=== PATIENT | male | born 1945 | race Caucasian/White ===

== ENCOUNTER 2017-02-06 11:59 | Emergency (ER) | payer OTHER, MEDICARE ==
--- NOTE | 2017-02-06 12:52 | ER Document Report ---
ED Medical Screen (RME) - General Chief Complaint: Low Back Pain Stated Complaint: BACK PAIN Time Seen by Provider: 02/06/17 12:47 Notes: Patient states that about 1 week ago he started to have right low back pain. He states it does not radiate into his leg. He denies any new problems with urination. He states he has been constipated for the last 3 days however. No vomiting. No problems with appetite or eating. TRAVEL OUTSIDE OF THE [place] IN LAST 30 DAYS: No - Related Data Allergies/Adverse Reactions: No Known Allergies Allergy (Verified 02/06/17 12:05) Past Medical History - Social History Chew tobacco use (# tins/day): No Frequency of alcohol use: None Drug Abuse: None Renal/ Medical History: Denies: Hx Peritoneal Dialysis Past Surgical History: Reports: Hx Orthopedic Surgery - back/herniated disk - Immunizations History of Influenza Vaccine for 01/2017 - 06/2017 Season: Refused Physical Exam - Vital signs Vitals: Temp Pulse Resp BP Pulse Ox 97.6 F 75 18 158/93 H 96 02/06/17 12:06 02/06/17 12:06 02/06/17 12:06 02/06/17 12:06 02/06/17 12:06 Course - Vital Signs Vital signs: Temp Pulse Resp BP Pulse Ox 97.6 F 75 18 158/93 H 96 02/06/17 12:06 02/06/17 12:06 02/06/17 12:06 02/06/17 12:06 02/06/17 12:06
[2017-02-06 13:33] LABS: ABSOLUTE EOSINOPHILS # (AUTO) 0.6 10^3/uL (0.0-0.6); ABSOLUTE LYMPHOCYTES (AUTO) 1.5 10^3/uL (0.5-4.7); ABSOLUTE NEUT (AUTO) 6.3 10^3/uL (1.7-8.2); BASOPHILS % (AUTO) 0.2 % (0-2); EOSINOPHILS % (AUTO) 6.1 % (0-6); HEMOGLOBIN 15.9 g/dL (13.5-17.0); HGB HCT DIFFERENCE 2.7; LYMPHOCYTES % (AUTO) 15.8 % (13-45); MEAN CORPUSCULAR HEMOGLOBIN 31.4 pg (27.0-33.4); MEAN CORPUSCULAR HGB CONC 35.2 g/dL (32.0-36.0); MEAN CORPUSCULAR VOLUME 89 fl (80-97); MONOCYTES % (AUTO) 10.5 % (3-13); RED BLOOD COUNT 5.05 10^6/uL (4.35-5.55); RED CELL DISTRIBUTION WIDTH 14.3 % (11.5-14.0); SEGMENTED NEUTROPHILS % (AUTO) 67.4 % (42-78); WHITE BLOOD COUNT 9.3 10^3/uL (4.0-10.5)
[2017-02-06 13:50] LABS: APPEARANCE,URINE CLEAR; BILIRUBIN,URINE NEGATIVE (NEGATIVE); GLUCOSE, URINE NEGATIVE (NEGATIVE); KETONES,URINE NEGATIVE (NEGATIVE); LEUKOCYTE ESTERASE,URINE NEGATIVE (NEGATIVE); NITRITE,URINE NEGATIVE (NEGATIVE); PROTEIN,URINE NEGATIVE (NEGATIVE)
[2017-02-06 13:50] LABS: ALANINE AMINOTRANSFERASE 37 U/L (21-72); ALBUMIN 4.4 g/dL (3.5-5.0); ALKALINE PHOSPHATASE 113 U/L (38-126); ANION GAP 12 (5-19); ASPARTATE AMINO TRANSFERASE 43 U/L (17-59); BILIRUBIN,DIRECT 0.5 mg/dL (0.0-0.4); BILIRUBIN,TOTAL 0.7 mg/dL (0.2-1.3); BLOOD UREA NITROGEN 13 mg/dL (7-20); CALCIUM 10.7 mg/dL (8.4-10.2); CARBON DIOXIDE 34 mmol/L (22-30); CHLORIDE 96 mmol/L (98-107); CREATININE RESULT 0.78 mg/dL (0.52-1.25); GLUCOSE 94 mg/dL (75-110); POTASSIUM 3.3 mmol/L (3.6-5.0); SODIUM 141.7 mmol/L (137-145); TOTAL PROTEIN 7.6 g/dL (6.3-8.2)
--- NOTE | 2017-02-06 14:08 | RADIOLOGY REPORT (SQ) ---
EXAM DESCRIPTION: L SPINE 2 VIEWS COMPLETED DATE/TIME: 02/06/2017 1:37 pm REASON FOR STUDY: pain COMPARISON: None. NUMBER OF VIEWS: Two views. TECHNIQUE: AP, and lateral views of the lumbar spine. LIMITATIONS: None. FINDINGS: MINERALIZATION: Normal. SEGMENTATION: Normal. No transitional anatomy. ALIGNMENT: Mild convex left scoliosis. VERTEBRAE: Maintained height. No fracture or worrisome bone lesion. DISCS: Multilevel disc space narrowing with osteophytes. POSTERIOR ELEMENTS: Pedicles and facets are intact. No pars defect or posterior arch defects. Facet arthropathy is present. HARDWARE: None in the spine. PARASPINAL SOFT TISSUES: Normal. PELVIS: Intact as visualized. No fractures or worrisome bone lesions. SI joints intact. OTHER: No other significant finding. IMPRESSION: Spondylosis. No acute findings. TECHNICAL DOCUMENTATION: JOB ID: [id number] [email or web address]- All Rights Reserved
[2017-02-06] MEDS ORDERED: CYCLOBENZAPRINE HCL 10 MG TABLET PO ONE (14:46)
[2017-02-06] MEDS ORDERED: HYDROCODONE/ACETAMINOPHEN 5-325 MG TABLET PO ONE (14:46)
--- NOTE | 2017-02-06 15:25 | ER Document Report ---
ED General Pain - General Chief Complaint: Low Back Pain Stated Complaint: BACK PAIN Time Seen by Provider: 02/06/17 12:47 Mode of Arrival: Ambulatory Information source: Patient Notes: Patient is a 71-year-old male who presents to the ER today for a month of back pain. Patient states that it started in his upper back and now is in his lower back, on the right side. Patient denies any injury. He does admit to a history of herniated disks. He denies any numbness or tingling anywhere, radiation of the pain down either of his legs. He denies any loss of bladder or bowel function. TRAVEL OUTSIDE OF THE [place] IN LAST 30 DAYS: No - Related Data Allergies/Adverse Reactions: No Known Allergies Allergy (Verified 02/06/17 12:05) Home Medications: Current Home Medications Aspirin [Aspirin EC] 81 mg PO DAILY 02/06/17 [History] Calcium Carbonate [Calcium] 500 mg PO DAILY 02/06/17 [History] Cholecalciferol (Vitamin D3) [Vitamin D3] 400 unit PO DAILY 02/06/17 [History] Cyanocobalamin (Vitamin B-12) [Vitamin B-12] 500 mcg PO DAILY 02/06/17 [History] Levothyroxine Sodium 175 mcg PO DAILY 02/06/17 [History] Lisinopril/Hydrochlorothiazide [Lisinopril-Hctz 20-25 mg Tab] 1 each PO DAILY [History] Metoprolol Tartrate 50 mg PO BID 02/06/17 [History] Simvastatin 40 mg PO QHS 02/06/17 [History] Tamsulosin HCl 0.4 mg PO QHS 02/06/17 [History] Past Medical History - General Information source: Patient - Social History Smoking Status: Current Every Day Smoker Chew tobacco use (# tins/day): No Frequency of alcohol use: None Drug Abuse: None Patient has suicidal ideation: No Patient has homicidal ideation: No Renal/ Medical History: Denies: Hx Peritoneal Dialysis Past Surgical History: Reports: Hx Orthopedic Surgery - back/herniated disk Review of Systems - Review of Systems Constitutional: No symptoms reported EENT: No symptoms reported Cardiovascular: No symptoms reported Respiratory: No symptoms reported Gastrointestinal: No symptoms reported Genitourinary: No symptoms reported Male Genitourinary: No symptoms reported Musculoskeletal: See HPI Skin: No symptoms reported Hematologic/Lymphatic: No symptoms reported Neurological/Psychological: No symptoms reported Physical Exam - Vital signs Vitals: Temp Pulse Resp BP Pulse Ox 97.6 F 75 18 158/93 H 96 02/06/17 12:06 02/06/17 12:06 02/06/17 12:06 02/06/17 12:06 02/06/17 12:06 - Notes Notes: PHYSICAL EXAMINATION: GENERAL: Uncomfortable appearing, sitting in chair favoring the right side, but in no acute distress. HEAD: Atraumatic, normocephalic. EYES: Pupils equal round and reactive to light, extraocular movements intact, sclera anicteric, conjunctiva are normal. NECK: Normal range of motion, supple without lymphadenopathy LUNGS: CTAB and equal. No wheezes rales or rhonchi. HEART: Regular rate and rhythm without murmurs ABDOMEN: Soft, no tenderness. No guarding, no rebound BACK: Mild right SI joint tenderness, no vertebral tenderness, normal ROM GI/: no CVA tenderness EXTREMITIES: Normal range of motion, no pitting edema. No cyanosis. NEUROLOGICAL: Cranial nerves grossly intact. Normal sensory/motor exams. PSYCH: Normal mood, normal affect. SKIN: Warm, Dry, normal turgor, no rashes or lesions noted Course - Re-evaluation Re-evalutation: 02/06/17 15:23 Lab work is unremarkable today, lumbar spine x-ray reveals no acute pathology. Patient needs to follow-up with orthopedic doctor for probable MRI with history of slipped disks. I will provide him with something for pain and a muscle relaxer. - Vital Signs Vital signs: Temp Pulse Resp BP Pulse Ox 97.6 F 75 18 158/93 H 96 02/06/17 12:06 02/06/17 12:06 02/06/17 12:06 02/06/17 12:06 02/06/17 12:06 - Laboratory Result Diagrams: 02/06/17 13:20 02/06/17 13:20 Laboratory results interpreted by me: 02/06/17 02/06/17 02/06/17 13:14 13:20 13:20 RDW 14.3 H Eosinophils % 6.1 H Potassium 3.3 L Chloride 96 L Carbon Dioxide 34 H Calcium 10.7 H Direct Bilirubin 0.5 H Urine Urobilinogen 2.0 H Discharge - Discharge Clinical Impression: Back pain Qualifiers: Back pain location: low back pain Chronicity: acute Back pain laterality: right Sciatica presence: without sciatica Qualified Code(s): M54.5 - Low back pain Condition: Stable Disposition: HOME, SELF-CARE Instructions: Warm Packs ([facility]), Ice Packs ([facility]), Low Back Pain ([facility]) Additional Instructions: Return immediately for any new or worsening symptoms. Follow up with orthopedic doctor, call tomorrow to make followup appointment. Prescriptions: Cyclobenzaprine HCl [Flexeril 10 mg Tablet] 10 mg PO TIDP PRN #30 tab PRN Reason: Hydrocodone/Acetaminophen [[place] 5-325 mg Tablet] 1 tab PO Q4 PRN #15 tablet PRN Reason: Referrals: ESTIVEN MAURO MD [ACTIVE STAFF] - Follow up as needed
[2017-02-06 15:47] VITALS: BP 145/81
== END 2017-02-06 15:47 | disposition home or self-care (01) ==
LOC: ER 11:59
DX: M54.5 Low back pain (principal); M54.9 Dorsalgia, unspecified; Z79.899 Other long term (current) drug therapy; F17.200 Nicotine dependence, unspecified, uncomplicated
CPT/HCPCS: 36415; 72100; 80053; 81001; 85025; 99283

== ENCOUNTER 2017-03-21 12:52 | Inpatient (IN) | payer OTHER, MEDICARE ==
[2017-03-21] MEDS ORDERED: NORMAL SALINE 1000 ML 1,000 ML IV ONE (13:13)
--- NOTE | 2017-03-21 13:21 | ER Document Report ---
ED General - General Chief Complaint: Back Pain Stated Complaint: BACK PAIN Time Seen by Provider: 03/21/17 12:56 TRAVEL OUTSIDE OF THE [place] IN LAST 30 DAYS: No - HPI Notes: 71 years old male with a history of chronic low back pain, polymyositis, this morning while sleeping on a chair slipped and fell on the floor. Since then having pain over the left shoulder region, and increased pain over the lower back. The family members informed that he has been losing weight steadily from 240 pounds 290 pounds, and continuously smoking. He denies any head injury or loss of consciousness currently has no headache or dizziness. Denies any neck pain neck stiffness. Denies any difficulty in breathing denies any fever chills or other constitutional symptoms. - Related Data Allergies/Adverse Reactions: No Known Allergies Allergy (Verified 03/21/17 13:16) Past Medical History - General Information source: Patient, Relative - Social History Smoking Status: Current Every Day Smoker Chew tobacco use (# tins/day): No Frequency of alcohol use: None Drug Abuse: None Family History: Reviewed & Not Pertinent Patient has suicidal ideation: No Patient has homicidal ideation: No - Past Medical History Cardiac Medical History: Reports: Hx Hypertension Renal/ Medical History: Denies: Hx Peritoneal Dialysis Past Surgical History: Reports: Hx Orthopedic Surgery - back/herniated disk Review of Systems - Review of Systems Constitutional: No symptoms reported. denies: See HPI, Chills, Diaphoresis, Fever, Malaise, Weakness, Other, Weight gain, Weight loss, Recent illness EENT: No symptoms reported. denies: See HPI, Eye pain, Eye discharge, Blurred vision, Tearing, Double vision, Ear pain, Ear discharge, Nose pain, Nose congestion, Nose discharge, Sinus pressure, Sinus discharge, Throat pain, Difficulty swallowing, Throat swelling, Mouth pain, Mouth swelling, Dental problem, Vertigo, Other Cardiovascular: No symptoms reported. denies: See HPI, Chest pain, Palpitations , Heart racing, Orthopnea, Dyspnea, Syncope, Dizziness, Lightheaded, Edema, Other, Paroxysmal Nocturnal Dysp Respiratory: No symptoms reported. denies: See HPI, Cough, Hurts to breathe, Hemoptysis, Short of breath, Sputum, Stridor, Wheezing, Other Gastrointestinal: No symptoms reported. denies: See HPI, Abdomen distended, Abdominal pain, Diarrhea, Nausea, Vomiting, Constipation, Blood streaked bowels , Poor appetite, Poor fluid intake, Blood in vomit, Black stools, Rectal bleeding, Last bowel movement, Fecal incontinence, Other Musculoskeletal: See HPI, Back pain, Muscle pain Skin: No symptoms reported, See HPI. denies: Change in color, Change in hair/ nails, Dryness, Lesions, Lumps, Rash, Other Neurological/Psychological: See HPI. denies: No symptoms reported, Confusion, Dementia, Depression, Hallucinations, Anxiety, Homicidal ideation, Sensory change, Weakness, Gait changes, Loss of power, Paralysis, Seizure, Lost consciousness, Headaches, Speech impairment, Numbness, Suicidal ideation, Tingling, Tremor, Other Physical Exam - Vital signs Vitals: Temp Pulse Resp BP Pulse Ox 98.3 F 89 20 88/61 L 99 03/21/17 13:13 03/21/17 13:13 03/21/17 13:13 03/21/17 13:13 03/21/17 13:13 - Notes Notes: General exam: Alert oriented 3, appears well, not in any acute distress, body habitus--normal appearance----. HEENT: Normocephalic atraumatic pupils were equal reactive to light extraocular muscles were within normal range. Neck is supple no JVD no lymphadenopathy. Oral mucosa-not erythematous, no lesions noted no tonsillar enlargement. Oral mucosa was dry Chest no lesions, nontraumatic, nontender. No deformity Lungs: Bilaterally clear breath sounds no rales or wheezing, no adventitial sounds, no dullness on percussion. Cardiovascular system: Normal S1-S2 no murmurs, no gallop. Regular rhythm. No peripheral edema over the lower extremities. Gastrointestinal: Normal appearance, positive bowel sounds in all 4 quadrants, no Hepatosplenomegaly, no obvious masses, no obvious abdominal bruit. No horseshoe dullness. Inguinal region: No masses or obvious inguinal hernia noted Genitourinary: Rectal exam: Nervous system: Alert oriented 3, no cranial nerve weakness, no focal neurological deficit noted. Sensation is intact over the lower extremities for pain and touch. Reflexes are 2+ over both patella. No pronator drift, power over the lower extremity is 4/5. Upper extremities: No trauma as noted, normal range of motion for both shoulders , elbows and wrist. Lower extremity: No traumas or deformities noted, normal range of motion forflexion extension abduction abduction of both hip joints, Normal flexion and extension of knee joint. Normal range of motion for plantarflexion dorsiflexion and eversion inversion for both ankles. Dorsalis pedis pulses on both legs were diminished, Skin: Dry skin, loss of turgor no erythema, no edema, no obvious lesions noted Course - Vital Signs Vital signs: Temp Pulse Resp BP Pulse Ox 98.3 F 89 18 86/46 L 94 03/21/17 13:13 03/21/17 13:13 03/21/17 16:28 03/21/17 16:28 03/21/17 13:23 - Laboratory Result Diagrams: 03/21/17 13:43 03/21/17 13:43 Laboratory results interpreted by me: 03/21/17 03/21/17 03/21/17 13:43 13:43 13:43 WBC 13.0 H RDW 15.2 H Seg Neutrophils % Lymphocytes % Absolute Neutrophils Potassium 3.3 L Chloride 96 L Carbon Dioxide 20 L Anion Gap 26 H BUN 110 H Creatinine 5.07 H Est GFR ( Amer) 14 L Est GFR (Non-Af Amer) 11 L Lactic Acid Direct Bilirubin 1.0 H AST 125 H Creatine Kinase 4946 H CK-MB (CK-2) 50.90 H NT-Pro-B Natriuret Pep 39352 H Total Protein 6.1 L Albumin 3.1 L Urine Protein Urine Blood Urine Urobilinogen Ur Leukocyte Esterase 03/21/17 03/21/17 03/21/17 13:43 13:43 14:20 WBC 13.3 H RDW 15.1 H Seg Neutrophils % 88.0 H Lymphocytes % 6.9 L Absolute Neutrophils 11.7 H Potassium Chloride Carbon Dioxide Anion Gap BUN Creatinine Est GFR ( Amer) Est GFR (Non-Af Amer) Lactic Acid 2.8 H Direct Bilirubin AST Creatine Kinase CK-MB (CK-2) NT-Pro-B Natriuret Pep Total Protein Albumin Urine Protein 30 H Urine Blood MODERATE H Urine Urobilinogen 2.0 H Ur Leukocyte Esterase TRACE H - Diagnostic Test Radiology results interpreted by me: 03/21/17 17:28 Clinical Info Memos Diagnostic report text EXAM DESCRIPTION: CHEST SINGLE VIEW COMPLETED DATE/TIME: 03/21/2017 3:28 pm REASON FOR STUDY: cough COMPARISON: None. EXAM PARAMETERS: NUMBER OF VIEWS: One view. TECHNIQUE: Single frontal radiographic view of the chest acquired. RADIATION DOSE: NA LIMITATIONS: None. FINDINGS: LUNGS AND PLEURA: Right upper lobe density. Lungs otherwise clear. No pleural effusion. No pneumothorax. MEDIASTINUM AND HILAR STRUCTURES: No masses. Contour normal. HEART AND VASCULAR STRUCTURES: Heart normal in size. Normal vasculature. BONES: No acute findings. HARDWARE: None in the chest. OTHER: No other significant finding. IMPRESSION: RIGHT UPPER LOBE DENSITY. THIS COULD BE DUE TO CHRONIC SCARRING VERSUS ACUTE INFILTRATE. TECHNICAL DOCUMENTATION: JOB ID: [id number]- All Rights Reserved Dictated by: SUHAIL GARCIA MD [id number] 03/21/17 17:29 Diagnostic report text EXAM DESCRIPTION: T SPINE AP/LAT COMPLETED DATE/TIME: 03/21/2017 2:19 pm REASON FOR STUDY: fall off sofa, back pn, r/o FX COMPARISON: None. NUMBER OF VIEWS: Two views. TECHNIQUE: AP and lateral radiographic images acquired of the thoracic spine. LIMITATIONS: None. FINDINGS: MINERALIZATION: Normal. ALIGNMENT: Normal. No scoliosis. VERTEBRAE: No fractures. Bridging osteophytes are present. DISCS: No significant loss of height or significant narrowing. No large osteophytes. HARDWARE: None in the spine. MEDIASTINUM AND SOFT TISSUES: Normal heart size and aortic contour. No soft tissue abnormality. VISUALIZED LUNG COLLINS: Clear. OTHER: No other significant finding. IMPRESSION: Extensive spondylosis. TECHNICAL DOCUMENTATION: JOB ID: [id number] [employer]- All Rights Reserved Dictated by: DEVIN SHAH MD [id number] 03/21/17 17:30 Lumbar vertebrae indicated L1 fracture which is acute - EKG Interpretation by [place] EKG shows normal: Sinus rhythm, [place] - Normal axis Rate: Normal Rhythm: NSR Additional EKG results interpreted by ct: 03/21/17 17:32 Normal sinus rhythm at rate of 96 bpm normal axis no acute ST elevation ST depression and T-wave inversion noted. Critical Care Note - Critical Care Note Total time excluding time spent on procedures (mins): 90 Comments: Spent time on discussing the case with specialist including nephrology, hospitalist. Reviewed EKG chest x-ray, managed IV hydration. And manage rhabdomyolysis and non-STEMI. Discharge - Discharge Clinical Impression: Non-STEMI (non-ST elevated myocardial infarction), Lung tumor Rhabdomyolysis Qualifiers: Rhabdomyolysis type: traumatic Encounter type: initial encounter Qualified Code (s): T79.6XXA - Traumatic ischemia of muscle, initial encounter Acute renal failure (ARF) Qualifiers: Acute renal failure type: unspecified Qualified Code(s): N17.9 - Acute kidney failure, unspecified Disposition: ADMITTED INPATIENT Unit Admitted: [facility]
[2017-03-21 14:03] LABS: HEMATOCRIT 42.3 % (37.9-51.0); HEMOGLOBIN 14.2 g/dL (13.5-17.0); MEAN CORPUSCULAR HEMOGLOBIN 29.7 pg (27.0-33.4); MEAN CORPUSCULAR HGB CONC 33.5 g/dL (32.0-36.0); MEAN CORPUSCULAR VOLUME 89 fl (80-97); PLATELET COUNT 228 10^3/uL (150-450); RED BLOOD COUNT 4.77 10^6/uL (4.35-5.55); RED CELL DISTRIBUTION WIDTH 15.2 % (11.5-14.0)
[2017-03-21 14:32] LABS: ALANINE AMINOTRANSFERASE 50 U/L (21-72); ALBUMIN 3.1 g/dL (3.5-5.0); ALKALINE PHOSPHATASE 120 U/L (38-126); ASPARTATE AMINO TRANSFERASE 125 U/L (17-59); BILIRUBIN,TOTAL 1.2 mg/dL (0.2-1.3); BLOOD UREA NITROGEN 110 mg/dL (7-20); CALCIUM 8.6 mg/dL (8.4-10.2); CARBON DIOXIDE 20 mmol/L (22-30); CHLORIDE 96 mmol/L (98-107); GLUCOSE 86 mg/dL (75-110); POTASSIUM 3.3 mmol/L (3.6-5.0); SODIUM 141.5 mmol/L (137-145); TOTAL PROTEIN 6.1 g/dL (6.3-8.2)
--- NOTE | 2017-03-21 14:35 | RADIOLOGY REPORT (SQ) ---
EXAM DESCRIPTION: T SPINE AP/LAT COMPLETED DATE/TIME: 03/21/2017 2:19 pm REASON FOR STUDY: fall off sofa, back pn, r/o FX COMPARISON: None. NUMBER OF VIEWS: Two views. TECHNIQUE: AP and lateral radiographic images acquired of the thoracic spine. LIMITATIONS: None. FINDINGS: MINERALIZATION: Normal. ALIGNMENT: Normal. No scoliosis. VERTEBRAE: No fractures. Bridging osteophytes are present. DISCS: No significant loss of height or significant narrowing. No large osteophytes. HARDWARE: None in the spine. MEDIASTINUM AND SOFT TISSUES: Normal heart size and aortic contour. No soft tissue abnormality. VISUALIZED LUNG COLLINS: Clear. OTHER: No other significant finding. IMPRESSION: Extensive spondylosis. TECHNICAL DOCUMENTATION: JOB ID: [id number] [email or web address]- All Rights Reserved
[2017-03-21 14:44] LABS: CREATINE KINASE MB 50.9 ng/mL (<4.55)
[2017-03-21 14:45] LABS: TROPONIN I 6.57 ng/mL
--- NOTE | 2017-03-21 14:45 | RADIOLOGY REPORT (SQ) ---
EXAM DESCRIPTION: L SPINE WHOLE COMPLETED DATE/TIME: 03/21/2017 2:19 pm REASON FOR STUDY: fall off sofa, back pn, r/o FX COMPARISON: None. 02/06/2017. NUMBER OF VIEWS: Five views including obliques. TECHNIQUE: AP, lateral, oblique, and sacral radiographic images acquired of the lumbar spine. LIMITATIONS: None. FINDINGS: MINERALIZATION: Normal. SEGMENTATION: Normal. No transitional anatomy. ALIGNMENT: Normal. VERTEBRAE: Mild wedge deformity of L1 which was not present on the prior study. DISCS: Multilevel disc space narrowing with osteophytes. POSTERIOR ELEMENTS: Pedicles and facets are intact. No pars defect or posterior arch defects. Facet arthropathy is present. HARDWARE: None in the spine. PARASPINAL SOFT TISSUES: Normal. PELVIS: Intact as visualized. No fractures or worrisome bone lesions. SI joints intact. OTHER: No other significant finding. IMPRESSION: CHRONIC DEGENERATIVE CHANGES. THERE IS NEW MILD WEDGE DEFORMITY OF L1 CONSISTENT WITH R ECENT COMPRESSION FRACTURE. TECHNICAL DOCUMENTATION: JOB ID: [id number] [employer]- All Rights Reserved
[2017-03-21 14:49] LABS: ABSOLUTE LYMPHOCYTES (AUTO) 0.9 10^3/uL (0.5-4.7); ABSOLUTE MONOCYTES (AUTO) 0.7 10^3/uL (0.1-1.4); ABSOLUTE NEUT (AUTO) 11.7 10^3/uL (1.7-8.2); BASOPHILS % (AUTO) 0.1 % (0-2); EOSINOPHILS % (AUTO) 0.1 % (0-6); HEMATOCRIT 42.3 % (37.9-51.0); HEMOGLOBIN 14.4 g/dL (13.5-17.0); LYMPHOCYTES % (AUTO) 6.9 % (13-45); MEAN CORPUSCULAR HEMOGLOBIN 29.9 pg (27.0-33.4); MEAN CORPUSCULAR VOLUME 88 fl (80-97); MONOCYTES % (AUTO) 4.9 % (3-13); PLATELET COUNT 225 10^3/uL (150-450); RED CELL DISTRIBUTION WIDTH 15.1 % (11.5-14.0); TOTAL CELLS COUNTED % (AUTO) 100 %; WHITE BLOOD COUNT 13.3 10^3/uL (4.0-10.5)
[2017-03-21 14:50] LABS: CREATINE KINASE 4946 U/L (55-170)
[2017-03-21 14:59] LABS: ANION GAP 26 (5-19)
[2017-03-21 15:20] LABS: AMORPHOUS SEDIMENT,URINE TRACE /HPF; APPEARANCE,URINE CLOUDY; BILIRUBIN,URINE NEGATIVE (NEGATIVE); COLOR,URINE AMBER; GLUCOSE, URINE NEGATIVE (NEGATIVE); KETONES,URINE NEGATIVE (NEGATIVE); LEUKOCYTE ESTERASE,URINE TRACE (NEGATIVE); NITRITE,URINE NEGATIVE (NEGATIVE); PROTEIN,URINE 30 mg/dL (NEGATIVE); URINE SPECIFIC GRAVITY 1.018
--- NOTE | 2017-03-21 15:43 | RADIOLOGY REPORT (SQ) ---
EXAM DESCRIPTION: CHEST SINGLE VIEW COMPLETED DATE/TIME: 03/21/2017 3:28 pm REASON FOR STUDY: cough COMPARISON: None. EXAM PARAMETERS: NUMBER OF VIEWS: One view. TECHNIQUE: Single frontal radiographic view of the chest acquired. RADIATION DOSE: NA LIMITATIONS: None. FINDINGS: LUNGS AND PLEURA: Right upper lobe density. Lungs otherwise clear. No pleural effusion. No pneumothorax. MEDIASTINUM AND HILAR STRUCTURES: No masses. Contour normal. HEART AND VASCULAR STRUCTURES: Heart normal in size. Normal vasculature. BONES: No acute findings. HARDWARE: None in the chest. OTHER: No other significant finding. IMPRESSION: RIGHT UPPER LOBE DENSITY. THIS COULD BE DUE TO CHRONIC SCARRING VERSUS ACUTE INFILTRATE . TECHNICAL DOCUMENTATION: JOB ID: [id number] [employer]- All Rights Reserved
[2017-03-21] MEDS ORDERED: NORMAL SALINE 1000 ML 1,000 ML IV PRN (17:01)
[2017-03-21] MEDS ORDERED: RINGERS SOLUTION,LACTATED 1,000 ML IV ONE (17:04)
[2017-03-21] MEDS ORDERED: ONDANSETRON HCL INJ/PF 4 MG/2 ML SDV IV PRN (18:07)
[2017-03-21] MEDS ORDERED: IPRATROPIUM/ALBUTEROL 0.5-2.5 MG/3 ML AMPUL NEB PRN (18:07)
--- NOTE | 2017-03-21 18:38 | PDOC H&P ---
History of Present Illness Admission Date/PCP: March 21, 2017 Patient complains of: Back pain History of Present Illness: MARIELA DE LEÓN is a 71 year old male with a history of hypertension and COPD who has had problems with back pain for the last 2 months. The patient is noted to have an L1 compression fracture. Patient reports over the last 2 months he has been having pain and since that Thanksgiving has had more pain. He reports he has had trouble getting up out of a chair because of his back pain and because of that he has been eating and drinking less. Patient reports that he is in a lot of pain and has a hard time getting up. He has had very little to eat or drink over the last 2 weeks. He fell out of his recliner chair this morning and when he presented to emergency room was found to be relatively hypotensive with blood pressures in the 80s. Patient also was found to have acute renal failure with a creatinine of 5. His creatinine 2 months ago was normal. The patient also was noted to have a positive troponin as well as elevated creatine kinase. Patient however has no cardiac history denies any chest pain. He does have COPD and continues to smoke about 1 pack per day. The patient does have BPH and takes Flomax for that. He also has been taking Naprosyn because of his chronic back pain. Patient is admitted for workup of acute renal failure Past Medical History Cardiac Medical History: Reports: Hyperlipidema, Hypertension Pulmonary Medical History: Reports: Chronic Obstructive Pulmonary Disease (COPD) Endocrine Medical History: Reports: Hypothyroidism Malignancy Medical History: Reports: None GI Medical History: Reports: None Musculoskeltal Medical History: Reports: Arthritis Traumatic Medical History: Reports: None Hematology: Reports: None Infectious Medical History: Reports: None Past Surgical History Past Surgical History: Reports: Orthopedic Surgery - back/herniated disk Social History Information Source: Patient Lives with: Alone Smoking Status: Current Every Day Smoker Frequency of Alcohol Use: Rare Hx Recreational Drug Use: No Drugs: None Hx Prescription Drug Abuse: No - Advance Directive Resuscitation Status: Do Not Resuscitate Surrogate healthcare decision maker:: His brother is his decision maker. He has a daughter but he request that his brother be the medical power Family History Family History: Father at age 83 and had Parkinson's disease. Mother at age 83 and had coronary artery disease. Parental Family History Reviewed: Yes Children Family History Reviewed: No Sibling(s) Family History Reviewed.: No Medication/Allergy Home Medications: Acetaminophen with Codeine [Acetaminophen-Cod #3 Tablet] 300 mg PO Q8HP PRN 10/29 Aspirin [Aspirin EC] 81 mg PO DAILY 03/21/17 Cholecalciferol (Vitamin D3) [Vitamin D3 400 Unit Tablet] 400 unit PO DAILY 10/29 Cyanocobalamin (Vitamin B-12) [Vitamin B-12] 500 mcg PO DAILY 03/21/17 Levothyroxine Sodium [Synthroid] 175 mcg PO DAILY 03/21/17 Lisinopril/Hydrochlorothiazide [Lisinopril-Hctz 20-25 mg Tab] 1 each PO DAILY Metoprolol Tartrate [Lopressor 50 mg Tablet] 50 mg PO Q12 03/21/17 Naproxen [Naprosyn] 500 mg PO BIDP PRN 03/21/17 Simvastatin [Zocor 40 mg Tablet] 40 mg PO QHS 03/21/17 Tamsulosin HCl [Flomax 0.4 mg Cap.sr] 0.4 mg PO QHS 03/21/17 Allergies/Adverse Reactions: No Known Allergies Allergy (Verified 03/21/17 13:16) Review of Systems Constitutional: PRESENT: weight loss - 40 pound weight loss over the last several months.. ABSENT: chills, fever(s), headache(s), night sweats Eyes: ABSENT: visual disturbances Ears: ABSENT: hearing changes Cardiovascular: ABSENT: chest pain, dyspnea on exertion, edema, orthropnea, palpitations Respiratory: ABSENT: cough, hemoptysis Gastrointestinal: ABSENT: abdominal pain, constipation, diarrhea, hematemesis, hematochezia, nausea, vomiting Genitourinary: PRESENT: difficulty urinating. ABSENT: dysuria, hematuria Musculoskeletal: PRESENT: back pain Integumentary: ABSENT: rash, wounds Neurological: PRESENT: frequent falls Psychiatric: ABSENT: anxiety, depression Endocrine: ABSENT: cold intolerance, heat intolerance, polydipsia, polyuria Hematologic/Lymphatic: ABSENT: easy bleeding, easy bruising Physical Exam Vital Signs: Temp Pulse Resp BP Pulse Ox 98.3 F 89 17 102/51 L 68 L 03/21/17 13:13 03/21/17 13:13 03/21/17 18:01 03/21/17 18:01 03/21/17 17:46 Intake & Output 03/20/17 03/21/17 03/22/17 06:59 06:59 06:59 Intake Total 1999 Balance 2000 Weight 90.446 kg General appearance: PRESENT: no acute distress, cooperative, disheveled Head exam: PRESENT: atraumatic, normocephalic Eye exam: PRESENT: conjunctiva pink, EOMI, PERRLA. ABSENT: scleral icterus Ear exam: PRESENT: normal external ear exam Mouth exam: PRESENT: dry mucosa Neck exam: ABSENT: carotid bruit, JVD, lymphadenopathy, thyromegaly Respiratory exam: PRESENT: wheezes - Few scattered expiratory wheezes. ABSENT: rales, rhonchi Cardiovascular exam: PRESENT: RRR. ABSENT: diastolic murmur, rubs, systolic murmur Vascular exam: PRESENT: normal capillary refill GI/Abdominal exam: PRESENT: normal bowel sounds, soft. ABSENT: distended, guarding, mass, organolmegaly, rebound, tenderness Rectal exam: PRESENT: deferred Extremities exam: ABSENT: calf tenderness, clubbing, pedal edema Neurological exam: PRESENT: alert, awake, oriented to person, oriented to place , oriented to time, oriented to situation, CN II-XII grossly intact. ABSENT: motor sensory deficit Psychiatric exam: PRESENT: appropriate affect Skin exam: PRESENT: dry, intact, warm. ABSENT: cyanosis, rash Results Laboratory Results: 03/21/17 13:43 03/21/17 13:43 03/21/17 03/21/17 03/21/17 13:43 13:43 13:43 WBC 13.0 H RBC 4.77 Hgb 14.2 Hct 42.3 MCV 89 MCH 29.7 MCHC 33.5 RDW 15.2 H Plt Count 228 Seg Neutrophils % Lymphocytes % Monocytes % Eosinophils % Basophils % Absolute Neutrophils Absolute Lymphocytes Absolute Monocytes Absolute Eosinophils Absolute Basophils Sodium 141.5 Potassium 3.3 L Chloride 96 L Carbon Dioxide 20 L Anion Gap 26 H BUN 110 H Creatinine 5.07 H Est GFR ( Amer) 14 L Est GFR (Non-Af Amer) 11 L Glucose 86 Lactic Acid 2.8 H Calcium 8.6 Total Bilirubin 1.2 AST 125 H ALT 50 Alkaline Phosphatase 120 Total Protein 6.1 L Albumin 3.1 L Urine Color Urine Appearance Urine pH Ur Specific [place] Urine Protein Urine Glucose (UA) Urine Ketones Urine Blood Urine Nitrite Ur Leukocyte Esterase Urine WBC (Auto) Urine RBC (Auto) 03/21/17 03/21/17 13:43 14:20 WBC 13.3 H RBC 4.80 Hgb 14.4 Hct 42.3 MCV 88 MCH 29.9 MCHC 34.0 RDW 15.1 H Plt Count 225 Seg Neutrophils % 88.0 H Lymphocytes % 6.9 L Monocytes % 4.9 Eosinophils % 0.1 Basophils % 0.1 Absolute Neutrophils 11.7 H Absolute Lymphocytes 0.9 Absolute Monocytes 0.7 Absolute Eosinophils 0.0 Absolute Basophils 0.0 Sodium Potassium Chloride Carbon Dioxide Anion Gap BUN Creatinine Est GFR ( Amer) Est GFR (Non-Af Amer) Glucose Lactic Acid Calcium Total Bilirubin AST ALT Alkaline Phosphatase Total Protein Albumin Urine Color [place] Urine Appearance CLOUDY Urine pH 5.0 Ur Specific [place] 1.018 Urine Protein 30 H Urine Glucose (UA) NEGATIVE Urine Ketones NEGATIVE Urine Blood MODERATE H Urine Nitrite NEGATIVE Ur Leukocyte Esterase TRACE H Urine WBC (Auto) 11 Urine RBC (Auto) 6 03/21/17 03/21/17 13:43 13:43 Creatine Kinase 4946 H CK-MB (CK-2) 50.90 H Troponin I 6.570 NT-Pro-B Natriuret Pep 58610 H Impressions: Lumbar Spine X-Ray 03/21/17 13:02 IMPRESSION: CHRONIC DEGENERATIVE CHANGES. THERE IS NEW MILD WEDGE DEFORMITY OF L1 CONSISTENT WITH RECENT COMPRESSION FRACTURE. Thoracic Spine X-Ray 03/21/17 13:02 IMPRESSION: Extensive spondylosis. Chest X-Ray 03/21/17 15:10 IMPRESSION: RIGHT UPPER LOBE DENSITY. THIS COULD BE DUE TO CHRONIC SCARRING VERSUS ACUTE INFILTRATE. Assessment & Plan - Diagnosis (1) Acute renal failure (ARF) Qualifiers: Acute renal failure type: unspecified Qualified Code(s): N17.9 - Acute kidney failure, unspecified Is this a current diagnosis for this admission?: Yes Plan: The patient has acute renal failure. He has had decreased p.o. intake for the last several weeks. He also has been taking Naprosyn. Will stop the Naprosyn and treat aggressively with IV fluids. We will also obtain a renal ultrasound to make certain he does not have any BPH causing obstruction. Will also consult Dr. Bhatti. Of note is that he has an elevated BNP. We will give IV fluids knowing that we will need to watch to make certain he does not become volume overloaded. Patient has no need for dialysis at this time. I suspect that volume depletion along with nonsteroidals as the cause for his acute renal failure. (2) Rhabdomyolysis Qualifiers: Rhabdomyolysis type: traumatic Encounter type: initial encounter Qualified Code(s): T79.6XXA - Traumatic ischemia of muscle, initial encounter Is this a current diagnosis for this admission?: Yes Plan: Most likely secondary to his prolonged immobility. Will treat with IV fluids and monitor. (3) Troponin level elevated Is this a current diagnosis for this admission?: Yes Plan: Patient has not had any chest pain or any cardiac history. Elevated troponins most likely secondary to chronic renal failure. Will get an echocardiogram in light of the elevated BNP. Will continue with aspirin. (4) Back pain Is this a current diagnosis for this admission?: Yes Plan: We will give Percocet as needed. He has an L1 compression fracture. This is probably what is the cause of his chronic pain that made it difficult for him to get up and care for himself. (5) Compression fracture Is this a current diagnosis for this admission?: Yes Plan: We will give Percocet as needed (6) Hypertension Is this a current diagnosis for this admission?: Yes Plan: We will hold his lisinopril and hydrochlorothiazide in light of his acute renal failure. (7) Hyperlipidemia Is this a current diagnosis for this admission?: Yes Plan: Continue with Zocor. (8) COPD (chronic obstructive pulmonary disease) Is this a current diagnosis for this admission?: Yes Plan: We will give nebulizers as needed. He is encouraged to quit smoking. (9) Hypothyroidism Is this a current diagnosis for this admission?: Yes Plan: Continue Synthroid. (10) BPH (benign prostatic hyperplasia) Is this a current diagnosis for this admission?: Yes Plan: Continue Flomax - Time Time Spent: 50 to 70 Minutes - Inpatient Certification Medical Necessity: Need Close Monitoring Due to Risk of Patient Decompensation, Need For IV Fluids
[2017-03-21] MEDS ORDERED: TAMSULOSIN HCL 0.4 MG CAP.SR.24H PO ONE ×2 (19:30→23:00)
[2017-03-21 20:28] LABS: CREATINE KINASE MB 47.8 ng/mL (<4.55); TROPONIN I 6.34 ng/mL
--- NOTE | 2017-03-21 20:40 | EKG REPORT ---
SEVERITY:- ABNORMAL ECG - SINUS RHYTHM PROBABLE LEFT ATRIAL ABNORMALITY INCOMPLETE RIGHT BUNDLE BRANCH BLOCK : Confirmed by: Timi To 21-Mar-2017 20:40:16
[2017-03-21] MEDS: HEPARIN SOD (PORCINE) 5,000 UNIT/ML 1 ML SYRINGE SUBCUT SCH (22:46)
[2017-03-21] MEDS: FAMOTIDINE 20 MG TABLET PO SCH (22:47)
[2017-03-21] MEDS: SIMVASTATIN 40 MG TABLET PO SCH (22:49)
[2017-03-21] MEDS: METOPROLOL TARTRATE 50 MG TABLET PO SCH (22:51)
[2017-03-22] MEDS: NORMAL SALINE 1000 ML 1,000 ML IV PRN ×2 (01:30→09:56)
[2017-03-22 02:41] LABS: CREATINE KINASE MB 43.3 ng/mL (<4.55)
[2017-03-22 02:47] LABS: TROPONIN I 6.75 ng/mL
--- NOTE | 2017-03-22 03:55 | RADIOLOGY REPORT (SQ) ---
EXAM DESCRIPTION: U/S RETROPERITON (RENAL/AORTA) CLINICAL HISTORY: 71 years, Male, renal failure COMPARISON: None. TECHNIQUE: Transabdominal LIMITATIONS: None. FINDINGS: Complex cystic mass with septations and peripheral vascularity of the right lower abdominal quadrant measures 15 x 8 x 10 cm; unclear if it is associated with the right kidney which otherwise measures 13.5 cm is partially visualized. 14.2 cm left kidney demonstrates a likely duplicated collecting system and appears otherwise unremarkable. Urinary bladder appears within normal limits. Ureteral jet flow is not demonstrated within the urinary bladder, a nonspecific finding. IMPRESSION: Indeterminate 15 cm complex cystic components of the right lower abdomen; cannot exclude neoplasm. Further evaluation with IV and oral contrast CT of the abdomen and pelvis (renal protocol) series recommended. 2011 [employer]- All Rights Reserved
[2017-03-22] MEDS ORDERED: NORMAL SALINE 1000 ML 1,000 ML IV ONE (04:15)
[2017-03-22] MEDS: LEVOTHYROXINE SODIUM 0.075 MG TABLET PO SCH (05:19)
[2017-03-22] MEDS: LEVOTHYROXINE SODIUM 0.1 MG TABLET PO SCH (05:20)
[2017-03-22] MEDS: HEPARIN SOD (PORCINE) 5,000 UNIT/ML 1 ML SYRINGE SUBCUT SCH ×3 (05:20→22:12)
[2017-03-22] MEDS ORDERED: NORMAL SALINE 1000 ML 2,000 ML IV ONE (06:30)
[2017-03-22] MEDS ORDERED: (PENDING PHARMACY ID) (Cyanocobalamin (Vitamin B-12) [Vitamin B-12] 500 MCG) PO SCH (10:00)
[2017-03-22] MEDS ORDERED: (PENDING PHARMACY ID) (Levothyroxine Sodium [Synthroid] 175 MCG) PO SCH (10:00)
[2017-03-22] MEDS: FAMOTIDINE 20 MG TABLET PO SCH ×2 (10:57→22:11)
[2017-03-22] MEDS: CYANOCOBALAMIN (VITAMIN B-12) 1,000 MCG TABLET PO SCH (10:58)
[2017-03-22] MEDS: CHOLECALCIFEROL (D3) 400 UNIT TABLET PO SCH (10:59)
[2017-03-22] MEDS: ASPIRIN 81 MG TABLET, ENT COATED PO SCH (10:59)
[2017-03-22] MEDS: METOPROLOL TARTRATE 50 MG TABLET PO SCH ×2 (11:00→22:11)
[2017-03-22 11:20] LABS: ABSOLUTE EOSINOPHILS # (AUTO) 0.1 10^3/uL (0.0-0.6); ABSOLUTE LYMPHOCYTES (AUTO) 0.8 10^3/uL (0.5-4.7); ABSOLUTE MONOCYTES (AUTO) 0.6 10^3/uL (0.1-1.4); ABSOLUTE NEUT (AUTO) 9.2 10^3/uL (1.7-8.2); BASOPHILS % (AUTO) 0.1 % (0-2); EOSINOPHILS % (AUTO) 1.1 % (0-6); HEMATOCRIT 35.9 % (37.9-51.0); HEMOGLOBIN 12.5 g/dL (13.5-17.0); LYMPHOCYTES % (AUTO) 7.8 % (13-45); MEAN CORPUSCULAR HEMOGLOBIN 30.6 pg (27.0-33.4); MEAN CORPUSCULAR HGB CONC 34.9 g/dL (32.0-36.0); MEAN CORPUSCULAR VOLUME 88 fl (80-97); MONOCYTES % (AUTO) 5.9 % (3-13); PLATELET COUNT 165 10^3/uL (150-450); RED BLOOD COUNT 4.09 10^6/uL (4.35-5.55); RED CELL DISTRIBUTION WIDTH 15.2 % (11.5-14.0); SEGMENTED NEUTROPHILS % (AUTO) 85.1 % (42-78); TOTAL CELLS COUNTED % (AUTO) 100 %; WHITE BLOOD COUNT 10.8 10^3/uL (4.0-10.5)
[2017-03-22 11:39] LABS: ANION GAP 18 (5-19); BLOOD UREA NITROGEN 104 mg/dL (7-20); CALCIUM 7.4 mg/dL (8.4-10.2); CARBON DIOXIDE 17 mmol/L (22-30); CHLORIDE 105 mmol/L (98-107); GLUCOSE 77 mg/dL (75-110); POTASSIUM 3.2 mmol/L (3.6-5.0); SODIUM 139.7 mmol/L (137-145)
[2017-03-22 11:51] LABS: CREATINE KINASE MB 37.1 ng/mL (<4.55)
[2017-03-22 12:01] LABS: TROPONIN I 6.13 ng/mL
[2017-03-22 12:04] LABS: CREATINE KINASE 6173 U/L (55-170)
--- NOTE | 2017-03-22 12:26 | RADIOLOGY REPORT (SQ) ---
EXAM DESCRIPTION: CT ABD/PELVIS ORAL ONLY COMPLETED DATE/TIME: 03/22/2017 12:02 pm REASON FOR STUDY: abd mass COMPARISON: None. TECHNIQUE: CT scan of the abdomen and pelvis performed without intravenous contrast. A small amount of oral contrast was ingested. Images reviewed with lung, soft tissue, and bone windows. Reconstruc estrada coronal and sagittal MPR images reviewed. All images stored on PACS. All CT scanners at this facility use dose modulation, iterative reconstruction, and/or weight based d osing when appropriate to reduce radiation dose to as low as reasonably achievable (ALARA). [facility]: Dose Right [facility]: CareDose [facility]: Dose Right [facility]: Teradose 4D [facility]: Smart Collectric RADIATION DOSE: CT Rad equipment meets quality standard of care and radiation dose reduction techniq ues were employed. CTDIvol: 23.6 mGy. DLP: 1258 mGy-cm.mGy. LIMITATIONS: None. FINDINGS: LOWER CHEST: There is a small right pleural effusion and minimal left pleural effusion wit h mild subsegmental atelectasis in the lower lobes. NON-CONTRASTED LIVER, SPLEEN, ADRENALS: Evaluation limited by lack of IV contrast. No identified sign ificant masses. PANCREAS: No masses. No peripancreatic inflammatory changes. GALLBLADDER: No identified stones by CT criteria. No inflammatory changes to suggest cholecystitis. RIGHT KIDNEY AND URETER: There is a large irregularly-shaped cystic appearing mass arising from the l ower pole. This measures 12 cm in largest transverse diameter and 15 mm cephalocaudal dimension. Th ere are some calcifications associated with this and the suggestion of some septation. There are so mewhat linear appearing calcifications suggesting septae within the mass. No hydronephrosis or hydr oureter. LEFT KIDNEY AND URETER: No suspicious masses. Assessment limited by lack of IV contrast. There is s mall nonobstructing intrarenal calculus in the upper pole. No hydronephrosis or hydroureter. AORTA AND RETROPERITONEUM: No aneurysm. No retroperitoneal masses or adenopathy. BOWEL AND PERITONEAL CAVITY: There is diverticulosis of the descending colon and sigmoid. There is n o acute inflammation. APPENDIX: Not identified. PELVIS, BLADDER, AND ABDOMINAL WALL:A Olivarez catheter is present in the urinary bladder. BONES: Degenerative disc disease and spondylosis. Compression changes are present at L1 that can be seen on the study of March 21 but not on the study of February 06. OTHER: No other significant finding. IMPRESSION: 1. Small pleural effusions. 2. Large predominantly cystic mass arising from the lower pole the right kidney. There are some tanya ear calcifications suggesting septations. Cannot entirely exclude malignancy. 3. Diverticulosis coli. 4. Compression changes at L1 as described. 5. Other findings as described. COMMENT: Quality ID # [id number]: Final reports with documentation of one or more dose reduction techniques (e.g., Automated exposure control, adjustment of the mA and/or kV according to patient size, use of iterative reconstruction technique) TECHNICAL DOCUMENTATION: JOB ID: [id number] [employer]- All Rights Reserved
--- NOTE | 2017-03-22 13:17 | XCELERA REPORT ---
[address] [address] Transthoracic Echocardiogram Report Name: MARIELA DE LEÓN Age: 71 yrs Gender: Male : 1945 Patient Status: Inpatient Patient Location: [address] [place] [address] Study Date: 03/22/2017 08:57 AM Height: 69 in Weight: 199 lb BSA: 2.1 m2 Procedure: A two-dimensional transthoracic echocardiogram with color flow and Doppler was performed. Study Quality: Technically suboptimal. Reason For Study: elevated troponin History: elevated troponin. Ordering Physician: DEVIN REED Performed By: Petrona Barrios Interpretation Summary Study Quality: Technically suboptimal. The left ventricle is normal in size. There is normal left ventricular wall thickness. Left ventricular systolic function is normal. LV EF is 70% Doppler measurements suggest impaired left ventricular relaxation, which is associated with grade I/IV or mild diastolic dysfunction The left ventricular wall motion is normal. The right ventricle is not well visualized secondary to technical limitations The left atrial size is normal. There is no evidence of mitral valve prolapse. There is no vegetation seen on the mitral valve. No 'SOREN'. There is a trace to mild amount of mitral regurgitation There is a peak gradient of 29 mm of Hg. There is 25 mm resting LVOT gradient.LVOT not bwell seen.No defenite WENDY or MV 'SOREN'.Recommend GOLDIE to make sure no IHSS.(HOCM). There is a trace amount of tricuspid regurgitation RVSP is 32 mm of Hg , with RA mean of 5.Hence no significant pulmonary hypertension. There is no pericardial effusion. MMode/2D Measurements & Calculations RVDd: 3.6 cm LVIDd: 4.5 cm FS: 50.0 % Ao root diam: 3.1 cm IVSd: 0.90 cm LVIDs: 2.3 cm EDV(Teich): 93.6 ml LVPWd: 0.87 cmESV(Teich): 17.4 ml Ao root area: 7.7 cm2 EF(Teich): 81.5 % LA dimension: 3.8 cm LVOT diam: 2.0 cm LVOT area: 3.1 cm2 Doppler Measurements & Calculations MV E max delia: MV P1/2t max delia: Ao V2 max: LV V1 max P.6 cm/sec 138.8 cm/sec 269.5 cm/sec 25.8 mmHg MV A max delia: MV P1/2t: 65.3 msec Ao max PG: LV V1 max: 148.7 cm/sec MVA(P1/2t): 3.4 cm2 29.1 mmHg 254.1 cm/sec MV E/A: 0.93 MV dec slope: Ao V2 mean: 623.0 cm/sec2 181.9 cm/sec Ao mean P.4 mmHg Ao V2 VTI: 48.0 cm MARILY(V,D): 2.9 cm2 PA V2 max: TR max delia: 97.5 cm/sec 257.9 cm/sec PA max PG: TR max P.6 mmHg 3.8 mmHg Left Ventricle The left ventricle is normal in size. There is normal left ventricular wall thickness. Left ventricular systolic function is normal. LV EF is 70%. Doppler measurements suggest impaired left ventricular relaxation, which is associated with grade I/IV or mild diastolic dysfunction. The left ventricular wall motion is normal. There is no thrombus. Right Ventricle The right ventricle is not well visualized secondary to technical limitations. Atria The right atrium is normal. The left atrial size is normal. The interatrial septum is intact with no evidence for an atrial septal defect. Mitral Valve There is no evidence of mitral valve prolapse. There is no vegetation seen on the mitral valve. No 'SOREN'. There is no mitral valve stenosis. There is a trace to mild amount of mitral regurgitation. Aortic Valve There is no aortic valvular vegetation. There is mild aortic stenosis. There is a peak gradient of 29 mm of Hg. There is 25 mm resting LVOT gradient.LVOT not bwell seen.No defenite WENDY or MV 'SOREN'.Recommend GOLDIE to make sure no IHSS.(HOCM). No aortic regurgitation is present. Tricuspid Valve There is no tricuspid stenosis. There is a trace amount of tricuspid regurgitation. RVSP is 32 mm of Hg , with RA mean of 5.Hence no significant pulmonary hypertension. Pulmonic Valve There is no pulmonic valvular stenosis. There is no pulmonic valvular regurgitation. Great Vessels The aortic root is not well visualized but is probably normal size. Effusions There is no pericardial effusion. : DEVIN REED > [place]
--- NOTE | 2017-03-22 15:10 | PDOC PROGRESS REPORT ---
Subjective Progress Note for:: 03/22/17 Subjective:: Complains of some pain around his sacrum. Reason For Visit: ACUTE RENAL FAILURE Physical Exam Vital Signs: Temp Pulse Resp BP Pulse Ox 98.4 F 95 18 72/45 L 86 L 03/22/17 13:19 03/22/17 14:00 03/22/17 13:19 03/22/17 13:19 03/22/17 13:19 Intake & Output 03/21/17 03/22/17 03/23/17 06:59 06:59 06:59 Intake Total 1923 Balance 1923 Weight 94.3 kg General appearance: PRESENT: no acute distress Eye exam: PRESENT: conjunctiva pink. ABSENT: scleral icterus Mouth exam: PRESENT: dry mucosa Neck exam: ABSENT: JVD Respiratory exam: PRESENT: rales. ABSENT: rhonchi, wheezes Cardiovascular exam: PRESENT: RRR. ABSENT: diastolic murmur, rubs, systolic murmur GI/Abdominal exam: PRESENT: normal bowel sounds, soft. ABSENT: distended, guarding, mass, organolmegaly, rebound, tenderness Extremities exam: ABSENT: calf tenderness, clubbing, pedal edema Neurological exam: PRESENT: alert, awake, oriented to person, oriented to place , oriented to time, oriented to situation, CN II-XII grossly intact. ABSENT: motor sensory deficit Psychiatric exam: PRESENT: appropriate affect Skin exam: PRESENT: other - Unstageable decubitus in the sacrum. Dark dusky area overlies it. Results Laboratory Results: 03/22/17 10:51 03/22/17 10:51 03/21/17 03/22/17 03/22/17 19:51 10:51 10:51 WBC 10.8 H RBC 4.09 L Hgb 12.5 L Hct 35.9 L MCV 88 MCH 30.6 MCHC 34.9 RDW 15.2 H Plt Count 165 Seg Neutrophils % 85.1 H Lymphocytes % 7.8 L Monocytes % 5.9 Eosinophils % 1.1 Basophils % 0.1 Absolute Neutrophils 9.2 H Absolute Lymphocytes 0.8 Absolute Monocytes 0.6 Absolute Eosinophils 0.1 Absolute Basophils 0.0 Sodium 139.7 Potassium 3.2 L Chloride 105 Carbon Dioxide 17 L Anion Gap 18 BUN 104 H Creatinine 4.32 H Est GFR ( Amer) 17 L Est GFR (Non-Af Amer) 14 L Glucose 77 Calcium 7.4 L Magnesium 2.0 TSH 2.10 03/21/17 03/21/17 03/22/17 19:51 19:51 02:05 Creatine Kinase 6234 H 6106 H CK-MB (CK-2) 47.80 H Troponin I 6.340 03/22/17 03/22/17 03/22/17 02:05 10:51 10:51 Creatine Kinase 6173 H CK-MB (CK-2) 43.30 H 37.10 H Troponin I 6.750 6.130 Impressions: Lumbar Spine X-Ray 03/21/17 13:02 IMPRESSION: CHRONIC DEGENERATIVE CHANGES. THERE IS NEW MILD WEDGE DEFORMITY OF L1 CONSISTENT WITH RECENT COMPRESSION FRACTURE. Thoracic Spine X-Ray 03/21/17 13:02 IMPRESSION: Extensive spondylosis. Chest X-Ray 03/21/17 15:10 IMPRESSION: RIGHT UPPER LOBE DENSITY. THIS COULD BE DUE TO CHRONIC SCARRING VERSUS ACUTE INFILTRATE. Abdomen/Pelvis CT 03/22/17 00:00 IMPRESSION: 1. Small pleural effusions. 2. Large predominantly cystic mass arising from the lower pole the right kidney. There are some linear calcifications suggesting septations. Cannot entirely exclude malignancy. 3. Diverticulosis coli. 4. Compression changes at L1 as described. 5. Other findings as described. Renal Ultrasound 03/22/17 00:00 IMPRESSION: Indeterminate 15 cm complex cystic components of the right lower abdomen; cannot exclude neoplasm. Further evaluation with IV and oral contrast CT of the abdomen and pelvis (renal protocol) series recommended. 2010 [employer]- All Rights Reserved Assessment & Plan - Diagnosis (1) Acute renal failure (ARF) Qualifiers: Acute renal failure type: unspecified Qualified Code(s): N17.9 - Acute kidney failure, unspecified Is this a current diagnosis for this admission?: Yes Plan: The patient has acute renal failure. He has had decreased p.o. intake for the last several weeks. He also has been taking Naprosyn. His creatinine has improved with IV fluids. Renal ultrasound showed a right lower abdominal mass. CT scan shows that this to be part of the kidney. Unclear whether this is malignancy or just a cystic lesion. Patient has a nephrology consult pending. We will continue with the IV fluids. (2) Rhabdomyolysis Qualifiers: Rhabdomyolysis type: traumatic Encounter type: initial encounter Qualified Code(s): T79.6XXA - Traumatic ischemia of muscle, initial encounter Is this a current diagnosis for this admission?: Yes Plan: Most likely secondary to his prolonged immobility. Will treat with IV fluids and monitor. (3) Troponin level elevated Is this a current diagnosis for this admission?: Yes Plan: Patient has not had any chest pain or any cardiac history. Elevated troponins most likely secondary to chronic renal failure. Awaiting echocardiogram results. (4) Back pain Is this a current diagnosis for this admission?: Yes Plan: We will give Percocet as needed. He has an L1 compression fracture. This is probably what is the cause of his chronic pain that made it difficult for him to get up and care for himself. (5) Compression fracture Is this a current diagnosis for this admission?: Yes Plan: We will give Percocet as needed (6) Hypertension Is this a current diagnosis for this admission?: Yes Plan: We will hold his lisinopril and hydrochlorothiazide in light of his acute renal failure. He has had some hypotension overnight that is improving with IV fluids. (7) Hyperlipidemia Is this a current diagnosis for this admission?: Yes Plan: Continue with Zocor. (8) COPD (chronic obstructive pulmonary disease) Is this a current diagnosis for this admission?: Yes Plan: We will give nebulizers as needed. He is encouraged to quit smoking. (9) Hypothyroidism Is this a current diagnosis for this admission?: Yes Plan: Continue Synthroid. (10) BPH (benign prostatic hyperplasia) Is this a current diagnosis for this admission?: Yes Plan: Continue Flomax (11) Sacral decubitus ulcer Is this a current diagnosis for this admission?: Yes Plan: Surgery has been consulted for debridement. - Time Time Spent with patient: 25-34 minutes - Inpatient Certification Medical Necessity: Need For IV Fluids
--- NOTE | 2017-03-22 17:18 | RADIOLOGY REPORT (SQ) ---
EXAM DESCRIPTION: U/S GUIDE FOR VASCULAR ACCESS COMPLETE DATE/TIME: 03/22/2017 5:11 pm REASON FOR STUDY: NEED IV ACCESS FINDINGS: Please see combined report for performance of procedure and radiologic supervision and int erpretation. IMPRESSION: Please see combined report for performance of procedure and radiologic supervision and i nterpretation.
--- NOTE | 2017-03-22 17:18 | RADIOLOGY REPORT (SQ) ---
EXAM DESCRIPTION: FLUORO/CV PLACEMENT COMPLETE DATE/TIME: 03/22/2017 5:11 pm REASON FOR STUDY: NEED IV ACCESS FINDINGS: Please see combined report for performance of procedure and radiologic supervision and int erpretation. IMPRESSION: Please see combined report for performance of procedure and radiologic supervision and i nterpretation.
--- NOTE | 2017-03-22 17:21 | RADIOLOGY REPORT (SQ) ---
EXAM DESCRIPTION: PICC INSERTION COMPLETED DATE/TIME: 03/22/2017 5:11 pm REASON FOR STUDY: need IV access COMPARISON: None. FLUOROSCOPY TIME: 10 seconds 1 images saved to PACS. TECHNIQUE: Fluoroscopic and ultrasound guided PICC placement. LIMITATIONS: None. PROCEDURE: After written consent and assessment were obtained, the patient was brought into the fluo roscopy room and place supine on the table. Ultrasound was used on the patient's left arm for PICC a ccess. The left arm was prepped and draped in a sterile fashion along with the ultrasound probe. The entry site was anesthetized with 1% lidocaine. A 21 gauge 7 cm needle was advanced through the skin a nd into the left basilic vein under live ultrasound guidance. An ultrasound image was saved to PACS confirming access site. A .018 guide wire was then inserted through the needle and into the venous s ystem. The needle was the removed and an 11 blade scalpel was used to make a 1cm skin incision. A 5 fr peel-away sheath was advanced over the wire and into the venous system. A measurement was then mad e using the existing wire and live fluoroscopic guidance. The wire was then removed and the trimmed. The PICC was advanced through the peel-away sheath and into the venous system. The peel-away sheath w as removed and the catheter was adhered to the patients arm with a stat lock. The catheter was then a spirated and flushed and a sterile bandage was placed over the access site. A fluoroscopic spot imag e was saved to PACS confirming the catheter tip within the superior vena cava. IMPRESSION: SUCCESSFUL PLACEMENT OF A 5 FR dual LUMEN is 40 CM PICC IN THE left basilic VEIN. COMMENT: Patient medication list reviewed: Yes. Quality ID [id number]: Final reports for procedures using fluoroscopy that document radiation exposure trace soni, or exposure time and number of fluorographic images (if radiation exposure indices are not avail able) Quality ID #[id number]: The patient was prepped and draped using maximum sterile barrier technique including cap, mask, sterile gown, sterile gloves, a large sterile sheet, hand hygiene, and 2% Chlorhexidine fo r cutaneous antisepsis. When ultrasound is used, sterile ultrasound techniques are followed requiring sterile gel and sterile probes. TECHNICAL DOCUMENTATION: JOB ID: [id number]- All Rights Reserved
[2017-03-22] MEDS: TAMSULOSIN HCL 0.4 MG CAP.SR.24H PO SCH (18:02)
--- NOTE | 2017-03-22 18:52 | PDOC CONSULTATION ---
Consultation Consult Date: 03/22/17 Attending physician:: DEVIN FAUST Consult reason:: I was asked by Dr. Faust to see the patient because of acute renal failure. History of Present Illness Admission Date/PCP: 03/21/17 18:27 History of Present Illness: MARIELA DE LEÓN is a 71 year old male with a history of hypertension and COPD who has had problems with back pain for the last 2 months. The patient is noted to have an L1 compression fracture. He denies any trauma. Patient reports over the last 2 months he has been having pain and since that Thanksgiving has had more pain. He reports he has had trouble getting up out of a chair because of his back pain and because of that he has been eating and drinking less. Patient reports that he is in a lot of pain and has a hard time getting up. He has had very little to eat or drink over the last 2 weeks. He fell out of his recliner chair this morning and when he presented to emergency room was found to be relatively hypotensive with blood pressures in the 80s. His blood pressure for the last 24 hours noted here was 60/46. He continues to have low blood pressure at this time. Patient also was found to have acute renal failure with a creatinine of 5. His creatinine 2 months ago was normal. The patient also was noted to have a positive troponin as well as elevated creatine kinase. Patient however has no cardiac history denies any chest pain. He does have COPD and continues to smoke about 1 pack per day. The patient does have BPH and takes Flomax for that. When I talked to the patient today the younger brother, and was at bedside providing more information. They both confirm above history. Brother confirmed that at least for the last 3-4 days when he was visiting the patient patient hardly ate anything or drink fluids. Last February 06, 2017 the patient's kidney function was normal with BUN of 13 creatinine of 0.78 with estimated GFR greater than 60 appropriate for his age. During this admission he came in yesterday with a BUN of 110 and creatinine of 5.07 with estimated GFR of 11. Today he had a BUN of 1O4 creatinine 4.32 with estimated GFR 14. He has low potassium between 3.2-3.3. He has been given IV fluids and his intake and output balance recorded at least +4 L since admission. He is is still on IV fluids currently. However his urine remains to be very concentrated and dark and his urine output is still poor. Patient denies any shortness of breath. He denies any previously known kidney disease or kidney stones. He denies any history of hematuria. He describes some difficulty in initiation of urination and he was diagnosed recently with BPH. Patient has been treated taking nonsteroidal anti-inflammatories since the onset of his back pain. For the last couple months he was given ibuprofen 800 mg, Tylenol 3, Naprosyn, and hydrocodone and neither of them work. [facility] is been trying to schedule an MRI for him. Patient had a kidney ultrasound done today along with a CT scan of the abdomen which shows a complex cystic mass with septations and calcifications on the left kidney. Note said malignancy cannot be excluded. However there was no hydronephrosis in either kidneys. Patient continues to have poor appetite today. He denies any chest pain, no shortness of breath, nausea, vomiting, headache, leg swelling no abdominal pain. Patient admits that he has not been checking his blood pressure at home and is not aware of low blood pressure. Past Medical History Cardiac Medical History: Reports: Hyperlipidemia, Hypertension-primary Pulmonary Medical History: Reports: Chronic Obstructive Pulmonary Disease (COPD) Endocrine Medical History: Reports: Hypothyroidism Musculoskeltal Medical History: Reports: Arthritis Past Surgical History Past Surgical History: Reports: Orthopedic Surgery - back/herniated disk, Other - Right eyelid surgery Social History Lives with: Alone Smoking Status: Current Every Day Smoker Cigarettes Packs Per Day: 1 Frequency of Alcohol Use: Rare Hx Recreational Drug Use: No Drugs: None Hx Prescription Drug Abuse: No - Advance Directive Resuscitation Status: Do Not Resuscitate Family History Family History: CAD - An older brother of heart attack, DM - Brothers, Malignancy, Other - Father has Parkinson's disease and Alzheimer's dementia, mother has coronary artery disease and Alzheimer's dementia Parental Family History Reviewed: Yes Children Family History Reviewed: Yes Sibling(s) Family History Reviewed.: Yes Medication/Allergy Home Medications: Acetaminophen with Codeine [Acetaminophen-Cod #3 Tablet] 300 mg PO Q8HP PRN 10/29 Aspirin [Aspirin EC] 81 mg PO DAILY 03/21/17 Cholecalciferol (Vitamin D3) [Vitamin D3 400 Unit Tablet] 400 unit PO DAILY 10/29 Cyanocobalamin (Vitamin B-12) [Vitamin B-12] 500 mcg PO DAILY 03/21/17 Levothyroxine Sodium [Synthroid] 175 mcg PO DAILY 03/21/17 Lisinopril/Hydrochlorothiazide [Lisinopril-Hctz 20-25 mg Tab] 1 each PO DAILY Metoprolol Tartrate [Lopressor 50 mg Tablet] 50 mg PO Q12 03/21/17 Naproxen [Naprosyn] 500 mg PO BIDP PRN 03/21/17 Simvastatin [Zocor 40 mg Tablet] 40 mg PO QHS 03/21/17 Tamsulosin HCl [Flomax 0.4 mg Cap.sr] 0.4 mg PO QHS 03/21/17 Allergies/Adverse Reactions: No Known Allergies Allergy (Verified 03/21/17 13:16) Review of Systems All systems: reviewed and no additional remarkable complaints except as stated Review of Systems: Constitutional: ABSENT: chills, fatigue, fever(s), headache(s), weight gain, admits significant weight loss with his weight going from 241 pounds to 196 pounds, admits poor appetite Eyes: ABSENT: visual disturbances Ears: ABSENT: hearing changes Cardiovascular: ABSENT: chest pain, dyspnea on exertion, edema, orthropnea, palpitations Respiratory: ABSENT: cough, dyspnea, hemoptysis Gastrointestinal: ABSENT: abdominal pain, diarrhea, hematemesis, hematochezia, nausea, vomiting; admits constipation Genitourinary: ABSENT: dysuria, hematuria Musculoskeletal: ABSENT: joint swelling; admits severe back pain due to compression fracture at L1 Integumentary: ABSENT: rash, wounds Neurological: ABSENT: abnormal gait, abnormal speech, confusion, dizziness, focal weakness, numbness, syncope Psychiatric: ABSENT: anxiety, depression Endocrine: ABSENT: cold intolerance, heat intolerance, polydipsia, polyuria Hematologic/Lymphatic: ABSENT: easy bleeding, easy bruising, lymphadenopathy Physical Exam Vital Signs: Temp Pulse Resp BP Pulse Ox 98.6 F 100 18 76/51 L 84 L 03/22/17 15:51 03/22/17 15:51 03/22/17 15:51 03/22/17 15:51 03/22/17 15:51 Intake & Output 03/21/17 03/22/17 03/23/17 06:59 06:59 06:59 Intake Total 1923 150 Output Total 100 Balance 1923 50 Weight 94.3 kg 94.3 kg Exam: General appearance: no acute distress, cooperative, well-developed, well- nourished Head exam: PRESENT: atraumatic, normocephalic Eye exam: PRESENT: Conjunctiva pale, EOMI, PERRLA. ABSENT: conjunctival injection, scleral icterus Mouth exam: PRESENT: moist, neck supple, tongue midline Neck exam: PRESENT: full ROM. ABSENT: carotid bruit, JVD, lymphadenopathy, thyromegaly Respiratory exam: PRESENT: clear to auscultation bilaterally. ABSENT: rales, rhonchi, stridor, wheezes Cardiovascular exam: PRESENT: RRR, +S1, +S2. ABSENT: systolic murmur Pulses: PRESENT: normal radial pulses, normal dorsalis pedis pulses GI/Abdominal exam: PRESENT: normal bowel sounds, soft. ABSENT: guarding, mass, tenderness Rectal exam: deferred Extremities exam: PRESENT: full ROM. ABSENT: calf tenderness, pedal edema Musculoskeletal: PRESENT: full ROM. ABSENT: deformity Neurological exam: PRESENT: alert, Awake, Oriented to person, Oriented to place , Oriented to time, reflexes normal, CN II-XII grossly intact. ABSENT: motor sensory deficit Psychiatric exam: PRESENT: appropriate affect, he has a depressed mood and at one point during his interview he was teary-eyed ABSENT: homicidal ideation, suicidal ideation Skin exam: PRESENT: intact, dry, warm. Poor skin turgor ABSENT: rash Results Laboratory Results: 03/22/17 10:51 03/22/17 10:51 03/21/17 03/22/17 03/22/17 19:51 10:51 10:51 WBC 10.8 H RBC 4.09 L Hgb 12.5 L Hct 35.9 L MCV 88 MCH 30.6 MCHC 34.9 RDW 15.2 H Plt Count 165 Seg Neutrophils % 85.1 H Lymphocytes % 7.8 L Monocytes % 5.9 Eosinophils % 1.1 Basophils % 0.1 Absolute Neutrophils 9.2 H Absolute Lymphocytes 0.8 Absolute Monocytes 0.6 Absolute Eosinophils 0.1 Absolute Basophils 0.0 Sodium 139.7 Potassium 3.2 L Chloride 105 Carbon Dioxide 17 L Anion Gap 18 BUN 104 H Creatinine 4.32 H Est GFR ( Amer) 17 L Est GFR (Non-Af Amer) 14 L Glucose 77 Calcium 7.4 L Magnesium 2.0 TSH 2.10 03/21/17 03/21/17 03/22/17 19:51 19:51 02:05 Creatine Kinase 6234 H 6106 H CK-MB (CK-2) 47.80 H Troponin I 6.340 03/22/17 03/22/17 03/22/17 02:05 10:51 10:51 Creatine Kinase 6173 H CK-MB (CK-2) 43.30 H 37.10 H Troponin I 6.750 6.130 Impressions: Lumbar Spine X-Ray 03/21/17 13:02 IMPRESSION: CHRONIC DEGENERATIVE CHANGES. THERE IS NEW MILD WEDGE DEFORMITY OF L1 CONSISTENT WITH RECENT COMPRESSION FRACTURE. Thoracic Spine X-Ray 03/21/17 13:02 IMPRESSION: Extensive spondylosis. Chest X-Ray 03/21/17 15:10 IMPRESSION: RIGHT UPPER LOBE DENSITY. THIS COULD BE DUE TO CHRONIC SCARRING VERSUS ACUTE INFILTRATE. Abdomen/Pelvis CT 03/22/17 00:00 IMPRESSION: 1. Small pleural effusions. 2. Large predominantly cystic mass arising from the lower pole the right kidney. There are some linear calcifications suggesting septations. Cannot entirely exclude malignancy. 3. Diverticulosis coli. 4. Compression changes at L1 as described. 5. Other findings as described. Guidance Fluoroscopy 03/22/17 00:00 IMPRESSION: Please see combined report for performance of procedure and radiologic supervision and interpretation. Interventional Vascular Procedure 03/22/17 00:00 IMPRESSION: Please see combined report for performance of procedure and radiologic supervision and interpretation. PICC Line Insertion 03/22/17 00:00 IMPRESSION: SUCCESSFUL PLACEMENT OF A 5 FR dual LUMEN is 40 CM PICC IN THE left basilic VEIN. Renal Ultrasound 03/22/17 00:00 IMPRESSION: Indeterminate 15 cm complex cystic components of the right lower abdomen; cannot exclude neoplasm. Further evaluation with IV and oral contrast CT of the abdomen and pelvis (renal protocol) series recommended. 2010 [employer]- All Rights Reserved Assessment & Plan - Diagnosis (1) Acute kidney injury Is this a current diagnosis for this admission?: Yes Plan: Patient is currently clinically oliguric. Urinalysis shows very minimal proteinuria and the blood is secondary to the rhabdomyolysis. This most likely secondary to initially an acute prerenal azotemia due to severe volume depletion and dehydration with presumably intake of nephrotoxic medications including nonsteroidal anti-inflammatory agents and the lisinopril HCTZ and his medication regimen. Patient could also have progressed to acute tubular necrosis due to severe volume depletion, rhabdomyolysis and hypotension. I think the patient is still clinically volume depleted at this time. Continue the same IV fluid at the current rate but we need to monitor his respiratory status not to fluid overload him. There is a chance that if the patient has gone into full-blown ATN this kidney function may not easily improve as well as his urine output. In that case patient might need renal replacement therapy with acute hemodialysis treatment. Currently there is no urgent or emergent indication for that. I did mention this to the patient and his brother as a possibility. Patient needs to be monitored very closely in terms of his kidney function, urine output, and other metabolic abnormalities. (2) Rhabdomyolysis Qualifiers: Rhabdomyolysis type: traumatic Encounter type: initial encounter Qualified Code(s): T79.6XXA - Traumatic ischemia of muscle, initial encounter Is this a current diagnosis for this admission?: Yes Plan: Agree that this could be due to immobility. Continue IV fluids. (3) Hypotension Is this a current diagnosis for this admission?: Yes Plan: Almost in hypovolemic shock. Continue IV fluid hydration. (4) Metabolic acidosis Is this a current diagnosis for this admission?: Yes (5) Hypokalemia Is this a current diagnosis for this admission?: Yes Plan: Replace potassium as necessary. (6) Complex renal cyst Is this a current diagnosis for this admission?: Yes Plan: As malignancy cannot be excluded at this time, this could needs further workup and urology consultation. However at this time I do not think we can do anything for this at the moment until his kidney function improves and his clinical condition improves as well. (7) Chronic back pain Qualifiers: Back pain location: low back pain Is this a current diagnosis for this admission?: Yes Plan: Due to compression fracture of L1. (8) Compression fracture Is this a current diagnosis for this admission?: Yes (9) Depression Is this a current diagnosis for this admission?: Yes - Notes Notes: Thank you very much for this consultation. Discussed assessment and plan with the patient and his brother at the bedside. Also discussed plan with his nurse today. - Time Time Spent: Greater than 70 Minutes
[2017-03-22] MEDS ORDERED: POTASSIUM CHLORIDE 10 MEQ TABLET.SA PO ONE (19:30)
[2017-03-22] MEDS: SIMVASTATIN 40 MG TABLET PO SCH (22:11)
[2017-03-23 05:32] LABS: ABSOLUTE EOSINOPHILS # (AUTO) 0.2 10^3/uL (0.0-0.6); ABSOLUTE LYMPHOCYTES (AUTO) 0.8 10^3/uL (0.5-4.7); ABSOLUTE MONOCYTES (AUTO) 0.8 10^3/uL (0.1-1.4); ABSOLUTE NEUT (AUTO) 8.3 10^3/uL (1.7-8.2); BASOPHILS % (AUTO) 0.1 % (0-2); EOSINOPHILS % (AUTO) 1.6 % (0-6); HEMATOCRIT 34.5 % (37.9-51.0); HEMOGLOBIN 11.7 g/dL (13.5-17.0); LYMPHOCYTES % (AUTO) 7.8 % (13-45); MEAN CORPUSCULAR HEMOGLOBIN 29.8 pg (27.0-33.4); MEAN CORPUSCULAR HGB CONC 33.8 g/dL (32.0-36.0); MEAN CORPUSCULAR VOLUME 88 fl (80-97); MONOCYTES % (AUTO) 7.8 % (3-13); PLATELET COUNT 180 10^3/uL (150-450); RED BLOOD COUNT 3.92 10^6/uL (4.35-5.55); RED CELL DISTRIBUTION WIDTH 15.4 % (11.5-14.0); SEGMENTED NEUTROPHILS % (AUTO) 82.7 % (42-78); TOTAL CELLS COUNTED % (AUTO) 100 %
[2017-03-23] MEDS: LEVOTHYROXINE SODIUM 0.075 MG TABLET PO SCH (05:37)
[2017-03-23] MEDS: LEVOTHYROXINE SODIUM 0.1 MG TABLET PO SCH (05:37)
[2017-03-23] MEDS: HEPARIN SOD (PORCINE) 5,000 UNIT/ML 1 ML SYRINGE SUBCUT SCH ×3 (05:40→22:46)
[2017-03-23 05:56] LABS: ANION GAP 16 (5-19); BLOOD UREA NITROGEN 103 mg/dL (7-20); CALCIUM 7.4 mg/dL (8.4-10.2); CARBON DIOXIDE 18 mmol/L (22-30); CHLORIDE 107 mmol/L (98-107); GLUCOSE 96 mg/dL (75-110); POTASSIUM 3.5 mmol/L (3.6-5.0)
[2017-03-23] MEDS: METOPROLOL TARTRATE 50 MG TABLET PO SCH ×3 (09:29→22:46)
[2017-03-23] MEDS: ASPIRIN 81 MG TABLET, ENT COATED PO SCH (09:38)
[2017-03-23] MEDS: CYANOCOBALAMIN (VITAMIN B-12) 1,000 MCG TABLET PO SCH (09:38)
[2017-03-23] MEDS: FAMOTIDINE 20 MG TABLET PO SCH ×2 (09:39→22:49)
[2017-03-23] MEDS: NORMAL SALINE 1000 ML 1,000 ML IV PRN ×2 (09:39→16:05)
[2017-03-23] MEDS: CHOLECALCIFEROL (D3) 400 UNIT TABLET PO SCH (09:39)
--- NOTE | 2017-03-23 11:11 | PDOC PROGRESS REPORT ---
Subjective Progress Note for:: 03/23/17 Subjective:: Patient denies any complaints today. Reason For Visit: ACUTE RENAL FAILURE Physical Exam Vital Signs: Temp Pulse Resp BP Pulse Ox 97.9 F 98 18 87/63 L 95 03/23/17 07:45 03/23/17 07:45 03/23/17 07:45 03/23/17 07:45 03/23/17 07:45 Intake & Output 03/22/17 03/23/17 03/24/17 06:59 06:59 06:59 Intake Total 1922 2088 Output Total 925 Balance 1922 1163 Weight 94.3 kg 94.3 kg General appearance: PRESENT: no acute distress Eye exam: PRESENT: conjunctiva pink. ABSENT: scleral icterus Mouth exam: PRESENT: moist, tongue midline Neck exam: ABSENT: JVD Respiratory exam: PRESENT: rhonchi - Coarse rhonchi bilaterally.. ABSENT: rales , wheezes Cardiovascular exam: PRESENT: RRR. ABSENT: diastolic murmur, rubs, systolic murmur GI/Abdominal exam: PRESENT: normal bowel sounds, soft. ABSENT: distended, guarding, mass, organolmegaly, rebound, tenderness Extremities exam: ABSENT: calf tenderness, clubbing, pedal edema Neurological exam: PRESENT: alert, awake, oriented to person, oriented to place , oriented to time, oriented to situation, CN II-XII grossly intact. ABSENT: motor sensory deficit Psychiatric exam: PRESENT: appropriate affect Skin exam: PRESENT: dry, intact, warm, other - Sacral decubitus. ABSENT: cyanosis, rash Results Laboratory Results: 03/23/17 05:00 03/23/17 05:00 03/22/17 03/22/17 03/23/17 10:51 10:51 05:00 WBC 10.8 H RBC 4.09 L Hgb 12.5 L Hct 35.9 L MCV 88 MCH 30.6 MCHC 34.9 RDW 15.2 H Plt Count 165 Seg Neutrophils % 85.1 H Lymphocytes % 7.8 L Monocytes % 5.9 Eosinophils % 1.1 Basophils % 0.1 Absolute Neutrophils 9.2 H Absolute Lymphocytes 0.8 Absolute Monocytes 0.6 Absolute Eosinophils 0.1 Absolute Basophils 0.0 Sodium 139.7 141.0 Potassium 3.2 L 3.5 L Chloride 105 107 Carbon Dioxide 17 L 18 L Anion Gap 18 16 BUN 104 H 103 H Creatinine 4.32 H 3.86 H Est GFR ( Amer) 17 L 19 L Est GFR (Non-Af Amer) 14 L 16 L Glucose 77 96 Calcium 7.4 L 7.4 L Magnesium 2.0 03/23/17 05:00 WBC 10.0 RBC 3.92 L Hgb 11.7 L Hct 34.5 L MCV 88 MCH 29.8 MCHC 33.8 RDW 15.4 H Plt Count 180 Seg Neutrophils % 82.7 H Lymphocytes % 7.8 L Monocytes % 7.8 Eosinophils % 1.6 Basophils % 0.1 Absolute Neutrophils 8.3 H Absolute Lymphocytes 0.8 Absolute Monocytes 0.8 Absolute Eosinophils 0.2 Absolute Basophils 0.0 Sodium Potassium Chloride Carbon Dioxide Anion Gap BUN Creatinine Est GFR ( Amer) Est GFR (Non-Af Amer) Glucose Calcium Magnesium 03/21/17 03/21/17 03/22/17 19:51 19:51 02:05 Creatine Kinase 6234 H 6106 H CK-MB (CK-2) 47.80 H Troponin I 6.340 03/22/17 03/22/17 03/22/17 02:05 10:51 10:51 Creatine Kinase 6173 H CK-MB (CK-2) 43.30 H 37.10 H Troponin I 6.750 6.130 Impressions: Lumbar Spine X-Ray 03/21/17 13:02 IMPRESSION: CHRONIC DEGENERATIVE CHANGES. THERE IS NEW MILD WEDGE DEFORMITY OF L1 CONSISTENT WITH RECENT COMPRESSION FRACTURE. Thoracic Spine X-Ray 03/21/17 13:02 IMPRESSION: Extensive spondylosis. Chest X-Ray 03/21/17 15:10 IMPRESSION: RIGHT UPPER LOBE DENSITY. THIS COULD BE DUE TO CHRONIC SCARRING VERSUS ACUTE INFILTRATE. Abdomen/Pelvis CT 03/22/17 00:00 IMPRESSION: 1. Small pleural effusions. 2. Large predominantly cystic mass arising from the lower pole the right kidney. There are some linear calcifications suggesting septations. Cannot entirely exclude malignancy. 3. Diverticulosis coli. 4. Compression changes at L1 as described. 5. Other findings as described. Guidance Fluoroscopy 03/22/17 00:00 IMPRESSION: Please see combined report for performance of procedure and radiologic supervision and interpretation. Interventional Vascular Procedure 03/22/17 00:00 IMPRESSION: Please see combined report for performance of procedure and radiologic supervision and interpretation. PICC Line Insertion 03/22/17 00:00 IMPRESSION: SUCCESSFUL PLACEMENT OF A 5 FR dual LUMEN is 40 CM PICC IN THE left basilic VEIN. Renal Ultrasound 03/22/17 00:00 IMPRESSION: Indeterminate 15 cm complex cystic components of the right lower abdomen; cannot exclude neoplasm. Further evaluation with IV and oral contrast CT of the abdomen and pelvis (renal protocol) series recommended. 2010 [employer]- All Rights Reserved Assessment & Plan - Diagnosis (1) Acute renal failure (ARF) Qualifiers: Acute renal failure type: unspecified Qualified Code(s): N17.9 - Acute kidney failure, unspecified Is this a current diagnosis for this admission?: Yes Plan: The patient has acute renal failure. He has had decreased p.o. intake for the last several weeks. He also has been taking Naprosyn. His creatinine has improved with IV fluids. We will continue with the IV fluids. (2) Rhabdomyolysis Qualifiers: Rhabdomyolysis type: traumatic Encounter type: initial encounter Qualified Code(s): T79.6XXA - Traumatic ischemia of muscle, initial encounter Is this a current diagnosis for this admission?: Yes Plan: Most likely secondary to his prolonged immobility. Will treat with IV fluids and monitor. (3) Troponin level elevated Is this a current diagnosis for this admission?: Yes Plan: Patient has not had any chest pain or any cardiac history. Elevated troponins most likely secondary to chronic renal failure. (4) Back pain Is this a current diagnosis for this admission?: Yes Plan: We will give Percocet as needed. He has an L1 compression fracture. This is probably what is the cause of his chronic pain that made it difficult for him to get up and care for himself. (5) Compression fracture Is this a current diagnosis for this admission?: Yes Plan: We will give Percocet as needed (6) Hypertension Is this a current diagnosis for this admission?: Yes Plan: We will hold his lisinopril and hydrochlorothiazide in light of his acute renal failure. (7) Hyperlipidemia Is this a current diagnosis for this admission?: Yes Plan: Continue with Zocor. (8) COPD (chronic obstructive pulmonary disease) Is this a current diagnosis for this admission?: Yes Plan: We will give nebulizers as needed. He is encouraged to quit smoking. (9) Hypothyroidism Is this a current diagnosis for this admission?: Yes Plan: Continue Synthroid. (10) BPH (benign prostatic hyperplasia) Is this a current diagnosis for this admission?: Yes Plan: Continue Flomax (11) Sacral decubitus ulcer Is this a current diagnosis for this admission?: Yes Plan: Surgery has been consulted for debridement. 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 As his kidneys improve he can follow-up with cardiology as an outpatient in regards to the possibility of possible septal hypertrophy. - Time Time Spent with patient: 25-34 minutes - Inpatient Certification Medical Necessity: Need For IV Fluids
[2017-03-23] MEDS: OXYCODONE-ACETAMINOPHEN 5-325 MG TABLET PO PRN ×2 (16:03→22:47)
[2017-03-23] MEDS: TAMSULOSIN HCL 0.4 MG CAP.SR.24H PO SCH (16:03)
[2017-03-23] MEDS ORDERED: COLLAGENASE CLOSTRIDIUM HIST. OINT 30 GM ONE (17:21)
--- NOTE | 2017-03-23 17:34 | OPERATIVE REPORT E ---
Operative Report NAME: MARIELA DE LEÓN : 1945 AGE: 71Y DATE OF SURGERY: 03/23/2017 ROOM: 313 PREOPERATIVE DIAGNOSIS: Pressure sore in the sacral area and coccygeal area. POSTOPERATIVE DIAGNOSES: 1. Stage II decubitus ulcer of the coccygeal area about 5 cm long x 3 cm wide. 2. Another stage II on each side of the midline but towards the gluteal area about 6 cm distal and about 2.5 cm in diameter on each side for a total of about 5 cm. OPERATION: Partial sharp debridement of necrotic skin tissue of the coccygeal in the distal buttock just above the rectum. SURGEON: HILDA MAGALLON M.D. ANESTHESIA: TISSUE REMOVED OR ALTERED: PROCEDURE: OPERATION: Sharp debridement of necrotic tissue along the left trochanteric area of the left hip down to the muscle, almost to the bone, roughly measuring 4 x 3 cm. SURGEON: HILDA MAGALLON M.D. ANESTHESIA: DESCRIPTION OF PROCEDURE: The patient was placed in the left lateral decubitus position and there was some necrotic tissue on a crevice in the coccygeal area. The skin was noted to be somewhat dusky and it was very attached to the underlying subcu. Sharp debridement was then performed. The other areas in the gluteal side appear to have no necrotic tissue that need to be removed, although it is a little bit inflamed surrounding the ulcers, which are about stage II. The sample of necrotic skin was removed and will be sent for culture. The patient will need chemical debridement with the use of Santyl and eventually more debridement sharply. No definite evidence of abscess noted during the procedure. The nurses were informed to apply wet-to-dry dressings until Santyl is available. Will follow up the patient. DICTATING PHYSICIAN: HILDA MAGALLON M.D. [id number] PHY#: [id number] ID: [id number] JOB#: [id number] ACCT: [id number] cc:HILDA MAGALLON M.D. >
[2017-03-23] MEDS ORDERED: COLLAGENASE CLOSTRIDIUM HIST. OINT 30 GM TP SCH (22:00)
[2017-03-23] MEDS: SIMVASTATIN 40 MG TABLET PO SCH (22:49)
[2017-03-24] MEDS: NORMAL SALINE 1000 ML 1,000 ML IV PRN ×2 (00:01→06:23)
[2017-03-24] MEDS: LEVOTHYROXINE SODIUM 0.1 MG TABLET PO SCH (05:50)
[2017-03-24] MEDS: HEPARIN SOD (PORCINE) 5,000 UNIT/ML 1 ML SYRINGE SUBCUT SCH ×3 (05:50→22:15)
[2017-03-24] MEDS: LEVOTHYROXINE SODIUM 0.075 MG TABLET PO SCH (05:50)
[2017-03-24 06:49] LABS: ABSOLUTE EOSINOPHILS # (AUTO) 0.2 10^3/uL (0.0-0.6); ABSOLUTE LYMPHOCYTES (AUTO) 0.7 10^3/uL (0.5-4.7); ABSOLUTE MONOCYTES (AUTO) 0.8 10^3/uL (0.1-1.4); ABSOLUTE NEUT (AUTO) 6.7 10^3/uL (1.7-8.2); BASOPHILS % (AUTO) 0.1 % (0-2); HEMATOCRIT 33.1 % (37.9-51.0); HEMOGLOBIN 11.4 g/dL (13.5-17.0); LYMPHOCYTES % (AUTO) 8.2 % (13-45); MEAN CORPUSCULAR HEMOGLOBIN 30.4 pg (27.0-33.4); MEAN CORPUSCULAR HGB CONC 34.3 g/dL (32.0-36.0); MEAN CORPUSCULAR VOLUME 89 fl (80-97); MONOCYTES % (AUTO) 9.6 % (3-13); PLATELET COUNT 162 10^3/uL (150-450); RED BLOOD COUNT 3.74 10^6/uL (4.35-5.55); RED CELL DISTRIBUTION WIDTH 15.3 % (11.5-14.0); SEGMENTED NEUTROPHILS % (AUTO) 80.1 % (42-78); TOTAL CELLS COUNTED % (AUTO) 100 %; WHITE BLOOD COUNT 8.4 10^3/uL (4.0-10.5)
[2017-03-24 07:01] LABS: ANION GAP 19 (5-19); BLOOD UREA NITROGEN 90 mg/dL (7-20); CALCIUM 7.5 mg/dL (8.4-10.2); CARBON DIOXIDE 14 mmol/L (22-30); CHLORIDE 113 mmol/L (98-107); GLUCOSE 85 mg/dL (75-110); POTASSIUM 3.2 mmol/L (3.6-5.0)
[2017-03-24 07:08] LABS: CREATINE KINASE 2065 U/L (55-170)
[2017-03-24] MEDS: CYANOCOBALAMIN (VITAMIN B-12) 1,000 MCG TABLET PO SCH (08:18)
[2017-03-24] MEDS: METOPROLOL TARTRATE 50 MG TABLET PO SCH ×2 (08:19→22:21)
[2017-03-24] MEDS: CHOLECALCIFEROL (D3) 400 UNIT TABLET PO SCH (08:19)
[2017-03-24] MEDS: FAMOTIDINE 20 MG TABLET PO SCH ×2 (08:19→22:12)
[2017-03-24] MEDS: OXYCODONE-ACETAMINOPHEN 5-325 MG TABLET PO PRN ×4 (08:19→22:13)
[2017-03-24] MEDS: POTASSI CL 20 MEQ/50 ML RIDER 20 MEQ/50 ML RTUPB IV SCH ×2 (08:20→11:00)
[2017-03-24] MEDS: ASPIRIN 81 MG TABLET, ENT COATED PO SCH (08:23)
--- NOTE | 2017-03-24 11:13 | PDOC PROGRESS REPORT ---
Subjective Progress Note for:: 03/24/17 Subjective:: Patient denies any complaints today. Reason For Visit: ACUTE RENAL FAILURE Physical Exam Vital Signs: Temp Pulse Resp BP Pulse Ox 97.6 F 97 14 111/65 95 03/24/17 07:18 03/24/17 08:40 03/24/17 08:40 03/24/17 07:18 03/24/17 08:40 Intake & Output 03/23/17 03/24/17 03/25/17 06:59 06:59 06:59 Intake Total 2088 4700 Output Total 925 2350 Balance 1163 2350 Weight 94.3 kg 98.3 kg General appearance: PRESENT: no acute distress Eye exam: PRESENT: conjunctiva pink. ABSENT: scleral icterus Mouth exam: PRESENT: moist, tongue midline Neck exam: ABSENT: JVD Respiratory exam: PRESENT: clear to auscultation cierra. ABSENT: rales, rhonchi, wheezes Pulses: PRESENT: normal dorsalis pedis pul GI/Abdominal exam: PRESENT: normal bowel sounds, soft. ABSENT: distended, guarding, mass, organolmegaly, rebound, tenderness Extremities exam: ABSENT: calf tenderness, clubbing, pedal edema Neurological exam: PRESENT: alert, awake, oriented to person, oriented to place , oriented to time, oriented to situation, CN II-XII grossly intact. ABSENT: motor sensory deficit Psychiatric exam: PRESENT: appropriate affect Skin exam: PRESENT: other - Dressing in place on the sacrum. Results Laboratory Results: 03/24/17 06:00 03/24/17 06:00 03/24/17 03/24/17 06:00 06:00 WBC 8.4 RBC 3.74 L Hgb 11.4 L Hct 33.1 L MCV 89 MCH 30.4 MCHC 34.3 RDW 15.3 H Plt Count 162 Seg Neutrophils % 80.1 H Lymphocytes % 8.2 L Monocytes % 9.6 Eosinophils % 2.0 Basophils % 0.1 Absolute Neutrophils 6.7 Absolute Lymphocytes 0.7 Absolute Monocytes 0.8 Absolute Eosinophils 0.2 Absolute Basophils 0.0 Sodium 146.0 H Potassium 3.2 L Chloride 113 H Carbon Dioxide 14 L Anion Gap 19 BUN 90 H Creatinine 2.73 H Est GFR ( Amer) 28 L Est GFR (Non-Af Amer) 23 L Glucose 85 Calcium 7.5 L 03/21/17 03/21/17 03/22/17 19:51 19:51 02:05 Creatine Kinase 6234 H 6106 H CK-MB (CK-2) 47.80 H Troponin I 6.340 03/22/17 03/22/17 03/22/17 02:05 10:51 10:51 Creatine Kinase 6173 H CK-MB (CK-2) 43.30 H 37.10 H Troponin I 6.750 6.130 03/24/17 06:00 Creatine Kinase 2065 H CK-MB (CK-2) Troponin I Impressions: Lumbar Spine X-Ray 03/21/17 13:02 IMPRESSION: CHRONIC DEGENERATIVE CHANGES. THERE IS NEW MILD WEDGE DEFORMITY OF L1 CONSISTENT WITH RECENT COMPRESSION FRACTURE. Thoracic Spine X-Ray 03/21/17 13:02 IMPRESSION: Extensive spondylosis. Chest X-Ray 03/21/17 15:10 IMPRESSION: RIGHT UPPER LOBE DENSITY. THIS COULD BE DUE TO CHRONIC SCARRING VERSUS ACUTE INFILTRATE. Abdomen/Pelvis CT 03/22/17 00:00 IMPRESSION: 1. Small pleural effusions. 2. Large predominantly cystic mass arising from the lower pole the right kidney. There are some linear calcifications suggesting septations. Cannot entirely exclude malignancy. 3. Diverticulosis coli. 4. Compression changes at L1 as described. 5. Other findings as described. Guidance Fluoroscopy 03/22/17 00:00 IMPRESSION: Please see combined report for performance of procedure and radiologic supervision and interpretation. Interventional Vascular Procedure 03/22/17 00:00 IMPRESSION: Please see combined report for performance of procedure and radiologic supervision and interpretation. PICC Line Insertion 03/22/17 00:00 IMPRESSION: SUCCESSFUL PLACEMENT OF A 5 FR dual LUMEN is 40 CM PICC IN THE left basilic VEIN. Renal Ultrasound 03/22/17 00:00 IMPRESSION: Indeterminate 15 cm complex cystic components of the right lower abdomen; cannot exclude neoplasm. Further evaluation with IV and oral contrast CT of the abdomen and pelvis (renal protocol) series recommended. 2010 [employer]- All Rights Reserved Assessment & Plan - Diagnosis (1) Acute renal failure (ARF) Qualifiers: Acute renal failure type: unspecified Qualified Code(s): N17.9 - Acute kidney failure, unspecified Is this a current diagnosis for this admission?: Yes Plan: The patient has acute renal failure. He has had decreased p.o. intake for the last several weeks. He also has been taking Naprosyn. His creatinine has improved with IV fluids. We will continue with the IV fluids. (2) Rhabdomyolysis Qualifiers: Rhabdomyolysis type: traumatic Encounter type: initial encounter Qualified Code(s): T79.6XXA - Traumatic ischemia of muscle, initial encounter Is this a current diagnosis for this admission?: Yes Plan: Most likely secondary to his prolonged immobility. Will treat with IV fluids and monitor. (3) Troponin level elevated Is this a current diagnosis for this admission?: Yes Plan: Patient has not had any chest pain or any cardiac history. Elevated troponins most likely secondary to chronic renal failure. (4) Back pain Is this a current diagnosis for this admission?: Yes Plan: We will give Percocet as needed. He has an L1 compression fracture. This is probably what is the cause of his chronic pain that made it difficult for him to get up and care for himself. (5) Compression fracture Is this a current diagnosis for this admission?: Yes Plan: We will give Percocet as needed. Will consult pain management for possible kyphoplasty. (6) Hypertension Is this a current diagnosis for this admission?: Yes Plan: We will hold his lisinopril and hydrochlorothiazide in light of his acute renal failure. (7) Hyperlipidemia Is this a current diagnosis for this admission?: Yes Plan: Continue with Zocor. (8) COPD (chronic obstructive pulmonary disease) Is this a current diagnosis for this admission?: Yes Plan: We will give nebulizers as needed. He is encouraged to quit smoking. (9) Hypothyroidism Is this a current diagnosis for this admission?: Yes Plan: Continue Synthroid. (10) BPH (benign prostatic hyperplasia) Is this a current diagnosis for this admission?: Yes Plan: Continue Flomax (11) Sacral decubitus ulcer Is this a current diagnosis for this admission?: Yes Plan: Surgery is following. 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 As his kidneys improve he can follow-up with cardiology as an outpatient in regards to the possibility of possible septal hypertrophy. - Time Time Spent with patient: 25-34 minutes - Inpatient Certification Medical Necessity: Need Close Monitoring Due to Risk of Patient Decompensation, Need For IV Fluids
[2017-03-24] MEDS: ACETAMINOPHEN 325 MG TABLET PO PRN (14:57)
[2017-03-24] MEDS ORDERED: NORMAL SALINE 10 ML SDV (AFTER EACH USE) IV PRN (16:57)
[2017-03-24] MEDS ORDERED: ALTEPLASE INJ 2 MG VIAL (CATH CLEARANCE) IV PRN (16:58)
[2017-03-24] MEDS: TAMSULOSIN HCL 0.4 MG CAP.SR.24H PO SCH (18:27)
[2017-03-24] MEDS: SIMVASTATIN 40 MG TABLET PO SCH (22:12)
[2017-03-24] MEDS: NORMAL SALINE 10 ML SDV (SCHEDULED) IV SCH (22:20)
[2017-03-25] MEDS: LEVOTHYROXINE SODIUM 0.1 MG TABLET PO SCH (05:12)
[2017-03-25] MEDS: LEVOTHYROXINE SODIUM 0.075 MG TABLET PO SCH (05:12)
[2017-03-25] MEDS: HEPARIN SOD (PORCINE) 5,000 UNIT/ML 1 ML SYRINGE SUBCUT SCH ×3 (05:13→21:58)
[2017-03-25 07:40] LABS: HEMATOCRIT 34.5 % (37.9-51.0); HEMOGLOBIN 11.8 g/dL (13.5-17.0); MEAN CORPUSCULAR HEMOGLOBIN 30.1 pg (27.0-33.4); MEAN CORPUSCULAR HGB CONC 34.3 g/dL (32.0-36.0); MEAN CORPUSCULAR VOLUME 88 fl (80-97); PLATELET COUNT 161 10^3/uL (150-450); RED BLOOD COUNT 3.93 10^6/uL (4.35-5.55); RED CELL DISTRIBUTION WIDTH 15.6 % (11.5-14.0); WHITE BLOOD COUNT 5.5 10^3/uL (4.0-10.5)
[2017-03-25 08:02] LABS: ANION GAP 16 (5-19); BLOOD UREA NITROGEN 75 mg/dL (7-20); CALCIUM 7.7 mg/dL (8.4-10.2); CARBON DIOXIDE 17 mmol/L (22-30); CHLORIDE 117 mmol/L (98-107); CREATINE KINASE 922 U/L (55-170); GLUCOSE 88 mg/dL (75-110); POTASSIUM 3.5 mmol/L (3.6-5.0)
[2017-03-25 08:31] LABS: ABSOLUTE LYMPHOCYTES# (MANUAL) 0.7 10^3/uL (0.5-4.7); ABSOLUTE MONOCYTES # (MANUAL) 0.5 10^3/uL (0.1-1.4); ABSOLUTE NEUTROPHILS# (MANUAL) 4.1 10^3/uL (1.7-8.2); ANISOCYTOSIS SLIGHT; BAND NEUTROPHILS % (MANUAL) 5 % (3-5); BASOPHILS % (MANUAL) 0 % (0-2); EOSINOPHILS % (MANUAL) 4 % (0-6); LYMPHOCYTES % (MANUAL) 13 % (13-45); METAMYELOCYTES % (MANUAL) 2 % (0); MONOCYTES % (MANUAL) 9 % (3-13); OVALOCYTES 1+; PLATELET COMMENT ADEQUATE; POIKILOCYTOSIS 1+; SEGMENTED NEUTROPHILS % (MAN) 67 % (42-78); TOTAL CELLS COUNTED 100; TOXIC GRANULATION 2+
[2017-03-25] MEDS: OXYCODONE-ACETAMINOPHEN 5-325 MG TABLET PO PRN ×3 (09:03→18:42)
[2017-03-25] MEDS: ONDANSETRON 4 MG TAB.RAPDIS PO PRN ×2 (09:04→18:44)
[2017-03-25] MEDS ORDERED: 1/2 NORMAL SALINE 1,000 ML IV PRN (09:39)
[2017-03-25] MEDS: CYANOCOBALAMIN (VITAMIN B-12) 1,000 MCG TABLET PO SCH (11:11)
[2017-03-25] MEDS: METOPROLOL TARTRATE 50 MG TABLET PO SCH ×2 (11:12→22:26)
[2017-03-25] MEDS: ASPIRIN 81 MG TABLET, ENT COATED PO SCH (11:13)
[2017-03-25] MEDS: CHOLECALCIFEROL (D3) 400 UNIT TABLET PO SCH (11:13)
[2017-03-25] MEDS: FAMOTIDINE 20 MG TABLET PO SCH ×2 (11:14→21:59)
[2017-03-25] MEDS: NORMAL SALINE 10 ML SDV (SCHEDULED) IV SCH ×2 (11:15→22:00)
[2017-03-25] MEDS ORDERED: MORPHINE SULFATE 10 MG/ML INJ ONE (11:36)
[2017-03-25] MEDS ORDERED: IPRATROPIUM/ALBUTEROL 0.5-2.5 MG/3 ML AMPUL NEB PRN (11:48)
[2017-03-25] MEDS ORDERED: MORPHINE SULFATE 10 MG/ML INJ IV ONE (12:30)
[2017-03-25] MEDS ORDERED: CEFTRIAXONE 1 GM/D5W RTU 1 GM/50 ML RTUPB IV ONE ×2 (13:00→17:00)
--- NOTE | 2017-03-25 13:03 | Operative Report ---
Operative Report PREOPERATIVE DIAGNOSIS: Stage IV sacral decubitus central; stage II perineal decubiti bilaterally POSTOPERATIVE DIAGNOSIS: Same OPERATION: Excisional debridement of skin and subcutaneous tissue and fascia from the stage IV sacral decubitus. SURGEON: DEVIN TORREZ ANESTHESIA: Other - IV morphine TISSUE REMOVED OR ALTERED: skin and subcutaneous tissue COMPLICATIONS: None ESTIMATED BLOOD LOSS: 25 cc INTRAOPERATIVE FINDINGS: See below PROCEDURE: The patient was rolled on left lateral decubitus position. Findings were significant for stage IV necrotic central cubitus overlying the sacrum. Towards the perineum or bilateral stage II decubiti. Sloughing tissue appreciated After intravenous morphine given to the patient, he was rolled in the extreme left lateral decubitus position. Active areas were rinsed with Betadine, and now with pickups and #10 blade, all nonviable skin overlying the central sacral decubitus was sharply debrided. This left a hole approximately 4 x 6 cm x 4 cm deep. Stage II decubiti has cellular debris was debrided with the #10 blade as well. All necrotic tissue disposed of. Dressing changes initiated.
--- NOTE | 2017-03-25 14:04 | PDOC PROGRESS REPORT ---
Subjective Progress Note for:: 03/25/17 Subjective:: Complains of back pain Reason For Visit: ACUTE RENAL FAILURE Physical Exam Vital Signs: Temp Pulse Resp BP Pulse Ox 97.3 F 114 H 16 126/68 H 94 03/25/17 11:33 03/25/17 13:50 03/25/17 13:50 03/25/17 12:02 03/25/17 13:50 Intake & Output 03/24/17 03/25/17 03/26/17 06:59 06:59 06:59 Intake Total 4700 9355 Output Total 2350 2300 Balance 2350 7055 Weight 98.3 kg 101.2 kg General appearance: PRESENT: no acute distress Eye exam: PRESENT: conjunctiva pink. ABSENT: scleral icterus Mouth exam: PRESENT: moist, tongue midline Neck exam: ABSENT: carotid bruit, JVD, lymphadenopathy, thyromegaly Respiratory exam: PRESENT: rhonchi. ABSENT: rales, wheezes Cardiovascular exam: PRESENT: RRR. ABSENT: diastolic murmur, rubs, systolic murmur GI/Abdominal exam: PRESENT: normal bowel sounds, soft. ABSENT: distended, guarding, mass, organolmegaly, rebound, tenderness Extremities exam: PRESENT: pedal edema. ABSENT: calf tenderness, clubbing Neurological exam: PRESENT: alert, awake, oriented to person, oriented to place , oriented to time, oriented to situation, CN II-XII grossly intact. ABSENT: motor sensory deficit Psychiatric exam: PRESENT: appropriate affect Skin exam: PRESENT: other - Sacral decubitus was debrided today appears to be stage III or IV. Results Laboratory Results: 03/25/17 06:55 03/25/17 06:55 03/25/17 03/25/17 06:55 06:55 WBC 5.5 RBC 3.93 L Hgb 11.8 L Hct 34.5 L MCV 88 MCH 30.1 MCHC 34.3 RDW 15.6 H Plt Count 161 Seg Neutrophils % Not Reportable Lymphocytes % Not Reportable Monocytes % Not Reportable Eosinophils % Not Reportable Basophils % Not Reportable Absolute Neutrophils Not Reportable Absolute Lymphocytes Not Reportable Absolute Monocytes Not Reportable Absolute Eosinophils Not Reportable Absolute Basophils Not Reportable Sodium 150.0 H Potassium 3.5 L Chloride 117 H Carbon Dioxide 17 L Anion Gap 16 BUN 75 H Creatinine 1.92 H Est GFR ( Amer) 42 L Est GFR (Non-Af Amer) 35 L Glucose 88 Calcium 7.7 L 03/21/17 03/21/17 03/22/17 19:51 19:51 02:05 Creatine Kinase 6234 H 6106 H CK-MB (CK-2) 47.80 H Troponin I 6.340 03/22/17 03/22/17 03/22/17 02:05 10:51 10:51 Creatine Kinase 6173 H CK-MB (CK-2) 43.30 H 37.10 H Troponin I 6.750 6.130 03/24/17 03/25/17 06:00 06:55 Creatine Kinase 2065 H 922 H CK-MB (CK-2) Troponin I Impressions: Lumbar Spine X-Ray 03/21/17 13:02 IMPRESSION: CHRONIC DEGENERATIVE CHANGES. THERE IS NEW MILD WEDGE DEFORMITY OF L1 CONSISTENT WITH RECENT COMPRESSION FRACTURE. Thoracic Spine X-Ray 03/21/17 13:02 IMPRESSION: Extensive spondylosis. Chest X-Ray 03/21/17 15:10 IMPRESSION: RIGHT UPPER LOBE DENSITY. THIS COULD BE DUE TO CHRONIC SCARRING VERSUS ACUTE INFILTRATE. Abdomen/Pelvis CT 03/22/17 00:00 IMPRESSION: 1. Small pleural effusions. 2. Large predominantly cystic mass arising from the lower pole the right kidney. There are some linear calcifications suggesting septations. Cannot entirely exclude malignancy. 3. Diverticulosis coli. 4. Compression changes at L1 as described. 5. Other findings as described. Guidance Fluoroscopy 03/22/17 00:00 IMPRESSION: Please see combined report for performance of procedure and radiologic supervision and interpretation. Interventional Vascular Procedure 03/22/17 00:00 IMPRESSION: Please see combined report for performance of procedure and radiologic supervision and interpretation. PICC Line Insertion 03/22/17 00:00 IMPRESSION: SUCCESSFUL PLACEMENT OF A 5 FR dual LUMEN is 40 CM PICC IN THE left basilic VEIN. Renal Ultrasound 03/22/17 00:00 IMPRESSION: Indeterminate 15 cm complex cystic components of the right lower abdomen; cannot exclude neoplasm. Further evaluation with IV and oral contrast CT of the abdomen and pelvis (renal protocol) series recommended. 2010 [email or web address]- All Rights Reserved Assessment & Plan - Diagnosis (1) Acute renal failure (ARF) Qualifiers: Acute renal failure type: unspecified Qualified Code(s): N17.9 - Acute kidney failure, unspecified Is this a current diagnosis for this admission?: Yes Plan: The patient has acute renal failure. He has had decreased p.o. intake for the last several weeks. He also has been taking Naprosyn. His creatinine has improved with IV fluids. We will change the IV fluids to half-normal saline given the elevated sodium. (2) Rhabdomyolysis Qualifiers: Rhabdomyolysis type: traumatic Encounter type: initial encounter Qualified Code(s): T79.6XXA - Traumatic ischemia of muscle, initial encounter Is this a current diagnosis for this admission?: Yes Plan: Most likely secondary to his prolonged immobility. Improving with IV fluids. (3) Troponin level elevated Is this a current diagnosis for this admission?: Yes Plan: Patient has not had any chest pain or any cardiac history. Elevated troponins most likely secondary to chronic renal failure. (4) Back pain Is this a current diagnosis for this admission?: Yes Plan: We will give Percocet as needed. He has an L1 compression fracture. This is probably what is the cause of his chronic pain that made it difficult for him to get up and care for himself. Patient was seen by pain management today. They are considering doing kyphoplasty however given the probable infection in the sacral decubitus they are going to wait. (5) Compression fracture Is this a current diagnosis for this admission?: Yes Plan: We will give Percocet as needed. Will consult pain management for possible kyphoplasty. (6) Hypertension Is this a current diagnosis for this admission?: Yes Plan: We will hold his lisinopril and hydrochlorothiazide in light of his acute renal failure. (7) Hyperlipidemia Is this a current diagnosis for this admission?: Yes Plan: Continue with Zocor. (8) COPD (chronic obstructive pulmonary disease) Is this a current diagnosis for this admission?: Yes Plan: We will give nebulizers as needed. He is encouraged to quit smoking. (9) Hypothyroidism Is this a current diagnosis for this admission?: Yes Plan: Continue Synthroid. (10) BPH (benign prostatic hyperplasia) Is this a current diagnosis for this admission?: Yes Plan: Continue Flomax (11) Sacral decubitus ulcer Is this a current diagnosis for this admission?: Yes Plan: Surgery is following. They did a debridement today. Patient is growing Proteus and group B strep From his culture. Will add on IV Rocephin. 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 As his kidneys improve he can follow-up with cardiology as an outpatient in regards to the possibility of possible septal hypertrophy. - Time Time Spent with patient: 25-34 minutes - Inpatient Certification Medical Necessity: Need for IV Antibiotics
--- NOTE | 2017-03-25 14:13 | CONSULTATION REPORT E ---
Consultation Report NAME: MARIELA DE LEÓN : 1945 AGE: 71Y DATE: 03/25/2017 313 A TO: MARIIA CORLEY M.D. FROM: Requesting Physician REQUESTING PHYSICIAN: Dr. Dominic Faust REASON FOR CONSULTATION: L1 compression fracture. CHIEF COMPLAINT: Back pain. HISTORY OF PRESENT ILLNESS: The patient is a 71-year-old male with a history of hypertension, COPD, who has had chronic longstanding back pain. He reports a history of back surgery in the . However, he notes that, over the past 2 months, pain substantially worsened. This was sometime before . He did not have any particular inciting event that he can remember. He noted that he was having difficulty getting up and moving around. Notably, he does have some difficulty recounting his history to me today with some confusion. He notably was admitted in acute renal failure with elevation in troponin and creatine kinase and rhabdomyolysis. He was hypotensive in the emergency room in acute renal failure. He has been improving over the past number of days, but has had significant ongoing pain in his back. The patient describes to me today that he has searing pain between his shoulder blades, in the mid back, the low back, and in the buttocks. He has some radiation down his legs, though he is not well able to describe this to me. He denies any numbness, tingling that is acute. He notes that he has no loss of bowel or bladder function that he is aware of, although he has had some diarrhea lately. He denies any chest pain or abdominal pain. PAST MEDICAL HISTORY: 1. Hypertension. 2. Hyperlipidemia. 3. Chronic obstructive pulmonary disease. 4. Hypothyroidism. 5. Arthritis. PAST SURGICAL HISTORY: Patient endorses previous surgery for herniated disk in the . SOCIAL HISTORY: The patient lives alone, smokes 1-2 packs a day. Denies alcohol use, recreational drug use. He is a DNR. His brother is his apparent decision maker. FAMILY HISTORY: Family history of Parkinson's disease in father, coronary artery disease with mother. HOME MEDICATIONS: 1. Tylenol with codeine 300 mg p.o. q. 8 hours p.r.n. 2. Aspirin 81 mg p.o. daily. 3. Vitamin D. 4. Vitamin B12. 5. Synthroid 175 mcg p.o. daily. 6. Lisinopril/hydrochlorothiazide 20/25 mg tablets 1 p.o. daily. 7. Metoprolol 50 mg p.o. q. 12 hours. 8. Naproxen 500 mg p.o. b.i.d. 9. Simvastatin 40 mg p.o. daily at bedtime. 10. Tamsulosin 0.4 mg p.o. daily at bedtime. ALLERGIES: NKDA. REVIEW OF SYSTEMS: Patient notes that he has had a 40-pound weight loss over the past several months in his chart. He cannot recount this for me today, but does note that he has been losing weight rapidly. He denies any fever, chills, night sweats. He denies any abdominal pain. He does say that sometimes he has difficulty urinating, but this is longstanding. Denies any hematuria or loss of bladder function. Current diarrhea plus back pain. See HPI for remainder. PHYSICAL EXAMINATION: VITAL SIGNS: Temperature 97.8, pulse 113, blood pressure 102/78, respirations 20, saturation 98% on room air, pain 3/5 on numeric grading scale. GENERAL: The patient is a slightly disheveled male who is sitting uncomfortably in the bed. He shifts frequently. He complains of back pain. He is oriented to place and person, though not quite aware of time. He notes something about computers when asked about pain. HEENT: Head is normocephalic, atraumatic. No scleral icterus appreciated. MOUTH: Mucosa is dry. Poor dentition. NECK: Supple. CARDIOVASCULAR: Tachycardic, but regular rhythm. RESPIRATIONS: Even, unlabored work of breathing. MUSCULOSKELETAL: The patient turns to the side with some wincing in pain. He is not really tender in the midline in the thoracic spine or the upper lumbar spine, of note, but does have tenderness as we get down lower into the lower lumbar spine in the lumbosacral junction. He does have some tenderness as well over the iliac crest bilaterally. There is dressing over decubitus ulcer site. NEUROLOGIC: Able to move both lower extremities with normal strength in all muscular groups grossly. There is no gross sensation loss. LABORATORY RESULTS: Patient is anemic currently with H and H 11.8/34.5, normal white count. CK is trending downward at 9:22 today. Notably, wound culture is growing proteus and group B strep. Abdomen, pelvis CT from 03/21 demonstrates pleural effusion, cystic mass in the right kidney with septation, question of potential malignancy, an L1 compression fracture and diverticulosis coli. L-spine x-rays demonstrate compression fracture L1 vertebral body. IMPRESSION: 1. L1 compression fracture, subacute. 2. Rhabdomyolysis and acute renal failure. 3. Sacral decubitus ulcer with current wound cultures growing proteus and group B strep. PLAN: The patient is a pleasant, though currently somewhat confused, 71-year-old male, chronic smoker with acute renal failure, likely due to rhabdomyolysis. He has an L1 compression fracture that is new compared to x-rays taken in January of this year. I do have some concerns that his current examination demonstrates pain that is a bit lower down than where I would expect for L1 compression fracture; though, still, he may be having quite a bit of pain. Examination was somewhat limited, of note, today. Given that he is growing some organisms in recent wound culture from sacral decubitus ulcer, the patient will be started on antibiotics per his admitting physician. I am also going to request MRI of the lumbar spine for further potential future surgical planning as well as evaluation of lower lumbar levels given findings on examination. Also, the patient will remain on aspirin for this time; but, notably, this will need to be stopped 7 days in advance to any sort of interventional procedure, such as a kyphoplasty. The patient, notably, may well be a candidate for this, but he does likely need a bit of treatment prior to this for, again, potential infectious sites. We will continue to follow along with this patient. In the meantime, I will have pain medication dosages increased, given that he has tolerated them well to this point. We will increase to Percocet 5/325 one tab p.o. q. 4 hours p.r.n. pain plus oxycodone 5 mg p.o. q. 4 hours p.r.n. pain for a total of 10 mg oxycodone. The patient may be started on a bowel regimen if constipation develops but currently has diarrhea. We will continue to follow along with this patient and plan for kyphoplasty as the patient is able and pending results of the MRI L-spine. Thank you, very much, for this interesting consultation, and we appreciate being a part of this patient's care. DICTATING PHYSICIAN: MARIIA CORLEY M.D. [id number] PHY#: [id number] ID: [id number] JOB#: [id number] ACCT: [id number] cc:MARIIA CORLEY M.D. >
[2017-03-25] MEDS: OXYCODONE HCL IR 5 MG TABLET PO PRN ×2 (14:52→18:43)
--- NOTE | 2017-03-25 17:05 | RADIOLOGY REPORT (SQ) ---
EXAM DESCRIPTION: PICC INSERTION; FLUORO/CV PLACEMENT COMPLETED DATE/TIME: 03/25/2017 4:49 pm; 03/25/2017 4:50 pm REASON FOR STUDY: previous PICC removed by patient; PICC REPLACEMENT COMPARISON: 03/22/2017 FLUOROSCOPY TIME: 28 seconds 1 digital fluoroscopic chest image and 1 ultrasound images saved to PACS. TECHNIQUE: Fluoroscopic and ultrasound guided PICC placement. LIMITATIONS: None. PROCEDURE: After written consent and assessment were obtained, the patient was brought into the fluo roscopy room and place supine on the table. Ultrasound was used on the patient's left arm for PICC a ccess. The left arm was prepped and draped in a sterile fashion along with the ultrasound probe. The entry site was anesthetized with 1% lidocaine. A 21 gauge 7 cm needle was advanced through the skin a nd into the basilic vein under live ultrasound guidance. An ultrasound image was saved to PACS confi rming access site. A .018 guide wire was then inserted through the needle and into the venous system . The needle was the removed and an 11 blade scalpel was used to make a 1cm skin incision. A 5 fr pe el-away sheath was advanced over the wire and into the venous system. A measurement was then made usi ng the existing wire and live fluoroscopic guidance. The wire was then removed and the trimmed. The P ICC was advanced through the peel-away sheath and into the venous system. The peel-away sheath was re moved and the catheter was adhered to the patients arm with a stat lock. The catheter was then aspira estrada and flushed and a sterile bandage was placed over the access site. A fluoroscopic spot image was saved to PACS confirming the catheter tip within the superior vena cava. IMPRESSION: SUCCESSFUL PLACEMENT OF A 5 FR DUAL LUMEN 41 CM PICC IN THE LEFT BASILIC VEIN. COMMENT: Patient medication list reviewed: Yes- Quality ID# 130:Eligible professional attests to doc umenting in the medical record they obtained, updated, or reviewed the patient's current medications. . Quality ID 145: Final reports for procedures using fluoroscopy that document radiation exposure trace soni, or exposure time and number of fluorographic images (if radiation exposure indices are not avail able) Quality ID #76: The patient was prepped and draped using maximum sterile barrier technique including cap, mask, sterile gown, sterile gloves, a large sterile sheet, hand hygiene, and 2% Chlorhexidine fo r cutaneous antisepsis. When ultrasound is used, sterile ultrasound techniques are followed requiring sterile gel and sterile probes. TECHNICAL DOCUMENTATION: JOB ID: [id number] [employer] [facility] [employer]- All Rights Reserved
[2017-03-25] MEDS ORDERED: ALTEPLASE INJ 2 MG VIAL (CATH CLEARANCE) IV PRN (17:46)
[2017-03-25] MEDS: TAMSULOSIN HCL 0.4 MG CAP.SR.24H PO SCH (18:44)
--- NOTE | 2017-03-25 19:49 | PDOC PROGRESS REPORT ---
Subjective Progress Note for:: 03/25/17 Subjective:: Patient is currently having diarrhea since after lunch today. His blood pressure is a little bit low and they could not give him IV fluids after 3 PM because his PICC line was pulled by him. He went back to interventional radiologist to have another one placed but it is currently not working. His blood pressure is fluctuating and at times lowish as low as 82/53 today. He is making urine. He was found to have stage IV decubitus ulcer and surgery was consulted. He was continued on 0.9 normal saline over the weekend with his sodium was elevated this morning so it was switched 2.45 normal saline before the PICC line was pulled out. He is eating a little bit better but not much. He tells me that he is drinking some fluids. His brother told me that he has been stopped born. Reason For Visit: ACUTE RENAL FAILURE Physical Exam Vital Signs: Temp Pulse Resp BP Pulse Ox 97.3 F 103 H 16 126/68 H 94 03/25/17 11:33 03/25/17 14:00 03/25/17 13:50 03/25/17 12:02 03/25/17 13:50 Intake & Output 03/24/17 03/25/17 03/26/17 06:59 06:59 06:59 Intake Total 4700 9355 877 Output Total 2350 2300 1325 Balance 2350 7055 -448 Weight 98.3 kg 101.2 kg Exam: General appearance: PRESENT: no acute distress, cooperative, well-developed, well-nourished Head exam: PRESENT: atraumatic, normocephalic Eye exam: PRESENT: conjunctiva slightly pale, PERRLA. ABSENT: scleral icterus Neck exam: ABSENT: JVD Respiratory exam: PRESENT: Normal breath sounds. ABSENT: crackles, rales, rhonchi, unlabored, wheezes Cardiovascular exam: PRESENT: Regular rate rhythm -+S1, +S2. ABSENT: diastolic murmur, systolic murmur GI/Abdominal exam: PRESENT: normal bowel sounds, soft. ABSENT: guarding, mass, tenderness Extremities exam: ABSENT: No edema Neurological exam: PRESENT: alert, awake, oriented to person, place and time. Skin exam: PRESENT: dry, warm, skin turgor is better but he does have dry skin Results Laboratory Results: 03/25/17 06:55 03/25/17 06:55 03/25/17 03/25/17 06:55 06:55 WBC 5.5 RBC 3.93 L Hgb 11.8 L Hct 34.5 L MCV 88 MCH 30.1 MCHC 34.3 RDW 15.6 H Plt Count 161 Seg Neutrophils % Not Reportable Lymphocytes % Not Reportable Monocytes % Not Reportable Eosinophils % Not Reportable Basophils % Not Reportable Absolute Neutrophils Not Reportable Absolute Lymphocytes Not Reportable Absolute Monocytes Not Reportable Absolute Eosinophils Not Reportable Absolute Basophils Not Reportable Sodium 150.0 H Potassium 3.5 L Chloride 117 H Carbon Dioxide 17 L Anion Gap 16 BUN 75 H Creatinine 1.92 H Est GFR ( Amer) 42 L Est GFR (Non-Af Amer) 35 L Glucose 88 Calcium 7.7 L 03/21/17 03/21/17 03/22/17 19:51 19:51 02:05 Creatine Kinase 6234 H 6106 H CK-MB (CK-2) 47.80 H Troponin I 6.340 03/22/17 03/22/17 03/22/17 02:05 10:51 10:51 Creatine Kinase 6173 H CK-MB (CK-2) 43.30 H 37.10 H Troponin I 6.750 6.130 03/24/17 03/25/17 06:00 06:55 Creatine Kinase 2065 H 922 H CK-MB (CK-2) Troponin I Impressions: Lumbar Spine X-Ray 03/21/17 13:02 IMPRESSION: CHRONIC DEGENERATIVE CHANGES. THERE IS NEW MILD WEDGE DEFORMITY OF L1 CONSISTENT WITH RECENT COMPRESSION FRACTURE. Thoracic Spine X-Ray 03/21/17 13:02 IMPRESSION: Extensive spondylosis. Chest X-Ray 03/21/17 15:10 IMPRESSION: RIGHT UPPER LOBE DENSITY. THIS COULD BE DUE TO CHRONIC SCARRING VERSUS ACUTE INFILTRATE. Abdomen/Pelvis CT 03/22/17 00:00 IMPRESSION: 1. Small pleural effusions. 2. Large predominantly cystic mass arising from the lower pole the right kidney. There are some linear calcifications suggesting septations. Cannot entirely exclude malignancy. 3. Diverticulosis coli. 4. Compression changes at L1 as described. 5. Other findings as described. Interventional Vascular Procedure 03/22/17 00:00 IMPRESSION: Please see combined report for performance of procedure and radiologic supervision and interpretation. Renal Ultrasound 03/22/17 00:00 IMPRESSION: Indeterminate 15 cm complex cystic components of the right lower abdomen; cannot exclude neoplasm. Further evaluation with IV and oral contrast CT of the abdomen and pelvis (renal protocol) series recommended. 2010 [employer]- All Rights Reserved Guidance Fluoroscopy 03/25/17 00:00 IMPRESSION: SUCCESSFUL PLACEMENT OF A 5 FR DUAL LUMEN 41 CM PICC IN THE LEFT BASILIC VEIN. PICC Line Insertion 03/25/17 00:00 IMPRESSION: SUCCESSFUL PLACEMENT OF A 5 FR DUAL LUMEN 41 CM PICC IN THE LEFT BASILIC VEIN. Assessment & Plan - Diagnosis (1) Acute kidney injury Is this a current diagnosis for this admission?: Yes Plan: Patient is currently clinically oliguric. Urinalysis shows very minimal proteinuria and the blood is secondary to the rhabdomyolysis. This most likely secondary to initially an acute prerenal azotemia due to severe volume depletion and dehydration with presumably intake of nephrotoxic medications including nonsteroidal anti-inflammatory agents and the lisinopril HCTZ and his medication regimen. Patient could also have progressed to acute tubular necrosis due to severe volume depletion, rhabdomyolysis and hypotension. Patient's kidney function has improved continuously every day for the last 3 days. I communicated it to this to the patient and his brother and sister-in- law. He is making some urine. She does not have the PICC line encouraged him to continue to try to drink fluids orally. (2) Rhabdomyolysis Qualifiers: Rhabdomyolysis type: traumatic Encounter type: initial encounter Qualified Code(s): T79.6XXA - Traumatic ischemia of muscle, initial encounter Is this a current diagnosis for this admission?: Yes Plan: Agree that this could be due to immobility. Continue IV fluids are encouraged oral fluids since PICC line is not working. His CPK is much improved. (3) Hypotension Is this a current diagnosis for this admission?: Yes Plan: Due to hold lisinopril and hydrochlorothiazide. The metoprolol can contribute to this but it might have been given because of his tachycardia. Dose might need to be adjusted. (4) Metabolic acidosis Is this a current diagnosis for this admission?: Yes Plan: Improving. (5) Hypokalemia Is this a current diagnosis for this admission?: Yes Plan: Replace potassium as necessary. (6) Complex renal cyst Is this a current diagnosis for this admission?: Yes Plan: As malignancy cannot be excluded at this time, this could needs further workup and urology consultation. However at this time I do not think we can do anything for this at the moment until his kidney function improves and his clinical condition improves as well. (7) Sacral decubitus ulcer Is this a current diagnosis for this admission?: Yes Plan: Surgery was consulted. (8) Chronic back pain Qualifiers: Back pain location: low back pain Is this a current diagnosis for this admission?: Yes Plan: Due to compression fracture of L1. (9) Compression fracture Is this a current diagnosis for this admission?: Yes (10) Depression Is this a current diagnosis for this admission?: Yes - Time Time with patient: 15-25 minutes
[2017-03-25] MEDS ORDERED: POTASSIUM CHLORIDE 10 MEQ TABLET.SA PO ONE (20:15)
[2017-03-25] MEDS: SIMVASTATIN 40 MG TABLET PO SCH (21:59)
[2017-03-26] MEDS ORDERED: LORAZEPAM 0.5 MG TABLET PO ONE (04:00)
[2017-03-26] MEDS: OXYCODONE HCL IR 5 MG TABLET PO PRN ×4 (04:03→16:02)
[2017-03-26] MEDS: HEPARIN SOD (PORCINE) 5,000 UNIT/ML 1 ML SYRINGE SUBCUT SCH ×3 (05:27→21:36)
[2017-03-26] MEDS: LEVOTHYROXINE SODIUM 0.075 MG TABLET PO SCH (05:27)
[2017-03-26] MEDS: LEVOTHYROXINE SODIUM 0.1 MG TABLET PO SCH (05:27)
[2017-03-26 05:57] LABS: ABSOLUTE EOSINOPHILS # (AUTO) 0.2 10^3/uL (0.0-0.6); ABSOLUTE LYMPHOCYTES (AUTO) 0.6 10^3/uL (0.5-4.7); ABSOLUTE MONOCYTES (AUTO) 0.7 10^3/uL (0.1-1.4); ABSOLUTE NEUT (AUTO) 5.1 10^3/uL (1.7-8.2); BASOPHILS % (AUTO) 0.2 % (0-2); EOSINOPHILS % (AUTO) 3.2 % (0-6); HEMATOCRIT 34.1 % (37.9-51.0); HEMOGLOBIN 11.6 g/dL (13.5-17.0); LYMPHOCYTES % (AUTO) 9.3 % (13-45); MEAN CORPUSCULAR HEMOGLOBIN 30.1 pg (27.0-33.4); MEAN CORPUSCULAR VOLUME 89 fl (80-97); PLATELET COUNT 172 10^3/uL (150-450); RED BLOOD COUNT 3.84 10^6/uL (4.35-5.55); SEGMENTED NEUTROPHILS % (AUTO) 76.3 % (42-78); TOTAL CELLS COUNTED % (AUTO) 100 %; WHITE BLOOD COUNT 6.7 10^3/uL (4.0-10.5)
[2017-03-26] MEDS: OXYCODONE-ACETAMINOPHEN 5-325 MG TABLET PO PRN ×3 (06:16→16:00)
[2017-03-26 06:17] LABS: ANION GAP 14 (5-19); BLOOD UREA NITROGEN 64 mg/dL (7-20); CALCIUM 8.1 mg/dL (8.4-10.2); CARBON DIOXIDE 18 mmol/L (22-30); CHLORIDE 121 mmol/L (98-107); GLUCOSE 90 mg/dL (75-110); MAGNESIUM 1.6 mg/dL (1.6-2.3); POTASSIUM 3.5 mmol/L (3.6-5.0); SODIUM 152.9 mmol/L (137-145)
[2017-03-26] MEDS: ONDANSETRON 4 MG TAB.RAPDIS PO PRN (08:53)
[2017-03-26] MEDS: MORPHINE SULFATE 10 MG/ML INJ IV PRN ×3 (08:54→18:49)
[2017-03-26] MEDS ORDERED: CEFTRIAXONE INJ 1000 MG VIAL IM PRN (10:00)
[2017-03-26] MEDS: CYANOCOBALAMIN (VITAMIN B-12) 1,000 MCG TABLET PO SCH (10:33)
[2017-03-26] MEDS: CEFTRIAXONE 1 GM/D5W RTU 1 GM/50 ML RTUPB IV SCH (10:37)
[2017-03-26] MEDS: FAMOTIDINE 20 MG TABLET PO SCH ×2 (10:41→21:36)
[2017-03-26] MEDS: CHOLECALCIFEROL (D3) 400 UNIT TABLET PO SCH (10:41)
[2017-03-26] MEDS: ASPIRIN 81 MG TABLET, ENT COATED PO SCH (10:42)
[2017-03-26] MEDS: METOPROLOL TARTRATE 50 MG TABLET PO SCH ×2 (10:42→21:36)
[2017-03-26] MEDS: NORMAL SALINE 10 ML SDV (SCHEDULED) IV SCH ×2 (10:43→22:59)
--- NOTE | 2017-03-26 10:54 | RADIOLOGY REPORT (SQ) ---
EXAM DESCRIPTION: PICC LINE REPLACEMENT COMPLETED DATE/TIME: 03/26/2017 8:41 am REASON FOR STUDY: PICC NOT WORKING COMPARISON: PICC line placement yesterday FLUOROSCOPY TIME: Less than 1 second 1 digital fluoroscopic image saved to PACS. TECHNIQUE: Fluoroscopic guided PICC replacement. LIMITATIONS: None. PROCEDURE: After written consent and assessment were obtained, the patient was brought into the fluo roscopy room and place supine on the table. The left arm an existing PICC was prepped and draped in a sterile fashion. The entry site was anesthetized with 2.5 mL 1% lidocaine. A .018 guide wire was then inserted through the existing PICC and into the venous system. The old catheter was then removed and a new catheter measuring 45 cm was advanced over the wire and into the venous system. The wire was then removed and the catheter was adhered to the patients arm with a stat lock. The catheter was then aspirated and flushed and a sterile bandage was placed over the access site. A fluoroscopic spo t image was saved to PACS confirming the catheter tip within the superior vena cava. Catheter flushe d and aspirated easily. IMPRESSION: SUCCESSFUL OVER THE WIRE REPLACEMENT OF YESTERDAY'S PICC FOR A NEW ONE THAT IS 5 FR DUAL LUMEN 45 CM PICC IN THE LEFT ARM. COMMENT: Patient medication list reviewed: Yes- Quality ID# 130:Eligible professional attests to doc umenting in the medical record they obtained, updated, or reviewed the patient's current medications. . Quality ID 145: Final reports for procedures using fluoroscopy that document radiation exposure trace soni, or exposure time and number of fluorographic images (if radiation exposure indices are not avail able) Quality ID #76: The patient was prepped and draped using maximum sterile barrier technique including cap, mask, sterile gown, sterile gloves, a large sterile sheet, hand hygiene, and 2% Chlorhexidine fo r cutaneous antisepsis. When ultrasound is used, sterile ultrasound techniques are followed requiring sterile gel and sterile probes. TECHNICAL DOCUMENTATION: JOB ID: [id number] [employer]- All Rights Reserved
--- NOTE | 2017-03-26 12:44 | EKG REPORT ---
SEVERITY:- ABNORMAL ECG - SUPRAVENTRICULAR TACHYCARDIA, MULTIFOCAL ATRIAL TACHYCADIA MULTIPLE VENTRICULAR PREMATURE COMPLEXES REPOLARIZATION ABNORMALITY, PROB RATE RELATED : Confirmed by: Timi To 26-Mar-2017 12:44:16
--- NOTE | 2017-03-26 15:03 | RADIOLOGY REPORT (SQ) ---
EXAM DESCRIPTION: MRI LUMBAR SPINE WITHOUT COMPLETED DATE/TIME: 03/26/2017 2:37 pm REASON FOR STUDY: spinal fracture COMPARISON: CT ABDOMEN PELVIS 03/22/2017 LUMBAR SPINE PLAIN FILMS 03/21/2017 TECHNIQUE: Sagittal and Axial imaging includes T1, T2, STIR and gradient echo sequences. Coronal T2/ HASTE imaging. LIMITATIONS: Motion artifact on some of the pulse sequences FINDINGS: SEGMENTATION: No transitional anatomy. The lowest well-developed disc space is labeled L5- S1. ALIGNMENT: Anatomic. VERTEBRAE: Along the upper endplate of L1, a subacute upper endplate compression fracture is present with about 25% loss of height of the L1 vertebral body. The fracture line is filled with fluid on ST IR sagittal image 5. There is minimal retropulsion of the posterior bony cortex of L1 best shown on sagittal image 80. Please note that this is a pathological fracture, diffusely abnormal bone marrow throughout the L1 vertebral body and pedicles. There is a subacute upper endplate compression at L2, with mild upper endplate central depression. N o retropulsion of bony cortex. Please note that there is diffusely abnormal bone marrow throughout t he L2 vertebral body and pedicles, this is likely a pathologic fracture. BONE MARROW: Abnormal decreased T1 and increased stir/T2 marrow signal throughout the lower half of T 11, the leftward half of T12, throughout the L1 and L2 vertebral bodies. There patchy marrow signal abnormality in the L3 vertebral body and right pedicle. Abnormal marrow signal throughout the anteri or half of the L4 vertebral body. Abnormal marrow signal throughout nearly the entire L5 vertebral b omraima. Abnormal marrow signal throughout the upper sacrum. DISC SIGNAL: Disc space loss of height at L5-S1 POSTERIOR ELEMENTS: Generally intact. No pars defect evident. HARDWARE: None in the spine. CORD AND CONUS: Normal in size and signal intensity. Conus at the mid L1 level. SOFT TISSUES: No aortic aneurysm seen. No bulky retroperitoneal adenopathy or mass. No paraspinal mas s or fluid. L1-L2: At the disc level, no central stenosis is present. There is mild bilateral inferior foraminal narrowing. L2-L3: Mild bilateral facet hypertrophy. No significant posterior disc bulging. No central stenosis . No significant foraminal narrowing. On sagittal image 9, and axial images 16 through 19, there is a fluid-filled structure along the dors al aspect of the L2 and L3 vertebral bodies and L2-3 discs which may be prominent epidural veins. Ep idural tumor could not entirely be excluded. L3-L4: Mild diffuse posterior disc bulging is present with moderate bilateral facet hypertrophy. Bor derline central canal narrowing. Mild bilateral L3-4 foraminal narrowing without exiting nerve root impingement. L4-L5: Broad diffuse posterior disc bulging is present with moderate bilateral facet and ligament hyp ertrophy. Mild central canal stenosis. Mild bilateral inferior foraminal narrowing without exiting L4 nerve root impingement. L5-S1: Broad diffuse posterior disc bulging and moderate bilateral facet and ligament hypertrophy. O ld right micro laminectomy defect. There is some effacement of the fat around the right S1 nerve nickolas t as it exits the thecal sac. Borderline central canal narrowing. Moderate right foraminal narrowin g with partial effacement of the fat around the exiting right L5 nerve root. Mild left foraminal paresh rowing. SACRUM: Abnormal sacral marrow signal from metastatic disease or myeloproliferative disease OTHER: No other significant findings. IMPRESSION: Pathologic compression deformities of the L1 and L2 vertebral bodies TECHNICAL DOCUMENTATION: JOB ID: [id number] [employer]- All Rights Reserved
--- NOTE | 2017-03-26 16:10 | PDOC PROGRESS REPORT ---
Subjective Progress Note for:: 03/26/17 Subjective:: Patient is not longer having diarrhea today. He seems to look and appear to be confused though. He had another PICC line placed today and IV fluids get started right after. He is making adequate amount of urine. Reason For Visit: ACUTE RENAL FAILURE Physical Exam Vital Signs: Temp Pulse Resp BP Pulse Ox 98.1 F 115 H 18 122/68 95 03/26/17 07:52 03/26/17 07:52 03/26/17 07:52 03/26/17 07:52 03/26/17 07:52 Intake & Output 03/25/17 03/26/17 03/27/17 06:59 06:59 06:59 Intake Total 9355 1177 50 Output Total 2300 2330 400 Balance 7055 -1153 -350 Weight 101.2 kg 95.1 kg Exam: General appearance: PRESENT: no acute distress, cooperative, well-developed, well-nourished Head exam: PRESENT: atraumatic, normocephalic Eye exam: PRESENT: conjunctiva pale, PERRLA. ABSENT: scleral icterus Neck exam: ABSENT: JVD Respiratory exam: PRESENT: Normal breath sounds. ABSENT: crackles, rales, rhonchi, unlabored, wheezes Cardiovascular exam: PRESENT: Regular rate rhythm -+S1, +S2. ABSENT: diastolic murmur, systolic murmur GI/Abdominal exam: PRESENT: normal bowel sounds, soft. ABSENT: guarding, mass, tenderness Extremities exam: ABSENT: No edema Neurological exam: PRESENT: alert, awake, oriented to person, place but not to time. Skin exam: PRESENT: dry, warm, dry skin Results Laboratory Results: 03/26/17 04:55 03/26/17 04:55 03/26/17 03/26/17 04:55 04:55 WBC 6.7 RBC 3.84 L Hgb 11.6 L Hct 34.1 L MCV 89 MCH 30.1 MCHC 34.0 RDW 16.0 H Plt Count 172 Seg Neutrophils % 76.3 Lymphocytes % 9.3 L Monocytes % 11.0 Eosinophils % 3.2 Basophils % 0.2 Absolute Neutrophils 5.1 Absolute Lymphocytes 0.6 Absolute Monocytes 0.7 Absolute Eosinophils 0.2 Absolute Basophils 0.0 Sodium 152.9 H Potassium 3.5 L Chloride 121 H Carbon Dioxide 18 L Anion Gap 14 BUN 64 H Creatinine 1.49 H Est GFR ( Amer) 56 L Est GFR (Non-Af Amer) 47 L Glucose 90 Calcium 8.1 L Magnesium 1.6 03/23/17 16:00 Buttocks - Decubitis Ulcer Gram Stain - Final 03/21/17 03/21/17 03/22/17 19:51 19:51 02:05 Creatine Kinase 6234 H 6106 H CK-MB (CK-2) 47.80 H Troponin I 6.340 03/22/17 03/22/17 03/22/17 02:05 10:51 10:51 Creatine Kinase 6173 H CK-MB (CK-2) 43.30 H 37.10 H Troponin I 6.750 6.130 03/24/17 03/25/17 06:00 06:55 Creatine Kinase 2065 H 922 H CK-MB (CK-2) Troponin I Impressions: Lumbar Spine X-Ray 03/21/17 13:02 IMPRESSION: CHRONIC DEGENERATIVE CHANGES. THERE IS NEW MILD WEDGE DEFORMITY OF L1 CONSISTENT WITH RECENT COMPRESSION FRACTURE. Thoracic Spine X-Ray 03/21/17 13:02 IMPRESSION: Extensive spondylosis. Chest X-Ray 03/21/17 15:10 IMPRESSION: RIGHT UPPER LOBE DENSITY. THIS COULD BE DUE TO CHRONIC SCARRING VERSUS ACUTE INFILTRATE. Abdomen/Pelvis CT 03/22/17 00:00 IMPRESSION: 1. Small pleural effusions. 2. Large predominantly cystic mass arising from the lower pole the right kidney. There are some linear calcifications suggesting septations. Cannot entirely exclude malignancy. 3. Diverticulosis coli. 4. Compression changes at L1 as described. 5. Other findings as described. Interventional Vascular Procedure 03/22/17 00:00 IMPRESSION: Please see combined report for performance of procedure and radiologic supervision and interpretation. Renal Ultrasound 03/22/17 00:00 IMPRESSION: Indeterminate 15 cm complex cystic components of the right lower abdomen; cannot exclude neoplasm. Further evaluation with IV and oral contrast CT of the abdomen and pelvis (renal protocol) series recommended. 2010 [employer]- All Rights Reserved Guidance Fluoroscopy 03/25/17 00:00 IMPRESSION: SUCCESSFUL PLACEMENT OF A 5 FR DUAL LUMEN 41 CM PICC IN THE LEFT BASILIC VEIN. PICC Line Insertion 03/25/17 00:00 IMPRESSION: SUCCESSFUL PLACEMENT OF A 5 FR DUAL LUMEN 41 CM PICC IN THE LEFT BASILIC VEIN. PICC Line Exchange 03/26/17 00:00 IMPRESSION: SUCCESSFUL OVER THE WIRE REPLACEMENT OF YESTERDAY'S PICC FOR A NEW ONE THAT IS 5 FR DUAL LUMEN 45 CM PICC IN THE LEFT ARM. Lumbar Spine MRI 03/26/17 14:37 IMPRESSION: Pathologic compression deformities of the L1 and L2 vertebral bodies Assessment & Plan - Diagnosis (1) Acute kidney injury Is this a current diagnosis for this admission?: Yes Plan: Patient is currently clinically oliguric. Urinalysis shows very minimal proteinuria and the blood is secondary to the rhabdomyolysis. This most likely secondary to initially an acute prerenal azotemia due to severe volume depletion and dehydration with presumably intake of nephrotoxic medications including nonsteroidal anti-inflammatory agents and the lisinopril HCTZ and his medication regimen. Patient could also have progressed to acute tubular necrosis due to severe volume depletion, rhabdomyolysis and hypotension. Patient's kidney function has improved continuously every day . Continue current management and monitoring of kidney function. (2) Rhabdomyolysis Qualifiers: Rhabdomyolysis type: traumatic Encounter type: initial encounter Qualified Code(s): T79.6XXA - Traumatic ischemia of muscle, initial encounter Is this a current diagnosis for this admission?: Yes Plan: Agree that this could be due to immobility. Continue IV fluids and encouraged oral fluids . His CPK is much improved. (3) Hypotension Is this a current diagnosis for this admission?: Yes Plan: Due to hold lisinopril and hydrochlorothiazide. The metoprolol can contribute to this but it might have been given because of his tachycardia. Improved today. (4) Hypernatremia Is this a current diagnosis for this admission?: Yes Plan: Change IV fluids to D5 half-normal with 20 mEq of potassium at 75 mL an hour. (5) Metabolic acidosis Is this a current diagnosis for this admission?: Yes Plan: Improving. (6) Hypokalemia Is this a current diagnosis for this admission?: Yes Plan: Replace potassium as necessary. (7) Complex renal cyst Is this a current diagnosis for this admission?: Yes Plan: As malignancy cannot be excluded at this time, this could needs further workup and urology consultation. However at this time I do not think we can do anything for this at the moment until his kidney function improves and his clinical condition improves as well. (8) Sacral decubitus ulcer Is this a current diagnosis for this admission?: Yes Plan: Surgery was consulted. (9) Chronic back pain Qualifiers: Back pain location: low back pain Is this a current diagnosis for this admission?: Yes Plan: Due to compression fracture of L1. (10) Compression fracture Is this a current diagnosis for this admission?: Yes (11) Depression Is this a current diagnosis for this admission?: Yes - Time Time with patient: 15-25 minutes
[2017-03-26] MEDS: TAMSULOSIN HCL 0.4 MG CAP.SR.24H PO SCH (17:25)
[2017-03-26] MEDS: POTASSI CL 20 MEQ/D5-1/2NS 1L 1,000 ML IV PRN (17:26)
--- NOTE | 2017-03-26 17:27 | PDOC PROGRESS REPORT ---
Subjective Progress Note for:: 03/26/17 Subjective:: This is a follow-up visit for acute renal failure. Patient was seen at the bedside. His nurse informed me of the events of yesterday. The patient apparently had a malfunctioning PICC line that necessitated replacement. The patient had also had difficulty with urinating and a Olivarez catheter was placed. 600 cc was evacuated from the patient's bladder. The patient seems more confused to his nurse this morning. Reason For Visit: ACUTE RENAL FAILURE Physical Exam Vital Signs: Temp Pulse Resp BP Pulse Ox 98.1 F 100 18 122/68 95 03/26/17 07:52 03/26/17 14:00 03/26/17 07:52 03/26/17 07:52 03/26/17 07:52 Intake & Output 03/25/17 03/26/17 03/27/17 06:59 06:59 06:59 Intake Total 9355 1177 50 Output Total 2300 2330 400 Balance 7005 -4993 -350 Weight 101.2 kg 95.1 kg GENERAL: This is a well-developed and nourished appearing white male resting in bed currently in no acute distress. HEART: [Regular rate and rhythm. 2 out of 6 murmurs. No rubs or gallops.] LUNGS: [Clear to auscultation anteriorly bilaterally with equal rise and fall of the chest.] ABDOMEN: [Soft, nontender, nondistended with normoactive bowel sounds] EXTREMETIES: [No clubbing, cyanosis or edema. 2+ peripheral pulses bilaterally. ] NEURO: [Patient is awake and alert. He is not oriented to person, place or time. He cannot tell me why he is in the hospital or how he got here. He tells me that he is here "goofing off"] Results Laboratory Results: 03/26/17 04:55 03/26/17 04:55 03/26/17 03/26/17 04:55 04:55 WBC 6.7 RBC 3.84 L Hgb 11.6 L Hct 34.1 L MCV 89 MCH 30.1 MCHC 34.0 RDW 16.0 H Plt Count 172 Seg Neutrophils % 76.3 Lymphocytes % 9.3 L Monocytes % 11.0 Eosinophils % 3.2 Basophils % 0.2 Absolute Neutrophils 5.1 Absolute Lymphocytes 0.6 Absolute Monocytes 0.7 Absolute Eosinophils 0.2 Absolute Basophils 0.0 Sodium 152.9 H Potassium 3.5 L Chloride 121 H Carbon Dioxide 18 L Anion Gap 14 BUN 64 H Creatinine 1.49 H Est GFR ( Amer) 56 L Est GFR (Non-Af Amer) 47 L Glucose 90 Calcium 8.1 L Magnesium 1.6 03/23/17 16:00 Buttocks - Decubitis Ulcer Gram Stain - Final 03/21/17 03/21/17 03/22/17 19:51 19:51 02:05 Creatine Kinase 6234 H 6106 H CK-MB (CK-2) 47.80 H Troponin I 6.340 03/22/17 03/22/17 03/22/17 02:05 10:51 10:51 Creatine Kinase 6173 H CK-MB (CK-2) 43.30 H 37.10 H Troponin I 6.750 6.130 03/24/17 03/25/17 06:00 06:55 Creatine Kinase 2065 H 922 H CK-MB (CK-2) Troponin I Impressions: Lumbar Spine X-Ray 03/21/17 13:02 IMPRESSION: CHRONIC DEGENERATIVE CHANGES. THERE IS NEW MILD WEDGE DEFORMITY OF L1 CONSISTENT WITH RECENT COMPRESSION FRACTURE. Thoracic Spine X-Ray 03/21/17 13:02 IMPRESSION: Extensive spondylosis. Chest X-Ray 03/21/17 15:10 IMPRESSION: RIGHT UPPER LOBE DENSITY. THIS COULD BE DUE TO CHRONIC SCARRING VERSUS ACUTE INFILTRATE. Abdomen/Pelvis CT 03/22/17 00:00 IMPRESSION: 1. Small pleural effusions. 2. Large predominantly cystic mass arising from the lower pole the right kidney. There are some linear calcifications suggesting septations. Cannot entirely exclude malignancy. 3. Diverticulosis coli. 4. Compression changes at L1 as described. 5. Other findings as described. Interventional Vascular Procedure 03/22/17 00:00 IMPRESSION: Please see combined report for performance of procedure and radiologic supervision and interpretation. Renal Ultrasound 03/22/17 00:00 IMPRESSION: Indeterminate 15 cm complex cystic components of the right lower abdomen; cannot exclude neoplasm. Further evaluation with IV and oral contrast CT of the abdomen and pelvis (renal protocol) series recommended. 2010 [employer]- All Rights Reserved Guidance Fluoroscopy 03/25/17 00:00 IMPRESSION: SUCCESSFUL PLACEMENT OF A 5 FR DUAL LUMEN 41 CM PICC IN THE LEFT BASILIC VEIN. PICC Line Insertion 03/25/17 00:00 IMPRESSION: SUCCESSFUL PLACEMENT OF A 5 FR DUAL LUMEN 41 CM PICC IN THE LEFT BASILIC VEIN. PICC Line Exchange 03/26/17 00:00 IMPRESSION: SUCCESSFUL OVER THE WIRE REPLACEMENT OF YESTERDAY'S PICC FOR A NEW ONE THAT IS 5 FR DUAL LUMEN 45 CM PICC IN THE LEFT ARM. Lumbar Spine MRI 03/26/17 14:37 IMPRESSION: Pathologic compression deformities of the L1 and L2 vertebral bodies Assessment & Plan - Diagnosis (1) Acute renal failure (ARF) Qualifiers: Acute renal failure type: unspecified Qualified Code(s): N17.9 - Acute kidney failure, unspecified Is this a current diagnosis for this admission?: Yes Plan: Nephrology is following. Creatinine is coming down quite nicely. (2) Compression fracture Is this a current diagnosis for this admission?: Yes Plan: Reduce pain control medications. Pain management consult for kyphoplasty. MRI of the lumbar spine is pending. (3) Hypernatremia Is this a current diagnosis for this admission?: Yes Plan: Patient did not receive fluid resuscitation after 3 PM yesterday due to malfunction of his PICC line. Continue D5 half-normal saline. (4) Encephalopathy Is this a current diagnosis for this admission?: Yes Plan: Patient is currently confused at bedside. Likely this is a drug effect. The patient is on heavy duty narcotics. I am going to decrease these in half and see if this helps with his mentation. His creatinine has been getting much better. Therefore, I do not suspect that this is metabolic encephalopathy. Continue to monitor. There is a sitter with the patient. White count is normal.Urinalysis done on the seventh only had trace esterase. This is not the patient's first catheter during this hospitalization. Therefore, will repeat urinalysis to ensure that there is not an acute infection causing the patient's confusion. Repeat blood cultures. (5) Hypertension Is this a current diagnosis for this admission?: Yes Plan: Continue metoprolol. Lisinopril HCTZ is still on hold. Considering his underlying renal failure I will defer to nephrology as to when to resume this. Based on his current creatinine level I would think that would be fairly soon. (6) Hyperlipidemia Is this a current diagnosis for this admission?: Yes (7) Hypothyroidism Is this a current diagnosis for this admission?: Yes Plan: Continue Synthroid. (8) Rhabdomyolysis Qualifiers: Rhabdomyolysis type: traumatic Encounter type: initial encounter Qualified Code(s): T79.6XXA - Traumatic ischemia of muscle, initial encounter Is this a current diagnosis for this admission?: Yes Plan: Creatinine kinase is falling quite nicely. The urine does not need to be alkalinized at this point. After the patient's hyponatremia is resolved we can likely discontinue fluids from this perspective. (9) Sacral decubitus ulcer Qualifiers: Pressure ulcer stage: stage 4 Qualified Code(s): L89.154 - Pressure ulcer of sacral region, stage 4 Is this a current diagnosis for this admission?: Yes Plan: Continue local wound care. Stage IV sacral decubitus ulcer. Surgery following periodically. Present on admission. Status post debridement. Proteus mirabilis growing from the wound culture along with Streptococcus. Gram- negative rods also present, but identification and susceptibilities are pending.. Continue Rocephin. 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 (11) Troponin level elevated Is this a current diagnosis for this admission?: Yes (12) BPH (benign prostatic hyperplasia) Is this a current diagnosis for this admission?: Yes Plan: Continue finasteride (13) Chronic back pain Qualifiers: Back pain location: low back pain Is this a current diagnosis for this admission?: Yes Plan: Patient is on narcotic medications oxycodone and morphine. I will reduce these doses since he is acutely confused. (14) COPD (chronic obstructive pulmonary disease) Is this a current diagnosis for this admission?: Yes Plan: Patient is not in acute exacerbation. Continue maintenance medications. - Time Time Spent with patient: 25-34 minutes
[2017-03-26 18:38] LABS: APPEARANCE,URINE CLOUDY; BILIRUBIN,URINE NEGATIVE (NEGATIVE); COLOR,URINE YELLOW; GLUCOSE, URINE NEGATIVE (NEGATIVE); KETONES,URINE NEGATIVE (NEGATIVE); LEUKOCYTE ESTERASE,URINE NEGATIVE (NEGATIVE); NITRITE,URINE NEGATIVE (NEGATIVE); PROTEIN,URINE 30 mg/dL (NEGATIVE); URIC ACID CRYSTALS,URINE FEW /HPF; URINE SPECIFIC GRAVITY 1.012; UROBILINOGEN,URINE NEGATIVE mg/dL (<2.0)
--- NOTE | 2017-03-26 18:40 | Progress Note ---
Provider Note Provider Note: Patient underwent MRI of the spine. Please see that report. I spoke with Dr. Jim who believes that the patient likely has a small tumor associated with what appears to be a pathological fracture. Concern is for multiple myeloma. Will order serum and urine electrophoresis. Dr. Alva has agreed to perform a biopsy after the patient has had a course of antibiotics. Given his level of confusion I do question whether or not there has been any metastasis to his brain. Calcium is not currently elevated. However the patient did present with a very elevated creatinine. Normocytic anemia is present, although mild. Will ask oncology to review this case. Additional 10 minutes spent.
[2017-03-26] MEDS: SIMVASTATIN 40 MG TABLET PO SCH (21:36)
[2017-03-27] MEDS ORDERED: HALOPERIDOL LACTATE INJ 5 MG/1 ML VIAL IV ONE (03:53)
[2017-03-27 06:31] LABS: ANION GAP 10 (5-19); BLOOD UREA NITROGEN 44 mg/dL (7-20); CALCIUM 7.9 mg/dL (8.4-10.2); CARBON DIOXIDE 21 mmol/L (22-30); CHLORIDE 119 mmol/L (98-107); GLUCOSE 370 mg/dL (75-110); MAGNESIUM 1.3 mg/dL (1.6-2.3); POTASSIUM 4.7 mmol/L (3.6-5.0); SODIUM 149.5 mmol/L (137-145)
[2017-03-27 06:48] LABS: HEMATOCRIT 32.5 % (37.9-51.0); HEMOGLOBIN 10.7 g/dL (13.5-17.0); MEAN CORPUSCULAR HEMOGLOBIN 29.3 pg (27.0-33.4); MEAN CORPUSCULAR VOLUME 89 fl (80-97); PLATELET COUNT 170 10^3/uL (150-450); RED BLOOD COUNT 3.66 10^6/uL (4.35-5.55); WHITE BLOOD COUNT 6.7 10^3/uL (4.0-10.5)
[2017-03-27] MEDS: HEPARIN SOD (PORCINE) 5,000 UNIT/ML 1 ML SYRINGE SUBCUT SCH ×3 (07:14→22:55)
[2017-03-27] MEDS: LEVOTHYROXINE SODIUM 0.075 MG TABLET PO SCH (07:15)
[2017-03-27] MEDS: LEVOTHYROXINE SODIUM 0.1 MG TABLET PO SCH (07:15)
[2017-03-27 07:46] LABS: ABSOLUTE LYMPHOCYTES# (MANUAL) 0.7 10^3/uL (0.5-4.7); ABSOLUTE MONOCYTES # (MANUAL) 0.7 10^3/uL (0.1-1.4); ABSOLUTE NEUTROPHILS# (MANUAL) 5.2 10^3/uL (1.7-8.2); ANISOCYTOSIS 1+; BAND NEUTROPHILS % (MANUAL) 4 % (3-5); BASOPHILS % (MANUAL) 0 % (0-2); EOSINOPHILS % (MANUAL) 2 % (0-6); HYPOCHROMASIA SLIGHT; LYMPHOCYTES % (MANUAL) 10 % (13-45); METAMYELOCYTES % (MANUAL) 1 % (0); MONOCYTES % (MANUAL) 11 % (3-13); OVALOCYTES SLIGHT; PLATELET COMMENT ADEQUATE; POIKILOCYTOSIS SLIGHT; POLYCHROMASIA SLIGHT; SEGMENTED NEUTROPHILS % (MAN) 72 % (42-78); TOTAL CELLS COUNTED 100; TOXIC GRANULATION SLIGHT
[2017-03-27] MEDS: POTASSI CL 20 MEQ/D5-1/2NS 1L 1,000 ML IV PRN (08:57)
[2017-03-27] MEDS ORDERED: MAGNESIUM SULFATE/D5W 1 GM/100 ML RTUPB IV ONE (09:00)
[2017-03-27] MEDS: OXYCODONE HCL IR 5 MG TABLET PO PRN ×2 (10:50→16:27)
[2017-03-27] MEDS: CEFTRIAXONE 1 GM/D5W RTU 1 GM/50 ML RTUPB IV SCH (11:29)
[2017-03-27] MEDS: CHOLECALCIFEROL (D3) 400 UNIT TABLET PO SCH (11:31)
[2017-03-27] MEDS: ASPIRIN 81 MG TABLET, ENT COATED PO SCH (11:31)
[2017-03-27] MEDS: CYANOCOBALAMIN (VITAMIN B-12) 1,000 MCG TABLET PO SCH (11:32)
[2017-03-27] MEDS: METOPROLOL TARTRATE 50 MG TABLET PO SCH ×2 (11:32→22:55)
[2017-03-27] MEDS: FAMOTIDINE 20 MG TABLET PO SCH ×2 (11:32→22:55)
[2017-03-27] MEDS: NORMAL SALINE 10 ML SDV (SCHEDULED) IV SCH ×2 (11:33→23:10)
[2017-03-27] MEDS: MORPHINE SULFATE 10 MG/ML INJ IV PRN ×2 (14:12→22:54)
--- NOTE | 2017-03-27 16:57 | PDOC CONSULTATION ---
Consultation Consult Date: 03/27/17 Consult reason:: Pathologic vertebral fracture, suspicious for myeloma History of Present Illness Admission Date/PCP: 03/21/17 18:27 History of Present Illness: Mr. Manjarrez states that he cannot remember why he came to the hospital. He is confused and his family is not currently at bedside. All of his history has been obtained through nurses and hospital records. According to his records: MARIELA MANJARREZ is a 71 year old male with a history of hypertension and COPD who has had problems with back pain for the last 2 months. He fell out of his recliner chair the morning of admission and when he presented to emergency room was found to be relatively hypotensive with blood pressures in the 80s. His blood pressure for the last 24 hours noted here was 60/46. He continued to have low blood pressure and was also found to have acute renal failure with a creatinine of 5. His creatinine 2 months ago was normal. Apparently, he had not been eating or drinking well at home. MRI of his spine showed a pathologic compression fracture L1-L2. CT shows a cystic mass at the kidney - suspicious for malignancy. CXR showed possible lung mass. His Cr has improved and his CK has also improved with hydration. He remains confused today. Past Medical History Cardiac Medical History: Reports: Hyperlipidema, Hypertension Pulmonary Medical History: Reports: Chronic Obstructive Pulmonary Disease (COPD) Endocrine Medical History: Reports: Hypothyroidism Malignancy Medical History: Reports: None GI Medical History: Reports: None Musculoskeltal Medical History: Reports: Arthritis Traumatic Medical History: Reports: None Hematology: Reports: None Infectious Medical History: Reports: None Past Surgical History Past Surgical History: Reports: Orthopedic Surgery - back/herniated disk, Other - Right eyelid surgery Social History Lives with: Alone Smoking Status: Current Every Day Smoker Cigarettes Packs Per Day: 1 Frequency of Alcohol Use: Rare Hx Recreational Drug Use: No Drugs: None Hx Prescription Drug Abuse: No - Advance Directive Resuscitation Status: Do Not Resuscitate Family History Family History: Reviewed & Not Pertinent Parental Family History Reviewed: No Children Family History Reviewed: No Sibling(s) Family History Reviewed.: No Medication/Allergy Home Medications: Acetaminophen with Codeine [Acetaminophen-Cod #3 Tablet] 300 mg PO Q8HP PRN 10/29 Aspirin [Aspirin EC] 81 mg PO DAILY 03/21/17 Cholecalciferol (Vitamin D3) [Vitamin D3 400 Unit Tablet] 400 unit PO DAILY 10/29 Cyanocobalamin (Vitamin B-12) [Vitamin B-12] 500 mcg PO DAILY 03/21/17 Levothyroxine Sodium [Synthroid] 175 mcg PO DAILY 03/21/17 Lisinopril/Hydrochlorothiazide [Lisinopril-Hctz 20-25 mg Tab] 1 each PO DAILY Metoprolol Tartrate [Lopressor 50 mg Tablet] 50 mg PO Q12 03/21/17 Naproxen [Naprosyn] 500 mg PO BIDP PRN 03/21/17 Simvastatin [Zocor 40 mg Tablet] 40 mg PO QHS 03/21/17 Tamsulosin HCl [Flomax 0.4 mg Cap.sr] 0.4 mg PO QHS 03/21/17 Allergies/Adverse Reactions: No Known Allergies Allergy (Verified 03/21/17 13:16) Review of Systems ROS unobtainable: Due to mental status - Nurses report diarrhea yesterday, but none today. Chronic back pain. Confusion, difficulty walking. Physical Exam Vital Signs: Temp Pulse Resp BP Pulse Ox 98.4 F 106 H 16 141/86 H 96 03/27/17 16:00 03/27/17 16:00 03/27/17 16:00 03/27/17 16:00 03/27/17 16:00 Intake & Output 03/26/17 03/27/17 03/28/17 06:59 06:59 06:59 Intake Total 1177 2845 Output Total 2330 1850 Balance -1153 995 Weight 95.1 kg 94 kg General appearance: PRESENT: no acute distress Exam: Mr. Manjarrez is an overweight, male. He is lying in bed. Head exam: PRESENT: atraumatic, normocephalic Eye exam: PRESENT: EOMI, PERRLA Ear exam: PRESENT: normal external ear exam Mouth exam: PRESENT: tongue midline Teeth exam: PRESENT: other - Dentures in place. Throat exam: ABSENT: post pharyngeal erythema Neck exam: ABSENT: lymphadenopathy, tenderness Respiratory exam: PRESENT: clear to auscultation cierra, unlabored Cardiovascular exam: PRESENT: RRR. ABSENT: systolic murmur Pulses: PRESENT: normal dorsalis pedis pul GI/Abdominal exam: PRESENT: soft. ABSENT: organolmegaly, tenderness Extremities exam: ABSENT: pedal edema Neurological exam: PRESENT: alert. ABSENT: oriented to person, oriented to time , oriented to situation Psychiatric exam: PRESENT: agitated Focused psych exam: PRESENT: restlessness Skin exam: PRESENT: normal color, warm Results Laboratory Results: 03/27/17 05:40 03/27/17 05:40 03/26/17 03/27/17 03/27/17 17:32 05:40 05:40 WBC RBC Hgb Hct MCV MCH MCHC RDW Plt Count Seg Neutrophils % Lymphocytes % Monocytes % Eosinophils % Basophils % Absolute Neutrophils Absolute Lymphocytes Absolute Monocytes Absolute Eosinophils Absolute Basophils Sodium 149.5 H Potassium 4.7 Chloride 119 H Carbon Dioxide 21 L Anion Gap 10 BUN 44 H Creatinine 1.11 Est GFR ( Amer) > 60 Est GFR (Non-Af Amer) > 60 Glucose 370 H Calcium 7.9 L Magnesium 1.3 L Ammonia < 8.7 L Urine Color YELLOW Urine Appearance CLOUDY Urine pH 5.0 Ur Specific [place] 1.012 Urine Protein 30 H Urine Glucose (UA) NEGATIVE Urine Ketones NEGATIVE Urine Blood MODERATE H Urine Nitrite NEGATIVE Ur Leukocyte Esterase NEGATIVE Urine WBC (Auto) 3 Urine RBC (Auto) 10 03/27/17 05:40 WBC 6.7 RBC 3.66 L Hgb 10.7 L Hct 32.5 L MCV 89 MCH 29.3 MCHC 33.0 RDW 16.0 H Plt Count 170 Seg Neutrophils % Not Reportable Lymphocytes % Not Reportable Monocytes % Not Reportable Eosinophils % Not Reportable Basophils % Not Reportable Absolute Neutrophils Not Reportable Absolute Lymphocytes Not Reportable Absolute Monocytes Not Reportable Absolute Eosinophils Not Reportable Absolute Basophils Not Reportable Sodium Potassium Chloride Carbon Dioxide Anion Gap BUN Creatinine Est GFR ( Amer) Est GFR (Non-Af Amer) Glucose Calcium Magnesium Ammonia Urine Color Urine Appearance Urine pH Ur Specific [place] Urine Protein Urine Glucose (UA) Urine Ketones Urine Blood Urine Nitrite Ur Leukocyte Esterase Urine WBC (Auto) Urine RBC (Auto) 03/23/17 16:00 Buttocks - Decubitis Ulcer Gram Stain - Final 03/23/17 16:00 Buttocks - Decubitis Ulcer Wound Culture - Final Proteus Mirabilis Escherichia Coli Group G Beta Streptococcus 03/21/17 03/21/17 03/22/17 19:51 19:51 02:05 Creatine Kinase 6234 H 6106 H CK-MB (CK-2) 47.80 H Troponin I 6.340 03/22/17 03/22/17 03/22/17 02:05 10:51 10:51 Creatine Kinase 6173 H CK-MB (CK-2) 43.30 H 37.10 H Troponin I 6.750 6.130 03/24/17 03/25/17 06:00 06:55 Creatine Kinase 2065 H 922 H CK-MB (CK-2) Troponin I Impressions: Lumbar Spine X-Ray 03/21/17 13:02 IMPRESSION: CHRONIC DEGENERATIVE CHANGES. THERE IS NEW MILD WEDGE DEFORMITY OF L1 CONSISTENT WITH RECENT COMPRESSION FRACTURE. Thoracic Spine X-Ray 03/21/17 13:02 IMPRESSION: Extensive spondylosis. Chest X-Ray 03/21/17 15:10 IMPRESSION: RIGHT UPPER LOBE DENSITY. THIS COULD BE DUE TO CHRONIC SCARRING VERSUS ACUTE INFILTRATE. Abdomen/Pelvis CT 03/22/17 00:00 IMPRESSION: 1. Small pleural effusions. 2. Large predominantly cystic mass arising from the lower pole the right kidney. There are some linear calcifications suggesting septations. Cannot entirely exclude malignancy. 3. Diverticulosis coli. 4. Compression changes at L1 as described. 5. Other findings as described. Interventional Vascular Procedure 03/22/17 00:00 IMPRESSION: Please see combined report for performance of procedure and radiologic supervision and interpretation. Renal Ultrasound 03/22/17 00:00 IMPRESSION: Indeterminate 15 cm complex cystic components of the right lower abdomen; cannot exclude neoplasm. Further evaluation with IV and oral contrast CT of the abdomen and pelvis (renal protocol) series recommended. 2010 [employer]- All Rights Reserved Guidance Fluoroscopy 03/25/17 00:00 IMPRESSION: SUCCESSFUL PLACEMENT OF A 5 FR DUAL LUMEN 41 CM PICC IN THE LEFT BASILIC VEIN. PICC Line Insertion 03/25/17 00:00 IMPRESSION: SUCCESSFUL PLACEMENT OF A 5 FR DUAL LUMEN 41 CM PICC IN THE LEFT BASILIC VEIN. PICC Line Exchange 03/26/17 00:00 IMPRESSION: SUCCESSFUL OVER THE WIRE REPLACEMENT OF YESTERDAY'S PICC FOR A NEW ONE THAT IS 5 FR DUAL LUMEN 45 CM PICC IN THE LEFT ARM. Lumbar Spine MRI 03/26/17 14:37 IMPRESSION: Pathologic compression deformities of the L1 and L2 vertebral bodies Assessment & Plan - Diagnosis (1) Acute renal failure (ARF) Qualifiers: Acute renal failure type: unspecified Qualified Code(s): N17.9 - Acute kidney failure, unspecified Is this a current diagnosis for this admission?: Yes Plan: Appears to be improving with hydration. (2) Compression fracture Is this a current diagnosis for this admission?: Yes Plan: Abnormal MRI suggestive of marrow problem. Unsure if he is a candidate for kyphoplasty. (3) Lung tumor Plan: And possible kidney tumor. Full Contrasted CT C/A/P would be helpful, once his Cr allows. Consider biopsy of lung mass if possible. - Plan Summary Plan Summary: Overall, there is a high suspicious of some type of cancer. Ultimately, he will need pathologic confirmation. I agree with plans for SPEP/UPEP to screen for myeloma, but with kidney and lung lesions, mets would be more likely. It is usually very difficult to biopsy a kidney mass. Lung would be better, if CT confirms this. PET scan may also be of benefit in this situation, but this would need to be done as outpatient. I will try to coordinate with the family so that I am able to answer their questions. I do not believe patient is currently able to give informed consent for any procedures.
--- NOTE | 2017-03-27 17:23 | PDOC PROGRESS REPORT ---
Subjective Progress Note for:: 03/27/17 Subjective:: This is a follow-up visit for acute renal failure. Patient was seen at the bedside. I spoke extensively with the patient's daughter and son-in-law. We discussed findings of the lumbar MRI and the potential for multiple myeloma. They expressed concerns about the patient's swallowing. They have noted that he holds chicken in his mouth. They are fearful that he may choke. Reason For Visit: ACUTE RENAL FAILURE Physical Exam Vital Signs: Temp Pulse Resp BP Pulse Ox 97.6 F 111 H 20 133/87 H 95 03/27/17 04:02 03/27/17 04:02 03/27/17 04:02 03/27/17 04:02 03/27/17 04:02 Intake & Output 03/26/17 03/27/17 03/28/17 06:59 06:59 06:59 Intake Total 1177 2845 Output Total 2330 1850 Balance -1153 995 Weight 95.1 kg 94 kg GENERAL: This is a well-developed and nourished appearing white male resting in bed currently in no acute distress. HEART: Regular rate and rhythm. 2 out of 6 murmurs. No rubs or gallops. LUNGS: Clear to auscultation anteriorly bilaterally with equal rise and fall of the chest. ABDOMEN: Soft, nontender, nondistended with normoactive bowel sounds EXTREMETIES: No clubbing, cyanosis or edema. 2+ peripheral pulses bilaterally. NEURO: Patient is awake and alert. He knows who he is today. However, he still does not know where he is, the year or his medical situation who the president is. Yesterday he thought it was 1946 and today he just does not know. Results Laboratory Results: 03/27/17 05:40 03/27/17 05:40 03/26/17 03/27/17 03/27/17 17:32 05:40 05:40 WBC RBC Hgb Hct MCV MCH MCHC RDW Plt Count Seg Neutrophils % Lymphocytes % Monocytes % Eosinophils % Basophils % Absolute Neutrophils Absolute Lymphocytes Absolute Monocytes Absolute Eosinophils Absolute Basophils Sodium 149.5 H Potassium 4.7 Chloride 119 H Carbon Dioxide 21 L Anion Gap 10 BUN 44 H Creatinine 1.11 Est GFR ( Amer) > 60 Est GFR (Non-Af Amer) > 60 Glucose 370 H Calcium 7.9 L Magnesium 1.3 L Ammonia < 8.7 L Urine Color YELLOW Urine Appearance CLOUDY Urine pH 5.0 Ur Specific [place] 1.012 Urine Protein 30 H Urine Glucose (UA) NEGATIVE Urine Ketones NEGATIVE Urine Blood MODERATE H Urine Nitrite NEGATIVE Ur Leukocyte Esterase NEGATIVE Urine WBC (Auto) 3 Urine RBC (Auto) 10 03/27/17 05:40 WBC 6.7 RBC 3.66 L Hgb 10.7 L Hct 32.5 L MCV 89 MCH 29.3 MCHC 33.0 RDW 16.0 H Plt Count 170 Seg Neutrophils % Not Reportable Lymphocytes % Not Reportable Monocytes % Not Reportable Eosinophils % Not Reportable Basophils % Not Reportable Absolute Neutrophils Not Reportable Absolute Lymphocytes Not Reportable Absolute Monocytes Not Reportable Absolute Eosinophils Not Reportable Absolute Basophils Not Reportable Sodium Potassium Chloride Carbon Dioxide Anion Gap BUN Creatinine Est GFR ( Amer) Est GFR (Non-Af Amer) Glucose Calcium Magnesium Ammonia Urine Color Urine Appearance Urine pH Ur Specific [place] Urine Protein Urine Glucose (UA) Urine Ketones Urine Blood Urine Nitrite Ur Leukocyte Esterase Urine WBC (Auto) Urine RBC (Auto) 03/23/17 16:00 Buttocks - Decubitis Ulcer Gram Stain - Final 03/23/17 16:00 Buttocks - Decubitis Ulcer Wound Culture - Final Proteus Mirabilis Escherichia Coli Group G Beta Streptococcus 03/21/17 03/21/17 03/22/17 19:51 19:51 02:05 Creatine Kinase 6234 H 6106 H CK-MB (CK-2) 47.80 H Troponin I 6.340 03/22/17 03/22/17 03/22/17 02:05 10:51 10:51 Creatine Kinase 6173 H CK-MB (CK-2) 43.30 H 37.10 H Troponin I 6.750 6.130 03/24/17 03/25/17 06:00 06:55 Creatine Kinase 2065 H 922 H CK-MB (CK-2) Troponin I Impressions: Lumbar Spine X-Ray 03/21/17 13:02 IMPRESSION: CHRONIC DEGENERATIVE CHANGES. THERE IS NEW MILD WEDGE DEFORMITY OF L1 CONSISTENT WITH RECENT COMPRESSION FRACTURE. Thoracic Spine X-Ray 03/21/17 13:02 IMPRESSION: Extensive spondylosis. Chest X-Ray 03/21/17 15:10 IMPRESSION: RIGHT UPPER LOBE DENSITY. THIS COULD BE DUE TO CHRONIC SCARRING VERSUS ACUTE INFILTRATE. Abdomen/Pelvis CT 03/22/17 00:00 IMPRESSION: 1. Small pleural effusions. 2. Large predominantly cystic mass arising from the lower pole the right kidney. There are some linear calcifications suggesting septations. Cannot entirely exclude malignancy. 3. Diverticulosis coli. 4. Compression changes at L1 as described. 5. Other findings as described. Interventional Vascular Procedure 03/22/17 00:00 IMPRESSION: Please see combined report for performance of procedure and radiologic supervision and interpretation. Renal Ultrasound 03/22/17 00:00 IMPRESSION: Indeterminate 15 cm complex cystic components of the right lower abdomen; cannot exclude neoplasm. Further evaluation with IV and oral contrast CT of the abdomen and pelvis (renal protocol) series recommended. 2010 [employer]}- All Rights Reserved Guidance Fluoroscopy 03/25/17 00:00 IMPRESSION: SUCCESSFUL PLACEMENT OF A 5 FR DUAL LUMEN 41 CM PICC IN THE LEFT BASILIC VEIN. PICC Line Insertion 03/25/17 00:00 IMPRESSION: SUCCESSFUL PLACEMENT OF A 5 FR DUAL LUMEN 41 CM PICC IN THE LEFT BASILIC VEIN. PICC Line Exchange 03/26/17 00:00 IMPRESSION: SUCCESSFUL OVER THE WIRE REPLACEMENT OF YESTERDAY'S PICC FOR A NEW ONE THAT IS 5 FR DUAL LUMEN 45 CM PICC IN THE LEFT ARM. Lumbar Spine MRI 03/26/17 14:37 IMPRESSION: Pathologic compression deformities of the L1 and L2 vertebral bodies Assessment & Plan - Diagnosis (1) Acute renal failure (ARF) Qualifiers: Acute renal failure type: unspecified Qualified Code(s): N17.9 - Acute kidney failure, unspecified Is this a current diagnosis for this admission?: Yes Plan: Creatinine has normalized. Resolved.. (2) Compression fracture Is this a current diagnosis for this admission?: Yes Plan: Concern for multiple myeloma. SPEP and UPEP have been ordered. Continue reduced frequency of pain medication to accommodate the patient's mental status changes. (3) Hypernatremia Is this a current diagnosis for this admission?: Yes Plan: Improved with resumption of fluids. Repeat Chem-7 in the morning. (4) Encephalopathy Is this a current diagnosis for this admission?: Yes Plan: Patient is currently confused at bedside. Worsening confusion could be due to underlying narcotic medications used to control his back pain. However, this could be related to underlying multiple myeloma. (5) Hypertension Is this a current diagnosis for this admission?: Yes Plan: Continue metoprolol. Lisinopril HCTZ is still on hold. Considering his underlying renal failure I will defer to nephrology as to when to resume this. Based on his current creatinine level I would think that would be fairly soon. (6) Hyperlipidemia Is this a current diagnosis for this admission?: Yes (7) Hypothyroidism Is this a current diagnosis for this admission?: Yes Plan: Continue Synthroid. (8) Rhabdomyolysis Qualifiers: Rhabdomyolysis type: traumatic Encounter type: initial encounter Qualified Code(s): T79.6XXA - Traumatic ischemia of muscle, initial encounter Is this a current diagnosis for this admission?: Yes Plan: Creatinine kinase is falling quite nicely. The urine does not need to be alkalinized at this point. After the patient's hypernatremia is resolved we can likely discontinue fluids from this perspective. (9) Sacral decubitus ulcer Qualifiers: Pressure ulcer stage: stage 4 Qualified Code(s): L89.154 - Pressure ulcer of sacral region, stage 4 Is this a current diagnosis for this admission?: Yes Plan: Continue local wound care. Stage IV sacral decubitus ulcer. Surgery following periodically. Present on admission. Status post debridement. Proteus mirabilis growing from the wound culture along with Streptococcus. Gram- negative rods also present, but identification and susceptibilities are pending.. Continue Rocephin. 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 (11) Troponin level elevated Is this a current diagnosis for this admission?: Yes (12) BPH (benign prostatic hyperplasia) Is this a current diagnosis for this admission?: Yes Plan: Continue finasteride (13) Chronic back pain Qualifiers: Back pain location: low back pain Is this a current diagnosis for this admission?: Yes Plan: Continue pain medication as currently ordered. (14) COPD (chronic obstructive pulmonary disease) Is this a current diagnosis for this admission?: Yes Plan: Patient is not in acute exacerbation. Continue maintenance medications. (15) Multiple myeloma Is this a current diagnosis for this admission?: Yes Plan: Suspicion for underlying multiple myeloma. The patient has pathologic fractures noted on MRI. Concern that this is also affecting his mentation. SPEP and UPEP have been ordered. Oncology consult is still pending at this time. I spoke with the patient's family extensively about the potential for this or different underlying cancer. They are in agreement with further workup. (16) Dysphasia Is this a current diagnosis for this admission?: Yes Plan: Patient was noted by family to hold food in his mouth. Will consult speech. In the meantime will change to a ground meats with thin liquids and see how he does with that. - Time Time Spent with patient: 35 or more minutes - Inpatient Certification Medical Necessity: Need Close Monitoring Due to Risk of Patient Decompensation
[2017-03-27] MEDS: TAMSULOSIN HCL 0.4 MG CAP.SR.24H PO SCH (18:03)
--- NOTE | 2017-03-27 18:08 | PDOC PROGRESS REPORT ---
Subjective Progress Note for:: 03/27/17 Subjective:: Patient's mental status remains unchanged. He still appears confused and not really answering all questions. Tells me that he is is still having diarrhea but unsure if this was true. He had pulled his Olivarez catheter out earlier. His daughter and her are at bedside when I saw him today. I informed them about his acute kidney injury which is now almost resolved. With regards to his complex renal lesion, I told him that patient is currently being seen by the oncologist now and may need an opinion of a urologist which unfortunately we do not have anybody electronics repair technician today. Reason For Visit: ACUTE RENAL FAILURE Physical Exam Vital Signs: Temp Pulse Resp BP Pulse Ox 98.4 F 106 H 16 141/86 H 96 03/27/17 16:00 03/27/17 16:00 03/27/17 16:00 03/27/17 16:00 03/27/17 16:00 Intake & Output 03/26/17 03/27/17 03/28/17 06:59 06:59 06:59 Intake Total 1177 2845 Output Total 2330 1850 Balance -1153 995 Weight 95.1 kg 94 kg Exam: General appearance: PRESENT: no acute distress, cooperative, well-developed, well-nourished Head exam: PRESENT: atraumatic, normocephalic Eye exam: PRESENT: conjunctiva pale, PERRLA. ABSENT: scleral icterus Neck exam: ABSENT: JVD Respiratory exam: PRESENT: Normal breath sounds. ABSENT: crackles, rales, rhonchi, unlabored, wheezes Cardiovascular exam: PRESENT: Regular rate rhythm -+S1, +S2. ABSENT: diastolic murmur, systolic murmur GI/Abdominal exam: PRESENT: normal bowel sounds, soft. ABSENT: guarding, mass, tenderness Extremities exam: ABSENT: No edema Neurological exam: PRESENT: alert, awake, has garbled speech and answers questions every now and then Skin exam: PRESENT: dry, warm, Results Laboratory Results: 03/27/17 05:40 03/27/17 05:40 03/26/17 03/27/17 03/27/17 17:32 05:40 05:40 WBC RBC Hgb Hct MCV MCH MCHC RDW Plt Count Seg Neutrophils % Lymphocytes % Monocytes % Eosinophils % Basophils % Absolute Neutrophils Absolute Lymphocytes Absolute Monocytes Absolute Eosinophils Absolute Basophils Sodium 149.5 H Potassium 4.7 Chloride 119 H Carbon Dioxide 21 L Anion Gap 10 BUN 44 H Creatinine 1.11 Est GFR ( Amer) > 60 Est GFR (Non-Af Amer) > 60 Glucose 370 H Calcium 7.9 L Magnesium 1.3 L Ammonia < 8.7 L Urine Color YELLOW Urine Appearance CLOUDY Urine pH 5.0 Ur Specific [place] 1.012 Urine Protein 30 H Urine Glucose (UA) NEGATIVE Urine Ketones NEGATIVE Urine Blood MODERATE H Urine Nitrite NEGATIVE Ur Leukocyte Esterase NEGATIVE Urine WBC (Auto) 3 Urine RBC (Auto) 10 03/27/17 05:40 WBC 6.7 RBC 3.66 L Hgb 10.7 L Hct 32.5 L MCV 89 MCH 29.3 MCHC 33.0 RDW 16.0 H Plt Count 170 Seg Neutrophils % Not Reportable Lymphocytes % Not Reportable Monocytes % Not Reportable Eosinophils % Not Reportable Basophils % Not Reportable Absolute Neutrophils Not Reportable Absolute Lymphocytes Not Reportable Absolute Monocytes Not Reportable Absolute Eosinophils Not Reportable Absolute Basophils Not Reportable Sodium Potassium Chloride Carbon Dioxide Anion Gap BUN Creatinine Est GFR ( Amer) Est GFR (Non-Af Amer) Glucose Calcium Magnesium Ammonia Urine Color Urine Appearance Urine pH Ur Specific [place] Urine Protein Urine Glucose (UA) Urine Ketones Urine Blood Urine Nitrite Ur Leukocyte Esterase Urine WBC (Auto) Urine RBC (Auto) 03/23/17 16:00 Buttocks - Decubitis Ulcer Gram Stain - Final 03/23/17 16:00 Buttocks - Decubitis Ulcer Wound Culture - Final Proteus Mirabilis Escherichia Coli Group G Beta Streptococcus 03/21/17 03/21/17 03/22/17 19:51 19:51 02:05 Creatine Kinase 6234 H 6106 H CK-MB (CK-2) 47.80 H Troponin I 6.340 03/22/17 03/22/17 03/22/17 02:05 10:51 10:51 Creatine Kinase 6173 H CK-MB (CK-2) 43.30 H 37.10 H Troponin I 6.750 6.130 03/24/17 03/25/17 06:00 06:55 Creatine Kinase 2065 H 922 H CK-MB (CK-2) Troponin I Impressions: Lumbar Spine X-Ray 03/21/17 13:02 IMPRESSION: CHRONIC DEGENERATIVE CHANGES. THERE IS NEW MILD WEDGE DEFORMITY OF L1 CONSISTENT WITH RECENT COMPRESSION FRACTURE. Thoracic Spine X-Ray 03/21/17 13:02 IMPRESSION: Extensive spondylosis. Chest X-Ray 03/21/17 15:10 IMPRESSION: RIGHT UPPER LOBE DENSITY. THIS COULD BE DUE TO CHRONIC SCARRING VERSUS ACUTE INFILTRATE. Abdomen/Pelvis CT 03/22/17 00:00 IMPRESSION: 1. Small pleural effusions. 2. Large predominantly cystic mass arising from the lower pole the right kidney. There are some linear calcifications suggesting septations. Cannot entirely exclude malignancy. 3. Diverticulosis coli. 4. Compression changes at L1 as described. 5. Other findings as described. Interventional Vascular Procedure 03/22/17 00:00 IMPRESSION: Please see combined report for performance of procedure and radiologic supervision and interpretation. Renal Ultrasound 03/22/17 00:00 IMPRESSION: Indeterminate 15 cm complex cystic components of the right lower abdomen; cannot exclude neoplasm. Further evaluation with IV and oral contrast CT of the abdomen and pelvis (renal protocol) series recommended. 2010 [employer]- All Rights Reserved Guidance Fluoroscopy 03/25/17 00:00 IMPRESSION: SUCCESSFUL PLACEMENT OF A 5 FR DUAL LUMEN 41 CM PICC IN THE LEFT BASILIC VEIN. PICC Line Insertion 03/25/17 00:00 IMPRESSION: SUCCESSFUL PLACEMENT OF A 5 FR DUAL LUMEN 41 CM PICC IN THE LEFT BASILIC VEIN. PICC Line Exchange 03/26/17 00:00 IMPRESSION: SUCCESSFUL OVER THE WIRE REPLACEMENT OF YESTERDAY'S PICC FOR A NEW ONE THAT IS 5 FR DUAL LUMEN 45 CM PICC IN THE LEFT ARM. Lumbar Spine MRI 03/26/17 14:37 IMPRESSION: Pathologic compression deformities of the L1 and L2 vertebral bodies Assessment & Plan - Diagnosis (1) Acute kidney injury Is this a current diagnosis for this admission?: Yes Plan: Patient is currently clinically oliguric. Urinalysis shows very minimal proteinuria and the blood is secondary to the rhabdomyolysis. This most likely secondary to initially an acute prerenal azotemia due to severe volume depletion and dehydration with presumably intake of nephrotoxic medications including nonsteroidal anti-inflammatory agents and the lisinopril HCTZ and his medication regimen. Patient could also have progressed to acute tubular necrosis due to severe volume depletion, rhabdomyolysis and hypotension. Patient's SALVATORE is resolving. He is making good amount of urine. (2) Rhabdomyolysis Qualifiers: Rhabdomyolysis type: traumatic Encounter type: initial encounter Qualified Code(s): T79.6XXA - Traumatic ischemia of muscle, initial encounter Is this a current diagnosis for this admission?: Yes Plan: Agree that this could be due to immobility. Resolving. (3) Hypotension Is this a current diagnosis for this admission?: Yes Plan: Due to hold lisinopril and hydrochlorothiazide. Improved today. (4) Hypernatremia Is this a current diagnosis for this admission?: Yes Plan: This is improving. Change IV fluids to D5 half-normal at 75 mL an hour. (5) Metabolic acidosis Is this a current diagnosis for this admission?: Yes Plan: Improving. (6) Hypokalemia Is this a current diagnosis for this admission?: Yes Plan: Resolved. (7) Complex renal cyst Is this a current diagnosis for this admission?: Yes Plan: As malignancy cannot be excluded at this time, this could needs further workup and urology consultation. At this time we do not have the urologist electronics repair technician. However oncology is currently on board. (8) Sacral decubitus ulcer Qualifiers: Pressure ulcer stage: stage 4 Qualified Code(s): L89.154 - Pressure ulcer of sacral region, stage 4 Is this a current diagnosis for this admission?: Yes Plan: Surgery was consulted. (9) Chronic back pain Qualifiers: Back pain location: low back pain Is this a current diagnosis for this admission?: Yes Plan: Due to compression fracture of L1. (10) Compression fracture Is this a current diagnosis for this admission?: Yes Plan: Multiple myeloma being considered. Oncology consulted and patient is being worked up for it. (11) Depression Is this a current diagnosis for this admission?: Yes - Notes Notes: Since patient's kidney function is almost baseline and within normal limits, I will sign off for now. Please call me if I can be of further help. - Time Time with patient: 15-25 minutes
[2017-03-27] MEDS: DEXTROSE 5%-1/2 NORMAL SALINE 1,000 ML IV PRN (19:18)
[2017-03-27] MEDS: SIMVASTATIN 40 MG TABLET PO SCH (22:55)
[2017-03-28] MEDS: OXYCODONE HCL IR 5 MG TABLET PO PRN ×2 (00:50→08:45)
[2017-03-28 05:07] LABS: HEMATOCRIT 32.2 % (37.9-51.0); MEAN CORPUSCULAR HEMOGLOBIN 30.1 pg (27.0-33.4); MEAN CORPUSCULAR HGB CONC 34.1 g/dL (32.0-36.0); MEAN CORPUSCULAR VOLUME 88 fl (80-97); PLATELET COUNT 178 10^3/uL (150-450); RED BLOOD COUNT 3.65 10^6/uL (4.35-5.55); RED CELL DISTRIBUTION WIDTH 15.9 % (11.5-14.0); WHITE BLOOD COUNT 9.1 10^3/uL (4.0-10.5)
[2017-03-28 05:27] LABS: ANION GAP 11 (5-19); BLOOD UREA NITROGEN 33 mg/dL (7-20); CALCIUM 8.7 mg/dL (8.4-10.2); CARBON DIOXIDE 20 mmol/L (22-30); CHLORIDE 121 mmol/L (98-107); GLUCOSE 100 mg/dL (75-110); MAGNESIUM 1.5 mg/dL (1.6-2.3); SODIUM 151.7 mmol/L (137-145)
[2017-03-28 05:30] LABS: ABSOLUTE MONOCYTES # (MANUAL) 0.6 10^3/uL (0.1-1.4); ABSOLUTE NEUTROPHILS# (MANUAL) 5.9 10^3/uL (1.7-8.2); BAND NEUTROPHILS % (MANUAL) 5 % (3-5); BASOPHILS % (MANUAL) 0 % (0-2); EOSINOPHILS % (MANUAL) 6 % (0-6); LYMPHOCYTES % (MANUAL) 22 % (13-45); MONOCYTES % (MANUAL) 7 % (3-13); SEGMENTED NEUTROPHILS % (MAN) 60 % (42-78); TOTAL CELLS COUNTED 100
[2017-03-28 05:33] LABS: ANISOCYTOSIS SLIGHT; PLATELET COMMENT ADEQUATE; POLYCHROMASIA SLIGHT; TOXIC GRANULATION SLIGHT
[2017-03-28] MEDS: HEPARIN SOD (PORCINE) 5,000 UNIT/ML 1 ML SYRINGE SUBCUT SCH ×3 (05:33→21:32)
[2017-03-28 05:34] LABS: POTASSIUM 3.3 mmol/L (3.6-5.0)
[2017-03-28] MEDS: LEVOTHYROXINE SODIUM 0.075 MG TABLET PO SCH (05:34)
[2017-03-28] MEDS: LEVOTHYROXINE SODIUM 0.1 MG TABLET PO SCH (05:34)
[2017-03-28] MEDS: MORPHINE SULFATE 10 MG/ML INJ IV PRN ×3 (05:53→18:21)
[2017-03-28] MEDS: DEXTROSE 5%-1/2 NORMAL SALINE 1,000 ML IV PRN (09:17)
--- NOTE | 2017-03-28 10:38 | RADIOLOGY REPORT (SQ) ---
EXAM DESCRIPTION: PICC INSERTION; FLUORO/CV PLACEMENT; U/S GUIDE FOR VASCULAR ACCESS COMPLETED DATE/TIME: 03/28/2017 10:18 am REASON FOR STUDY: access for meds and fluids; IV ACCESS COMPARISON: 03/25/2017, 03/22/2017 FLUOROSCOPY TIME: 20 seconds 1 digital radiographic image, 1 ultrasound image saved to PACS. TECHNIQUE: Fluoroscopic and ultrasound guided PICC placement. LIMITATIONS: None. PROCEDURE: After written consent and assessment were obtained, the patient was brought into the fluo roscopy room and place supine on the table. Ultrasound was used on the patient's right arm for PICC access. The right arm was prepped and draped in a sterile fashion along with the ultrasound probe. Th e entry site was anesthetized with 1% lidocaine. A 21 gauge 7 cm needle was advanced through the skin and into the basilic vein under live ultrasound guidance. An ultrasound image was saved to PACS con firming access site. A .018 guide wire was then inserted through the needle and into the venous syst em. The needle was the removed and an 11 blade scalpel was used to make a 1cm skin incision. A 5 fr peel-away sheath was advanced over the wire and into the venous system. A measurement was then made u sing the existing wire and live fluoroscopic guidance. The wire was then removed and the trimmed. The PICC was advanced through the peel-away sheath and into the venous system. The peel-away sheath was removed and the catheter was adhered to the patients arm with a stat lock. The catheter was then aspi rated and flushed and a sterile bandage was placed over the access site. A fluoroscopic spot image w as saved to PACS confirming the catheter tip within the superior vena cava. The catheter was sutured into place IMPRESSION: SUCCESSFUL PLACEMENT OF A 5 FR DUAL LUMEN 40 CM PICC IN THE RIGHT BASILIC VEIN. COMMENT: Patient medication list reviewed: Yes- Quality ID# [id number]:Eligible professional attests to doc umenting in the medical record they obtained, updated, or reviewed the patient's current medications. . Quality ID 145: Final reports for procedures using fluoroscopy that document radiation exposure trace soni, or exposure time and number of fluorographic images (if radiation exposure indices are not avail able) Quality ID #76: The patient was prepped and draped using maximum sterile barrier technique including cap, mask, sterile gown, sterile gloves, a large sterile sheet, hand hygiene, and 2% Chlorhexidine fo r cutaneous antisepsis. When ultrasound is used, sterile ultrasound techniques are followed requiring sterile gel and sterile probes. TECHNICAL DOCUMENTATION: JOB ID: [id number] 2125 [employer]- All Rights Reserved
[2017-03-28] MEDS: CEFTRIAXONE 1 GM/D5W RTU 1 GM/50 ML RTUPB IV SCH (10:40)
[2017-03-28] MEDS: CYANOCOBALAMIN (VITAMIN B-12) 1,000 MCG TABLET PO SCH (10:41)
[2017-03-28] MEDS: METOPROLOL TARTRATE 50 MG TABLET PO SCH ×2 (10:41→21:32)
[2017-03-28] MEDS: FAMOTIDINE 20 MG TABLET PO SCH ×2 (10:41→21:32)
[2017-03-28] MEDS: ASPIRIN 81 MG TABLET, ENT COATED PO SCH (10:41)
[2017-03-28] MEDS: CHOLECALCIFEROL (D3) 400 UNIT TABLET PO SCH (10:41)
[2017-03-28] MEDS: NORMAL SALINE 10 ML SDV (SCHEDULED) IV SCH ×3 (10:42→21:36)
[2017-03-28] MEDS ORDERED: NORMAL SALINE 10 ML SDV (AFTER EACH USE) IV PRN (10:52)
--- NOTE | 2017-03-28 14:23 | PDOC PROGRESS REPORT ---
Subjective Progress Note for:: 03/28/17 Subjective:: This is a follow-up visit for acute renal failure. Patient was seen at the bedside. I spoke extensively with the patient's daughter and son-in-law. about the current recommendations for CT with contrast. Patient pulled out PiCC again last night Reason For Visit: ACUTE RENAL FAILURE Physical Exam Vital Signs: Temp Pulse Resp BP Pulse Ox 98.2 F 102 H 20 134/82 H 94 03/28/17 11:14 03/28/17 11:14 03/28/17 11:14 03/28/17 11:14 03/28/17 11:14 Intake & Output 03/27/17 03/28/17 03/29/17 06:59 06:59 06:59 Intake Total 2845 1400 0 Output Total 1850 1425 400 Balance 995 -25 -400 Weight 94 kg 98 kg GENERAL: This is a well-developed and nourished appearing white male resting in bed currently in no acute distress. HEART: Regular rate and rhythm. 2 out of 6 murmurs. No rubs or gallops. LUNGS: Clear to auscultation anteriorly bilaterally with equal rise and fall of the chest. ABDOMEN: Soft, nontender, nondistended with normoactive bowel sounds Back:. The patient has stage II decubitus ulcer along his gluteal fold. He has a sacral decubitus ulcer that is stage IV. Bone can be felt. The patient has sloughing off of debris and some foul odor. EXTREMETIES: No clubbing, cyanosis or edema. 2+ peripheral pulses bilaterally. NEURO: Patient is awake and alert. He is oriented to self only Results Laboratory Results: 03/28/17 04:33 03/28/17 04:33 03/28/17 03/28/17 04:33 04:33 WBC 9.1 RBC 3.65 L Hgb 11.0 L Hct 32.2 L MCV 88 MCH 30.1 MCHC 34.1 RDW 15.9 H Plt Count 178 Seg Neutrophils % Not Reportable Lymphocytes % Not Reportable Monocytes % Not Reportable Eosinophils % Not Reportable Basophils % Not Reportable Absolute Neutrophils Not Reportable Absolute Lymphocytes Not Reportable Absolute Monocytes Not Reportable Absolute Eosinophils Not Reportable Absolute Basophils Not Reportable Sodium 151.7 H Potassium 3.3 L D Chloride 121 H Carbon Dioxide 20 L Anion Gap 11 BUN 33 H Creatinine 0.96 Est GFR ( Amer) > 60 Est GFR (Non-Af Amer) > 60 Glucose 100 Calcium 8.7 Magnesium 1.5 L 03/26/17 17:32 Olivarez Catheter Urine Culture - Final NO GROWTH 2 DAYS 03/21/17 03/21/17 03/22/17 19:51 19:51 02:05 Creatine Kinase 6234 H 6106 H CK-MB (CK-2) 47.80 H Troponin I 6.340 03/22/17 03/22/17 03/22/17 02:05 10:51 10:51 Creatine Kinase 6173 H CK-MB (CK-2) 43.30 H 37.10 H Troponin I 6.750 6.130 03/24/17 03/25/17 06:00 06:55 Creatine Kinase 2065 H 922 H CK-MB (CK-2) Troponin I Impressions: Lumbar Spine X-Ray 03/21/17 13:02 IMPRESSION: CHRONIC DEGENERATIVE CHANGES. THERE IS NEW MILD WEDGE DEFORMITY OF L1 CONSISTENT WITH RECENT COMPRESSION FRACTURE. Thoracic Spine X-Ray 03/21/17 13:02 IMPRESSION: Extensive spondylosis. Chest X-Ray 03/21/17 15:10 IMPRESSION: RIGHT UPPER LOBE DENSITY. THIS COULD BE DUE TO CHRONIC SCARRING VERSUS ACUTE INFILTRATE. Abdomen/Pelvis CT 03/22/17 00:00 IMPRESSION: 1. Small pleural effusions. 2. Large predominantly cystic mass arising from the lower pole the right kidney. There are some linear calcifications suggesting septations. Cannot entirely exclude malignancy. 3. Diverticulosis coli. 4. Compression changes at L1 as described. 5. Other findings as described. Renal Ultrasound 03/22/17 00:00 IMPRESSION: Indeterminate 15 cm complex cystic components of the right lower abdomen; cannot exclude neoplasm. Further evaluation with IV and oral contrast CT of the abdomen and pelvis (renal protocol) series recommended. 2010 [employer]- All Rights Reserved PICC Line Exchange 03/26/17 00:00 IMPRESSION: SUCCESSFUL OVER THE WIRE REPLACEMENT OF YESTERDAY'S PICC FOR A NEW ONE THAT IS 5 FR DUAL LUMEN 45 CM PICC IN THE LEFT ARM. Lumbar Spine MRI 03/26/17 14:37 IMPRESSION: Pathologic compression deformities of the L1 and L2 vertebral bodies Guidance Fluoroscopy 03/28/17 00:00 IMPRESSION: SUCCESSFUL PLACEMENT OF A 5 FR DUAL LUMEN 40 CM PICC IN THE RIGHT BASILIC VEIN. Interventional Vascular Procedure 03/28/17 00:00 IMPRESSION: SUCCESSFUL PLACEMENT OF A 5 FR DUAL LUMEN 40 CM PICC IN THE RIGHT BASILIC VEIN. PICC Line Insertion 03/28/17 09:00 IMPRESSION: SUCCESSFUL PLACEMENT OF A 5 FR DUAL LUMEN 40 CM PICC IN THE RIGHT BASILIC VEIN. Assessment & Plan - Diagnosis (1) Acute renal failure (ARF) Qualifiers: Acute renal failure type: unspecified Qualified Code(s): N17.9 - Acute kidney failure, unspecified Is this a current diagnosis for this admission?: Yes Plan: Creatinine has normalized. Resolved. Will protect kidneys with acetylcysteine and copious fluids for CT with contrast. Continue to monitor cautiously. I did make Dr. Bhatti aware of recommendations to pursue CT with contrast. We will proceed cautiously. (2) Compression fracture Is this a current diagnosis for this admission?: Yes Plan: Concern for multiple myeloma. SPEP and UPEP have been ordered. Continue reduced frequency of pain medication to accommodate the patient's mental status changes. Will pursue CT with contrast of the abdomen and pelvis and chest for further diagnostic testing (3) Hypernatremia Is this a current diagnosis for this admission?: Yes Plan: Improved with resumption of fluids. However, the patient lost his PICC line again last night. His sodium has gone up. Change fluids to D5 water for now. (4) Encephalopathy Is this a current diagnosis for this admission?: Yes Plan: Patient is currently confused at bedside. Worsening confusion could be due to underlying narcotic medications used to control his back pain. However, this could be related to underlying multiple myeloma. (5) Hypertension Is this a current diagnosis for this admission?: Yes Plan: Continue metoprolol. Lisinopril HCTZ is still on hold. Given that he has recently gotten over his acute kidney injury and that we are about to perform CT with contrast, we will continue to hold. (6) Hyperlipidemia Is this a current diagnosis for this admission?: Yes (7) Hypothyroidism Is this a current diagnosis for this admission?: Yes Plan: Continue Synthroid. (8) Rhabdomyolysis Qualifiers: Rhabdomyolysis type: traumatic Encounter type: initial encounter Qualified Code(s): T79.6XXA - Traumatic ischemia of muscle, initial encounter Is this a current diagnosis for this admission?: Yes Plan: Resolved (9) Sacral decubitus ulcer Qualifiers: Pressure ulcer stage: stage 4 Qualified Code(s): L89.154 - Pressure ulcer of sacral region, stage 4 Is this a current diagnosis for this admission?: Yes Plan: Continue local wound care. Stage IV and stage II sacral and gluteal fold decubitus ulcers respectively. Surgery following periodically. Present on admission. Status post debridement. Proteus mirabilis, E. coli growing from the wound culture along with Streptococcus. Continue Rocephin. (10) Left ventricular outflow tract obstruction Is this a current diagnosis for this admission?: Yes Plan: Continue current medications (11) Troponin level elevated Is this a current diagnosis for this admission?: Yes (12) BPH (benign prostatic hyperplasia) Is this a current diagnosis for this admission?: Yes Plan: Continue finasteride (13) Chronic back pain Qualifiers: Back pain location: low back pain Is this a current diagnosis for this admission?: Yes Plan: Continue pain medication as currently ordered. (14) COPD (chronic obstructive pulmonary disease) Is this a current diagnosis for this admission?: Yes Plan: Patient is not in acute exacerbation. Continue maintenance medications. (15) Multiple myeloma Is this a current diagnosis for this admission?: Yes Plan: Suspicion for underlying multiple myeloma. The patient has pathologic fractures noted on MRI. Concern that this is also affecting his mentation. SPEP and UPEP have been ordered. Oncology following. I spoke with the patient' s family extensively about the potential for this or different underlying cancer. They are in agreement with further workup. Will pursue CT of the chest abdomen and pelvis with contrast. We will also obtain CT of head. (16) Dysphasia Is this a current diagnosis for this admission?: Yes Plan: Patient was noted by family to hold food in his mouth. Await speech therapy consult. Continue ground meats with thin liquids for now. - Time Time Spent with patient: 25-34 minutes
[2017-03-28] MEDS: DEXTROSE 5%-1/4 NORMAL SALINE 1,000 ML IV PRN (14:44)
[2017-03-28] MEDS ORDERED: POTASSI CL 20 MEQ/50 ML RIDER 20 MEQ/50 ML RTUPB IV ONE (15:00)
[2017-03-28] MEDS ORDERED: MAGNESIUM SULFATE/D5W 1 GM/100 ML RTUPB IV ONE (15:00)
[2017-03-28] MEDS: TAMSULOSIN HCL 0.4 MG CAP.SR.24H PO SCH (17:12)
--- NOTE | 2017-03-28 17:36 | PDOC PROGRESS REPORT ---
Subjective Progress Note for:: 03/28/17 Subjective:: Patient remains confused and combative, but family is now at bedside. They have many questions but cannot give any more history about events prior to patient's admission. They have come from [place] to stay with patient and are planning to return to [place] in 2 days. Nurses report that patient pulled out PICC line again. He is not eating or taking pills. Will drink a little. Reason For Visit: ACUTE RENAL FAILURE Physical Exam Vital Signs: Temp Pulse Resp BP Pulse Ox 98.0 F 101 H 20 114/73 94 03/28/17 15:56 03/28/17 15:56 03/28/17 15:56 03/28/17 15:56 03/28/17 15:56 Intake & Output 03/27/17 03/28/17 03/29/17 06:59 06:59 06:59 Intake Total 2845 1400 0 Output Total 1850 1425 400 Balance 995 -25 -400 Weight 94 kg 98 kg General appearance: PRESENT: no acute distress, obese Head exam: PRESENT: atraumatic Extremities exam: PRESENT: other - Soft mittens over hands. Musculoskeletal exam: PRESENT: full ROM Neurological exam: PRESENT: other - Awake but combative. Cannot answer questions, but speaks clearly and is obviously upset. Skin exam: PRESENT: other - Echymoses over arms consistent with blood thinners. Results Laboratory Results: 03/28/17 04:33 03/28/17 04:33 03/28/17 03/28/17 04:33 04:33 WBC 9.1 RBC 3.65 L Hgb 11.0 L Hct 32.2 L MCV 88 MCH 30.1 MCHC 34.1 RDW 15.9 H Plt Count 178 Seg Neutrophils % Not Reportable Lymphocytes % Not Reportable Monocytes % Not Reportable Eosinophils % Not Reportable Basophils % Not Reportable Absolute Neutrophils Not Reportable Absolute Lymphocytes Not Reportable Absolute Monocytes Not Reportable Absolute Eosinophils Not Reportable Absolute Basophils Not Reportable Sodium 151.7 H Potassium 3.3 L D Chloride 121 H Carbon Dioxide 20 L Anion Gap 11 BUN 33 H Creatinine 0.96 Est GFR ( Amer) > 60 Est GFR (Non-Af Amer) > 60 Glucose 100 Calcium 8.7 Magnesium 1.5 L 03/26/17 17:32 Olivarez Catheter Urine Culture - Final NO GROWTH 2 DAYS 03/21/17 03/21/17 03/22/17 19:51 19:51 02:05 Creatine Kinase 6234 H 6106 H CK-MB (CK-2) 47.80 H Troponin I 6.340 03/22/17 03/22/17 03/22/17 02:05 10:51 10:51 Creatine Kinase 6173 H CK-MB (CK-2) 43.30 H 37.10 H Troponin I 6.750 6.130 03/24/17 03/25/17 06:00 06:55 Creatine Kinase 2065 H 922 H CK-MB (CK-2) Troponin I Impressions: Lumbar Spine X-Ray 03/21/17 13:02 IMPRESSION: CHRONIC DEGENERATIVE CHANGES. THERE IS NEW MILD WEDGE DEFORMITY OF L1 CONSISTENT WITH RECENT COMPRESSION FRACTURE. Thoracic Spine X-Ray 03/21/17 13:02 IMPRESSION: Extensive spondylosis. Chest X-Ray 03/21/17 15:10 IMPRESSION: RIGHT UPPER LOBE DENSITY. THIS COULD BE DUE TO CHRONIC SCARRING VERSUS ACUTE INFILTRATE. Abdomen/Pelvis CT 03/22/17 00:00 IMPRESSION: 1. Small pleural effusions. 2. Large predominantly cystic mass arising from the lower pole the right kidney. There are some linear calcifications suggesting septations. Cannot entirely exclude malignancy. 3. Diverticulosis coli. 4. Compression changes at L1 as described. 5. Other findings as described. Renal Ultrasound 03/22/17 00:00 IMPRESSION: Indeterminate 15 cm complex cystic components of the right lower abdomen; cannot exclude neoplasm. Further evaluation with IV and oral contrast CT of the abdomen and pelvis (renal protocol) series recommended. 2010 [employer] All Rights Reserved PICC Line Exchange 03/26/17 00:00 IMPRESSION: SUCCESSFUL OVER THE WIRE REPLACEMENT OF YESTERDAY'S PICC FOR A NEW ONE THAT IS 5 FR DUAL LUMEN 45 CM PICC IN THE LEFT ARM. Lumbar Spine MRI 03/26/17 14:37 IMPRESSION: Pathologic compression deformities of the L1 and L2 vertebral bodies Guidance Fluoroscopy 03/28/17 00:00 IMPRESSION: SUCCESSFUL PLACEMENT OF A 5 FR DUAL LUMEN 40 CM PICC IN THE RIGHT BASILIC VEIN. Interventional Vascular Procedure 03/28/17 00:00 IMPRESSION: SUCCESSFUL PLACEMENT OF A 5 FR DUAL LUMEN 40 CM PICC IN THE RIGHT BASILIC VEIN. PICC Line Insertion 03/28/17 09:00 IMPRESSION: SUCCESSFUL PLACEMENT OF A 5 FR DUAL LUMEN 40 CM PICC IN THE RIGHT BASILIC VEIN. Assessment & Plan - Diagnosis (1) Acute renal failure (ARF) Qualifiers: Acute renal failure type: unspecified Qualified Code(s): N17.9 - Acute kidney failure, unspecified Is this a current diagnosis for this admission?: Yes Plan: Improving. Agree with caution in obtaining scans, but I have discussed with family and they understand importance of these tests to determine cause of acute problems. (2) Compression fracture Is this a current diagnosis for this admission?: Yes Plan: Await SPEP and UPEP. He is on pain meds PRN. (3) Lung tumor Plan: As well as kidney tumor. Await CT. If possible to obtain CT guided biopsy of lung mass, will order this. (4) Encephalopathy Is this a current diagnosis for this admission?: Yes Plan: Unclear to me what is causing the confusion at this point. With all other abnormalities, have strong suspicion for brain mass as well. Await CT head with contrast. If mass is found, will start Dexamethasone and consult radiation therapy. - Plan Summary Plan Summary: I will continue to follow with you. Please call with any acute questions.
[2017-03-28] MEDS: SIMVASTATIN 40 MG TABLET PO SCH (21:32)
[2017-03-28] MEDS: ACETYLCYSTEINE 20% SOLN 800 MG/4 ML VIAL.NEB PO SCH (21:32)
[2017-03-29] MEDS: MORPHINE SULFATE 10 MG/ML INJ IV PRN ×4 (00:19→23:25)
[2017-03-29] MEDS: DEXTROSE 5%-1/4 NORMAL SALINE 1,000 ML IV PRN ×2 (04:37→20:20)
[2017-03-29 04:56] LABS: ANION GAP 7 (5-19); BLOOD UREA NITROGEN 21 mg/dL (7-20); CALCIUM 8.7 mg/dL (8.4-10.2); CARBON DIOXIDE 26 mmol/L (22-30); CHLORIDE 115 mmol/L (98-107); GLUCOSE 102 mg/dL (75-110); MAGNESIUM 1.5 mg/dL (1.6-2.3); POTASSIUM 3.2 mmol/L (3.6-5.0)
[2017-03-29 05:07] LABS: HEMATOCRIT 31.3 % (37.9-51.0); HEMOGLOBIN 10.6 g/dL (13.5-17.0); MEAN CORPUSCULAR VOLUME 89 fl (80-97); PLATELET COUNT 164 10^3/uL (150-450); RED BLOOD COUNT 3.53 10^6/uL (4.35-5.55); RED CELL DISTRIBUTION WIDTH 16.2 % (11.5-14.0); WHITE BLOOD COUNT 8.7 10^3/uL (4.0-10.5)
[2017-03-29 05:18] LABS: ABSOLUTE LYMPHOCYTES# (MANUAL) 1.7 10^3/uL (0.5-4.7); ABSOLUTE MONOCYTES # (MANUAL) 0.8 10^3/uL (0.1-1.4); ABSOLUTE NEUTROPHILS# (MANUAL) 5.9 10^3/uL (1.7-8.2); BAND NEUTROPHILS % (MANUAL) 1 % (3-5); BASOPHILS % (MANUAL) 0 % (0-2); EOSINOPHILS % (MANUAL) 4 % (0-6); LYMPHOCYTES % (MANUAL) 18 % (13-45); MONOCYTES % (MANUAL) 9 % (3-13); SEGMENTED NEUTROPHILS % (MAN) 67 % (42-78); TOTAL CELLS COUNTED 100
[2017-03-29 05:19] LABS: ANISOCYTOSIS 1+; BURR CELLS SLIGHT; OVALOCYTES 1+; POIKILOCYTOSIS 1+
[2017-03-29 05:20] LABS: PLATELET COMMENT ADEQUATE
[2017-03-29] MEDS: LEVOTHYROXINE SODIUM 0.1 MG TABLET PO SCH (05:27)
[2017-03-29] MEDS: LEVOTHYROXINE SODIUM 0.075 MG TABLET PO SCH (05:27)
[2017-03-29] MEDS: HEPARIN SOD (PORCINE) 5,000 UNIT/ML 1 ML SYRINGE SUBCUT SCH ×3 (05:27→22:23)
--- NOTE | 2017-03-29 07:57 | PDOC PROGRESS REPORT ---
Subjective Progress Note for:: 03/29/17 Subjective:: Patient remains confused. Unable to answer any questions. Daughter is at bedside. She is still asking when the CT scan will be performed. Patient has been restless but flat on his back all night. Coughing some. Complains of shoulder pain. ROS unable to perform due to mental state. Reason For Visit: ACUTE RENAL FAILURE Physical Exam Vital Signs: Temp Pulse Resp BP Pulse Ox 98.3 F 95 16 128/78 H 96 03/29/17 04:00 03/29/17 04:00 03/29/17 04:00 03/29/17 04:00 03/29/17 04:00 Intake & Output 03/28/17 03/29/17 03/30/17 06:59 06:59 06:59 Intake Total 1400 2682 Output Total 1425 1350 Balance -25 1332 Weight 98 kg 98 kg General appearance: PRESENT: mild distress, obese Head exam: PRESENT: atraumatic Mouth exam: PRESENT: dry mucosa Respiratory exam: PRESENT: prolonged expiratory phas, rhonchi, wheezes Cardiovascular exam: PRESENT: RRR GI/Abdominal exam: PRESENT: soft. ABSENT: tenderness Extremities exam: PRESENT: other - hands remain in soft gloves.. ABSENT: pedal edema Neurological exam: PRESENT: awake. ABSENT: oriented to place, oriented to time , oriented to situation Psychiatric exam: PRESENT: agitated Skin exam: PRESENT: normal color Results Laboratory Results: 03/29/17 04:15 03/29/17 04:15 03/29/17 03/29/17 04:15 04:15 WBC 8.7 RBC 3.53 L Hgb 10.6 L Hct 31.3 L MCV 89 MCH 30.0 MCHC 34.0 RDW 16.2 H Plt Count 164 Seg Neutrophils % Not Reportable Lymphocytes % Not Reportable Monocytes % Not Reportable Eosinophils % Not Reportable Basophils % Not Reportable Absolute Neutrophils Not Reportable Absolute Lymphocytes Not Reportable Absolute Monocytes Not Reportable Absolute Eosinophils Not Reportable Absolute Basophils Not Reportable Sodium 148.0 H Potassium 3.2 L Chloride 115 H Carbon Dioxide 26 Anion Gap 7 BUN 21 H Creatinine 0.87 Est GFR ( Amer) > 60 Est GFR (Non-Af Amer) > 60 Glucose 102 Calcium 8.7 Magnesium 1.5 L 03/26/17 17:32 Olivarez Catheter Urine Culture - Final NO GROWTH 2 DAYS 03/21/17 03/21/17 03/22/17 19:51 19:51 02:05 Creatine Kinase 6234 H 6106 H CK-MB (CK-2) 47.80 H Troponin I 6.340 03/22/17 03/22/17 03/22/17 02:05 10:51 10:51 Creatine Kinase 6173 H CK-MB (CK-2) 43.30 H 37.10 H Troponin I 6.750 6.130 03/24/17 03/25/17 06:00 06:55 Creatine Kinase 2065 H 922 H CK-MB (CK-2) Troponin I Impressions: Lumbar Spine X-Ray 03/21/17 13:02 IMPRESSION: CHRONIC DEGENERATIVE CHANGES. THERE IS NEW MILD WEDGE DEFORMITY OF L1 CONSISTENT WITH RECENT COMPRESSION FRACTURE. Thoracic Spine X-Ray 03/21/17 13:02 IMPRESSION: Extensive spondylosis. Chest X-Ray 03/21/17 15:10 IMPRESSION: RIGHT UPPER LOBE DENSITY. THIS COULD BE DUE TO CHRONIC SCARRING VERSUS ACUTE INFILTRATE. Abdomen/Pelvis CT 03/22/17 00:00 IMPRESSION: 1. Small pleural effusions. 2. Large predominantly cystic mass arising from the lower pole the right kidney. There are some linear calcifications suggesting septations. Cannot entirely exclude malignancy. 3. Diverticulosis coli. 4. Compression changes at L1 as described. 5. Other findings as described. Renal Ultrasound 03/22/17 00:00 IMPRESSION: Indeterminate 15 cm complex cystic components of the right lower abdomen; cannot exclude neoplasm. Further evaluation with IV and oral contrast CT of the abdomen and pelvis (renal protocol) series recommended. 2010 [employer]- All Rights Reserved PICC Line Exchange 03/26/17 00:00 IMPRESSION: SUCCESSFUL OVER THE WIRE REPLACEMENT OF YESTERDAY'S PICC FOR A NEW ONE THAT IS 5 FR DUAL LUMEN 45 CM PICC IN THE LEFT ARM. Lumbar Spine MRI 03/26/17 14:37 IMPRESSION: Pathologic compression deformities of the L1 and L2 vertebral bodies Guidance Fluoroscopy 03/28/17 00:00 IMPRESSION: SUCCESSFUL PLACEMENT OF A 5 FR DUAL LUMEN 40 CM PICC IN THE RIGHT BASILIC VEIN. Interventional Vascular Procedure 03/28/17 00:00 IMPRESSION: SUCCESSFUL PLACEMENT OF A 5 FR DUAL LUMEN 40 CM PICC IN THE RIGHT BASILIC VEIN. PICC Line Insertion 03/28/17 09:00 IMPRESSION: SUCCESSFUL PLACEMENT OF A 5 FR DUAL LUMEN 40 CM PICC IN THE RIGHT BASILIC VEIN. Assessment & Plan - Diagnosis (1) Acute renal failure (ARF) Qualifiers: Acute renal failure type: unspecified Qualified Code(s): N17.9 - Acute kidney failure, unspecified Is this a current diagnosis for this admission?: Yes (2) Compression fracture Is this a current diagnosis for this admission?: Yes (4) Encephalopathy Is this a current diagnosis for this admission?: Yes - Plan Summary Plan Summary: Still awaiting CT scans. Consider repositioning for the ulcer on buttocks. If lesion in brain, I will start Dexamethasone. Still awaiting SPEP and UPEP. I have answered all of family's questions to the best of my ability.
[2017-03-29] MEDS ORDERED: MAGNESIUM SULFATE/D5W 1 GM/100 ML RTUPB IV ONE (10:02)
[2017-03-29] MEDS ORDERED: POTASSI CL 20 MEQ/50 ML RIDER 20 MEQ/50 ML RTUPB IV ONE (10:04)
[2017-03-29] MEDS: OXYCODONE HCL IR 5 MG TABLET PO PRN ×3 (10:06→20:34)
--- NOTE | 2017-03-29 10:23 | RADIOLOGY REPORT (SQ) ---
EXAM DESCRIPTION: CT CHEST WITH; CT ABD/PELVIS WITH IV ONLY COMPLETED DATE/TIME: 03/29/2017 9:38 am REASON FOR STUDY: concern for cancer given kidney and lumbar lesion RENAL FUNCTION: Creatinine 0.87. COMPARISON: MRI lumbar spine 03/26/2017. TECHNIQUE: CT scan of the chest performed using helical scanning technique with dynamic intravenous contrast injection. Images reviewed with lung, soft tissue and bone windows. Reconstructed coronal a nd sagittal MPR images reviewed. All images stored on PACS. All CT scanners at this facility use dose modulation, iterative reconstruction, and/or weight based d osing when appropriate to reduce radiation dose to as low as reasonably achievable (ALARA). [facility]: Dose Right [facility]: CareDose [facility]: Dose Right [facility]: Teradose 4D [facility]: Smart [employer] RADIATION DOSE: . LIMITATIONS: None. FINDINGS: AXILLAE: No adenopathy. CHEST WALL: No masses. No subcutaneous air. LUNGS: Masslike region in the right apex with central low density. This area measures up to 5 cm max imal transverse dimension with some regional associated spiculation and adjacent interstitial opacity . Additional right upper lobe 1 cm density with elongated tubular soft tissue density adjacent which may reflect material within a bronchus. Bilateral relatively small pleural effusions. Associated m ild lower lobe dependent lung changes. PLEURA: As above. THYROID: No masses or significant asymmetry. HILAR AND MEDIASTINAL STRUCTURES: Bulky adenopathy in the mediastinum, right peritracheal extending t o the right hilum. Nodes likely measure close to 2.5 cm in short axis maximally. Left hilum normal. AORTA AND GREAT VESSELS: No aneurysm. No dissection. PULMONARY ARTERIES: Allowing for motion and non dedicated technique, no central embolus detected. Pe ripheral branches not well evaluated. HEART: No pericardial effusion. HARDWARE AND LIFELINES: Right PICC. BONES: Osteopenic. No compression fracture or aggressive destructive lesion in the spine or grossly seen within the ribs. Probable old bilateral rib fractures. OTHER: No other significant finding. IMPRESSION: 1. Mediastinal and right hilar adenopathy with suspicious 5 cm right upper lobe lesion. Low density centrally within the mass likely represents cavitation. Abscess felt to be less likely . 2. Bilateral effusions and other changes as noted. COMPARISON: As above. Also correlated with CT of the abdomen from 03/22/2017. RADIATION DOSE: mGy. TECHNIQUE: CT scan of the abdomen and pelvis performed with intravenous and oral contrast using ru christophe scanning technique with dynamic intravenous contrast injection. Images reviewed with lung, soft tissue and bone windows. Reconstructed coronal and sagittal MPR images reviewed. Delayed images for evaluation of the urinary system also acquired and evaluated. All images stored on PACS. All CT scanners at this facility use dose modulation, iterative reconstruction, and/or weight based d osing when appropriate to reduce radiation dose to as low as reasonably achievable (ALARA). [facility]: Dose Right [facility]: [employer] [facility]: Dose Right [facility]: Teradose 4D [facility]: CE Interactive FINDINGS: LIVER: Cyst in the left lobe of the liver. No suspicious lesions are grossly detected all owing for limiting streak artifact from patient positioning. SPLEEN: Normal size. No focal lesions. PANCREAS: No masses. No significant calcifications. No adjacent inflammation or peripancreatic flui d collections. Pancreatic duct not dilated. GALLBLADDER: No identified stones by CT criteria. No inflammatory changes to suggest cholecystitis. ADRENAL GLANDS: Mild nodularity right adrenal gland. Low Hounsfield units on the recent noncontrast study suggestive of an adenoma. RIGHT KIDNEY AND URETER: Large mass with some calcified septi originating off the lower pole. No uri nary obstruction. Additional small cysts. No definite solid mass. LEFT KIDNEY AND URETER: Potential minimal nephrolithiasis. Low density 1 cm region in the posterolat eral kidney may represent a cyst but is too small to further characterize. AORTA AND VESSELS: No aortic aneurysm or dissection. Generally patent major arterial structures. No venous clot. RETROPERITONEUM: No retroperitoneal adenopathy, hemorrhage or masses. LARGE AND SMALL BOWEL: No dilatation. No masses. No wall thickening. APPENDIX: Not visualized. ABDOMINAL WALL: No hernia or masses. PERITONEAL CAVITY: No free air. No free fluid. No peritoneal implants or masses. PELVIS: Olivarez catheter in the bladder, which otherwise looks unremarkable. No pelvic mass, fluid or gross adenopathy. BONES: None pathologic fractures at L1 and L2. Please see recent MRI lumbar spine. OTHER: No other significant finding. IMPRESSION: 1. Large cystic lesion originates off the right renal lower pole with faint calcified t hin septi. Likely Bosniak 2 lesion. Smaller indeterminate lesions in the left kidney. Given the roxi ng findings noted above, doubt renal malignancy primary. 2. Pathologic lumbar spine fractures. 3. Right adrenal adenoma. TECHNICAL DOCUMENTATION: JOB ID: [id number] Quality ID # 436: Final reports with documentation of one or more dose reduction techniques (e.g., Au tomated exposure control, adjustment of the mA and/or kV according to patient size, use of iterative reconstruction technique) 2010 [employer]- All Rights Reserved
--- NOTE | 2017-03-29 10:26 | RADIOLOGY REPORT (SQ) ---
EXAM DESCRIPTION: CT HEAD COMBO COMPLETED DATE/TIME: 03/29/2017 9:38 am REASON FOR STUDY: confusion. concern for multiple myeloma COMPARISON: None. TECHNIQUE: Axial images acquired through the brain without and with intravenous contrast. Images re viewed with bone, brain and subdural windows. Images stored on PACS. All CT scanners at this facility use dose modulation, iterative reconstruction, and/or weight based d osing when appropriate to reduce radiation dose to as low as reasonably achievable (ALARA). [facility]: Dose Right [facility]: CareDose [facility]: Dose Right [facility]: Teradose 4D [facility]: [employer] CONTRAST TYPE AND DOSE: contrast/concentration: Isovue 300.00 mg/ml; Total Contrast Delivered: 99.0 ml; Total Saline Delivered: 70.0 ml RENAL FUNCTION: Acceptable. RADIATION DOSE: CT Rad equipment meets quality standard of care and radiation dose reduction techniq ues were employed. CTDIvol: 18.2 - 49.0 mGy. DLP: 5185 mGy-cm.. LIMITATIONS: Moderate-marked motion artifact on initial scanning. This mildly persists on repeat sc anning. FINDINGS: VENTRICLES: Normal size and contour. CEREBRUM: No masses. No hemorrhage. No midline shift. Normal johnson/white matter differentiation. No ev idence for acute infarction. No enhancing lesions. CEREBELLUM: No masses. No hemorrhage. No alteration of density. No evidence for acute infarction. No enhancing lesions. EXTRA-AXIAL SPACES: No fluid collections. No enhancing lesions. ORBITS AND GLOBE: No intra- or extraconal masses. Normal contour of globe without masses. CALVARIUM: No fracture. No lytic bone lesions. PARANASAL SINUSES: No fluid or mucosal thickening. SOFT TISSUES: No mass or hematoma. OTHER: No other significant finding. IMPRESSION: 1. No acute or suspicious intracranial changes. No bone lesions detected in the skull. EVIDENCE OF ACUTE STROKE: NO. TECHNICAL DOCUMENTATION: JOB ID: [id number] Quality ID # [id number]: Final reports with documentation of one or more dose reduction techniques (e.g., Au tomated exposure control, adjustment of the mA and/or kV according to patient size, use of iterative reconstruction technique) 2010 [employer]- All Rights Reserved
[2017-03-29] MEDS: CYANOCOBALAMIN (VITAMIN B-12) 1,000 MCG TABLET PO SCH (11:12)
[2017-03-29] MEDS: ASPIRIN 81 MG TABLET, ENT COATED PO SCH (11:13)
[2017-03-29] MEDS: FAMOTIDINE 20 MG TABLET PO SCH ×2 (11:13→22:23)
[2017-03-29] MEDS: CHOLECALCIFEROL (D3) 400 UNIT TABLET PO SCH (11:13)
[2017-03-29] MEDS: METOPROLOL TARTRATE 50 MG TABLET PO SCH ×2 (11:13→22:23)
[2017-03-29] MEDS: CEFTRIAXONE 1 GM/D5W RTU 1 GM/50 ML RTUPB IV SCH (11:33)
[2017-03-29] MEDS: NORMAL SALINE 10 ML SDV (SCHEDULED) IV SCH ×4 (11:33→22:24)
[2017-03-29] MEDS: ACETYLCYSTEINE 20% SOLN 800 MG/4 ML VIAL.NEB PO SCH ×2 (12:11→18:34)
--- NOTE | 2017-03-29 17:44 | PDOC PROGRESS REPORT ---
Subjective Progress Note for:: 03/29/17 Subjective:: This is a follow-up visit for acute renal failure. Patient was seen at the bedside. I spoke extensively with the patient's daughter and son-in-law about the results of the CT scan. Reason For Visit: ACUTE RENAL FAILURE Physical Exam Vital Signs: Temp Pulse Resp BP Pulse Ox 97.9 F 93 18 125/74 93 03/29/17 08:16 03/29/17 08:16 03/29/17 08:16 03/29/17 08:16 03/29/17 08:16 Intake & Output 03/28/17 03/29/17 03/30/17 06:59 06:59 06:59 Intake Total 1400 2682 Output Total 1425 1350 Balance -25 1332 Weight 98 kg 98 kg GENERAL: This is a well-developed and nourished appearing white male resting in bed currently in no acute distress. HEART: Regular rate and rhythm. 2 out of 6 murmurs. No rubs or gallops. LUNGS: Clear to auscultation anteriorly bilaterally with equal rise and fall of the chest. ABDOMEN: Soft, nontender, nondistended with normoactive bowel sounds Back: Inspection deferred : Olivarez bag is present with sd appearing urine. EXTREMETIES: No clubbing, cyanosis or edema. 2+ peripheral pulses bilaterally. NEURO: Patient is awake and alert. He is oriented to self only Results Laboratory Results: 03/29/17 04:15 03/29/17 04:15 03/29/17 03/29/17 04:15 04:15 WBC 8.7 RBC 3.53 L Hgb 10.6 L Hct 31.3 L MCV 89 MCH 30.0 MCHC 34.0 RDW 16.2 H Plt Count 164 Seg Neutrophils % Not Reportable Lymphocytes % Not Reportable Monocytes % Not Reportable Eosinophils % Not Reportable Basophils % Not Reportable Absolute Neutrophils Not Reportable Absolute Lymphocytes Not Reportable Absolute Monocytes Not Reportable Absolute Eosinophils Not Reportable Absolute Basophils Not Reportable Sodium 148.0 H Potassium 3.2 L Chloride 115 H Carbon Dioxide 26 Anion Gap 7 BUN 21 H Creatinine 0.87 Est GFR ( Amer) > 60 Est GFR (Non-Af Amer) > 60 Glucose 102 Calcium 8.7 Magnesium 1.5 L 03/26/17 17:32 Olivarez Catheter Urine Culture - Final NO GROWTH 2 DAYS 03/21/17 03/21/17 03/22/17 19:51 19:51 02:05 Creatine Kinase 6234 H 6106 H CK-MB (CK-2) 47.80 H Troponin I 6.340 03/22/17 03/22/17 03/22/17 02:05 10:51 10:51 Creatine Kinase 6173 H CK-MB (CK-2) 43.30 H 37.10 H Troponin I 6.750 6.130 03/24/17 03/25/17 06:00 06:55 Creatine Kinase 2065 H 922 H CK-MB (CK-2) Troponin I Impressions: Lumbar Spine X-Ray 03/21/17 13:02 IMPRESSION: CHRONIC DEGENERATIVE CHANGES. THERE IS NEW MILD WEDGE DEFORMITY OF L1 CONSISTENT WITH RECENT COMPRESSION FRACTURE. Thoracic Spine X-Ray 03/21/17 13:02 IMPRESSION: Extensive spondylosis. Chest X-Ray 03/21/17 15:10 IMPRESSION: RIGHT UPPER LOBE DENSITY. THIS COULD BE DUE TO CHRONIC SCARRING VERSUS ACUTE INFILTRATE. Renal Ultrasound 03/22/17 00:00 IMPRESSION: Indeterminate 15 cm complex cystic components of the right lower abdomen; cannot exclude neoplasm. Further evaluation with IV and oral contrast CT of the abdomen and pelvis (renal protocol) series recommended. 2010 [employer] All Rights Reserved PICC Line Exchange 03/26/17 00:00 IMPRESSION: SUCCESSFUL OVER THE WIRE REPLACEMENT OF YESTERDAY'S PICC FOR A NEW ONE THAT IS 5 FR DUAL LUMEN 45 CM PICC IN THE LEFT ARM. Lumbar Spine MRI 03/26/17 14:37 IMPRESSION: Pathologic compression deformities of the L1 and L2 vertebral bodies Guidance Fluoroscopy 03/28/17 00:00 IMPRESSION: SUCCESSFUL PLACEMENT OF A 5 FR DUAL LUMEN 40 CM PICC IN THE RIGHT BASILIC VEIN. Interventional Vascular Procedure 03/28/17 00:00 IMPRESSION: SUCCESSFUL PLACEMENT OF A 5 FR DUAL LUMEN 40 CM PICC IN THE RIGHT BASILIC VEIN. PICC Line Insertion 03/28/17 09:00 IMPRESSION: SUCCESSFUL PLACEMENT OF A 5 FR DUAL LUMEN 40 CM PICC IN THE RIGHT BASILIC VEIN. Abdomen/Pelvis CT 03/29/17 00:00 IMPRESSION: 1. Mediastinal and right hilar adenopathy with suspicious 5 cm right upper lobe lesion. Low density centrally within the mass likely represents cavitation. Abscess felt to be less likely. 2. Bilateral effusions and other changes as noted. IMPRESSION: 1. Large cystic lesion originates off the right renal lower pole with faint calcified thin septi. Likely Bosniak 2 lesion. Smaller indeterminate lesions in the left kidney. Given the lung findings noted above, doubt renal malignancy primary. 2. Pathologic lumbar spine fractures. 3. Right adrenal adenoma. Chest CT 03/29/17 00:00 IMPRESSION: 1. Mediastinal and right hilar adenopathy with suspicious 5 cm right upper lobe lesion. Low density centrally within the mass likely represents cavitation. Abscess felt to be less likely. 2. Bilateral effusions and other changes as noted. IMPRESSION: 1. Large cystic lesion originates off the right renal lower pole with faint calcified thin septi. Likely Bosniak 2 lesion. Smaller indeterminate lesions in the left kidney. Given the lung findings noted above, doubt renal malignancy primary. 2. Pathologic lumbar spine fractures. 3. Right adrenal adenoma. Assessment & Plan - Diagnosis (1) Acute renal failure (ARF) Qualifiers: Acute renal failure type: unspecified Qualified Code(s): N17.9 - Acute kidney failure, unspecified Is this a current diagnosis for this admission?: Yes Plan: Creatinine has normalized. Resolved. Will protect kidneys with acetylcysteine to end today and copious fluids for CT with contrast. Continue to monitor cautiously. (2) Compression fracture Is this a current diagnosis for this admission?: Yes Plan: Concern for multiple myeloma. SPEP and UPEP have been ordered. Continue reduced frequency of pain medication to accommodate the patient's mental status changes. (3) Hypernatremia Is this a current diagnosis for this admission?: Yes Plan: Improved with resumption of fluids. Continue current fluids (4) Encephalopathy Is this a current diagnosis for this admission?: Yes Plan: Patient is currently confused at bedside. Worsening confusion could be due to underlying narcotic medications used to control his back pain. CT of the head is negative. (5) Hypertension Is this a current diagnosis for this admission?: Yes Plan: Continue metoprolol. Lisinopril HCTZ is still on hold. Given that he has recently gotten over his acute kidney injury and that we performed CT with contrast, we will continue to hold. (6) Hyperlipidemia Is this a current diagnosis for this admission?: Yes (7) Hypothyroidism Is this a current diagnosis for this admission?: Yes Plan: Continue Synthroid. (8) Rhabdomyolysis Qualifiers: Rhabdomyolysis type: traumatic Encounter type: initial encounter Qualified Code(s): T79.6XXA - Traumatic ischemia of muscle, initial encounter Is this a current diagnosis for this admission?: Yes Plan: Resolved (9) Sacral decubitus ulcer Qualifiers: Pressure ulcer stage: stage 4 Qualified Code(s): L89.154 - Pressure ulcer of sacral region, stage 4 Is this a current diagnosis for this admission?: Yes Plan: Continue local wound care. Stage IV and stage II sacral and gluteal fold decubitus ulcers respectively. Surgery following periodically. Present on admission. Status post debridement. Proteus mirabilis, E. coli growing from the wound culture along with Streptococcus. Continue Rocephin. (10) Left ventricular outflow tract obstruction Is this a current diagnosis for this admission?: Yes Plan: Continue current medications (11) Troponin level elevated Is this a current diagnosis for this admission?: Yes (12) BPH (benign prostatic hyperplasia) Is this a current diagnosis for this admission?: Yes Plan: Continue finasteride (13) Chronic back pain Qualifiers: Back pain location: low back pain Is this a current diagnosis for this admission?: Yes Plan: Continue pain medication as currently ordered. (14) COPD (chronic obstructive pulmonary disease) Is this a current diagnosis for this admission?: Yes Plan: Patient is not in acute exacerbation. Continue maintenance medications. (15) Multiple myeloma Is this a current diagnosis for this admission?: Yes Plan: Suspicion for underlying multiple myeloma. The patient has pathologic fractures noted on MRI. Concern that this is also affecting his mentation. SPEP and UPEP have been ordered. Oncology following. I spoke with the patient' s family extensively about the potential for this or different underlying cancer. They are in agreement with further workup. CT of the chest abdomen and pelvis revealed a right apical lung lesion that appears spiculated. Lesion in the kidney appears to truly be a cyst. There are other small lesions of the kidneys that were indeterminate. Will defer to oncology but I will leave the next steps would be to wait for the SPEP UPEP and try to obtain a biopsy. Question is whether or not to pursue the lung lesion or the lumbar lesion. CT of the head was negative. (16) Dysphasia Is this a current diagnosis for this admission?: Yes Plan: Patient was noted by family to hold food in his mouth. Speech was not able to fully assess him. However it sounded them that it was more of an issue of patient desire considering that the patient is able to tolerate thin liquids. Continue to monitor. (17) Hypokalemia Is this a current diagnosis for this admission?: Yes Plan: Replaced
[2017-03-29] MEDS: TAMSULOSIN HCL 0.4 MG CAP.SR.24H PO SCH (18:33)
[2017-03-29] MEDS: SIMVASTATIN 40 MG TABLET PO SCH (22:23)
[2017-03-30] MEDS ORDERED: KETOROLAC TROMETHAMINE INJ/PF 30 MG/1 ML SDV IV ONE (00:15)
[2017-03-30] MEDS ORDERED: LIDOCAINE 5% (700 MG) TRANSDERMAL ADH..PATCH TP ONE (00:15)
[2017-03-30] MEDS ORDERED: LIDOCAINE 5% (700 MG) TRANSDERMAL ADH..PATCH ONE (01:24)
[2017-03-30] MEDS: LEVOTHYROXINE SODIUM 0.075 MG TABLET PO SCH (05:30)
[2017-03-30] MEDS: HEPARIN SOD (PORCINE) 5,000 UNIT/ML 1 ML SYRINGE SUBCUT SCH ×3 (05:30→21:56)
[2017-03-30] MEDS: LEVOTHYROXINE SODIUM 0.1 MG TABLET PO SCH (05:30)
[2017-03-30] MEDS: CYANOCOBALAMIN (VITAMIN B-12) 1,000 MCG TABLET PO SCH (09:53)
[2017-03-30] MEDS: FAMOTIDINE 20 MG TABLET PO SCH ×2 (09:53→21:46)
[2017-03-30] MEDS: CEFTRIAXONE 1 GM/D5W RTU 1 GM/50 ML RTUPB IV SCH (09:54)
[2017-03-30] MEDS: ACETYLCYSTEINE 20% SOLN 800 MG/4 ML VIAL.NEB PO SCH (09:54)
[2017-03-30] MEDS: ASPIRIN 81 MG TABLET, ENT COATED PO SCH (09:54)
[2017-03-30] MEDS: METOPROLOL TARTRATE 50 MG TABLET PO SCH ×2 (09:55→21:46)
[2017-03-30] MEDS: NORMAL SALINE 10 ML SDV (SCHEDULED) IV SCH ×4 (09:55→21:56)
[2017-03-30] MEDS: CHOLECALCIFEROL (D3) 400 UNIT TABLET PO SCH (09:55)
[2017-03-30] MEDS: DEXTROSE 5%-1/4 NORMAL SALINE 1,000 ML IV PRN ×2 (10:04→23:28)
[2017-03-30] MEDS: LIDOCAINE 5% (700 MG) TRANSDERMAL ADH..PATCH TP SCH (10:05)
[2017-03-30 10:36] LABS: HEMATOCRIT 31.6 % (37.9-51.0); HEMOGLOBIN 10.9 g/dL (13.5-17.0); MEAN CORPUSCULAR HEMOGLOBIN 30.2 pg (27.0-33.4); MEAN CORPUSCULAR HGB CONC 34.5 g/dL (32.0-36.0); MEAN CORPUSCULAR VOLUME 88 fl (80-97); PLATELET COUNT 144 10^3/uL (150-450); RED BLOOD COUNT 3.61 10^6/uL (4.35-5.55); RED CELL DISTRIBUTION WIDTH 15.8 % (11.5-14.0)
[2017-03-30 10:53] LABS: BLOOD UREA NITROGEN 17 mg/dL (7-20); CALCIUM 8.6 mg/dL (8.4-10.2); CARBON DIOXIDE 28 mmol/L (22-30); GLUCOSE 91 mg/dL (75-110); MAGNESIUM 1.5 mg/dL (1.6-2.3); POTASSIUM 3.3 mmol/L (3.6-5.0); SODIUM 145.8 mmol/L (137-145)
[2017-03-30 10:55] LABS: ANION GAP 6 (5-19); CHLORIDE 112 mmol/L (98-107)
[2017-03-30 11:14] LABS: ABSOLUTE LYMPHOCYTES# (MANUAL) 0.9 10^3/uL (0.5-4.7); BASOPHILS % (MANUAL) 0 % (0-2); EOSINOPHILS % (MANUAL) 1 % (0-6); LYMPHOCYTES % (MANUAL) 10 % (13-45); MONOCYTES % (MANUAL) 11 % (3-13); SEGMENTED NEUTROPHILS % (MAN) 78 % (42-78); TOTAL CELLS COUNTED 100
[2017-03-30 11:15] LABS: ANISOCYTOSIS SLIGHT; PLATELET COMMENT ADEQUATE
[2017-03-30 11:16] LABS: POIKILOCYTOSIS SLIGHT
[2017-03-30 11:17] LABS: TARGET CELLS SLIGHT
--- NOTE | 2017-03-30 12:21 | PDOC PROGRESS REPORT ---
Subjective Progress Note for:: 03/30/17 Subjective:: Patient is more alert today. He is able to speak to me and say hello. He states that he is not currently having any pain. Family reports that he had a conversation on the phone with a friend and that he was able to eat a little and feed himself today. ROS difficult to obtain, but family reports good BMs, still agitated and picking. No nausea. little pain. Reason For Visit: ACUTE RENAL FAILURE Physical Exam Vital Signs: Temp Pulse Resp BP Pulse Ox 98.5 F 89 16 119/79 97 03/30/17 07:21 03/30/17 07:21 03/30/17 07:21 03/30/17 07:21 03/30/17 07:21 Intake & Output 03/29/17 03/30/17 03/31/17 06:59 06:59 06:59 Intake Total 2682 2200 Output Total 1350 1550 Balance 1332 650 Weight 98 kg 99.2 kg General appearance: PRESENT: no acute distress, well-nourished Head exam: PRESENT: atraumatic Eye exam: PRESENT: PERRLA Mouth exam: PRESENT: dry mucosa Teeth exam: PRESENT: other - Dentures in place, but do not fit well. Extremities exam: PRESENT: other - Soft Mitt on his left hand only.. ABSENT: pedal edema Neurological exam: PRESENT: awake. ABSENT: oriented to place, oriented to time , oriented to situation Skin exam: PRESENT: normal color Results Laboratory Results: 03/30/17 10:00 03/30/17 10:00 03/30/17 03/30/17 10:00 10:00 WBC 9.0 RBC 3.61 L Hgb 10.9 L Hct 31.6 L MCV 88 MCH 30.2 MCHC 34.5 RDW 15.8 H Plt Count 144 L Seg Neutrophils % Not Reportable Lymphocytes % Not Reportable Monocytes % Not Reportable Eosinophils % Not Reportable Basophils % Not Reportable Absolute Neutrophils Not Reportable Absolute Lymphocytes Not Reportable Absolute Monocytes Not Reportable Absolute Eosinophils Not Reportable Absolute Basophils Not Reportable Sodium 145.8 H Potassium 3.3 L Chloride 112 H Carbon Dioxide 28 Anion Gap 6 BUN 17 Creatinine 0.83 Est GFR ( Amer) > 60 Est GFR (Non-Af Amer) > 60 Glucose 91 Calcium 8.6 Magnesium 1.5 L 03/21/17 03/21/17 03/22/17 19:51 19:51 02:05 Creatine Kinase 6234 H 6106 H CK-MB (CK-2) 47.80 H Troponin I 6.340 03/22/17 03/22/17 03/22/17 02:05 10:51 10:51 Creatine Kinase 6173 H CK-MB (CK-2) 43.30 H 37.10 H Troponin I 6.750 6.130 03/24/17 03/25/17 06:00 06:55 Creatine Kinase 2065 H 922 H CK-MB (CK-2) Troponin I Impressions: Lumbar Spine X-Ray 03/21/17 13:02 IMPRESSION: CHRONIC DEGENERATIVE CHANGES. THERE IS NEW MILD WEDGE DEFORMITY OF L1 CONSISTENT WITH RECENT COMPRESSION FRACTURE. Thoracic Spine X-Ray 03/21/17 13:02 IMPRESSION: Extensive spondylosis. Chest X-Ray 03/21/17 15:10 IMPRESSION: RIGHT UPPER LOBE DENSITY. THIS COULD BE DUE TO CHRONIC SCARRING VERSUS ACUTE INFILTRATE. Renal Ultrasound 03/22/17 00:00 IMPRESSION: Indeterminate 15 cm complex cystic components of the right lower abdomen; cannot exclude neoplasm. Further evaluation with IV and oral contrast CT of the abdomen and pelvis (renal protocol) series recommended. 2010 [employer]- All Rights Reserved PICC Line Exchange 03/26/17 00:00 IMPRESSION: SUCCESSFUL OVER THE WIRE REPLACEMENT OF YESTERDAY'S PICC FOR A NEW ONE THAT IS 5 FR DUAL LUMEN 45 CM PICC IN THE LEFT ARM. Lumbar Spine MRI 03/26/17 14:37 IMPRESSION: Pathologic compression deformities of the L1 and L2 vertebral bodies Guidance Fluoroscopy 03/28/17 00:00 IMPRESSION: SUCCESSFUL PLACEMENT OF A 5 FR DUAL LUMEN 40 CM PICC IN THE RIGHT BASILIC VEIN. Interventional Vascular Procedure 03/28/17 00:00 IMPRESSION: SUCCESSFUL PLACEMENT OF A 5 FR DUAL LUMEN 40 CM PICC IN THE RIGHT BASILIC VEIN. PICC Line Insertion 03/28/17 09:00 IMPRESSION: SUCCESSFUL PLACEMENT OF A 5 FR DUAL LUMEN 40 CM PICC IN THE RIGHT BASILIC VEIN. Abdomen/Pelvis CT 03/29/17 00:00 IMPRESSION: 1. Mediastinal and right hilar adenopathy with suspicious 5 cm right upper lobe lesion. Low density centrally within the mass likely represents cavitation. Abscess felt to be less likely. 2. Bilateral effusions and other changes as noted. IMPRESSION: 1. Large cystic lesion originates off the right renal lower pole with faint calcified thin septi. Likely Bosniak 2 lesion. Smaller indeterminate lesions in the left kidney. Given the lung findings noted above, doubt renal malignancy primary. 2. Pathologic lumbar spine fractures. 3. Right adrenal adenoma. Chest CT 03/29/17 00:00 IMPRESSION: 1. Mediastinal and right hilar adenopathy with suspicious 5 cm right upper lobe lesion. Low density centrally within the mass likely represents cavitation. Abscess felt to be less likely. 2. Bilateral effusions and other changes as noted. IMPRESSION: 1. Large cystic lesion originates off the right renal lower pole with faint calcified thin septi. Likely Bosniak 2 lesion. Smaller indeterminate lesions in the left kidney. Given the lung findings noted above, doubt renal malignancy primary. 2. Pathologic lumbar spine fractures. 3. Right adrenal adenoma. Head CT 03/29/17 00:00 IMPRESSION: 1. No acute or suspicious intracranial changes. No bone lesions detected in the skull. EVIDENCE OF ACUTE STROKE: NO. Assessment & Plan - Diagnosis (1) Acute renal failure (ARF) Qualifiers: Acute renal failure type: unspecified Qualified Code(s): N17.9 - Acute kidney failure, unspecified Is this a current diagnosis for this admission?: Yes (2) Compression fracture Is this a current diagnosis for this admission?: Yes Plan: Pain improved. Family is asking if it is safe for patient to be up walking with this fracture. I will do my best to find this out. However, I do not see any evidence that there is any cord compromise. May consider pamidronate, but if calcium remains normal, would hold off until he is more coherent. (3) Lung tumor Plan: I again discuss result of the CT scans with the family. They already discussed this with Dr. 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 I believe the best area to biopsy would be the lung. I have ordered a CT guided lung biopsy. I have explained to the family that this may not be performed until Saturday. Then, it will take at least 2 days for the results. Even if we confirm that this is cancer, I am very concerned about his mental status. He is currently not strong enough, or coherent enough to undergo chemotherapy. Palliative radiation to the back may be an option, if his pain and mobility allows him to get on and off the radiation table comfortably. (4) Encephalopathy Is this a current diagnosis for this admission?: Yes Plan: Still unsure what has caused this. His Na is a bit high, but Calcium and ammonia are not. No obvious medications that may be causing this, other than pain medication and he has not had any pain meds in over 12 hours, according to family and he is still confused. He is able to swallow pills a bit better. This is a good sign. - Plan Summary Plan Summary: I will continue to follow with you. Please call with any concerns.
[2017-03-30] MEDS: MORPHINE SULFATE 10 MG/ML INJ IV PRN (12:34)
[2017-03-30] MEDS: TAMSULOSIN HCL 0.4 MG CAP.SR.24H PO SCH (18:55)
--- NOTE | 2017-03-30 19:00 | PDOC PROGRESS REPORT ---
Subjective Progress Note for:: 03/30/17 Subjective:: This is a follow-up visit for acute renal failure. Patient was seen at the bedside. I spoke extensively with the patient's daughter and son-in-law about the results of the CT scan. No acute events overnight. Reason For Visit: ACUTE RENAL FAILURE Physical Exam Vital Signs: Temp Pulse Resp BP Pulse Ox 98.5 F 89 16 119/79 97 03/30/17 07:21 03/30/17 07:21 03/30/17 07:21 03/30/17 07:21 03/30/17 07:21 Intake & Output 03/29/17 03/30/17 03/31/17 06:59 06:59 06:59 Intake Total 2682 2200 Output Total 1350 1550 Balance 1332 650 Weight 98 kg 99.2 kg GENERAL: This is a well-developed and nourished appearing white male resting in bed currently in no acute distress. HEART: Regular rate and rhythm. 2 out of 6 murmurs. No rubs or gallops. LUNGS: Clear to auscultation anteriorly bilaterally with equal rise and fall of the chest. ABDOMEN: Soft, nontender, nondistended with normoactive bowel sounds Back:. Inspection deferred : Olivarez catheter is in place draining sd colored urine. EXTREMETIES: No clubbing, cyanosis or edema. 2+ peripheral pulses bilaterally. The patient is in mittens. NEURO: Patient is awake and alert. He is oriented to self only Results Laboratory Results: 03/30/17 10:00 03/30/17 10:00 Sodium 145.8 H Potassium 3.3 L Chloride 112 H Carbon Dioxide 28 Anion Gap 6 BUN 17 Creatinine 0.83 Est GFR ( Amer) > 60 Est GFR (Non-Af Amer) > 60 Glucose 91 Calcium 8.6 Magnesium 1.5 L 03/21/17 03/21/17 03/22/17 19:51 19:51 02:05 Creatine Kinase 6234 H 6106 H CK-MB (CK-2) 47.80 H Troponin I 6.340 03/22/17 03/22/17 03/22/17 02:05 10:51 10:51 Creatine Kinase 6173 H CK-MB (CK-2) 43.30 H 37.10 H Troponin I 6.750 6.130 03/24/17 03/25/17 06:00 06:55 Creatine Kinase 2065 H 922 H CK-MB (CK-2) Troponin I Impressions: Lumbar Spine X-Ray 03/21/17 13:02 IMPRESSION: CHRONIC DEGENERATIVE CHANGES. THERE IS NEW MILD WEDGE DEFORMITY OF L1 CONSISTENT WITH RECENT COMPRESSION FRACTURE. Thoracic Spine X-Ray 03/21/17 13:02 IMPRESSION: Extensive spondylosis. Chest X-Ray 03/21/17 15:10 IMPRESSION: RIGHT UPPER LOBE DENSITY. THIS COULD BE DUE TO CHRONIC SCARRING VERSUS ACUTE INFILTRATE. Renal Ultrasound 03/22/17 00:00 IMPRESSION: Indeterminate 15 cm complex cystic components of the right lower abdomen; cannot exclude neoplasm. Further evaluation with IV and oral contrast CT of the abdomen and pelvis (renal protocol) series recommended. 2010 [employer]- All Rights Reserved PICC Line Exchange 03/26/17 00:00 IMPRESSION: SUCCESSFUL OVER THE WIRE REPLACEMENT OF YESTERDAY'S PICC FOR A NEW ONE THAT IS 5 FR DUAL LUMEN 45 CM PICC IN THE LEFT ARM. Lumbar Spine MRI 03/26/17 14:37 IMPRESSION: Pathologic compression deformities of the L1 and L2 vertebral bodies Guidance Fluoroscopy 03/28/17 00:00 IMPRESSION: SUCCESSFUL PLACEMENT OF A 5 FR DUAL LUMEN 40 CM PICC IN THE RIGHT BASILIC VEIN. Interventional Vascular Procedure 03/28/17 00:00 IMPRESSION: SUCCESSFUL PLACEMENT OF A 5 FR DUAL LUMEN 40 CM PICC IN THE RIGHT BASILIC VEIN. PICC Line Insertion 03/28/17 09:00 IMPRESSION: SUCCESSFUL PLACEMENT OF A 5 FR DUAL LUMEN 40 CM PICC IN THE RIGHT BASILIC VEIN. Abdomen/Pelvis CT 03/29/17 00:00 IMPRESSION: 1. Mediastinal and right hilar adenopathy with suspicious 5 cm right upper lobe lesion. Low density centrally within the mass likely represents cavitation. Abscess felt to be less likely. 2. Bilateral effusions and other changes as noted. IMPRESSION: 1. Large cystic lesion originates off the right renal lower pole with faint calcified thin septi. Likely Bosniak 2 lesion. Smaller indeterminate lesions in the left kidney. Given the lung findings noted above, doubt renal malignancy primary. 2. Pathologic lumbar spine fractures. 3. Right adrenal adenoma. Chest CT 03/29/17 00:00 IMPRESSION: 1. Mediastinal and right hilar adenopathy with suspicious 5 cm right upper lobe lesion. Low density centrally within the mass likely represents cavitation. Abscess felt to be less likely. 2. Bilateral effusions and other changes as noted. IMPRESSION: 1. Large cystic lesion originates off the right renal lower pole with faint calcified thin septi. Likely Bosniak 2 lesion. Smaller indeterminate lesions in the left kidney. Given the lung findings noted above, doubt renal malignancy primary. 2. Pathologic lumbar spine fractures. 3. Right adrenal adenoma. Head CT 03/29/17 00:00 IMPRESSION: 1. No acute or suspicious intracranial changes. No bone lesions detected in the skull. EVIDENCE OF ACUTE STROKE: NO. Assessment & Plan - Diagnosis (1) Acute renal failure (ARF) Qualifiers: Acute renal failure type: unspecified Qualified Code(s): N17.9 - Acute kidney failure, unspecified Is this a current diagnosis for this admission?: Yes Plan: Creatinine has normalized. Resolved. Will protect kidneys with acetylcysteine to end today and copious fluids for CT with contrast. Continue to monitor cautiously. (2) Compression fracture Is this a current diagnosis for this admission?: Yes Plan: Concern for multiple myeloma. SPEP and UPEP have been ordered. Continue reduced frequency of pain medication to accommodate the patient's mental status changes. (3) Hypernatremia Is this a current diagnosis for this admission?: Yes Plan: Improved with resumption of fluids. Continue current fluids (4) Encephalopathy Is this a current diagnosis for this admission?: Yes Plan: Patient is currently confused at bedside. Worsening confusion could be due to underlying narcotic medications used to control his back pain. Or due to his decubitus ulcer infection. Blood cultures negative. CT of the head is negative. (5) Hypertension Is this a current diagnosis for this admission?: Yes Plan: Continue metoprolol. Lisinopril HCTZ is still on hold. Given that he has recently gotten over his acute kidney injury and that we performed CT with contrast, we will continue to hold. (6) Hyperlipidemia Is this a current diagnosis for this admission?: Yes (7) Hypothyroidism Is this a current diagnosis for this admission?: Yes Plan: Continue Synthroid. (8) Rhabdomyolysis Qualifiers: Rhabdomyolysis type: traumatic Encounter type: initial encounter Qualified Code(s): T79.6XXA - Traumatic ischemia of muscle, initial encounter Is this a current diagnosis for this admission?: Yes Plan: Resolved (9) Sacral decubitus ulcer Qualifiers: Pressure ulcer stage: stage 4 Qualified Code(s): L89.154 - Pressure ulcer of sacral region, stage 4 Is this a current diagnosis for this admission?: Yes Plan: Continue local wound care. Stage IV and stage II sacral and gluteal fold decubitus ulcers respectively. Surgery following periodically. Present on admission. Status post debridement. Proteus mirabilis, E. coli growing from the wound culture along with Streptococcus. Continue Rocephin. (10) Left ventricular outflow tract obstruction Is this a current diagnosis for this admission?: Yes Plan: Continue current medications (11) Troponin level elevated Is this a current diagnosis for this admission?: Yes (12) BPH (benign prostatic hyperplasia) Is this a current diagnosis for this admission?: Yes Plan: Continue finasteride (13) Chronic back pain Qualifiers: Back pain location: low back pain Is this a current diagnosis for this admission?: Yes Plan: Continue pain medication as currently ordered. (14) COPD (chronic obstructive pulmonary disease) Is this a current diagnosis for this admission?: Yes Plan: Patient is not in acute exacerbation. Continue maintenance medications. (15) Multiple myeloma Is this a current diagnosis for this admission?: Yes Plan: Suspicion for underlying multiple myeloma. The patient has pathologic fractures noted on MRI. Concern that this is also affecting his mentation. SPEP and UPEP have been ordered. Oncology following. I spoke with the patient' s family extensively about the potential for this or different underlying cancer. They are in agreement with further workup. CT of the chest abdomen and pelvis revealed a right apical lung lesion that appears spiculated. Lesion in the kidney appears to truly be a cyst. There are other small lesions of the kidneys that were indeterminate. Will defer to oncology but I will leave the next steps would be to wait for the SPEP UPEP and try to obtain a biopsy. Question is whether or not to pursue the lung lesion or the lumbar lesion. CT of the head was negative. (16) Dysphasia Is this a current diagnosis for this admission?: Yes Plan: Patient was noted by family to hold food in his mouth. Speech was not able to fully assess him. However it sounded them that it was more of an issue of patient desire considering that the patient is able to tolerate thin liquids. Continue to monitor. (17) Hypokalemia Is this a current diagnosis for this admission?: Yes Plan: Replaced - Time Time Spent with patient: 25-34 minutes
[2017-03-30] MEDS: SIMVASTATIN 40 MG TABLET PO SCH (21:46)
[2017-03-31] MEDS: ACETAMINOPHEN 325 MG TABLET PO PRN (01:07)
[2017-03-31] MEDS: OXYCODONE HCL IR 5 MG TABLET PO PRN ×2 (01:07→21:17)
[2017-03-31] MEDS: MORPHINE SULFATE 10 MG/ML INJ IV PRN ×3 (02:06→23:07)
[2017-03-31 05:42] LABS: HEMOGLOBIN 11.1 g/dL (13.5-17.0); MEAN CORPUSCULAR HEMOGLOBIN 30.3 pg (27.0-33.4); MEAN CORPUSCULAR HGB CONC 34.6 g/dL (32.0-36.0); MEAN CORPUSCULAR VOLUME 88 fl (80-97); PLATELET COUNT 154 10^3/uL (150-450); RED BLOOD COUNT 3.66 10^6/uL (4.35-5.55); RED CELL DISTRIBUTION WIDTH 15.3 % (11.5-14.0); WHITE BLOOD COUNT 10.4 10^3/uL (4.0-10.5)
[2017-03-31 06:03] LABS: ABSOLUTE LYMPHOCYTES# (MANUAL) 2.2 10^3/uL (0.5-4.7); ABSOLUTE MONOCYTES # (MANUAL) 0.4 10^3/uL (0.1-1.4); ABSOLUTE NEUTROPHILS# (MANUAL) 7.5 10^3/uL (1.7-8.2); BASOPHILS % (MANUAL) 0 % (0-2); EOSINOPHILS % (MANUAL) 3 % (0-6); LYMPHOCYTES % (MANUAL) 17 % (13-45); MONOCYTES % (MANUAL) 4 % (3-13); SEGMENTED NEUTROPHILS % (MAN) 72 % (42-78); TOTAL CELLS COUNTED 100
[2017-03-31] MEDS: LEVOTHYROXINE SODIUM 0.075 MG TABLET PO SCH (06:03)
[2017-03-31] MEDS: HEPARIN SOD (PORCINE) 5,000 UNIT/ML 1 ML SYRINGE SUBCUT SCH ×3 (06:03→23:06)
[2017-03-31] MEDS: LEVOTHYROXINE SODIUM 0.1 MG TABLET PO SCH (06:03)
[2017-03-31 06:05] LABS: ANION GAP 7 (5-19); BLOOD UREA NITROGEN 14 mg/dL (7-20); CALCIUM 8.4 mg/dL (8.4-10.2); CARBON DIOXIDE 28 mmol/L (22-30); CHLORIDE 110 mmol/L (98-107); GLUCOSE 92 mg/dL (75-110); MAGNESIUM 1.4 mg/dL (1.6-2.3); POTASSIUM 3.2 mmol/L (3.6-5.0); SODIUM 144.6 mmol/L (137-145)
[2017-03-31 06:08] LABS: ACANTHOCYTES SLIGHT; ANISOCYTOSIS SLIGHT; BURR CELLS SLIGHT; PLATELET COMMENT ADEQUATE; POIKILOCYTOSIS 1+; POLYCHROMASIA SLIGHT
[2017-03-31] MEDS: ASPIRIN 81 MG TABLET, ENT COATED PO SCH (09:51)
[2017-03-31] MEDS: CHOLECALCIFEROL (D3) 400 UNIT TABLET PO SCH (09:51)
[2017-03-31] MEDS: METOPROLOL TARTRATE 50 MG TABLET PO SCH ×2 (09:51→22:34)
[2017-03-31] MEDS: NORMAL SALINE 10 ML SDV (SCHEDULED) IV SCH ×4 (09:51→23:05)
[2017-03-31] MEDS: CYANOCOBALAMIN (VITAMIN B-12) 1,000 MCG TABLET PO SCH (09:51)
[2017-03-31] MEDS: FAMOTIDINE 20 MG TABLET PO SCH ×2 (09:51→22:34)
[2017-03-31] MEDS: CEFTRIAXONE 1 GM/D5W RTU 1 GM/50 ML RTUPB IV SCH (09:51)
[2017-03-31] MEDS: LIDOCAINE 5% (700 MG) TRANSDERMAL ADH..PATCH TP SCH ×2 (09:52→23:23)
[2017-03-31] MEDS ORDERED: POTASSI CL 20 MEQ/50 ML RIDER 20 MEQ/50 ML RTUPB IV ONE (11:45)
[2017-03-31] MEDS: DEXTROSE 5%-1/4 NORMAL SALINE 1,000 ML IV PRN (13:33)
[2017-03-31] MEDS: MAGNESIUM SULFATE/D5W 1 GM/100 ML RTUPB IV SCH ×2 (14:48→15:53)
[2017-03-31] MEDS ORDERED: MEGESTROL ACETATE SUSP 400 MG/10 ML UDCUP PO ONE (15:00)
--- NOTE | 2017-03-31 16:41 | PDOC PROGRESS REPORT ---
Subjective Progress Note for:: 03/31/17 Subjective:: This is a follow-up visit for acute renal failure. Patient was seen at the bedside. I spoke extensively with the patient's daughter and son-in-law. [facility] [place]. No acute events overnight. Reason For Visit: ACUTE RENAL FAILURE Physical Exam Vital Signs: Temp Pulse Resp BP Pulse Ox 97.8 F 93 18 137/79 H 97 03/31/17 08:30 03/31/17 08:30 03/31/17 08:30 03/31/17 08:30 03/31/17 08:30 Intake & Output 03/30/17 03/31/17 04/01/17 06:59 06:59 06:59 Intake Total 2200 2534 Output Total 1550 975 Balance 650 1559 Weight 99.2 kg 98.4 kg GENERAL: This is a well-developed and nourished appearing white male resting in bed currently in no acute distress. HEART: Regular rate and rhythm. 2 out of 6 murmurs. No rubs or gallops. LUNGS: Clear to auscultation anteriorly bilaterally with equal rise and fall of the chest. ABDOMEN: Soft, nontender, nondistended with normoactive bowel sounds Back:. Inspection deferred : Olivarez catheter is in place draining sd colored urine. EXTREMETIES: No clubbing, cyanosis. Right arm is starting to look asymmetrically larger than the left. 2+ peripheral pulses bilaterally. The patient is in mittens. NEURO: Patient is awake and alert. He is oriented to self only Results Laboratory Results: 03/31/17 05:20 03/31/17 05:20 03/31/17 03/31/17 05:20 05:20 WBC 10.4 RBC 3.66 L Hgb 11.1 L Hct 32.0 L MCV 88 MCH 30.3 MCHC 34.6 RDW 15.3 H Plt Count 154 Seg Neutrophils % Not Reportable Lymphocytes % Not Reportable Monocytes % Not Reportable Eosinophils % Not Reportable Basophils % Not Reportable Absolute Neutrophils Not Reportable Absolute Lymphocytes Not Reportable Absolute Monocytes Not Reportable Absolute Eosinophils Not Reportable Absolute Basophils Not Reportable Sodium 144.6 Potassium 3.2 L Chloride 110 H Carbon Dioxide 28 Anion Gap 7 BUN 14 Creatinine 0.83 Est GFR ( Amer) > 60 Est GFR (Non-Af Amer) > 60 Glucose 92 Calcium 8.4 Magnesium 1.4 L 03/21/17 03/21/17 03/22/17 19:51 19:51 02:05 Creatine Kinase 6234 H 6106 H CK-MB (CK-2) 47.80 H Troponin I 6.340 03/22/17 03/22/17 03/22/17 02:05 10:51 10:51 Creatine Kinase 6173 H CK-MB (CK-2) 43.30 H 37.10 H Troponin I 6.750 6.130 03/24/17 03/25/17 06:00 06:55 Creatine Kinase 2065 H 922 H CK-MB (CK-2) Troponin I Impressions: Lumbar Spine X-Ray 03/21/17 13:02 IMPRESSION: CHRONIC DEGENERATIVE CHANGES. THERE IS NEW MILD WEDGE DEFORMITY OF L1 CONSISTENT WITH RECENT COMPRESSION FRACTURE. Thoracic Spine X-Ray 03/21/17 13:02 IMPRESSION: Extensive spondylosis. Chest X-Ray 03/21/17 15:10 IMPRESSION: RIGHT UPPER LOBE DENSITY. THIS COULD BE DUE TO CHRONIC SCARRING VERSUS ACUTE INFILTRATE. Renal Ultrasound 03/22/17 00:00 IMPRESSION: Indeterminate 15 cm complex cystic components of the right lower abdomen; cannot exclude neoplasm. Further evaluation with IV and oral contrast CT of the abdomen and pelvis (renal protocol) series recommended. 2010 [employer]- All Rights Reserved PICC Line Exchange 03/26/17 00:00 IMPRESSION: SUCCESSFUL OVER THE WIRE REPLACEMENT OF YESTERDAY'S PICC FOR A NEW ONE THAT IS 5 FR DUAL LUMEN 45 CM PICC IN THE LEFT ARM. Lumbar Spine MRI 03/26/17 14:37 IMPRESSION: Pathologic compression deformities of the L1 and L2 vertebral bodies Guidance Fluoroscopy 03/28/17 00:00 IMPRESSION: SUCCESSFUL PLACEMENT OF A 5 FR DUAL LUMEN 40 CM PICC IN THE RIGHT BASILIC VEIN. Interventional Vascular Procedure 03/28/17 00:00 IMPRESSION: SUCCESSFUL PLACEMENT OF A 5 FR DUAL LUMEN 40 CM PICC IN THE RIGHT BASILIC VEIN. PICC Line Insertion 03/28/17 09:00 IMPRESSION: SUCCESSFUL PLACEMENT OF A 5 FR DUAL LUMEN 40 CM PICC IN THE RIGHT BASILIC VEIN. Abdomen/Pelvis CT 03/29/17 00:00 IMPRESSION: 1. Mediastinal and right hilar adenopathy with suspicious 5 cm right upper lobe lesion. Low density centrally within the mass likely represents cavitation. Abscess felt to be less likely. 2. Bilateral effusions and other changes as noted. IMPRESSION: 1. Large cystic lesion originates off the right renal lower pole with faint calcified thin septi. Likely Bosniak 2 lesion. Smaller indeterminate lesions in the left kidney. Given the lung findings noted above, doubt renal malignancy primary. 2. Pathologic lumbar spine fractures. 3. Right adrenal adenoma. Chest CT 03/29/17 00:00 IMPRESSION: 1. Mediastinal and right hilar adenopathy with suspicious 5 cm right upper lobe lesion. Low density centrally within the mass likely represents cavitation. Abscess felt to be less likely. 2. Bilateral effusions and other changes as noted. IMPRESSION: 1. Large cystic lesion originates off the right renal lower pole with faint calcified thin septi. Likely Bosniak 2 lesion. Smaller indeterminate lesions in the left kidney. Given the lung findings noted above, doubt renal malignancy primary. 2. Pathologic lumbar spine fractures. 3. Right adrenal adenoma. Head CT 03/29/17 00:00 IMPRESSION: 1. No acute or suspicious intracranial changes. No bone lesions detected in the skull. EVIDENCE OF ACUTE STROKE: NO. Assessment & Plan - Diagnosis (1) Acute renal failure (ARF) Qualifiers: Acute renal failure type: unspecified Qualified Code(s): N17.9 - Acute kidney failure, unspecified Is this a current diagnosis for this admission?: Yes Plan: Creatinine has normalized. Resolved. (2) Compression fracture Is this a current diagnosis for this admission?: Yes Plan: Concern for multiple myeloma. SPEP and UPEP have been ordered. Continue reduced frequency of pain medication to accommodate the patient's mental status changes. Will consult with ortho. (3) Hypernatremia Is this a current diagnosis for this admission?: Yes Plan: Resolved as of today. Reevaluate tomorrow. (4) Encephalopathy Is this a current diagnosis for this admission?: Yes Plan: Patient is currently confused at bedside. Worsening confusion could be due to underlying narcotic medications used to control his back pain. Or due to his decubitus ulcer infection. Blood cultures negative. CT of the head is negative. (5) Hypertension Is this a current diagnosis for this admission?: Yes Plan: Continue metoprolol. Lisinopril HCTZ is still on hold. Given that he has recently gotten over his acute kidney injury and that we performed CT with contrast, we will continue to hold. (6) Hyperlipidemia Is this a current diagnosis for this admission?: Yes (7) Hypothyroidism Is this a current diagnosis for this admission?: Yes Plan: Continue Synthroid. (8) Rhabdomyolysis Qualifiers: Rhabdomyolysis type: traumatic Encounter type: initial encounter Qualified Code(s): T79.6XXA - Traumatic ischemia of muscle, initial encounter Is this a current diagnosis for this admission?: Yes Plan: Resolved (9) Sacral decubitus ulcer Qualifiers: Pressure ulcer stage: stage 4 Qualified Code(s): L89.154 - Pressure ulcer of sacral region, stage 4 Is this a current diagnosis for this admission?: Yes Plan: Continue local wound care. Stage IV and stage II sacral and gluteal fold decubitus ulcers respectively. Surgery following periodically. Present on admission. Status post debridement. Proteus mirabilis, E. coli growing from the wound culture along with Streptococcus. Continue Rocephin. (10) Left ventricular outflow tract obstruction Is this a current diagnosis for this admission?: Yes Plan: Continue current medications (11) Troponin level elevated Is this a current diagnosis for this admission?: Yes (12) BPH (benign prostatic hyperplasia) Is this a current diagnosis for this admission?: Yes Plan: Continue finasteride (13) Chronic back pain Qualifiers: Back pain location: low back pain Is this a current diagnosis for this admission?: Yes Plan: Continue pain medication as currently ordered. (14) COPD (chronic obstructive pulmonary disease) Is this a current diagnosis for this admission?: Yes Plan: Patient is not in acute exacerbation. Continue maintenance medications. (15) Multiple myeloma Is this a current diagnosis for this admission?: Yes Plan: Suspicion for underlying multiple myeloma. The patient has pathologic fractures noted on MRI. Concern that this is also affecting his mentation. SPEP and UPEP have been ordered. Oncology following. I spoke with the patient' s family extensively about the potential for this or different underlying cancer. They are in agreement with further workup. CT of the chest abdomen and pelvis revealed a right apical lung lesion that appears spiculated. Lesion in the kidney appears to truly be a cyst. There are other small lesions of the kidneys that were indeterminate. Will defer to oncology but I will leave the next steps would be to wait for the SPEP UPEP and try to obtain a biopsy. CT- guided biopsy of the lung lesion will hopefully be pursued tomorrow. CT of the head was negative. (16) Dysphasia Is this a current diagnosis for this admission?: Yes Plan: Patient was noted by family to hold food in his mouth. Speech was not able to fully assess him. However it sounded them that it was more of an issue of patient desire considering that the patient is able to tolerate thin liquids. Continue to monitor. (17) Hypokalemia Is this a current diagnosis for this admission?: Yes Plan: Replaced (18) Anorexia Is this a current diagnosis for this admission?: Yes Plan: Patient has a lack of appetite and definitely refuses to eat even some of his favorite foods such as haney or biscuits and gravy. Will begin Meg[employer]. - Time Time Spent with patient: 25-34 minutes - Inpatient Certification Medical Necessity: Need Close Monitoring Due to Risk of Patient Decompensation
[2017-03-31] MEDS ORDERED: DOCUSATE SODIUM 100 MG CAPSULE PO PRN (16:42)
[2017-03-31] MEDS: TAMSULOSIN HCL 0.4 MG CAP.SR.24H PO SCH (18:58)
[2017-03-31] MEDS: MAGNESIUM OXIDE 400 MG TABLET PO SCH (18:58)
[2017-03-31] MEDS: SIMVASTATIN 40 MG TABLET PO SCH (22:34)
[2017-03-31] MEDS ORDERED: LIDOCAINE 5% (700 MG) TRANSDERMAL ADH..PATCH ONE (22:54)
[2017-04-01] MEDS: DEXTROSE 5%-1/4 NORMAL SALINE 1,000 ML IV PRN ×2 (02:29→16:12)
[2017-04-01] MEDS: MORPHINE SULFATE 10 MG/ML INJ IV PRN ×2 (04:58→15:20)
[2017-04-01 05:20] LABS: HEMATOCRIT 32.5 % (37.9-51.0); HEMOGLOBIN 11.1 g/dL (13.5-17.0); MEAN CORPUSCULAR HEMOGLOBIN 29.7 pg (27.0-33.4); MEAN CORPUSCULAR HGB CONC 34.1 g/dL (32.0-36.0); MEAN CORPUSCULAR VOLUME 87 fl (80-97); PLATELET COUNT 145 10^3/uL (150-450); RED BLOOD COUNT 3.75 10^6/uL (4.35-5.55); RED CELL DISTRIBUTION WIDTH 15.4 % (11.5-14.0); WHITE BLOOD COUNT 9.2 10^3/uL (4.0-10.5)
[2017-04-01 05:28] LABS: BLOOD UREA NITROGEN 12 mg/dL (7-20); CALCIUM 8.3 mg/dL (8.4-10.2); CHLORIDE 107 mmol/L (98-107); GLUCOSE 91 mg/dL (75-110); MAGNESIUM 1.6 mg/dL (1.6-2.3); POTASSIUM 3.1 mmol/L (3.6-5.0)
[2017-04-01 05:47] LABS: ANION GAP 5 (5-19); CARBON DIOXIDE 29 mmol/L (22-30); SODIUM 140.5 mmol/L (137-145)
[2017-04-01 05:55] LABS: ABSOLUTE LYMPHOCYTES# (MANUAL) 0.7 10^3/uL (0.5-4.7); ABSOLUTE MONOCYTES # (MANUAL) 0.6 10^3/uL (0.1-1.4); ABSOLUTE NEUTROPHILS# (MANUAL) 7.3 10^3/uL (1.7-8.2); BAND NEUTROPHILS % (MANUAL) 2 % (3-5); BASOPHILS % (MANUAL) 0 % (0-2); EOSINOPHILS % (MANUAL) 6 % (0-6); LYMPHOCYTES % (MANUAL) 8 % (13-45); MONOCYTES % (MANUAL) 7 % (3-13); SEGMENTED NEUTROPHILS % (MAN) 77 % (42-78); TOTAL CELLS COUNTED 100
[2017-04-01 05:56] LABS: ANISOCYTOSIS SLIGHT; PLATELET COMMENT ADEQUATE; PLATELET LARGE PRESENT; POLYCHROMASIA SLIGHT
[2017-04-01] MEDS: LEVOTHYROXINE SODIUM 0.1 MG TABLET PO SCH (06:15)
[2017-04-01] MEDS: LEVOTHYROXINE SODIUM 0.075 MG TABLET PO SCH (06:15)
[2017-04-01] MEDS: HEPARIN SOD (PORCINE) 5,000 UNIT/ML 1 ML SYRINGE SUBCUT SCH ×3 (06:15→21:52)
--- NOTE | 2017-04-01 08:04 | PDOC PROGRESS REPORT ---
Subjective Progress Note for:: 04/01/17 Subjective:: Patient remains the same. He rarely opens his eyes and only nods his head to my questions. Does not communicate in sentences, or make much sense. No family is here today, as his daughter returned to [place] and his brother will not return until [place]. Nurses report that he eats very little, but is drinking some ensure. Megace has recently been started. His decub ulcer is not looking good, but he is on a specialty mattress which should help. According to his MAR, he has only had a total of 4 mg IV Morphine in the last 24 hours. No other narcotics or sedative medications. Reason For Visit: ACUTE RENAL FAILURE Physical Exam Vital Signs: Temp Pulse Resp BP Pulse Ox 97.5 F 82 18 129/78 H 95 04/01/17 03:27 04/01/17 07:00 04/01/17 03:27 04/01/17 03:27 04/01/17 03:27 Intake & Output 03/31/17 04/01/17 04/02/17 06:59 06:59 06:59 Intake Total 2534 1830 Output Total 975 1850 Balance 1559 -20 Weight 98.4 kg 97.6 kg General appearance: PRESENT: no acute distress Head exam: PRESENT: atraumatic Respiratory exam: PRESENT: clear to auscultation cierra Cardiovascular exam: PRESENT: RRR. ABSENT: systolic murmur Pulses: PRESENT: normal dorsalis pedis pul GI/Abdominal exam: PRESENT: distended, soft. ABSENT: organolmegaly, tenderness Gentrourinary exam: PRESENT: indwelling catheter Extremities exam: ABSENT: pedal edema Neurological exam: PRESENT: awake. ABSENT: oriented to place, oriented to time , oriented to situation Results Laboratory Results: 04/01/17 04:40 04/01/17 04:40 04/01/17 04/01/17 04:40 04:40 WBC 9.2 RBC 3.75 L Hgb 11.1 L Hct 32.5 L MCV 87 MCH 29.7 MCHC 34.1 RDW 15.4 H Plt Count 145 L Seg Neutrophils % Not Reportable Lymphocytes % Not Reportable Monocytes % Not Reportable Eosinophils % Not Reportable Basophils % Not Reportable Absolute Neutrophils Not Reportable Absolute Lymphocytes Not Reportable Absolute Monocytes Not Reportable Absolute Eosinophils Not Reportable Absolute Basophils Not Reportable Sodium 140.5 Potassium 3.1 L Chloride 107 Carbon Dioxide 29 Anion Gap 5 BUN 12 Creatinine 0.68 Est GFR ( Amer) > 60 Est GFR (Non-Af Amer) > 60 Glucose 91 Calcium 8.3 L Magnesium 1.6 03/26/17 19:00 Blood Blood Culture - Final NO GROWTH IN 5 DAYS 03/26/17 18:05 Blood Blood Culture - Final NO GROWTH IN 5 DAYS 03/21/17 03/21/17 03/22/17 19:51 19:51 02:05 Creatine Kinase 6234 H 6106 H CK-MB (CK-2) 47.80 H Troponin I 6.340 03/22/17 03/22/17 03/22/17 02:05 10:51 10:51 Creatine Kinase 6173 H CK-MB (CK-2) 43.30 H 37.10 H Troponin I 6.750 6.130 03/24/17 03/25/17 06:00 06:55 Creatine Kinase 2065 H 922 H CK-MB (CK-2) Troponin I Impressions: Lumbar Spine X-Ray 03/21/17 13:02 IMPRESSION: CHRONIC DEGENERATIVE CHANGES. THERE IS NEW MILD WEDGE DEFORMITY OF L1 CONSISTENT WITH RECENT COMPRESSION FRACTURE. Thoracic Spine X-Ray 03/21/17 13:02 IMPRESSION: Extensive spondylosis. Chest X-Ray 03/21/17 15:10 IMPRESSION: RIGHT UPPER LOBE DENSITY. THIS COULD BE DUE TO CHRONIC SCARRING VERSUS ACUTE INFILTRATE. Renal Ultrasound 03/22/17 00:00 IMPRESSION: Indeterminate 15 cm complex cystic components of the right lower abdomen; cannot exclude neoplasm. Further evaluation with IV and oral contrast CT of the abdomen and pelvis (renal protocol) series recommended. 2010 [employer]- All Rights Reserved PICC Line Exchange 03/26/17 00:00 IMPRESSION: SUCCESSFUL OVER THE WIRE REPLACEMENT OF YESTERDAY'S PICC FOR A NEW ONE THAT IS 5 FR DUAL LUMEN 45 CM PICC IN THE LEFT ARM. Lumbar Spine MRI 03/26/17 14:37 IMPRESSION: Pathologic compression deformities of the L1 and L2 vertebral bodies Guidance Fluoroscopy 03/28/17 00:00 IMPRESSION: SUCCESSFUL PLACEMENT OF A 5 FR DUAL LUMEN 40 CM PICC IN THE RIGHT BASILIC VEIN. Interventional Vascular Procedure 03/28/17 00:00 IMPRESSION: SUCCESSFUL PLACEMENT OF A 5 FR DUAL LUMEN 40 CM PICC IN THE RIGHT BASILIC VEIN. PICC Line Insertion 03/28/17 09:00 IMPRESSION: SUCCESSFUL PLACEMENT OF A 5 FR DUAL LUMEN 40 CM PICC IN THE RIGHT BASILIC VEIN. Abdomen/Pelvis CT 03/29/17 00:00 IMPRESSION: 1. Mediastinal and right hilar adenopathy with suspicious 5 cm right upper lobe lesion. Low density centrally within the mass likely represents cavitation. Abscess felt to be less likely. 2. Bilateral effusions and other changes as noted. IMPRESSION: 1. Large cystic lesion originates off the right renal lower pole with faint calcified thin septi. Likely Bosniak 2 lesion. Smaller indeterminate lesions in the left kidney. Given the lung findings noted above, doubt renal malignancy primary. 2. Pathologic lumbar spine fractures. 3. Right adrenal adenoma. Chest CT 03/29/17 00:00 IMPRESSION: 1. Mediastinal and right hilar adenopathy with suspicious 5 cm right upper lobe lesion. Low density centrally within the mass likely represents cavitation. Abscess felt to be less likely. 2. Bilateral effusions and other changes as noted. IMPRESSION: 1. Large cystic lesion originates off the right renal lower pole with faint calcified thin septi. Likely Bosniak 2 lesion. Smaller indeterminate lesions in the left kidney. Given the lung findings noted above, doubt renal malignancy primary. 2. Pathologic lumbar spine fractures. 3. Right adrenal adenoma. Head CT 03/29/17 00:00 IMPRESSION: 1. No acute or suspicious intracranial changes. No bone lesions detected in the skull. EVIDENCE OF ACUTE STROKE: NO. Assessment & Plan - Diagnosis (1) Acute renal failure (ARF) Qualifiers: Acute renal failure type: unspecified Qualified Code(s): N17.9 - Acute kidney failure, unspecified Is this a current diagnosis for this admission?: Yes (2) Compression fracture Is this a current diagnosis for this admission?: Yes (3) Lung tumor Plan: Await pathology, but unless his mental status improves greatly, he will not be a candidate for aggressive treatment. I would recommend residential with Hospice. Still awaiting SPEP and UPEP. His Na is back to normal. No known untreated infections. Still not entirely clear as to the cause of his mental status, but considering the fact that he had a decub ulcer on admission, I doubt this is an acute finding. This may be due to cancer, although no known brain lesion has been found. Will continue to follow. (4) Encephalopathy Is this a current diagnosis for this admission?: Yes
[2017-04-01 09:35] LABS: INTERNATIONAL RATION (INR) 2.19; PROTHROMBIN TIME 25.5 SEC (11.4-15.4)
[2017-04-01 09:36] LABS: PARTIAL THROMBOPLASTIN TIME 62.6 SEC (23.5-35.8)
[2017-04-01] MEDS: CEFTRIAXONE 1 GM/D5W RTU 1 GM/50 ML RTUPB IV SCH (10:05)
[2017-04-01] MEDS: NORMAL SALINE 10 ML SDV (SCHEDULED) IV SCH ×3 (10:07→21:53)
[2017-04-01] MEDS ORDERED: POTASSI CL 20 MEQ/50 ML RIDER 20 MEQ/50 ML RTUPB IV ONE (10:30)
--- NOTE | 2017-04-01 10:50 | PDOC PROGRESS REPORT ---
Subjective Progress Note for:: 04/01/17 Subjective:: This is a follow-up visit for acute renal failure. No acute events overnight. Patient still is not eating well. Reason For Visit: ACUTE RENAL FAILURE Physical Exam Vital Signs: Temp Pulse Resp BP Pulse Ox 97.2 F 87 18 117/89 H 97 04/01/17 07:40 04/01/17 07:40 04/01/17 07:40 04/01/17 07:40 04/01/17 07:40 Intake & Output 03/31/17 04/01/17 04/02/17 06:59 06:59 06:59 Intake Total 2534 1830 Output Total 975 1850 Balance 1559 -20 Weight 98.4 kg 97.6 kg GENERAL: This is a well-developed and nourished appearing white male resting in bed currently in no acute distress. HEART: Regular rate and rhythm. 2 out of 6 murmurs. No rubs or gallops. LUNGS: Clear to auscultation anteriorly bilaterally with equal rise and fall of the chest. ABDOMEN: Soft, nontender, nondistended with normoactive bowel sounds Back:. Inspection deferred : Olivarez catheter is in place draining sd colored urine. EXTREMETIES: No clubbing, cyanosis. Right upper extremity appears larger than left. PICC line is on the right. 2+ peripheral pulses bilaterally. The patient is in mittens. NEURO: Patient is awake and alert. He is oriented to self only Results Laboratory Results: 04/01/17 04:40 04/01/17 04:40 04/01/17 04/01/17 04:40 04:40 WBC 9.2 RBC 3.75 L Hgb 11.1 L Hct 32.5 L MCV 87 MCH 29.7 MCHC 34.1 RDW 15.4 H Plt Count 145 L Seg Neutrophils % Not Reportable Lymphocytes % Not Reportable Monocytes % Not Reportable Eosinophils % Not Reportable Basophils % Not Reportable Absolute Neutrophils Not Reportable Absolute Lymphocytes Not Reportable Absolute Monocytes Not Reportable Absolute Eosinophils Not Reportable Absolute Basophils Not Reportable Sodium 140.5 Potassium 3.1 L Chloride 107 Carbon Dioxide 29 Anion Gap 5 BUN 12 Creatinine 0.68 Est GFR ( Amer) > 60 Est GFR (Non-Af Amer) > 60 Glucose 91 Calcium 8.3 L Magnesium 1.6 03/26/17 19:00 Blood Blood Culture - Final NO GROWTH IN 5 DAYS 03/26/17 18:05 Blood Blood Culture - Final NO GROWTH IN 5 DAYS 03/21/17 03/21/17 03/22/17 19:51 19:51 02:05 Creatine Kinase 6234 H 6106 H CK-MB (CK-2) 47.80 H Troponin I 6.340 03/22/17 03/22/17 03/22/17 02:05 10:51 10:51 Creatine Kinase 6173 H CK-MB (CK-2) 43.30 H 37.10 H Troponin I 6.750 6.130 03/24/17 03/25/17 06:00 06:55 Creatine Kinase 2065 H 922 H CK-MB (CK-2) Troponin I Impressions: Lumbar Spine X-Ray 03/21/17 13:02 IMPRESSION: CHRONIC DEGENERATIVE CHANGES. THERE IS NEW MILD WEDGE DEFORMITY OF L1 CONSISTENT WITH RECENT COMPRESSION FRACTURE. Thoracic Spine X-Ray 03/21/17 13:02 IMPRESSION: Extensive spondylosis. Chest X-Ray 03/21/17 15:10 IMPRESSION: RIGHT UPPER LOBE DENSITY. THIS COULD BE DUE TO CHRONIC SCARRING VERSUS ACUTE INFILTRATE. Renal Ultrasound 03/22/17 00:00 IMPRESSION: Indeterminate 15 cm complex cystic components of the right lower abdomen; cannot exclude neoplasm. Further evaluation with IV and oral contrast CT of the abdomen and pelvis (renal protocol) series recommended. 2010 [employer]- All Rights Reserved PICC Line Exchange 03/26/17 00:00 IMPRESSION: SUCCESSFUL OVER THE WIRE REPLACEMENT OF YESTERDAY'S PICC FOR A NEW ONE THAT IS 5 FR DUAL LUMEN 45 CM PICC IN THE LEFT ARM. Lumbar Spine MRI 03/26/17 14:37 IMPRESSION: Pathologic compression deformities of the L1 and L2 vertebral bodies Guidance Fluoroscopy 03/28/17 00:00 IMPRESSION: SUCCESSFUL PLACEMENT OF A 5 FR DUAL LUMEN 40 CM PICC IN THE RIGHT BASILIC VEIN. Interventional Vascular Procedure 03/28/17 00:00 IMPRESSION: SUCCESSFUL PLACEMENT OF A 5 FR DUAL LUMEN 40 CM PICC IN THE RIGHT BASILIC VEIN. PICC Line Insertion 03/28/17 09:00 IMPRESSION: SUCCESSFUL PLACEMENT OF A 5 FR DUAL LUMEN 40 CM PICC IN THE RIGHT BASILIC VEIN. Abdomen/Pelvis CT 03/29/17 00:00 IMPRESSION: 1. Mediastinal and right hilar adenopathy with suspicious 5 cm right upper lobe lesion. Low density centrally within the mass likely represents cavitation. Abscess felt to be less likely. 2. Bilateral effusions and other changes as noted. IMPRESSION: 1. Large cystic lesion originates off the right renal lower pole with faint calcified thin septi. Likely Bosniak 2 lesion. Smaller indeterminate lesions in the left kidney. Given the lung findings noted above, doubt renal malignancy primary. 2. Pathologic lumbar spine fractures. 3. Right adrenal adenoma. Chest CT 03/29/17 00:00 IMPRESSION: 1. Mediastinal and right hilar adenopathy with suspicious 5 cm right upper lobe lesion. Low density centrally within the mass likely represents cavitation. Abscess felt to be less likely. 2. Bilateral effusions and other changes as noted. IMPRESSION: 1. Large cystic lesion originates off the right renal lower pole with faint calcified thin septi. Likely Bosniak 2 lesion. Smaller indeterminate lesions in the left kidney. Given the lung findings noted above, doubt renal malignancy primary. 2. Pathologic lumbar spine fractures. 3. Right adrenal adenoma. Head CT 03/29/17 00:00 IMPRESSION: 1. No acute or suspicious intracranial changes. No bone lesions detected in the skull. EVIDENCE OF ACUTE STROKE: NO. Assessment & Plan - Diagnosis (1) Acute renal failure (ARF) Qualifiers: Acute renal failure type: unspecified Qualified Code(s): N17.9 - Acute kidney failure, unspecified Is this a current diagnosis for this admission?: Yes Plan: Creatinine has normalized. Resolved. (2) Compression fracture Is this a current diagnosis for this admission?: Yes Plan: Concern for multiple myeloma. SPEP and UPEP have been ordered. Continue reduced frequency of pain medication to accommodate the patient's mental status changes. Will consult with ortho. (3) Hypernatremia Is this a current diagnosis for this admission?: Yes Plan: Resolved as of today. Reevaluate tomorrow. (4) Encephalopathy Is this a current diagnosis for this admission?: Yes Plan: Patient is currently confused at bedside. Worsening confusion could be due to underlying narcotic medications used to control his back pain. Or due to his decubitus ulcer infection. Blood cultures negative. CT of the head is negative. (5) Hypertension Is this a current diagnosis for this admission?: Yes Plan: Continue metoprolol. Lisinopril HCTZ is still on hold. Initially this was because he had just gotten over his acute kidney injury and we performed CT with contrast. Now remains on hold because the patient simply does not needed at this point. (6) Hyperlipidemia Is this a current diagnosis for this admission?: Yes (7) Hypothyroidism Is this a current diagnosis for this admission?: Yes Plan: Continue Synthroid. (8) Rhabdomyolysis Qualifiers: Rhabdomyolysis type: traumatic Encounter type: initial encounter Qualified Code(s): T79.6XXA - Traumatic ischemia of muscle, initial encounter Is this a current diagnosis for this admission?: Yes Plan: Resolved (9) Sacral decubitus ulcer Qualifiers: Pressure ulcer stage: stage 4 Qualified Code(s): L89.154 - Pressure ulcer of sacral region, stage 4 Is this a current diagnosis for this admission?: Yes Plan: Continue local wound care. Stage IV and stage II sacral and gluteal fold decubitus ulcers respectively. Surgery following periodically. Present on admission. Status post debridement. Proteus mirabilis, E. coli growing from the wound culture along with Streptococcus. Continue Rocephin. (10) Left ventricular outflow tract obstruction Is this a current diagnosis for this admission?: Yes Plan: Continue current medications (11) Troponin level elevated Is this a current diagnosis for this admission?: Yes (12) BPH (benign prostatic hyperplasia) Is this a current diagnosis for this admission?: Yes Plan: Continue finasteride (13) Chronic back pain Qualifiers: Back pain location: low back pain Is this a current diagnosis for this admission?: Yes Plan: Continue pain medication as currently ordered. (14) COPD (chronic obstructive pulmonary disease) Is this a current diagnosis for this admission?: Yes Plan: Patient is not in acute exacerbation. Continue maintenance medications. (15) Multiple myeloma Is this a current diagnosis for this admission?: Yes Plan: Suspicion for underlying multiple myeloma. The patient has pathologic fractures noted on MRI. Concern that this is also affecting his mentation. SPEP and UPEP have been ordered. Oncology following. I spoke with the patient' s family extensively about the potential for this or different underlying cancer. They are in agreement with further workup. CT of the chest abdomen and pelvis revealed a right apical lung lesion that appears spiculated. Lesion in the kidney appears to truly be a cyst. There are other small lesions of the kidneys that were indeterminate. Will defer to oncology but I will leave the next steps would be to wait for the SPEP UPEP and try to obtain a biopsy. CT- guided biopsy of the lung lesion is deferred secondary to elevated PTT. CT of the head was negative. (16) Dysphasia Is this a current diagnosis for this admission?: Yes Plan: Patient was noted by family to hold food in his mouth. Speech was not able to fully assess him. However it sounded them that it was more of an issue of patient desire considering that the patient is able to tolerate thin liquids. Continue to monitor. (17) Hypokalemia Is this a current diagnosis for this admission?: Yes Plan: Replaced (18) Anorexia Is this a current diagnosis for this admission?: Yes Plan: Patient has a lack of appetite and definitely refuses to eat even some of his favorite foods such as haney or biscuits and gravy. Continue Megace. - Time Time Spent with patient: 15-24 minutes - Inpatient Certification Medical Necessity: Need Close Monitoring Due to Risk of Patient Decompensation
[2017-04-01] MEDS: CHOLECALCIFEROL (D3) 400 UNIT TABLET PO SCH (10:53)
[2017-04-01] MEDS: CYANOCOBALAMIN (VITAMIN B-12) 1,000 MCG TABLET PO SCH (10:53)
[2017-04-01] MEDS: MAGNESIUM OXIDE 400 MG TABLET PO SCH ×2 (10:53→17:11)
[2017-04-01] MEDS: METOPROLOL TARTRATE 50 MG TABLET PO SCH ×2 (10:53→21:52)
[2017-04-01] MEDS: FAMOTIDINE 20 MG TABLET PO SCH ×2 (10:53→21:52)
[2017-04-01] MEDS: ASPIRIN 81 MG TABLET, ENT COATED PO SCH (10:54)
[2017-04-01] MEDS: MEGESTROL ACETATE SUSP 400 MG/10 ML UDCUP PO SCH (10:54)
[2017-04-01 14:39] LABS: A/G RATIO 0.7 (0.7-1.7); ALBUMIN 2 1.9 g/dL (2.9-4.4); ALPHA-2-GLOBULIN 2 0.9 g/dL (0.4-1.0); BETA GLOBULINS 0.6 g/dL (0.7-1.3); GLOBULIN TOTAL 2.9 g/dL (2.2-3.9); PROTEIN TOTAL SERUM 4.8 g/dL (6.0-8.5)
[2017-04-01 14:52] LABS: MONOCLONAL SPIKE 0.2 g/dL (Not Observed)
[2017-04-01] MEDS: TAMSULOSIN HCL 0.4 MG CAP.SR.24H PO SCH (17:11)
[2017-04-01] MEDS: SIMVASTATIN 40 MG TABLET PO SCH (21:52)
[2017-04-01] MEDS: LIDOCAINE 5% (700 MG) TRANSDERMAL ADH..PATCH TP SCH (21:54)
[2017-04-01 22:33] LABS: ALANINE AMINOTRANSFERASE 36 U/L (21-72); ALBUMIN 2.2 g/dL (3.5-5.0); ALKALINE PHOSPHATASE 112 U/L (38-126); ANION GAP 6 (5-19); ASPARTATE AMINO TRANSFERASE 57 U/L (17-59); BILIRUBIN,DIRECT 0.3 mg/dL (0.0-0.4); BILIRUBIN,TOTAL 0.3 mg/dL (0.2-1.3); BLOOD UREA NITROGEN 11 mg/dL (7-20); CALCIUM 8.4 mg/dL (8.4-10.2); CARBON DIOXIDE 29 mmol/L (22-30); CHLORIDE 105 mmol/L (98-107); GLUCOSE 92 mg/dL (75-110); POTASSIUM 3.3 mmol/L (3.6-5.0); SODIUM 139.7 mmol/L (137-145); TOTAL PROTEIN 5.1 g/dL (6.3-8.2)
[2017-04-02] MEDS: LEVOTHYROXINE SODIUM 0.1 MG TABLET PO SCH (06:53)
[2017-04-02] MEDS: LEVOTHYROXINE SODIUM 0.075 MG TABLET PO SCH (06:53)
[2017-04-02] MEDS: DEXTROSE 5%-1/4 NORMAL SALINE 1,000 ML IV PRN ×2 (06:54→21:27)
--- NOTE | 2017-04-02 07:51 | PDOC PROGRESS REPORT ---
Subjective Progress Note for:: 04/02/17 Subjective:: Patient is a bit more alert today. He is able to speak a few words. Nurses report that he is swallowing pills with applesauce, but still not eating much. He has not been up out of bed, as PT states he is max 2 person assist and is unable to stand without help. Reason For Visit: ACUTE RENAL FAILURE Physical Exam Vital Signs: Temp Pulse Resp BP Pulse Ox 97.7 F 100 16 132/85 H 100 04/01/17 19:58 04/02/17 02:00 04/01/17 19:58 04/01/17 19:58 04/01/17 19:58 Intake & Output 04/01/17 04/02/17 04/03/17 06:59 06:59 06:59 Intake Total 1830 1120 Output Total 1850 1650 Balance -20 -530 Weight 97.6 kg 96.8 kg General appearance: PRESENT: no acute distress Head exam: PRESENT: atraumatic Respiratory exam: PRESENT: clear to auscultation cierra Cardiovascular exam: PRESENT: RRR. ABSENT: systolic murmur Pulses: PRESENT: normal dorsalis pedis pul GI/Abdominal exam: PRESENT: distended, soft. ABSENT: organolmegaly, tenderness Extremities exam: ABSENT: pedal edema Neurological exam: ABSENT: oriented to person, oriented to place, oriented to time, oriented to situation Focused psych exam: PRESENT: other - Still very confused. States his family is in the next room. Skin exam: PRESENT: normal color Results Laboratory Results: 04/01/17 04:40 04/01/17 21:45 03/26/17 04/01/17 16:00 21:45 Sodium 139.7 Potassium 3.3 L Chloride 105 Carbon Dioxide 29 Anion Gap 6 BUN 11 Creatinine 0.67 Est GFR ( Amer) > 60 Est GFR (Non-Af Amer) > 60 Glucose 92 Calcium 8.4 Total Bilirubin 0.3 AST 57 ALT 36 Alkaline Phosphatase 112 Total Protein 4.8 L 5.1 L Albumin 1.9 L 2.2 L 03/21/17 03/21/17 03/22/17 19:51 19:51 02:05 Creatine Kinase 6234 H 6106 H CK-MB (CK-2) 47.80 H Troponin I 6.340 03/22/17 03/22/17 03/22/17 02:05 10:51 10:51 Creatine Kinase 6173 H CK-MB (CK-2) 43.30 H 37.10 H Troponin I 6.750 6.130 03/24/17 03/25/17 06:00 06:55 Creatine Kinase 2065 H 922 H CK-MB (CK-2) Troponin I Impressions: Lumbar Spine X-Ray 03/21/17 13:02 IMPRESSION: CHRONIC DEGENERATIVE CHANGES. THERE IS NEW MILD WEDGE DEFORMITY OF L1 CONSISTENT WITH RECENT COMPRESSION FRACTURE. Thoracic Spine X-Ray 03/21/17 13:02 IMPRESSION: Extensive spondylosis. Chest X-Ray 03/21/17 15:10 IMPRESSION: RIGHT UPPER LOBE DENSITY. THIS COULD BE DUE TO CHRONIC SCARRING VERSUS ACUTE INFILTRATE. Renal Ultrasound 03/22/17 00:00 IMPRESSION: Indeterminate 15 cm complex cystic components of the right lower abdomen; cannot exclude neoplasm. Further evaluation with IV and oral contrast CT of the abdomen and pelvis (renal protocol) series recommended. 2010 [employer]- All Rights Reserved PICC Line Exchange 03/26/17 00:00 IMPRESSION: SUCCESSFUL OVER THE WIRE REPLACEMENT OF YESTERDAY'S PICC FOR A NEW ONE THAT IS 5 FR DUAL LUMEN 45 CM PICC IN THE LEFT ARM. Lumbar Spine MRI 03/26/17 14:37 IMPRESSION: Pathologic compression deformities of the L1 and L2 vertebral bodies Guidance Fluoroscopy 03/28/17 00:00 IMPRESSION: SUCCESSFUL PLACEMENT OF A 5 FR DUAL LUMEN 40 CM PICC IN THE RIGHT BASILIC VEIN. Interventional Vascular Procedure 03/28/17 00:00 IMPRESSION: SUCCESSFUL PLACEMENT OF A 5 FR DUAL LUMEN 40 CM PICC IN THE RIGHT BASILIC VEIN. PICC Line Insertion 03/28/17 09:00 IMPRESSION: SUCCESSFUL PLACEMENT OF A 5 FR DUAL LUMEN 40 CM PICC IN THE RIGHT BASILIC VEIN. Abdomen/Pelvis CT 03/29/17 00:00 IMPRESSION: 1. Mediastinal and right hilar adenopathy with suspicious 5 cm right upper lobe lesion. Low density centrally within the mass likely represents cavitation. Abscess felt to be less likely. 2. Bilateral effusions and other changes as noted. IMPRESSION: 1. Large cystic lesion originates off the right renal lower pole with faint calcified thin septi. Likely Bosniak 2 lesion. Smaller indeterminate lesions in the left kidney. Given the lung findings noted above, doubt renal malignancy primary. 2. Pathologic lumbar spine fractures. 3. Right adrenal adenoma. Chest CT 03/29/17 00:00 IMPRESSION: 1. Mediastinal and right hilar adenopathy with suspicious 5 cm right upper lobe lesion. Low density centrally within the mass likely represents cavitation. Abscess felt to be less likely. 2. Bilateral effusions and other changes as noted. IMPRESSION: 1. Large cystic lesion originates off the right renal lower pole with faint calcified thin septi. Likely Bosniak 2 lesion. Smaller indeterminate lesions in the left kidney. Given the lung findings noted above, doubt renal malignancy primary. 2. Pathologic lumbar spine fractures. 3. Right adrenal adenoma. Head CT 03/29/17 00:00 IMPRESSION: 1. No acute or suspicious intracranial changes. No bone lesions detected in the skull. EVIDENCE OF ACUTE STROKE: NO. Assessment & Plan - Diagnosis (1) Acute renal failure (ARF) Qualifiers: Acute renal failure type: unspecified Qualified Code(s): N17.9 - Acute kidney failure, unspecified Is this a current diagnosis for this admission?: Yes (2) Compression fracture Is this a current diagnosis for this admission?: Yes Plan: SPEP showed a biclonal spike which may be monoclonal gamopathy, but may also be due to acute infection. UPEP still pending. (3) Lung tumor Plan: Biopsy was postponed due to coagulopathy. (4) Encephalopathy Is this a current diagnosis for this admission?: Yes (5) Coagulopathy Plan: Unsure of the cause. I spoke with family as to plan for biopsy. They agree to try Vit K, but do not agree to FFP. I have explained that the coagulopathy may or may not correct. His LFTs and Ammonia are still normal. I will DC aspirin for now, as family still wishes biopsy if coagulopathy can be corrected. - Plan Summary Plan Summary: I spoke with Ed, patient's brother by phone and explained that even after biopsy , he is not strong enough for aggressive chemotherapy. They are concerned that the morphine is greatly affecting his mental status. I will DC morphine and try ultram for pain. They understand need for fpc placement. They have requested transport coordinator speak with them today as to these plans.
[2017-04-02] MEDS ORDERED: PHYTONADIONE 5 MG TABLET PO ONE (08:00)
[2017-04-02 08:07] LABS: ABSOLUTE EOSINOPHILS # (AUTO) 0.3 10^3/uL (0.0-0.6); ABSOLUTE LYMPHOCYTES (AUTO) 1.2 10^3/uL (0.5-4.7); ABSOLUTE NEUT (AUTO) 7.6 10^3/uL (1.7-8.2); BASOPHILS % (AUTO) 0.2 % (0-2); EOSINOPHILS % (AUTO) 2.5 % (0-6); HEMATOCRIT 32.4 % (37.9-51.0); HEMOGLOBIN 11.2 g/dL (13.5-17.0); LYMPHOCYTES % (AUTO) 11.7 % (13-45); MEAN CORPUSCULAR HEMOGLOBIN 30.3 pg (27.0-33.4); MEAN CORPUSCULAR HGB CONC 34.6 g/dL (32.0-36.0); MEAN CORPUSCULAR VOLUME 88 fl (80-97); MONOCYTES % (AUTO) 9.9 % (3-13); PLATELET COUNT 168 10^3/uL (150-450); RED CELL DISTRIBUTION WIDTH 15.5 % (11.5-14.0); SEGMENTED NEUTROPHILS % (AUTO) 75.7 % (42-78); TOTAL CELLS COUNTED % (AUTO) 100 %; WHITE BLOOD COUNT 10.1 10^3/uL (4.0-10.5)
[2017-04-02 08:15] LABS: INTERNATIONAL RATION (INR) 2.16; PROTHROMBIN TIME 25.3 SEC (11.4-15.4)
[2017-04-02 08:26] LABS: ANION GAP 6 (5-19); BLOOD UREA NITROGEN 11 mg/dL (7-20); CALCIUM 8.3 mg/dL (8.4-10.2); CARBON DIOXIDE 29 mmol/L (22-30); CHLORIDE 107 mmol/L (98-107); GLUCOSE 71 mg/dL (75-110); MAGNESIUM 1.7 mg/dL (1.6-2.3); POTASSIUM 3.4 mmol/L (3.6-5.0)
--- NOTE | 2017-04-02 10:25 | PDOC PROGRESS REPORT ---
Subjective Progress Note for:: 04/02/17 Subjective:: This is a follow-up visit for acute renal failure. No acute events overnight. Patient still is not eating well. Reason For Visit: ACUTE RENAL FAILURE Physical Exam Vital Signs: Temp Pulse Resp BP Pulse Ox 98.3 F 94 18 129/80 H 100 04/02/17 07:31 04/02/17 07:31 04/02/17 07:31 04/02/17 07:31 04/02/17 07:31 Intake & Output 04/01/17 04/02/17 04/03/17 06:59 06:59 06:59 Intake Total 1830 2000 Output Total 1850 1650 Balance -20 350 Weight 97.6 kg 96.8 kg GENERAL: This is a well-developed and nourished appearing white male resting in bed currently in no acute distress. HEART: Regular rate and rhythm. 2 out of 6 murmurs. No rubs or gallops. LUNGS: Clear to auscultation anteriorly bilaterally with equal rise and fall of the chest. ABDOMEN: Soft, nontender, nondistended with normoactive bowel sounds : Olivarez catheter is in place draining sd colored urine. EXTREMETIES: No clubbing, cyanosis. Right upper extremity appears larger than left. PICC line is on the right. 2+ peripheral pulses bilaterally. The patient is in mittens. NEURO: Patient is awake and alert. He is oriented to self only Results Laboratory Results: 04/02/17 06:45 04/02/17 06:45 03/26/17 04/01/17 04/02/17 16:00 21:45 06:45 WBC 10.1 RBC 3.70 L Hgb 11.2 L Hct 32.4 L MCV 88 MCH 30.3 MCHC 34.6 RDW 15.5 H Plt Count 168 Seg Neutrophils % 75.7 Lymphocytes % 11.7 L Monocytes % 9.9 Eosinophils % 2.5 Basophils % 0.2 Absolute Neutrophils 7.6 Absolute Lymphocytes 1.2 Absolute Monocytes 1.0 Absolute Eosinophils 0.3 Absolute Basophils 0.0 Sodium 139.7 Potassium 3.3 L Chloride 105 Carbon Dioxide 29 Anion Gap 6 BUN 11 Creatinine 0.67 Est GFR ( Amer) > 60 Est GFR (Non-Af Amer) > 60 Glucose 92 Calcium 8.4 Magnesium Total Bilirubin 0.3 AST 57 ALT 36 Alkaline Phosphatase 112 Total Protein 4.8 L 5.1 L Albumin 1.9 L 2.2 L 04/02/17 06:45 WBC RBC Hgb Hct MCV MCH MCHC RDW Plt Count Seg Neutrophils % Lymphocytes % Monocytes % Eosinophils % Basophils % Absolute Neutrophils Absolute Lymphocytes Absolute Monocytes Absolute Eosinophils Absolute Basophils Sodium 142.0 Potassium 3.4 L Chloride 107 Carbon Dioxide 29 Anion Gap 6 BUN 11 Creatinine 0.71 Est GFR ( Amer) > 60 Est GFR (Non-Af Amer) > 60 Glucose 71 L Calcium 8.3 L Magnesium 1.7 Total Bilirubin AST ALT Alkaline Phosphatase Total Protein Albumin 03/21/17 03/21/17 03/22/17 19:51 19:51 02:05 Creatine Kinase 6234 H 6106 H CK-MB (CK-2) 47.80 H Troponin I 6.340 03/22/17 03/22/17 03/22/17 02:05 10:51 10:51 Creatine Kinase 6173 H CK-MB (CK-2) 43.30 H 37.10 H Troponin I 6.750 6.130 03/24/17 03/25/17 06:00 06:55 Creatine Kinase 2065 H 922 H CK-MB (CK-2) Troponin I Impressions: Lumbar Spine X-Ray 03/21/17 13:02 IMPRESSION: CHRONIC DEGENERATIVE CHANGES. THERE IS NEW MILD WEDGE DEFORMITY OF L1 CONSISTENT WITH RECENT COMPRESSION FRACTURE. Thoracic Spine X-Ray 03/21/17 13:02 IMPRESSION: Extensive spondylosis. Chest X-Ray 03/21/17 15:10 IMPRESSION: RIGHT UPPER LOBE DENSITY. THIS COULD BE DUE TO CHRONIC SCARRING VERSUS ACUTE INFILTRATE. Renal Ultrasound 03/22/17 00:00 IMPRESSION: Indeterminate 15 cm complex cystic components of the right lower abdomen; cannot exclude neoplasm. Further evaluation with IV and oral contrast CT of the abdomen and pelvis (renal protocol) series recommended. 2010 [employer]- All Rights Reserved PICC Line Exchange 03/26/17 00:00 IMPRESSION: SUCCESSFUL OVER THE WIRE REPLACEMENT OF YESTERDAY'S PICC FOR A NEW ONE THAT IS 5 FR DUAL LUMEN 45 CM PICC IN THE LEFT ARM. Lumbar Spine MRI 03/26/17 14:37 IMPRESSION: Pathologic compression deformities of the L1 and L2 vertebral bodies Guidance Fluoroscopy 03/28/17 00:00 IMPRESSION: SUCCESSFUL PLACEMENT OF A 5 FR DUAL LUMEN 40 CM PICC IN THE RIGHT BASILIC VEIN. Interventional Vascular Procedure 03/28/17 00:00 IMPRESSION: SUCCESSFUL PLACEMENT OF A 5 FR DUAL LUMEN 40 CM PICC IN THE RIGHT BASILIC VEIN. PICC Line Insertion 03/28/17 09:00 IMPRESSION: SUCCESSFUL PLACEMENT OF A 5 FR DUAL LUMEN 40 CM PICC IN THE RIGHT BASILIC VEIN. Abdomen/Pelvis CT 03/29/17 00:00 IMPRESSION: 1. Mediastinal and right hilar adenopathy with suspicious 5 cm right upper lobe lesion. Low density centrally within the mass likely represents cavitation. Abscess felt to be less likely. 2. Bilateral effusions and other changes as noted. IMPRESSION: 1. Large cystic lesion originates off the right renal lower pole with faint calcified thin septi. Likely Bosniak 2 lesion. Smaller indeterminate lesions in the left kidney. Given the lung findings noted above, doubt renal malignancy primary. 2. Pathologic lumbar spine fractures. 3. Right adrenal adenoma. Chest CT 03/29/17 00:00 IMPRESSION: 1. Mediastinal and right hilar adenopathy with suspicious 5 cm right upper lobe lesion. Low density centrally within the mass likely represents cavitation. Abscess felt to be less likely. 2. Bilateral effusions and other changes as noted. IMPRESSION: 1. Large cystic lesion originates off the right renal lower pole with faint calcified thin septi. Likely Bosniak 2 lesion. Smaller indeterminate lesions in the left kidney. Given the lung findings noted above, doubt renal malignancy primary. 2. Pathologic lumbar spine fractures. 3. Right adrenal adenoma. Head CT 03/29/17 00:00 IMPRESSION: 1. No acute or suspicious intracranial changes. No bone lesions detected in the skull. EVIDENCE OF ACUTE STROKE: NO. Assessment & Plan - Diagnosis (1) Acute renal failure (ARF) Qualifiers: Acute renal failure type: unspecified Qualified Code(s): N17.9 - Acute kidney failure, unspecified Is this a current diagnosis for this admission?: Yes Plan: Creatinine has normalized. Resolved. (2) Compression fracture Is this a current diagnosis for this admission?: Yes Plan: Concern for multiple myeloma. SPEP and UPEP have been ordered. biclonal spike that may or maynot represent MM. Hematology oncology has taken over the patient 's pain regimen. Pain management services signed off. Orthopedic surgery was attempted to be consulted just to ensure that it safe for the patient to walk with these fractures. However, the orthopedic service here does not deal with lumbar fractures. Patient has been receiving PT and this is the first day that he is been able to fully participate in the exercises. Apparently he did stand but sat right back down. Many of the exercises were done in bed. (3) Hypernatremia Is this a current diagnosis for this admission?: Yes Plan: Resolved. (4) Encephalopathy Is this a current diagnosis for this admission?: Yes Plan: Patient is currently confused at bedside. Worsening confusion could be due to underlying narcotic medications used to control his back pain. Or due to his decubitus ulcer infection. The frequency of his morphine was reduced. Now it is been discontinued and he mock has written for tramadol. Blood cultures negative. CT of the head is negative. (5) Hypertension Is this a current diagnosis for this admission?: Yes Plan: Continue metoprolol. Lisinopril HCTZ is still on hold. Initially this was because he had just gotten over his acute kidney injury and we performed CT with contrast. Now remains on hold because the patient simply does not needed at this point. (6) Hyperlipidemia Is this a current diagnosis for this admission?: Yes (7) Hypothyroidism Is this a current diagnosis for this admission?: Yes Plan: Continue Synthroid. (8) Rhabdomyolysis Qualifiers: Rhabdomyolysis type: traumatic Encounter type: initial encounter Qualified Code(s): T79.6XXA - Traumatic ischemia of muscle, initial encounter Is this a current diagnosis for this admission?: Yes Plan: Resolved (9) Sacral decubitus ulcer Qualifiers: Pressure ulcer stage: stage 4 Qualified Code(s): L89.154 - Pressure ulcer of sacral region, stage 4 Is this a current diagnosis for this admission?: Yes Plan: Continue local wound care. Stage IV and stage II sacral and gluteal fold decubitus ulcers respectively. Surgery following periodically. Present on admission. Status post debridement. Proteus mirabilis, E. coli growing from the wound culture along with Streptococcus. Continue Rocephin. (10) Left ventricular outflow tract obstruction Is this a current diagnosis for this admission?: Yes Plan: Continue current medications (11) Troponin level elevated Is this a current diagnosis for this admission?: Yes (12) BPH (benign prostatic hyperplasia) Is this a current diagnosis for this admission?: Yes Plan: Continue finasteride (13) Chronic back pain Qualifiers: Back pain location: low back pain Is this a current diagnosis for this admission?: Yes Plan: Continue pain medication as currently ordered. (14) COPD (chronic obstructive pulmonary disease) Is this a current diagnosis for this admission?: Yes Plan: Patient is not in acute exacerbation. Continue maintenance medications. (15) Multiple myeloma Is this a current diagnosis for this admission?: Yes Plan: Suspicion for underlying multiple myeloma. The patient has pathologic fractures noted on MRI. Concern that this is also affecting his mentation. SPEP and UPEP have been ordered. Biclonal spike found. UPEP still pending. Oncology following. I spoke with the patient's family extensively about the potential for this or different underlying cancer, as the patient also has a lung mass. they are in agreement with further workup. CT of the chest abdomen and pelvis revealed a right apical lung lesion that appears spiculated. Lesion in the kidney appears to truly be a cyst. There are other small lesions of the kidneys that were indeterminate. CT-guided biopsy of the lung lesion was ordered but is deferred secondary to elevated PTT/PT. CT of the head was negative. As per oncology, the patient would not be the best candidate for chemotherapy regardless of the diagnosis. Due to his profound weakness and mentation. I have read Dr. Santo's note, apparently the family would like to try and pursue diagnosis even with this information. It was also discussed that the patient now has coagulopathy for unclear reasons. The family declined use of FFP. See below. (16) Dysphasia Is this a current diagnosis for this admission?: Yes Plan: Patient was noted by family to hold food in his mouth. Speech was not able to fully assess him. However it sounded to them that it was more of an issue of patient desire --considering that the patient is able to tolerate thin liquids. Continue to monitor. (17) Hypokalemia Is this a current diagnosis for this admission?: Yes Plan: Replaced. We will begin p.o. supplementation. (18) Anorexia Is this a current diagnosis for this admission?: Yes Plan: Patient has a lack of appetite and definitely refuses to eat some of his favorite foods, such as haney or biscuits and gravy. Continue Megace. (19) Coagulopathy Is this a current diagnosis for this admission?: Yes Plan: Unclear as to why the patient has a coagulopathy. The patient is on prophylactic doses of heparin 3 times daily. Liver function tests have been normal. Apparently the family has declined use of FFP to reverse this so that the patient can proceed with CT-guided biopsy. They did agree to vitamin K. I am doubtful that vitamin K will be useful in these circumstances. At this time the patient's INR is above 2 for unclear reasons. - Time Time Spent with patient: 15-24 minutes Anticipated discharge: SNF - Plan Summary Plan Summary: Patient's family have already been in contact with discharge planning. I have explained extensively to the family that the patient needs placement in halfway facility. Please see notes back from March 29 and . The patient spoke with discharge planning last on 30 March and expressed desires for the patient to [facility].
[2017-04-02] MEDS: CYANOCOBALAMIN (VITAMIN B-12) 1,000 MCG TABLET PO SCH (10:50)
[2017-04-02] MEDS: TRAMADOL HCL 50 MG TABLET PO PRN ×2 (10:50→22:24)
[2017-04-02] MEDS: CHOLECALCIFEROL (D3) 400 UNIT TABLET PO SCH (10:51)
[2017-04-02] MEDS: METOPROLOL TARTRATE 50 MG TABLET PO SCH ×2 (10:51→22:25)
[2017-04-02] MEDS: MEGESTROL ACETATE SUSP 400 MG/10 ML UDCUP PO SCH (10:51)
[2017-04-02] MEDS: FAMOTIDINE 20 MG TABLET PO SCH ×2 (10:51→22:23)
[2017-04-02] MEDS: MAGNESIUM OXIDE 400 MG TABLET PO SCH ×2 (10:51→18:10)
[2017-04-02] MEDS: NORMAL SALINE 10 ML SDV (SCHEDULED) IV SCH ×2 (10:52→22:25)
[2017-04-02] MEDS: TAMSULOSIN HCL 0.4 MG CAP.SR.24H PO SCH (18:10)
[2017-04-02] MEDS: POTASSIUM CHLORIDE 10 MEQ TABLET.SA PO SCH (22:22)
[2017-04-02] MEDS: SIMVASTATIN 40 MG TABLET PO SCH (22:23)
[2017-04-02] MEDS: LIDOCAINE 5% (700 MG) TRANSDERMAL ADH..PATCH TP SCH (22:32)
[2017-04-03 05:40] LABS: IMMUNOGLOBULIN A 404 mg/dL (61-437); IMMUNOGLOBULIN G 896 mg/dL (700-1600); IMMUNOGLOBULIN M 34 mg/dL (20-172)
[2017-04-03] MEDS: LEVOTHYROXINE SODIUM 0.075 MG TABLET PO SCH (06:39)
[2017-04-03] MEDS: LEVOTHYROXINE SODIUM 0.1 MG TABLET PO SCH (06:39)
--- NOTE | 2017-04-03 07:20 | PDOC PROGRESS REPORT ---
Subjective Progress Note for:: 04/03/17 Subjective:: Patient speaks clearer today, but is still greatly confused. He cannot remember if he has eaten anything. He denies any pain. He still does not understand why he is wearing soft mitts or where he is. Reason For Visit: ACUTE RENAL FAILURE Physical Exam Vital Signs: Temp Pulse Resp BP Pulse Ox 97.5 F 81 16 126/76 H 97 04/03/17 03:34 04/03/17 03:34 04/03/17 03:34 04/03/17 03:34 04/03/17 03:34 Intake & Output 04/02/17 04/03/17 04/04/17 06:59 06:59 06:59 Intake Total 1999 1767 Output Total 1650 1725 Balance 350 42 Weight 96.8 kg 97.7 kg General appearance: PRESENT: no acute distress, obese Head exam: PRESENT: atraumatic Respiratory exam: PRESENT: clear to auscultation cierra Cardiovascular exam: PRESENT: RRR. ABSENT: systolic murmur Pulses: PRESENT: normal dorsalis pedis pul GI/Abdominal exam: PRESENT: soft. ABSENT: tenderness Neurological exam: PRESENT: CN II-XII grossly intact. ABSENT: oriented to place , oriented to time, oriented to situation Psychiatric exam: PRESENT: appropriate affect Focused psych exam: PRESENT: delusional Skin exam: PRESENT: normal color Results Laboratory Results: 04/02/17 06:45 04/02/17 06:45 04/02/17 04/02/17 06:45 06:45 WBC 10.1 RBC 3.70 L Hgb 11.2 L Hct 32.4 L MCV 88 MCH 30.3 MCHC 34.6 RDW 15.5 H Plt Count 168 Seg Neutrophils % 75.7 Lymphocytes % 11.7 L Monocytes % 9.9 Eosinophils % 2.5 Basophils % 0.2 Absolute Neutrophils 7.6 Absolute Lymphocytes 1.2 Absolute Monocytes 1.0 Absolute Eosinophils 0.3 Absolute Basophils 0.0 Sodium 142.0 Potassium 3.4 L Chloride 107 Carbon Dioxide 29 Anion Gap 6 BUN 11 Creatinine 0.71 Est GFR ( Amer) > 60 Est GFR (Non-Af Amer) > 60 Glucose 71 L Calcium 8.3 L Magnesium 1.7 03/21/17 03/21/17 03/22/17 19:51 19:51 02:05 Creatine Kinase 6234 H 6106 H CK-MB (CK-2) 47.80 H Troponin I 6.340 03/22/17 03/22/17 03/22/17 02:05 10:51 10:51 Creatine Kinase 6173 H CK-MB (CK-2) 43.30 H 37.10 H Troponin I 6.750 6.130 03/24/17 03/25/17 06:00 06:55 Creatine Kinase 2065 H 922 H CK-MB (CK-2) Troponin I Impressions: Lumbar Spine X-Ray 03/21/17 13:02 IMPRESSION: CHRONIC DEGENERATIVE CHANGES. THERE IS NEW MILD WEDGE DEFORMITY OF L1 CONSISTENT WITH RECENT COMPRESSION FRACTURE. Thoracic Spine X-Ray 03/21/17 13:02 IMPRESSION: Extensive spondylosis. Chest X-Ray 03/21/17 15:10 IMPRESSION: RIGHT UPPER LOBE DENSITY. THIS COULD BE DUE TO CHRONIC SCARRING VERSUS ACUTE INFILTRATE. Renal Ultrasound 03/22/17 00:00 IMPRESSION: Indeterminate 15 cm complex cystic components of the right lower abdomen; cannot exclude neoplasm. Further evaluation with IV and oral contrast CT of the abdomen and pelvis (renal protocol) series recommended. 2010 [employer]- All Rights Reserved PICC Line Exchange 03/26/17 00:00 IMPRESSION: SUCCESSFUL OVER THE WIRE REPLACEMENT OF YESTERDAY'S PICC FOR A NEW ONE THAT IS 5 FR DUAL LUMEN 45 CM PICC IN THE LEFT ARM. Lumbar Spine MRI 03/26/17 14:37 IMPRESSION: Pathologic compression deformities of the L1 and L2 vertebral bodies Guidance Fluoroscopy 03/28/17 00:00 IMPRESSION: SUCCESSFUL PLACEMENT OF A 5 FR DUAL LUMEN 40 CM PICC IN THE RIGHT BASILIC VEIN. Interventional Vascular Procedure 03/28/17 00:00 IMPRESSION: SUCCESSFUL PLACEMENT OF A 5 FR DUAL LUMEN 40 CM PICC IN THE RIGHT BASILIC VEIN. PICC Line Insertion 03/28/17 09:00 IMPRESSION: SUCCESSFUL PLACEMENT OF A 5 FR DUAL LUMEN 40 CM PICC IN THE RIGHT BASILIC VEIN. Abdomen/Pelvis CT 03/29/17 00:00 IMPRESSION: 1. Mediastinal and right hilar adenopathy with suspicious 5 cm right upper lobe lesion. Low density centrally within the mass likely represents cavitation. Abscess felt to be less likely. 2. Bilateral effusions and other changes as noted. IMPRESSION: 1. Large cystic lesion originates off the right renal lower pole with faint calcified thin septi. Likely Bosniak 2 lesion. Smaller indeterminate lesions in the left kidney. Given the lung findings noted above, doubt renal malignancy primary. 2. Pathologic lumbar spine fractures. 3. Right adrenal adenoma. Chest CT 03/29/17 00:00 IMPRESSION: 1. Mediastinal and right hilar adenopathy with suspicious 5 cm right upper lobe lesion. Low density centrally within the mass likely represents cavitation. Abscess felt to be less likely. 2. Bilateral effusions and other changes as noted. IMPRESSION: 1. Large cystic lesion originates off the right renal lower pole with faint calcified thin septi. Likely Bosniak 2 lesion. Smaller indeterminate lesions in the left kidney. Given the lung findings noted above, doubt renal malignancy primary. 2. Pathologic lumbar spine fractures. 3. Right adrenal adenoma. Head CT 03/29/17 00:00 IMPRESSION: 1. No acute or suspicious intracranial changes. No bone lesions detected in the skull. EVIDENCE OF ACUTE STROKE: NO. Assessment & Plan - Diagnosis (1) Acute renal failure (ARF) Qualifiers: Acute renal failure type: unspecified Qualified Code(s): N17.9 - Acute kidney failure, unspecified Is this a current diagnosis for this admission?: Yes Plan: Resolved. (2) Compression fracture Is this a current diagnosis for this admission?: Yes Plan: Patient denies any pain from this. (3) Lung tumor Plan: Although it is still unclear as to if this is a primary lung cancer, or a multiple myeloma, it is more likely clinically that this is a metastatic lung cancer. Biopsy has not been safe due to his coagulopathy and again, even if final pathology was known, patient is not coherent or strong enough to undergo any therapy at this time. I would recommend retirement placement with Hospice. Family is working with discharge planners to have patient admitted to [facility] system for this. (4) Encephalopathy Is this a current diagnosis for this admission?: Yes Plan: Still has not cleared, although patient has been off Morphine x 24 hours. He did require 2 doses of ultram. However, most recent dose was over 12 hours ago , and mental status is still not clear. (5) Coagulopathy Is this a current diagnosis for this admission?: Yes Plan: Vit K given yesterday. May consider repeat PT/PTT in am and rescheduling biopsy. However, again given risk of procedure, would recommend against this. Family understands. Patient is auto anti-coagulated, so does NOT need further DVT prophylaxis with this.
[2017-04-03 07:29] LABS: IMMUNOGLOBULIN E 223 IU/mL (0-100)
[2017-04-03] MEDS: MAGNESIUM OXIDE 400 MG TABLET PO SCH ×2 (10:01→18:10)
[2017-04-03] MEDS: POTASSIUM CHLORIDE 10 MEQ TABLET.SA PO SCH ×2 (10:01→21:50)
[2017-04-03] MEDS: TRAMADOL HCL 50 MG TABLET PO PRN (10:01)
[2017-04-03] MEDS: FAMOTIDINE 20 MG TABLET PO SCH ×2 (10:01→21:50)
[2017-04-03] MEDS: CHOLECALCIFEROL (D3) 400 UNIT TABLET PO SCH (10:01)
[2017-04-03] MEDS: METOPROLOL TARTRATE 50 MG TABLET PO SCH ×2 (10:02→21:51)
[2017-04-03] MEDS: CYANOCOBALAMIN (VITAMIN B-12) 1,000 MCG TABLET PO SCH (10:02)
[2017-04-03] MEDS: MEGESTROL ACETATE SUSP 400 MG/10 ML UDCUP PO SCH (10:02)
[2017-04-03] MEDS: NORMAL SALINE 10 ML SDV (SCHEDULED) IV SCH ×2 (10:03→21:51)
[2017-04-03] MEDS: HALOPERIDOL 1 MG TABLET PO SCH ×2 (10:43→22:38)
--- NOTE | 2017-04-03 11:26 | PDOC PROGRESS REPORT ---
Subjective Progress Note for:: 04/03/17 Subjective:: Patient was admitted on 03/21/2017, per H&P: "MARIELA DE LEÓN is a 71 year old male with a history of hypertension and COPD who has had problems with back pain for the last 2 months. The patient is noted to have an L1 compression fracture. Patient reports over the last 2 months he has been having pain and since that Thanksgiving has had more pain. He reports he has had trouble getting up out of a chair because of his back pain and because of that he has been eating and drinking less. Patient reports that he is in a lot of pain and has a hard time getting up. He has had very little to eat or drink over the last 2 weeks. He fell out of his recliner chair this morning and when he presented to emergency room was found to be relatively hypotensive with blood pressures in the 80s. Patient also was found to have acute renal failure with a creatinine of 5. His creatinine 2 months ago was normal. The patient also was noted to have a positive troponin as well as elevated creatine kinase. Patient however has no cardiac history denies any chest pain. He does have COPD and continues to smoke about 1 pack per day. The patient does have BPH and takes Flomax for that. He also has been taking Naprosyn because of his chronic back pain. Patient is admitted for workup of acute renal failure." I inherited his care Saturday and found him very confused, he believes he currently in his new home in [facility] recently moved there from [facility]. He has no recollection of coming to the hospital or of recent events. Since admission he has been found to have multiple medical problems and worsening encephalopathy. ROS: Unobtainable due to patient's mental state. Reason For Visit: ACUTE RENAL FAILURE; malignant neoplasm thought to be metastatic lung cancer; encephalopathy; multiple lumbar vertebral fractures thought to be pathologic Physical Exam Vital Signs: Temp Pulse Resp BP Pulse Ox 98.0 F 85 20 115/81 98 04/03/17 08:01 04/03/17 08:01 04/03/17 08:01 04/03/17 08:01 04/03/17 08:01 Intake & Output 04/02/17 04/03/17 04/04/17 06:59 06:59 06:59 Intake Total 1999 1767 Output Total 1650 1725 Balance 350 42 Weight 96.8 kg 97.7 kg General: Physical therapy reports that he would not participate within this morning, he became very agitated and wanted to lie back down. I found him in bed in no acute distress, he was smiling and interactive with me and while he was very pleasant he was also very confused as noted above. Speech is clear. Thought processes are random and tangential. HEENT: Extractor muscles intact, sclera anicteric, oral mucosa moist, no oral lesions, neck muscles are supple. Respiratory: Coarse breath sounds without respiratory distress. No wheezes or rhonchi. No accessory muscle use. Cardiac: Regular rate and rhythm with soft 2/6 murmur heard best at the second left intercostal space. Abdomen: Soft, nontender, nondistended, nontympanitic with good bowel sounds. Extremities: He moves all 4 extremities, he is currently wearing mittens because he is pulling at [employer] and has previously removed 3 different PICC lines. He will follow commands but only simple one-step commands. Neuro: Deep tendon reflexes are 1+ at the patella bilaterally, speech is clear and there is no facial asymmetry. Skin: Warm and dry. Results Laboratory Results: 04/02/17 06:45 04/02/17 06:45 03/21/17 03/21/17 03/22/17 19:51 19:51 02:05 Creatine Kinase 6234 H 6106 H CK-MB (CK-2) 47.80 H Troponin I 6.340 03/22/17 03/22/17 03/22/17 02:05 10:51 10:51 Creatine Kinase 6173 H CK-MB (CK-2) 43.30 H 37.10 H Troponin I 6.750 6.130 03/24/17 03/25/17 06:00 06:55 Creatine Kinase 2065 H 922 H CK-MB (CK-2) Troponin I Assessment & Plan - Diagnosis (1) Acute renal failure (ARF) Qualifiers: Acute renal failure type: unspecified Qualified Code(s): N17.9 - Acute kidney failure, unspecified Is this a current diagnosis for this admission?: Yes Plan: Resolved. (2) COPD (chronic obstructive pulmonary disease) Is this a current diagnosis for this admission?: Yes Plan: Quiescent. Continue current management (3) Chronic back pain Qualifiers: Back pain location: low back pain Is this a current diagnosis for this admission?: Yes Plan: Complicated by pathologic lumbar vertebral fractures. Possibly contributing some of his encephalopathy as well. (4) Coagulopathy Is this a current diagnosis for this admission?: Yes Plan: Unclear etiology; hematology/oncology following. Likely secondary to lack of nutrition, he received a single dose of vitamin K with no appreciable change. Resume supplement for a few more days and continue to monitor INR.. (5) Compression fracture Is this a current diagnosis for this admission?: Yes Plan: As noted above. Continue physical therapy as tolerated. (6) Encephalopathy Is this a current diagnosis for this admission?: Yes Plan: Unclear etiology but likely multifactorial from innumerable metabolic insults. There may also be some underlying or undiagnosed dementia. Unfortunately he is failed to clear with cessation of morphine therapy and resolution of many of the metabolic abnormalities. His current mental state is interfering with his care including physical therapy and occasionally with nursing staff interventions. At this point I feel compelled to try atypical antipsychotic for behavior control to facilitate placement and ongoing treatment. (7) Hyperlipidemia Is this a current diagnosis for this admission?: Yes Plan: Continue statin therapy. (8) Hypernatremia Is this a current diagnosis for this admission?: Yes Plan: Resolved (9) Hypokalemia Is this a current diagnosis for this admission?: Yes Plan: Mild, continue replacement; attempt to keep magnesium greater than 1.7. Unclear if his electrolyte abnormalities are contributing to some of his encephalopathy (10) Hypothyroidism Is this a current diagnosis for this admission?: Yes Plan: Controlled. TSH is 2.1. Continue supplement. (11) Lung tumor Is this a current diagnosis for this admission?: Yes Plan: Not a candidate for further intervention diagnostic or treatment at this point due to his underlying medical problems. Oncology is actually recommending placement for hospice as he would not be a good long-term candidate for chemotherapy. (12) Multiple myeloma Is this a current diagnosis for this admission?: Yes Plan: Probable diagnosis based on laboratory abnormalities and clinical findings though tissue diagnosis not available at this time due to the reasons noted above. Not a candidate for treatment per oncology. (13) Rhabdomyolysis Qualifiers: Rhabdomyolysis type: traumatic Encounter type: initial encounter Qualified Code(s): T79.6XXA - Traumatic ischemia of muscle, initial encounter Is this a current diagnosis for this admission?: Yes Plan: Resolved but likely indicates the patient was in significantly poorer health than the family realized prior to his admission. (14) Sacral decubitus ulcer Qualifiers: Pressure ulcer stage: stage 4 Qualified Code(s): L89.154 - Pressure ulcer of sacral region, stage 4 Is this a current diagnosis for this admission?: Yes Plan: Present on admission. Continue offloading and topical care. - Time Time Spent with patient: 35 or more minutes - Plan Summary Plan Summary: [facility].
--- NOTE | 2017-04-03 13:32 | Progress Note ---
Provider Note Provider Note: I met with patient, and daughter today at bedside. We discussed PET/CT report and the fact that it looks as though it has already started to spread to the lymph nodes, but nowhere else. Family was very surprised at how quickly he has gone down hill with his strength, confusion, and appetite. We discussed treatment options. However, I do not believe he is a candidate for aggressive chemo, radiation or surgery at this point. We discussed Hospice or other means of palliative care. They are open to this idea. However, still does not believe he will be safe to go home and may need care home care. Family would like to speak with discharge planners about multimedia author care options. They also requested something for his thick secretions and cough. Will start Mucinex 1200 mg BID and see if this helps. I will continue to follow.
[2017-04-03] MEDS: DEXTROSE 5%-1/4 NORMAL SALINE 1,000 ML IV PRN (18:10)
[2017-04-03] MEDS: TAMSULOSIN HCL 0.4 MG CAP.SR.24H PO SCH (18:10)
[2017-04-03] MEDS: SIMVASTATIN 40 MG TABLET PO SCH (21:51)
[2017-04-03] MEDS: LIDOCAINE 5% (700 MG) TRANSDERMAL ADH..PATCH TP SCH (21:53)
[2017-04-03] MEDS ORDERED: GUAIFENESIN 600 MG TABLET.SA PO SCH (22:00)
[2017-04-04] MEDS: DEXTROSE 5%-1/4 NORMAL SALINE 1,000 ML IV PRN ×2 (01:13→18:00)
[2017-04-04] MEDS: TRAMADOL HCL 50 MG TABLET PO PRN (03:06)
[2017-04-04] MEDS: LEVOTHYROXINE SODIUM 0.075 MG TABLET PO SCH (05:31)
[2017-04-04] MEDS: LEVOTHYROXINE SODIUM 0.1 MG TABLET PO SCH (05:31)
[2017-04-04 06:03] LABS: ANION GAP 5 (5-19); BLOOD UREA NITROGEN 9 mg/dL (7-20); CARBON DIOXIDE 27 mmol/L (22-30); CHLORIDE 102 mmol/L (98-107); GLUCOSE 304 mg/dL (75-110); MAGNESIUM 1.7 mg/dL (1.6-2.3); POTASSIUM 3.1 mmol/L (3.6-5.0)
[2017-04-04] MEDS: MAGNESIUM SULFATE/D5W 1 GM/100 ML RTUPB IV SCH ×3 (09:06→14:02)
[2017-04-04] MEDS: CHOLECALCIFEROL (D3) 400 UNIT TABLET PO SCH (09:13)
[2017-04-04] MEDS: FAMOTIDINE 20 MG TABLET PO SCH ×2 (09:14→21:36)
[2017-04-04] MEDS: POTASSIUM CHLORIDE 10 MEQ TABLET.SA PO SCH ×2 (09:14→21:36)
[2017-04-04] MEDS: PHYTONADIONE 5 MG TABLET PO SCH (09:14)
[2017-04-04] MEDS: METOPROLOL TARTRATE 50 MG TABLET PO SCH ×2 (09:15→21:36)
[2017-04-04] MEDS: CYANOCOBALAMIN (VITAMIN B-12) 1,000 MCG TABLET PO SCH (09:15)
[2017-04-04] MEDS: MAGNESIUM OXIDE 400 MG TABLET PO SCH ×2 (09:16→17:33)
[2017-04-04] MEDS: NORMAL SALINE 10 ML SDV (SCHEDULED) IV SCH ×2 (09:17→21:37)
[2017-04-04] MEDS: MEGESTROL ACETATE SUSP 400 MG/10 ML UDCUP PO SCH (09:18)
--- NOTE | 2017-04-04 09:54 | PDOC PROGRESS REPORT ---
Subjective Progress Note for:: 04/04/17 Subjective:: Patient is sitting up being fed eggs by the nurses. He says hello and is very pleasant. He denies any pain or new problems. He repeats to me that he is in [place] (as nurses have just explained to him). I asked him if it's OK to call his brother and he asked me which one. His older brother, Kameron, or his younger brother Ed. I asked about where Ed may be today, if he is home. Patient states that he probably is and he is "in and out." I called his brother Ed who is currently out of town and will not return until Saturday. He tells me that their brother Kameron some time ago. Patient told me that they had all just returned from a fishing trip last weekend, which brother Ed said was not correct. So, although patien tis more talkative, he is still not making any sense. Reason For Visit: ACUTE RENAL FAILURE Physical Exam Vital Signs: Temp Pulse Resp BP Pulse Ox 98.3 F 92 20 115/66 94 04/04/17 07:49 04/04/17 07:49 04/04/17 07:49 04/04/17 07:49 04/04/17 07:49 Intake & Output 04/03/17 04/04/17 04/05/17 06:59 06:59 06:59 Intake Total 1767 1950 Output Total 1725 2200 Balance 42 -250 Weight 97.7 kg 96 kg General appearance: PRESENT: no acute distress, well-nourished Eye exam: PRESENT: EOMI. ABSENT: scleral icterus Mouth exam: PRESENT: moist, tongue midline Neck exam: ABSENT: lymphadenopathy, tenderness Respiratory exam: PRESENT: clear to auscultation cierra Cardiovascular exam: PRESENT: RRR GI/Abdominal exam: PRESENT: soft. ABSENT: tenderness Extremities exam: ABSENT: pedal edema Neurological exam: PRESENT: alert, awake. ABSENT: oriented to person, oriented to place, oriented to time, oriented to situation Results Laboratory Results: 04/02/17 06:45 04/04/17 05:37 04/04/17 05:37 Sodium 134.0 L Potassium 3.1 L Chloride 102 Carbon Dioxide 27 Anion Gap 5 BUN 9 Creatinine 0.68 Est GFR ( Amer) > 60 Est GFR (Non-Af Amer) > 60 Glucose 304 H Calcium 8.0 L Magnesium 1.7 Vitamin B12 > 1000.0 H 03/21/17 03/21/17 03/22/17 19:51 19:51 02:05 Creatine Kinase 6234 H 6106 H CK-MB (CK-2) 47.80 H Troponin I 6.340 03/22/17 03/22/17 03/22/17 02:05 10:51 10:51 Creatine Kinase 6173 H CK-MB (CK-2) 43.30 H 37.10 H Troponin I 6.750 6.130 03/24/17 03/25/17 06:00 06:55 Creatine Kinase 2065 H 922 H CK-MB (CK-2) Troponin I Impressions: Lumbar Spine X-Ray 03/21/17 13:02 IMPRESSION: CHRONIC DEGENERATIVE CHANGES. THERE IS NEW MILD WEDGE DEFORMITY OF L1 CONSISTENT WITH RECENT COMPRESSION FRACTURE. Thoracic Spine X-Ray 03/21/17 13:02 IMPRESSION: Extensive spondylosis. Chest X-Ray 03/21/17 15:10 IMPRESSION: RIGHT UPPER LOBE DENSITY. THIS COULD BE DUE TO CHRONIC SCARRING VERSUS ACUTE INFILTRATE. Renal Ultrasound 03/22/17 00:00 IMPRESSION: Indeterminate 15 cm complex cystic components of the right lower abdomen; cannot exclude neoplasm. Further evaluation with IV and oral contrast CT of the abdomen and pelvis (renal protocol) series recommended. 2010 [employer]- All Rights Reserved PICC Line Exchange 03/26/17 00:00 IMPRESSION: SUCCESSFUL OVER THE WIRE REPLACEMENT OF YESTERDAY'S PICC FOR A NEW ONE THAT IS 5 FR DUAL LUMEN 45 CM PICC IN THE LEFT ARM. Lumbar Spine MRI 03/26/17 14:37 IMPRESSION: Pathologic compression deformities of the L1 and L2 vertebral bodies Guidance Fluoroscopy 03/28/17 00:00 IMPRESSION: SUCCESSFUL PLACEMENT OF A 5 FR DUAL LUMEN 40 CM PICC IN THE RIGHT BASILIC VEIN. Interventional Vascular Procedure 03/28/17 00:00 IMPRESSION: SUCCESSFUL PLACEMENT OF A 5 FR DUAL LUMEN 40 CM PICC IN THE RIGHT BASILIC VEIN. PICC Line Insertion 03/28/17 09:00 IMPRESSION: SUCCESSFUL PLACEMENT OF A 5 FR DUAL LUMEN 40 CM PICC IN THE RIGHT BASILIC VEIN. Abdomen/Pelvis CT 03/29/17 00:00 IMPRESSION: 1. Mediastinal and right hilar adenopathy with suspicious 5 cm right upper lobe lesion. Low density centrally within the mass likely represents cavitation. Abscess felt to be less likely. 2. Bilateral effusions and other changes as noted. IMPRESSION: 1. Large cystic lesion originates off the right renal lower pole with faint calcified thin septi. Likely Bosniak 2 lesion. Smaller indeterminate lesions in the left kidney. Given the lung findings noted above, doubt renal malignancy primary. 2. Pathologic lumbar spine fractures. 3. Right adrenal adenoma. Chest CT 03/29/17 00:00 IMPRESSION: 1. Mediastinal and right hilar adenopathy with suspicious 5 cm right upper lobe lesion. Low density centrally within the mass likely represents cavitation. Abscess felt to be less likely. 2. Bilateral effusions and other changes as noted. IMPRESSION: 1. Large cystic lesion originates off the right renal lower pole with faint calcified thin septi. Likely Bosniak 2 lesion. Smaller indeterminate lesions in the left kidney. Given the lung findings noted above, doubt renal malignancy primary. 2. Pathologic lumbar spine fractures. 3. Right adrenal adenoma. Head CT 03/29/17 00:00 IMPRESSION: 1. No acute or suspicious intracranial changes. No bone lesions detected in the skull. EVIDENCE OF ACUTE STROKE: NO. Assessment & Plan - Diagnosis (1) Acute renal failure (ARF) Qualifiers: Acute renal failure type: unspecified Qualified Code(s): N17.9 - Acute kidney failure, unspecified Is this a current diagnosis for this admission?: Yes (2) Compression fracture Is this a current diagnosis for this admission?: Yes (3) Lung tumor Is this a current diagnosis for this admission?: Yes Plan: Most likely lung primary with mets to bones and kidney, but in current mental condition, I do not believe he is a candidate for systemic chemotherapy. (4) Encephalopathy Is this a current diagnosis for this admission?: Yes (5) Coagulopathy Is this a current diagnosis for this admission?: Yes Plan: I will repeat PT/PTT today. He did receive Vit K, but family did not wish to use FFP. - Plan Summary Plan Summary: I again spoke with brother and [facility] Ed. [facility] is [facility] to see if patient will be able to transfer out of the hospital. I will sign off. Please call me if needed.
[2017-04-04 10:46] LABS: INTERNATIONAL RATION (INR) 1.16; PROTHROMBIN TIME 15.6 SEC (11.4-15.4)
--- NOTE | 2017-04-04 10:59 | PDOC PROGRESS REPORT ---
Subjective Progress Note for:: 04/04/17 Subjective:: Patient was admitted on 03/21/2017, per H&P: "MARIELA DE LEÓN is a 71 year old male with a history of hypertension and COPD who has had problems with back pain for the last 2 months. The patient is noted to have an L1 compression fracture. Patient reports over the last 2 months he has been having pain and since that Thanksgiving has had more pain. He reports he has had trouble getting up out of a chair because of his back pain and because of that he has been eating and drinking less. Patient reports that he is in a lot of pain and has a hard time getting up. He has had very little to eat or drink over the last 2 weeks. He fell out of his recliner chair this morning and when he presented to emergency room was found to be relatively hypotensive with blood pressures in the 80s. Patient also was found to have acute renal failure with a creatinine of 5. His creatinine 2 months ago was normal. The patient also was noted to have a positive troponin as well as elevated creatine kinase. Patient however has no cardiac history denies any chest pain. He does have COPD and continues to smoke about 1 pack per day. The patient does have BPH and takes Flomax for that. He also has been taking Naprosyn because of his chronic back pain. Patient is admitted for workup of acute renal failure." I inherited his care Saturday and found him very confused, believing he currently is in his new home in [facility] recently moved there from [facility]. He had no recollection of coming to the hospital or of recent events. Since admission he has been found to have multiple medical problems and worsening encephalopathy. He was started on low-dose scheduled Haldol and seems at least minimally improved this morning, at least he is able to carry on conversation and retain information previously presented. For instance, he recognizes me as a physician caring for him that he cannot remember my name. He knows he is in [place] and at a hospital but cannot remember the name. He has no idea of the date and time. ROS: Unreliable due to patient's mental state. Reason For Visit: ACUTE RENAL FAILURE Physical Exam Vital Signs: Temp Pulse Resp BP Pulse Ox 98.3 F 92 20 115/66 94 04/04/17 07:49 04/04/17 07:49 04/04/17 07:49 04/04/17 07:49 04/04/17 07:49 Intake & Output 04/03/17 04/04/17 04/05/17 06:59 06:59 06:59 Intake Total 1767 1950 Output Total 1725 2200 Balance 42 -250 Weight 97.7 kg 96 kg General: I found him in bed in no acute distress, he is smiling and interactive with me and remains confused as noted above. Speech is clear. HEENT: Extractor muscles intact, sclera anicteric, oral mucosa moist, no oral lesions, neck muscles are supple. Respiratory: Coarse breath sounds without respiratory distress. No wheezes or rhonchi. No accessory muscle use. Cardiac: Regular rate and rhythm with soft 2/6 murmur heard best at the second left intercostal space. Abdomen: Soft, nontender, nondistended, nontympanitic with good bowel sounds. Extremities: He moves all 4 extremities, he is currently wearing mittens because he previously pulled at [employer] and has previously removed 3 different PICC lines. He will follow simple one-step commands. Neuro: Deep tendon reflexes are 1+ at the patella bilaterally, speech is clear and there is no facial asymmetry. Skin: Warm and dry. Results Laboratory Results: 04/02/17 06:45 04/04/17 05:37 04/04/17 05:37 Sodium 134.0 L Potassium 3.1 L Chloride 102 Carbon Dioxide 27 Anion Gap 5 BUN 9 Creatinine 0.68 Est GFR ( Amer) > 60 Est GFR (Non-Af Amer) > 60 Glucose 304 H Calcium 8.0 L Magnesium 1.7 Vitamin B12 > 1000.0 H 03/21/17 03/21/17 03/22/17 19:51 19:51 02:05 Creatine Kinase 6234 H 6106 H CK-MB (CK-2) 47.80 H Troponin I 6.340 03/22/17 03/22/17 03/22/17 02:05 10:51 10:51 Creatine Kinase 6173 H CK-MB (CK-2) 43.30 H 37.10 H Troponin I 6.750 6.130 Assessment & Plan - Diagnosis (1) Lung tumor Is this a current diagnosis for this admission?: Yes Plan: Not a candidate for further intervention diagnostic or treatment at this point due to his underlying medical problems. case discussed [facility] Oncology at bedside and she recommending placement for hospice and end of life care as he would not be a good long-term candidate for chemotherapy. (2) Coagulopathy Is this a current diagnosis for this admission?: Yes Plan: Unclear etiology; hematology/oncology following. Likely secondary to lack of nutrition, he received a single dose of vitamin K with no appreciable change. Continue supplement for a few more days and continue to monitor INR. (3) Encephalopathy Is this a current diagnosis for this admission?: Yes Plan: Unclear etiology but likely multifactorial from innumerable metabolic insults. There may also be some underlying or undiagnosed dementia. Unfortunately he is failed to clear completely with cessation of morphine therapy and resolution of many of the metabolic abnormalities. His current mental state is interfering with his care including physical therapy and occasionally with nursing staff interventions. He is at least little better this morning after initiation of atypical antipsychotic for behavior control should help to facilitate placement and ongoing treatment, continue same and titrate as needed. (4) Chronic back pain Qualifiers: Back pain location: low back pain Is this a current diagnosis for this admission?: Yes Plan: Improved. Complicated by pathologic lumbar vertebral fractures. Possibly contributing some of his encephalopathy as well. (5) Compression fracture Is this a current diagnosis for this admission?: Yes Plan: As noted above. Continue physical therapy as tolerated. (6) Hypokalemia Is this a current diagnosis for this admission?: Yes Plan: Mild, continue replacement; attempt to keep magnesium greater than 1.7. Unclear if his electrolyte abnormalities are contributing to some of his encephalopathy (7) Non-STEMI (non-ST elevated myocardial infarction) Is this a current diagnosis for this admission?: Yes Plan: Significant elevations of his troponins and CK-MB on arrival without diagnostic ischemic changes seen on EKG or echocardiogram. Given his multiple medical problems he is not a good candidate for invasive intervention at this time. Given the family's wishes to pursue more conservative measures and end-of-life care due to the above issues, it would seem appropriate to continue pharmaceutical management only at this time. They have agreed foregoing invasive testing so it is safe to resume aspirin therapy at this time. Continue statin and beta-natalie therapy as tolerated. (8) Sacral decubitus ulcer Qualifiers: Pressure ulcer stage: stage 4 Qualified Code(s): L89.154 - Pressure ulcer of sacral region, stage 4 Is this a current diagnosis for this admission?: Yes Plan: Present on admission. Continue offloading and topical care. (9) Acute renal failure (ARF) Qualifiers: Acute renal failure type: unspecified Qualified Code(s): N17.9 - Acute kidney failure, unspecified Is this a current diagnosis for this admission?: Yes Plan: Resolved. (10) COPD (chronic obstructive pulmonary disease) Is this a current diagnosis for this admission?: Yes Plan: Quiescent. Continue current management (11) Hypernatremia Is this a current diagnosis for this admission?: Yes Plan: Resolved (12) Rhabdomyolysis Qualifiers: Rhabdomyolysis type: traumatic Encounter type: initial encounter Qualified Code(s): T79.6XXA - Traumatic ischemia of muscle, initial encounter Is this a current diagnosis for this admission?: Yes Plan: Resolved but likely indicates the patient was in significantly poorer health than the family realized and had been down longer than they know prior to his admission. (13) Multiple myeloma Is this a current diagnosis for this admission?: Yes Plan: Possible diagnosis based on laboratory abnormalities and clinical findings though tissue diagnosis not available at this time due to the reasons noted above. Not a candidate for treatment per oncology. (14) Hypothyroidism Is this a current diagnosis for this admission?: Yes Plan: Controlled. TSH is 2.1. Continue supplement. (15) Hyperlipidemia Is this a current diagnosis for this admission?: Yes Plan: Continue statin therapy. - Time Time Spent with patient: 25-34 minutes Medications reviewed and adjusted accordingly: Yes Anticipated discharge: SNF Within: when bed available
[2017-04-04] MEDS: ASPIRIN 81 MG TABLET, ENT COATED PO SCH (12:48)
[2017-04-04] MEDS: HALOPERIDOL 1 MG TABLET PO SCH ×2 (12:48→22:26)
[2017-04-04] MEDS: TAMSULOSIN HCL 0.4 MG CAP.SR.24H PO SCH (17:33)
[2017-04-04] MEDS: LIDOCAINE 5% (700 MG) TRANSDERMAL ADH..PATCH TP SCH (21:36)
[2017-04-04] MEDS: SIMVASTATIN 40 MG TABLET PO SCH (21:36)
[2017-04-05] MEDS: TRAMADOL HCL 50 MG TABLET PO PRN ×2 (01:45→22:28)
[2017-04-05] MEDS: LEVOTHYROXINE SODIUM 0.075 MG TABLET PO SCH (05:36)
[2017-04-05] MEDS: LEVOTHYROXINE SODIUM 0.1 MG TABLET PO SCH (05:36)
[2017-04-05 06:05] LABS: ABSOLUTE EOSINOPHILS # (AUTO) 0.2 10^3/uL (0.0-0.6); ABSOLUTE LYMPHOCYTES (AUTO) 1.3 10^3/uL (0.5-4.7); ABSOLUTE MONOCYTES (AUTO) 0.9 10^3/uL (0.1-1.4); ABSOLUTE NEUT (AUTO) 4.6 10^3/uL (1.7-8.2); BASOPHILS % (AUTO) 0.5 % (0-2); EOSINOPHILS % (AUTO) 3.2 % (0-6); HEMATOCRIT 29.1 % (37.9-51.0); HEMOGLOBIN 9.9 g/dL (13.5-17.0); LYMPHOCYTES % (AUTO) 18.4 % (13-45); MEAN CORPUSCULAR HEMOGLOBIN 30.2 pg (27.0-33.4); MEAN CORPUSCULAR HGB CONC 34.1 g/dL (32.0-36.0); MEAN CORPUSCULAR VOLUME 88 fl (80-97); MONOCYTES % (AUTO) 12.4 % (3-13); PLATELET COUNT 174 10^3/uL (150-450); RED CELL DISTRIBUTION WIDTH 15.8 % (11.5-14.0); SEGMENTED NEUTROPHILS % (AUTO) 65.5 % (42-78); TOTAL CELLS COUNTED % (AUTO) 100 %
[2017-04-05 06:08] LABS: INTERNATIONAL RATION (INR) 1.24; PROTHROMBIN TIME 16.4 SEC (11.4-15.4)
[2017-04-05 06:20] LABS: ALANINE AMINOTRANSFERASE 30 U/L (21-72); ALKALINE PHOSPHATASE 118 U/L (38-126); ANION GAP 5 (5-19); ASPARTATE AMINO TRANSFERASE 57 U/L (17-59); BILIRUBIN,DIRECT 0.2 mg/dL (0.0-0.4); BILIRUBIN,TOTAL 0.3 mg/dL (0.2-1.3); BLOOD UREA NITROGEN 9 mg/dL (7-20); CALCIUM 7.9 mg/dL (8.4-10.2); CARBON DIOXIDE 26 mmol/L (22-30); CHLORIDE 103 mmol/L (98-107); GLUCOSE 333 mg/dL (75-110); MAGNESIUM 2.1 mg/dL (1.6-2.3); POTASSIUM 3.8 mmol/L (3.6-5.0); SODIUM 134.1 mmol/L (137-145); TOTAL PROTEIN 4.6 g/dL (6.3-8.2)
[2017-04-05] MEDS: DEXTROSE 5%-1/4 NORMAL SALINE 1,000 ML IV PRN ×2 (08:08→21:38)
[2017-04-05] MEDS: MEGESTROL ACETATE SUSP 400 MG/10 ML UDCUP PO SCH (10:55)
[2017-04-05] MEDS: FAMOTIDINE 20 MG TABLET PO SCH ×2 (10:55→21:37)
[2017-04-05] MEDS: CHOLECALCIFEROL (D3) 400 UNIT TABLET PO SCH (10:55)
[2017-04-05] MEDS: MAGNESIUM OXIDE 400 MG TABLET PO SCH ×2 (10:55→19:05)
[2017-04-05] MEDS: PHYTONADIONE 5 MG TABLET PO SCH (10:55)
[2017-04-05] MEDS: POTASSIUM CHLORIDE 10 MEQ TABLET.SA PO SCH ×2 (10:55→21:36)
[2017-04-05] MEDS: METOPROLOL TARTRATE 50 MG TABLET PO SCH ×2 (10:55→21:37)
[2017-04-05] MEDS: CYANOCOBALAMIN (VITAMIN B-12) 1,000 MCG TABLET PO SCH (10:55)
[2017-04-05] MEDS: NORMAL SALINE 10 ML SDV (SCHEDULED) IV SCH ×2 (11:02→21:37)
--- NOTE | 2017-04-05 11:15 | PDOC PROGRESS REPORT ---
Subjective Progress Note for:: 04/05/17 Subjective:: Patient was admitted on 03/21/2017, per H&P: "MARIELA DE LEÓN is a 71 year old male with a history of hypertension and COPD who has had problems with back pain for the last 2 months. The patient is noted to have an L1 compression fracture. Patient reports over the last 2 months he has been having pain and since that Thanksgiving has had more pain. He reports he has had trouble getting up out of a chair because of his back pain and because of that he has been eating and drinking less. Patient reports that he is in a lot of pain and has a hard time getting up. He has had very little to eat or drink over the last 2 weeks. He fell out of his recliner chair this morning and when he presented to emergency room was found to be relatively hypotensive with blood pressures in the 80s. Patient also was found to have acute renal failure with a creatinine of 5. His creatinine 2 months ago was normal. The patient also was noted to have a positive troponin as well as elevated creatine kinase. Patient however has no cardiac history denies any chest pain. He does have COPD and continues to smoke about 1 pack per day. The patient does have BPH and takes Flomax for that. He also has been taking Naprosyn because of his chronic back pain. Patient is admitted for workup of acute renal failure." I inherited his care Saturday and found him very confused, believing he currently is in his new home in [facility] recently moved there from [facility]. He had no recollection of coming to the hospital or of recent events. Since admission he has been found to have multiple medical problems and worsening encephalopathy. He was started on low-dose scheduled Haldol and initially saw some improvement at least some stabilization of his behaviors however morning he is once again quite confused and actually hallucinating. Witnessed him carrying on a rather animated conversation with the chair in the corner. He is convinced there is a female sitting in the chair watching him and is very paranoid about what she might be doing. ROS: Unreliable due to patient's mental state. Reason For Visit: ACUTE RENAL FAILURE Physical Exam Vital Signs: Temp Pulse Resp BP Pulse Ox 97.8 F 94 18 113/70 95 04/05/17 07:34 04/05/17 07:34 04/05/17 07:34 04/05/17 07:34 04/05/17 07:34 Intake & Output 04/04/17 04/05/17 04/06/17 06:59 06:59 06:59 Intake Total 1950 3007 Output Total 2200 1575 Balance -250 1432 Weight 96 kg 96.7 kg General: I found him in bed in no acute distress, he is smiling and interactive with me and remains confused as noted above. Speech is clear. HEENT: Extractor muscles intact, sclera anicteric, oral mucosa moist, no oral lesions, neck muscles are supple. Respiratory: Coarse breath sounds without respiratory distress. No wheezes or rhonchi. No accessory muscle use. Cardiac: Regular rate and rhythm with soft 2/6 murmur heard best at the second left intercostal space before. Abdomen: Soft, nontender, nondistended, nontympanitic with good bowel sounds. Extremities: He moves all 4 extremities, he is currently wearing mittens because he can use to at lifelines and has previously removed 3 different PICC lines. He will follow simple one-step commands. Neuro: Deep tendon reflexes are 1+ at the patella bilaterally, speech is clear and there is no facial asymmetry. Psych: Actively hallucinating and very paranoid. Skin: Warm and dry. Results Laboratory Results: 04/05/17 05:42 04/05/17 05:42 04/05/17 04/05/17 05:42 05:42 WBC 7.0 RBC 3.30 L Hgb 9.9 L Hct 29.1 L MCV 88 MCH 30.2 MCHC 34.1 RDW 15.8 H Plt Count 174 Seg Neutrophils % 65.5 Lymphocytes % 18.4 Monocytes % 12.4 Eosinophils % 3.2 Basophils % 0.5 Absolute Neutrophils 4.6 Absolute Lymphocytes 1.3 Absolute Monocytes 0.9 Absolute Eosinophils 0.2 Absolute Basophils 0.0 Sodium 134.1 L Potassium 3.8 Chloride 103 Carbon Dioxide 26 Anion Gap 5 BUN 9 Creatinine 0.75 Est GFR ( Amer) > 60 Est GFR (Non-Af Amer) > 60 Glucose 333 H Calcium 7.9 L Magnesium 2.1 Total Bilirubin 0.3 AST 57 ALT 30 Alkaline Phosphatase 118 Total Protein 4.6 L Albumin 2.0 L Assessment & Plan - Diagnosis (1) Lung tumor Is this a current diagnosis for this admission?: Yes Plan: Not a candidate for further intervention diagnostic or treatment at this point due to his underlying medical problems. case discussed previously with oncology and she recommending placement for hospice and end of life care as he would not be a good long-term candidate for chemotherapy. Discussed with and his brother who agrees with this treatment plan. (2) Coagulopathy Is this a current diagnosis for this admission?: Yes Plan: Actually improved somewhat with vitamin K therapy though not back to normal, implying there was a nutritional component to this. (3) Encephalopathy Is this a current diagnosis for this admission?: Yes Plan: Unclear etiology but likely multifactorial from innumerable metabolic insults. There may also be some underlying or undiagnosed dementia. Unfortunately he is failed to clear completely with cessation of morphine therapy and resolution of many of the metabolic abnormalities. His current mental state is interfering with his care including physical therapy and occasionally with nursing staff interventions. He initially improved with low-dose Haldol will increase to 3 times daily dosing and monitor for effect. (4) Chronic back pain Qualifiers: Back pain location: low back pain Is this a current diagnosis for this admission?: Yes (5) Compression fracture Is this a current diagnosis for this admission?: Yes (6) Hypokalemia Is this a current diagnosis for this admission?: Yes (7) Non-STEMI (non-ST elevated myocardial infarction) Is this a current diagnosis for this admission?: Yes (8) Sacral decubitus ulcer Qualifiers: Pressure ulcer stage: stage 4 Qualified Code(s): L89.154 - Pressure ulcer of sacral region, stage 4 Is this a current diagnosis for this admission?: Yes (9) Acute renal failure (ARF) Qualifiers: Acute renal failure type: unspecified Qualified Code(s): N17.9 - Acute kidney failure, unspecified Is this a current diagnosis for this admission?: Yes (10) COPD (chronic obstructive pulmonary disease) Is this a current diagnosis for this admission?: Yes (11) Hypernatremia Is this a current diagnosis for this admission?: Yes (12) Rhabdomyolysis Qualifiers: Rhabdomyolysis type: traumatic Encounter type: initial encounter Qualified Code(s): T79.6XXA - Traumatic ischemia of muscle, initial encounter Is this a current diagnosis for this admission?: Yes (13) Multiple myeloma Is this a current diagnosis for this admission?: Yes (14) Hypothyroidism Is this a current diagnosis for this admission?: Yes (15) Hyperlipidemia Is this a current diagnosis for this admission?: Yes - Time Time Spent with patient: 25-34 minutes - Plan Summary Plan Summary: Awaiting placement options.
[2017-04-05] MEDS: ASPIRIN 81 MG TABLET, ENT COATED PO SCH (12:18)
[2017-04-05] MEDS: HALOPERIDOL 1 MG TABLET PO SCH ×2 (14:58→21:37)
[2017-04-05] MEDS: TAMSULOSIN HCL 0.4 MG CAP.SR.24H PO SCH (19:04)
[2017-04-05] MEDS: LIDOCAINE 5% (700 MG) TRANSDERMAL ADH..PATCH TP SCH (21:37)
[2017-04-05] MEDS: SIMVASTATIN 40 MG TABLET PO SCH (21:37)
[2017-04-06] MEDS: TRAMADOL HCL 50 MG TABLET PO PRN ×2 (04:43→15:28)
[2017-04-06] MEDS: HALOPERIDOL 1 MG TABLET PO SCH ×3 (05:10→23:02)
[2017-04-06] MEDS: LEVOTHYROXINE SODIUM 0.1 MG TABLET PO SCH (05:10)
[2017-04-06] MEDS: LEVOTHYROXINE SODIUM 0.075 MG TABLET PO SCH (05:10)
--- NOTE | 2017-04-06 10:03 | PDOC PROGRESS REPORT ---
Subjective Progress Note for:: 04/06/17 Subjective:: Patient was admitted on 03/21/2017, per H&P: "MARIELA DE LEÓN is a 71 year old male with a history of hypertension and COPD who has had problems with back pain for the last 2 months. The patient is noted to have an L1 compression fracture. Patient reports over the last 2 months he has been having pain and since that Thanksgiving has had more pain. He reports he has had trouble getting up out of a chair because of his back pain and because of that he has been eating and drinking less. Patient reports that he is in a lot of pain and has a hard time getting up. He has had very little to eat or drink over the last 2 weeks. He fell out of his recliner chair this morning and when he presented to emergency room was found to be relatively hypotensive with blood pressures in the 80s. Patient also was found to have acute renal failure with a creatinine of 5. His creatinine 2 months ago was normal. The patient also was noted to have a positive troponin as well as elevated creatine kinase. Patient however has no cardiac history denies any chest pain. He does have COPD and continues to smoke about 1 pack per day. The patient does have BPH and takes Flomax for that. He also has been taking Naprosyn because of his chronic back pain. Patient is admitted for workup of acute renal failure." I inherited his care Saturday and found him very confused, believing he currently was in his new home in [facility] recently moved there from [facility]. He had no recollection of coming to the hospital or of recent events. 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 He was started on low-dose scheduled Haldol and initially saw some improvement at least some stabilization of his behaviors however he remains quite confused and intermittently hallucinating. I witnessed him carrying on a rather animated conversation with the chair in the corner though he was convinced there was a female sitting in the chair watching him and became very paranoid about what she might be doing. Oncology has now signed off his case as he is not a candidate for tissue diagnosis let alone treatment due to his overall deconditioned and medically complex situation. His brother Ed has indicated no further investigation or invasive treatments as a result and reluctantly accepted a change in his care to more conservative approach. Ed is hopeful we can get him stable enough to at least pursue a final diagnosis but understands he may never improve enough for that or treatment of the results. [facility] and Cathy, manager case management, was working on trying to get him there for further eval and management or even palliative end of life care if possible but they have been reluctant to qualify him. I am titrating his meds to combat the encephalopathy and address any metabolic issues that arise in the meantime. ROS: Unreliable due to patient's mental state. Reason For Visit: ACUTE RENAL FAILURE Physical Exam Vital Signs: Temp Pulse Resp BP Pulse Ox 97.4 F 83 22 H 129/67 H 98 04/06/17 07:42 04/06/17 07:42 04/06/17 07:42 04/06/17 07:42 04/06/17 07:42 Intake & Output 04/05/17 04/06/17 04/07/17 06:59 06:59 06:59 Intake Total 3007 2200 0 Output Total 1575 1550 450 Balance 1432 650 -450 Weight 96.7 kg 96.4 kg General: I found him in bed in no acute distress, he is smiling and interactive with me and remains confused. Speech is more garbled again this morning. HEENT: Extractor muscles intact, sclera anicteric, oral mucosa moist, no oral lesions, neck muscles are supple. Respiratory: Coarse breath sounds without respiratory distress. No wheezes or rhonchi. No accessory muscle use. Cardiac: Regular rate and rhythm with soft 2/6 murmur heard best at the second left intercostal space before. Abdomen: Soft, nontender, nondistended, nontympanitic with good bowel sounds. last BM this morning. Extremities: He moves all 4 extremities, remains in mittens because he can use to at lifelines and has previously removed 3 different PICC lines. He will follow simple one-step commands. Neuro: Deep tendon reflexes are 1+ at the patella bilaterally, speech is clear and there is no facial asymmetry. Psych: still hallucinating and but no longer paranoid. Skin: Warm and dry. Results Laboratory Results: 04/05/17 05:42 04/05/17 05:42 03/21/17 03/21/17 03/22/17 19:51 19:51 02:05 Creatine Kinase 6234 H 6106 H CK-MB (CK-2) 47.80 H Troponin I 6.340 03/22/17 03/22/17 03/22/17 02:05 10:51 10:51 Creatine Kinase 6173 H CK-MB (CK-2) 43.30 H 37.10 H Troponin I 6.750 6.130 03/24/17 03/25/17 06:00 06:55 Creatine Kinase 2065 H 922 H CK-MB (CK-2) Troponin I Assessment & Plan - Diagnosis (1) Lung tumor Is this a current diagnosis for this admission?: Yes Plan: Not a candidate for further diagnostic intervention or treatment at this point due to his underlying medical problems. case discussed previously with oncology and she recommending placement for hospice and end of life care as he would not be a good long-term candidate for chemotherapy. Discussed with his brother who agrees with this treatment plan. (2) Coagulopathy Is this a current diagnosis for this admission?: Yes Plan: Actually improved somewhat with vitamin K therapy though not back to normal, implying there was a nutritional component to this. (3) Encephalopathy Is this a current diagnosis for this admission?: Yes Plan: Fluctuating course and Unclear etiology but likely multifactorial from innumerable metabolic insults. There may also be some underlying or undiagnosed dementia and/or intracranial involvement not seen on CT scan. Unfortunately he is failed to clear completely with cessation of morphine therapy and improvement in many of the metabolic abnormalities. His current mental state is interfering with his care including physical therapy and occasionally with nursing staff interventions, requiring soft mittens to maintain life lines, which he seems to tolerate very well. He initially improved with low-dose Haldol but increased to 3 times daily dosing for onset of the hallucinations; continue same and monitor for effect. (4) Compression fracture Is this a current diagnosis for this admission?: Yes Plan: likely pathologic. Continue physical therapy as tolerated. (5) Non-STEMI (non-ST elevated myocardial infarction) Is this a current diagnosis for this admission?: Yes Plan: Significant elevations of his troponins and CK-MB on arrival without diagnostic ischemic changes seen on EKG or echocardiogram. Given his multiple medical problems he is not a good candidate for invasive intervention at this time. Given the family's wishes to pursue more conservative measures and end-of-life care due to the above issues, it would seem appropriate to continue pharmaceutical management only at this time. They have agreed to forego invasive testing so it is safe to resume aspirin therapy at this time. Continue statin and beta-natalie therapy as tolerated. (6) Sacral decubitus ulcer Qualifiers: Pressure ulcer stage: stage 4 Qualified Code(s): L89.154 - Pressure ulcer of sacral region, stage 4 Is this a current diagnosis for this admission?: Yes Plan: Present on admission. Continue offloading and topical care. (7) Acute renal failure (ARF) Qualifiers: Acute renal failure type: unspecified Qualified Code(s): N17.9 - Acute kidney failure, unspecified Is this a current diagnosis for this admission?: Yes (8) COPD (chronic obstructive pulmonary disease) Is this a current diagnosis for this admission?: Yes (9) Hypernatremia Is this a current diagnosis for this admission?: Yes (10) Rhabdomyolysis Qualifiers: Rhabdomyolysis type: traumatic Encounter type: initial encounter Qualified Code(s): T79.6XXA - Traumatic ischemia of muscle, initial encounter Is this a current diagnosis for this admission?: Yes (11) Multiple myeloma Is this a current diagnosis for this admission?: Yes (12) Hypothyroidism Is this a current diagnosis for this admission?: Yes (13) Hyperlipidemia Is this a current diagnosis for this admission?: Yes (14) Hypokalemia Is this a current diagnosis for this admission?: Yes (15) Chronic back pain Qualifiers: Back pain location: low back pain Is this a current diagnosis for this admission?: Yes - Time Time Spent with patient: 25-34 minutes - Plan Summary Plan Summary: Awaiting placement options
[2017-04-06] MEDS: DEXTROSE 5%-1/4 NORMAL SALINE 1,000 ML IV PRN (11:16)
[2017-04-06] MEDS: NORMAL SALINE 10 ML SDV (SCHEDULED) IV SCH ×2 (11:18→23:03)
[2017-04-06] MEDS: MEGESTROL ACETATE SUSP 400 MG/10 ML UDCUP PO SCH (11:19)
[2017-04-06] MEDS: POTASSIUM CHLORIDE 10 MEQ TABLET.SA PO SCH ×2 (11:20→23:02)
[2017-04-06] MEDS: CYANOCOBALAMIN (VITAMIN B-12) 1,000 MCG TABLET PO SCH (11:20)
[2017-04-06] MEDS: CHOLECALCIFEROL (D3) 400 UNIT TABLET PO SCH (11:21)
[2017-04-06] MEDS: METOPROLOL TARTRATE 50 MG TABLET PO SCH ×2 (11:21→23:01)
[2017-04-06] MEDS: FAMOTIDINE 20 MG TABLET PO SCH ×2 (11:21→23:01)
[2017-04-06] MEDS: MAGNESIUM OXIDE 400 MG TABLET PO SCH ×2 (11:22→17:47)
[2017-04-06] MEDS: ASPIRIN 81 MG TABLET, ENT COATED PO SCH (11:23)
[2017-04-06] MEDS: TAMSULOSIN HCL 0.4 MG CAP.SR.24H PO SCH (17:47)
[2017-04-06] MEDS: SIMVASTATIN 40 MG TABLET PO SCH (23:02)
[2017-04-06] MEDS ORDERED: LIDOCAINE 5% (700 MG) TRANSDERMAL ADH..PATCH ONE (23:47)
[2017-04-07] MEDS: DEXTROSE 5%-1/4 NORMAL SALINE 1,000 ML IV PRN ×2 (00:04→14:29)
[2017-04-07] MEDS: LIDOCAINE 5% (700 MG) TRANSDERMAL ADH..PATCH TP SCH ×2 (05:19→21:45)
[2017-04-07 06:41] LABS: INTERNATIONAL RATION (INR) 1.12; PROTHROMBIN TIME 15.2 SEC (11.4-15.4)
[2017-04-07] MEDS: LEVOTHYROXINE SODIUM 0.1 MG TABLET PO SCH (06:41)
[2017-04-07] MEDS: LEVOTHYROXINE SODIUM 0.075 MG TABLET PO SCH (06:41)
[2017-04-07] MEDS: HALOPERIDOL 1 MG TABLET PO SCH ×3 (06:41→21:44)
[2017-04-07 06:49] LABS: HEMATOCRIT 31.2 % (37.9-51.0); HEMOGLOBIN 10.5 g/dL (13.5-17.0); MEAN CORPUSCULAR HEMOGLOBIN 29.8 pg (27.0-33.4); MEAN CORPUSCULAR HGB CONC 33.7 g/dL (32.0-36.0); MEAN CORPUSCULAR VOLUME 89 fl (80-97); PLATELET COUNT 198 10^3/uL (150-450); RED BLOOD COUNT 3.53 10^6/uL (4.35-5.55); RED CELL DISTRIBUTION WIDTH 15.7 % (11.5-14.0); WHITE BLOOD COUNT 6.3 10^3/uL (4.0-10.5)
[2017-04-07 07:07] LABS: BLOOD UREA NITROGEN 9 mg/dL (7-20); CALCIUM 8.8 mg/dL (8.4-10.2); CHLORIDE 107 mmol/L (98-107); GLUCOSE 83 mg/dL (75-110); POTASSIUM 4.4 mmol/L (3.6-5.0)
[2017-04-07 07:24] LABS: ANION GAP 5 (5-19); CARBON DIOXIDE 26 mmol/L (22-30); SODIUM 138.3 mmol/L (137-145)
[2017-04-07 07:39] LABS: ABSOLUTE MONOCYTES # (MANUAL) 0.6 10^3/uL (0.1-1.4); ABSOLUTE NEUTROPHILS# (MANUAL) 3.4 10^3/uL (1.7-8.2); BAND NEUTROPHILS % (MANUAL) 3 % (3-5); BASOPHILS % (MANUAL) 1 % (0-2); EOSINOPHILS % (MANUAL) 4 % (0-6); LYMPHOCYTES % (MANUAL) 32 % (13-45); MONOCYTES % (MANUAL) 9 % (3-13); PLATELET COMMENT ADEQUATE; RBC MORPHOLOGY COMMENT NORMO-CYTIC/CHROMIC; SEGMENTED NEUTROPHILS % (MAN) 51 % (42-78); TOTAL CELLS COUNTED 100
[2017-04-07] MEDS: POTASSIUM CHLORIDE 10 MEQ TABLET.SA PO SCH (09:35)
[2017-04-07] MEDS: MAGNESIUM OXIDE 400 MG TABLET PO SCH ×2 (09:35→18:08)
[2017-04-07] MEDS: NORMAL SALINE 10 ML SDV (SCHEDULED) IV SCH ×2 (09:35→21:44)
[2017-04-07] MEDS: FAMOTIDINE 20 MG TABLET PO SCH ×2 (09:35→21:45)
[2017-04-07] MEDS: METOPROLOL TARTRATE 50 MG TABLET PO SCH ×2 (09:35→21:44)
[2017-04-07] MEDS: CHOLECALCIFEROL (D3) 400 UNIT TABLET PO SCH (09:35)
[2017-04-07] MEDS: MEGESTROL ACETATE SUSP 400 MG/10 ML UDCUP PO SCH (09:36)
[2017-04-07] MEDS: CYANOCOBALAMIN (VITAMIN B-12) 1,000 MCG TABLET PO SCH (09:36)
[2017-04-07] MEDS: ASPIRIN 81 MG TABLET, ENT COATED PO SCH (11:57)
--- NOTE | 2017-04-07 17:25 | PDOC PROGRESS REPORT ---
Subjective Progress Note for:: 04/07/17 Subjective:: The patient is sitting up in bed. He is alert, but oriented to self only. Reason For Visit: ACUTE RENAL FAILURE Physical Exam Vital Signs: Temp Pulse Resp BP Pulse Ox 97.6 F 89 18 122/75 100 04/07/17 11:35 04/07/17 14:00 04/07/17 11:35 04/07/17 11:35 04/07/17 11:35 Intake & Output 04/06/17 04/07/17 04/08/17 06:59 06:59 06:59 Intake Total 2200 1875 Output Total 1550 2950 Balance 650 -1075 Weight 96.4 kg 96 kg General appearance: PRESENT: no acute distress Head exam: PRESENT: atraumatic, normocephalic Mouth exam: PRESENT: moist Respiratory exam: PRESENT: unlabored. ABSENT: accessory muscle use, crackles, rhonchi Cardiovascular exam: PRESENT: RRR GI/Abdominal exam: PRESENT: normal bowel sounds, soft. ABSENT: tenderness Rectal exam: PRESENT: deferred Neurological exam: PRESENT: alert. ABSENT: oriented to place, oriented to time , oriented to situation Results Laboratory Results: 04/07/17 06:05 04/07/17 06:05 04/07/17 04/07/17 06:05 06:05 WBC 6.3 RBC 3.53 L Hgb 10.5 L Hct 31.2 L MCV 89 MCH 29.8 MCHC 33.7 RDW 15.7 H Plt Count 198 Seg Neutrophils % Not Reportable Lymphocytes % Not Reportable Monocytes % Not Reportable Eosinophils % Not Reportable Basophils % Not Reportable Absolute Neutrophils Not Reportable Absolute Lymphocytes Not Reportable Absolute Monocytes Not Reportable Absolute Eosinophils Not Reportable Absolute Basophils Not Reportable Sodium 138.3 Potassium 4.4 Chloride 107 Carbon Dioxide 26 Anion Gap 5 BUN 9 Creatinine 0.76 Est GFR ( Amer) > 60 Est GFR (Non-Af Amer) > 60 Glucose 83 Calcium 8.8 Magnesium 2.0 03/21/17 03/21/17 03/22/17 19:51 19:51 02:05 Creatine Kinase 6234 H 6106 H CK-MB (CK-2) 47.80 H Troponin I 6.340 03/22/17 03/22/17 03/22/17 02:05 10:51 10:51 Creatine Kinase 6173 H CK-MB (CK-2) 43.30 H 37.10 H Troponin I 6.750 6.130 03/24/17 03/25/17 06:00 06:55 Creatine Kinase 2065 H 922 H CK-MB (CK-2) Troponin I Impressions: Lumbar Spine X-Ray 03/21/17 13:02 IMPRESSION: CHRONIC DEGENERATIVE CHANGES. THERE IS NEW MILD WEDGE DEFORMITY OF L1 CONSISTENT WITH RECENT COMPRESSION FRACTURE. Thoracic Spine X-Ray 03/21/17 13:02 IMPRESSION: Extensive spondylosis. Chest X-Ray 03/21/17 15:10 IMPRESSION: RIGHT UPPER LOBE DENSITY. THIS COULD BE DUE TO CHRONIC SCARRING VERSUS ACUTE INFILTRATE. Renal Ultrasound 03/22/17 00:00 IMPRESSION: Indeterminate 15 cm complex cystic components of the right lower abdomen; cannot exclude neoplasm. Further evaluation with IV and oral contrast CT of the abdomen and pelvis (renal protocol) series recommended. 2010 [employer]- All Rights Reserved PICC Line Exchange 03/26/17 00:00 IMPRESSION: SUCCESSFUL OVER THE WIRE REPLACEMENT OF YESTERDAY'S PICC FOR A NEW ONE THAT IS 5 FR DUAL LUMEN 45 CM PICC IN THE LEFT ARM. Lumbar Spine MRI 03/26/17 14:37 IMPRESSION: Pathologic compression deformities of the L1 and L2 vertebral bodies Guidance Fluoroscopy 03/28/17 00:00 IMPRESSION: SUCCESSFUL PLACEMENT OF A 5 FR DUAL LUMEN 40 CM PICC IN THE RIGHT BASILIC VEIN. Interventional Vascular Procedure 03/28/17 00:00 IMPRESSION: SUCCESSFUL PLACEMENT OF A 5 FR DUAL LUMEN 40 CM PICC IN THE RIGHT BASILIC VEIN. PICC Line Insertion 03/28/17 09:00 IMPRESSION: SUCCESSFUL PLACEMENT OF A 5 FR DUAL LUMEN 40 CM PICC IN THE RIGHT BASILIC VEIN. Abdomen/Pelvis CT 03/29/17 00:00 IMPRESSION: 1. Mediastinal and right hilar adenopathy with suspicious 5 cm right upper lobe lesion. Low density centrally within the mass likely represents cavitation. Abscess felt to be less likely. 2. Bilateral effusions and other changes as noted. IMPRESSION: 1. Large cystic lesion originates off the right renal lower pole with faint calcified thin septi. Likely Bosniak 2 lesion. Smaller indeterminate lesions in the left kidney. Given the lung findings noted above, doubt renal malignancy primary. 2. Pathologic lumbar spine fractures. 3. Right adrenal adenoma. Chest CT 03/29/17 00:00 IMPRESSION: 1. Mediastinal and right hilar adenopathy with suspicious 5 cm right upper lobe lesion. Low density centrally within the mass likely represents cavitation. Abscess felt to be less likely. 2. Bilateral effusions and other changes as noted. IMPRESSION: 1. Large cystic lesion originates off the right renal lower pole with faint calcified thin septi. Likely Bosniak 2 lesion. Smaller indeterminate lesions in the left kidney. Given the lung findings noted above, doubt renal malignancy primary. 2. Pathologic lumbar spine fractures. 3. Right adrenal adenoma. Head CT 03/29/17 00:00 IMPRESSION: 1. No acute or suspicious intracranial changes. No bone lesions detected in the skull. EVIDENCE OF ACUTE STROKE: NO. Assessment & Plan - Diagnosis (1) Acute renal failure (ARF) Qualifiers: Acute renal failure type: unspecified Qualified Code(s): N17.9 - Acute kidney failure, unspecified Is this a current diagnosis for this admission?: Yes (2) BPH (benign prostatic hyperplasia) Is this a current diagnosis for this admission?: Yes (3) COPD (chronic obstructive pulmonary disease) Is this a current diagnosis for this admission?: Yes (4) Hypothyroidism Is this a current diagnosis for this admission?: Yes (5) Lung tumor Is this a current diagnosis for this admission?: Yes (6) Multiple myeloma Is this a current diagnosis for this admission?: Yes - Time Time Spent with patient: 25-34 minutes - Plan Summary Plan Summary: Plan for eventual hospice discharge but needs [facility] evaluation first. Mittens on hands since attempts to remove Olivarez and PICC line
[2017-04-07] MEDS: TAMSULOSIN HCL 0.4 MG CAP.SR.24H PO SCH (18:08)
[2017-04-07] MEDS: SIMVASTATIN 40 MG TABLET PO SCH (21:45)
[2017-04-08] MEDS: HALOPERIDOL 1 MG TABLET PO SCH ×3 (05:26→23:45)
[2017-04-08] MEDS: LEVOTHYROXINE SODIUM 0.1 MG TABLET PO SCH (05:27)
[2017-04-08] MEDS: LEVOTHYROXINE SODIUM 0.075 MG TABLET PO SCH (05:27)
[2017-04-08] MEDS: FAMOTIDINE 20 MG TABLET PO SCH ×2 (10:29→23:45)
[2017-04-08] MEDS: CHOLECALCIFEROL (D3) 400 UNIT TABLET PO SCH (10:29)
[2017-04-08] MEDS: MAGNESIUM OXIDE 400 MG TABLET PO SCH ×2 (10:29→18:25)
[2017-04-08] MEDS: CYANOCOBALAMIN (VITAMIN B-12) 1,000 MCG TABLET PO SCH (10:29)
[2017-04-08] MEDS: METOPROLOL TARTRATE 50 MG TABLET PO SCH ×2 (10:29→23:45)
[2017-04-08] MEDS: MEGESTROL ACETATE SUSP 400 MG/10 ML UDCUP PO SCH (10:30)
[2017-04-08] MEDS: NORMAL SALINE 10 ML SDV (SCHEDULED) IV SCH ×2 (10:35→23:46)
[2017-04-08] MEDS: TRAMADOL HCL 50 MG TABLET PO PRN (10:37)
[2017-04-08] MEDS: DEXTROSE 5%-1/4 NORMAL SALINE 1,000 ML IV PRN ×2 (11:40→18:30)
--- NOTE | 2017-04-08 13:23 | PDOC PROGRESS REPORT ---
Subjective Progress Note for:: 04/08/17 Subjective:: 71-year-old gentleman with past medical history of COPD Hypertension Back pain due to L1 compression fracture for the past 2 months, taking naproxen at home. Continued tobacco use. BPH Presented to the hospital on March 21 with reduced p.o. intake and weakness. He was found to be hypotensive with a creatinine of 5 in the emergency room. During the course of his hospital stay he was found to have lung cancer with bony metastases and pathological lumbar spine fracture and worsening encephalopathy. He was being treated with some Haldol but continues to remain confused and has intermittent hallucinations. He was evaluated by the oncology service and they determined that he is not a candidate for diagnostic interventions and certainly not for any treatment given his overall deconditioning and medical comorbidities. His brother Ed also agrees. Since he is connected to the [place] is agreeable to pursuing hospice., Case management is trying to get him placed for hospice care. Reason For Visit: ACUTE RENAL FAILURE Physical Exam Vital Signs: Temp Pulse Resp BP Pulse Ox 98.1 F 74 21 H 106/68 100 04/08/17 12:00 04/08/17 12:00 04/08/17 12:00 04/08/17 12:47 04/08/17 12:00 Intake & Output 04/07/17 04/08/17 04/09/17 06:59 06:59 06:59 Intake Total 1875 2000 Output Total 2950 3350 Balance -1075 -1350 Weight 96 kg 90.6 kg Additional comments: Frail elderly gentleman sitting up in bed not in acute distress. He is awake and alert confused. Lungs:No accessory muscle use, coarse breath sounds bilaterally with no wheezing or crackles heard Cardiac: S1-S2 regular, systolic murmur heard in the left upper sternal border, no cyanosis no calf tenderness Abdomen: Soft, no focal tenderness normal bowel sounds Results Laboratory Results: 04/07/17 06:05 04/07/17 06:05 03/21/17 03/21/17 03/22/17 19:51 19:51 02:05 Creatine Kinase 6234 H 6106 H CK-MB (CK-2) 47.80 H Troponin I 6.340 03/22/17 03/22/17 03/22/17 02:05 10:51 10:51 Creatine Kinase 6173 H CK-MB (CK-2) 43.30 H 37.10 H Troponin I 6.750 6.130 03/24/17 03/25/17 06:00 06:55 Creatine Kinase 2065 H 922 H CK-MB (CK-2) Troponin I Impressions: Lumbar Spine X-Ray 03/21/17 13:02 IMPRESSION: CHRONIC DEGENERATIVE CHANGES. THERE IS NEW MILD WEDGE DEFORMITY OF L1 CONSISTENT WITH RECENT COMPRESSION FRACTURE. Thoracic Spine X-Ray 03/21/17 13:02 IMPRESSION: Extensive spondylosis. Chest X-Ray 03/21/17 15:10 IMPRESSION: RIGHT UPPER LOBE DENSITY. THIS COULD BE DUE TO CHRONIC SCARRING VERSUS ACUTE INFILTRATE. Renal Ultrasound 03/22/17 00:00 IMPRESSION: Indeterminate 15 cm complex cystic components of the right lower abdomen; cannot exclude neoplasm. Further evaluation with IV and oral contrast CT of the abdomen and pelvis (renal protocol) series recommended. 2010 [employer]- All Rights Reserved PICC Line Exchange 03/26/17 00:00 IMPRESSION: SUCCESSFUL OVER THE WIRE REPLACEMENT OF YESTERDAY'S PICC FOR A NEW ONE THAT IS 5 FR DUAL LUMEN 45 CM PICC IN THE LEFT ARM. Lumbar Spine MRI 03/26/17 14:37 IMPRESSION: Pathologic compression deformities of the L1 and L2 vertebral bodies Guidance Fluoroscopy 03/28/17 00:00 IMPRESSION: SUCCESSFUL PLACEMENT OF A 5 FR DUAL LUMEN 40 CM PICC IN THE RIGHT BASILIC VEIN. Interventional Vascular Procedure 03/28/17 00:00 IMPRESSION: SUCCESSFUL PLACEMENT OF A 5 FR DUAL LUMEN 40 CM PICC IN THE RIGHT BASILIC VEIN. PICC Line Insertion 03/28/17 09:00 IMPRESSION: SUCCESSFUL PLACEMENT OF A 5 FR DUAL LUMEN 40 CM PICC IN THE RIGHT BASILIC VEIN. Abdomen/Pelvis CT 03/29/17 00:00 IMPRESSION: 1. Mediastinal and right hilar adenopathy with suspicious 5 cm right upper lobe lesion. Low density centrally within the mass likely represents cavitation. Abscess felt to be less likely. 2. Bilateral effusions and other changes as noted. IMPRESSION: 1. Large cystic lesion originates off the right renal lower pole with faint calcified thin septi. Likely Bosniak 2 lesion. Smaller indeterminate lesions in the left kidney. Given the lung findings noted above, doubt renal malignancy primary. 2. Pathologic lumbar spine fractures. 3. Right adrenal adenoma. Chest CT 03/29/17 00:00 IMPRESSION: 1. Mediastinal and right hilar adenopathy with suspicious 5 cm right upper lobe lesion. Low density centrally within the mass likely represents cavitation. Abscess felt to be less likely. 2. Bilateral effusions and other changes as noted. IMPRESSION: 1. Large cystic lesion originates off the right renal lower pole with faint calcified thin septi. Likely Bosniak 2 lesion. Smaller indeterminate lesions in the left kidney. Given the lung findings noted above, doubt renal malignancy primary. 2. Pathologic lumbar spine fractures. 3. Right adrenal adenoma. Head CT 03/29/17 00:00 IMPRESSION: 1. No acute or suspicious intracranial changes. No bone lesions detected in the skull. EVIDENCE OF ACUTE STROKE: NO. Assessment & Plan - Diagnosis (1) Lung tumor Is this a current diagnosis for this admission?: Yes Plan: Not a candidate for diagnostic procedures or treatment. Hospice was recommended by the oncologist. His brother is agreeable with this plan. (2) Acute renal failure (ARF) Qualifiers: Acute renal failure type: unspecified Qualified Code(s): N17.9 - Acute kidney failure, unspecified Is this a current diagnosis for this admission?: Yes (3) BPH (benign prostatic hyperplasia) Is this a current diagnosis for this admission?: Yes (4) COPD (chronic obstructive pulmonary disease) Is this a current diagnosis for this admission?: Yes (5) Hypothyroidism Is this a current diagnosis for this admission?: Yes (6) Multiple myeloma Is this a current diagnosis for this admission?: Yes (7) Chronic back pain Qualifiers: Back pain location: low back pain Is this a current diagnosis for this admission?: Yes (8) Coagulopathy Is this a current diagnosis for this admission?: Yes (9) Encephalopathy Is this a current diagnosis for this admission?: Yes Plan: Use Haldol as needed. He has required mittens b ecause he has pulled out to PICC lines and attempts to take out his Olivarez. (10) Hypernatremia Is this a current diagnosis for this admission?: Yes (11) Rhabdomyolysis Qualifiers: Rhabdomyolysis type: traumatic Encounter type: initial encounter Qualified Code(s): T79.6XXA - Traumatic ischemia of muscle, initial encounter Is this a current diagnosis for this admission?: Yes (12) Sacral decubitus ulcer Qualifiers: Pressure ulcer stage: stage 4 Qualified Code(s): L89.154 - Pressure ulcer of sacral region, stage 4 Is this a current diagnosis for this admission?: Yes Plan: Was present on admission. Continue wound care and offloading. - Time Time Spent with patient: 25-34 minutes Disposition: Awaiting discharge to hospice.
[2017-04-08] MEDS: ASPIRIN 81 MG TABLET, CHEWABLE PO SCH (13:47)
[2017-04-08] MEDS: TAMSULOSIN HCL 0.4 MG CAP.SR.24H PO SCH (18:25)
[2017-04-08] MEDS: LIDOCAINE 5% (700 MG) TRANSDERMAL ADH..PATCH TP SCH (23:45)
[2017-04-09] MEDS: SIMVASTATIN 40 MG TABLET PO SCH ×2 (00:10→23:33)
[2017-04-09] MEDS: DEXTROSE 5%-1/4 NORMAL SALINE 1,000 ML IV PRN ×3 (03:30→17:45)
[2017-04-09] MEDS: HALOPERIDOL 1 MG TABLET PO SCH ×2 (07:29→15:08)
[2017-04-09] MEDS: LEVOTHYROXINE SODIUM 0.1 MG TABLET PO SCH (07:29)
[2017-04-09] MEDS: LEVOTHYROXINE SODIUM 0.075 MG TABLET PO SCH (07:30)
--- NOTE | 2017-04-09 10:30 | PDOC PROGRESS REPORT ---
Subjective Progress Note for:: 04/09/17 Subjective:: 71-year-old gentleman with past medical history of COPD Hypertension Back pain due to L1 compression fracture for the past 2 months, taking naproxen at home. Continued tobacco use. BPH Presented to the hospital on March 21 with reduced p.o. intake and weakness. He was found to be hypotensive with a creatinine of 5 in the emergency room. During the course of his hospital stay he was found to have lung cancer with bony metastases and pathological lumbar spine fracture and worsening encephalopathy. He was being treated with some Haldol but continues to remain confused and has intermittent hallucinations. He was evaluated by the oncology service and they determined that he is not a candidate for diagnostic interventions and certainly not for any treatment given his overall deconditioning and medical comorbidities. I spoke with his brother Tamela, . I updated him on his brother's condition, and he is agreeable to discharge with hospice. The patient is awake, but pleasantly confused. Physical Exam Vital Signs: Temp Pulse Resp BP Pulse Ox 97.5 F 89 20 127/99 H 99 04/09/17 07:56 04/09/17 07:56 04/09/17 07:56 04/09/17 07:56 04/09/17 03:47 Intake & Output 04/08/17 04/09/17 04/10/17 06:59 06:59 06:59 Intake Total 19997 Output Total 3350 3350 Balance -1350 -853 Weight 90.6 kg 88.6 kg Results Laboratory Results: 04/07/17 06:05 04/07/17 06:05 03/21/17 03/21/17 03/22/17 19:51 19:51 02:05 Creatine Kinase 6234 H 6106 H CK-MB (CK-2) 47.80 H Troponin I 6.340 03/22/17 03/22/17 03/22/17 02:05 10:51 10:51 Creatine Kinase 6173 H CK-MB (CK-2) 43.30 H 37.10 H Troponin I 6.750 6.130 03/24/17 03/25/17 06:00 06:55 Creatine Kinase 2065 H 922 H CK-MB (CK-2) Troponin I Impressions: Lumbar Spine X-Ray 03/21/17 13:02 IMPRESSION: CHRONIC DEGENERATIVE CHANGES. THERE IS NEW MILD WEDGE DEFORMITY OF L1 CONSISTENT WITH RECENT COMPRESSION FRACTURE. Thoracic Spine X-Ray 03/21/17 13:02 IMPRESSION: Extensive spondylosis. Chest X-Ray 03/21/17 15:10 IMPRESSION: RIGHT UPPER LOBE DENSITY. THIS COULD BE DUE TO CHRONIC SCARRING VERSUS ACUTE INFILTRATE. Renal Ultrasound 03/22/17 00:00 IMPRESSION: Indeterminate 15 cm complex cystic components of the right lower abdomen; cannot exclude neoplasm. Further evaluation with IV and oral contrast CT of the abdomen and pelvis (renal protocol) series recommended. 2010 [employer]- All Rights Reserved PICC Line Exchange 03/26/17 00:00 IMPRESSION: SUCCESSFUL OVER THE WIRE REPLACEMENT OF YESTERDAY'S PICC FOR A NEW ONE THAT IS 5 FR DUAL LUMEN 45 CM PICC IN THE LEFT ARM. Lumbar Spine MRI 03/26/17 14:37 IMPRESSION: Pathologic compression deformities of the L1 and L2 vertebral bodies Guidance Fluoroscopy 03/28/17 00:00 IMPRESSION: SUCCESSFUL PLACEMENT OF A 5 FR DUAL LUMEN 40 CM PICC IN THE RIGHT BASILIC VEIN. Interventional Vascular Procedure 03/28/17 00:00 IMPRESSION: SUCCESSFUL PLACEMENT OF A 5 FR DUAL LUMEN 40 CM PICC IN THE RIGHT BASILIC VEIN. PICC Line Insertion 03/28/17 09:00 IMPRESSION: SUCCESSFUL PLACEMENT OF A 5 FR DUAL LUMEN 40 CM PICC IN THE RIGHT BASILIC VEIN. Abdomen/Pelvis CT 03/29/17 00:00 IMPRESSION: 1. Mediastinal and right hilar adenopathy with suspicious 5 cm right upper lobe lesion. Low density centrally within the mass likely represents cavitation. Abscess felt to be less likely. 2. Bilateral effusions and other changes as noted. IMPRESSION: 1. Large cystic lesion originates off the right renal lower pole with faint calcified thin septi. Likely Bosniak 2 lesion. Smaller indeterminate lesions in the left kidney. Given the lung findings noted above, doubt renal malignancy primary. 2. Pathologic lumbar spine fractures. 3. Right adrenal adenoma. Chest CT 03/29/17 00:00 IMPRESSION: 1. Mediastinal and right hilar adenopathy with suspicious 5 cm right upper lobe lesion. Low density centrally within the mass likely represents cavitation. Abscess felt to be less likely. 2. Bilateral effusions and other changes as noted. IMPRESSION: 1. Large cystic lesion originates off the right renal lower pole with faint calcified thin septi. Likely Bosniak 2 lesion. Smaller indeterminate lesions in the left kidney. Given the lung findings noted above, doubt renal malignancy primary. 2. Pathologic lumbar spine fractures. 3. Right adrenal adenoma. Head CT 03/29/17 00:00 IMPRESSION: 1. No acute or suspicious intracranial changes. No bone lesions detected in the skull. EVIDENCE OF ACUTE STROKE: NO. Assessment & Plan - Diagnosis (1) Lung tumor Is this a current diagnosis for this admission?: Yes (2) Acute renal failure (ARF) Qualifiers: Acute renal failure type: unspecified Qualified Code(s): N17.9 - Acute kidney failure, unspecified Is this a current diagnosis for this admission?: Yes (3) BPH (benign prostatic hyperplasia) Is this a current diagnosis for this admission?: Yes (4) COPD (chronic obstructive pulmonary disease) Is this a current diagnosis for this admission?: Yes (5) Hypothyroidism Is this a current diagnosis for this admission?: Yes (6) Chronic back pain Qualifiers: Back pain location: low back pain Is this a current diagnosis for this admission?: Yes (7) Encephalopathy Is this a current diagnosis for this admission?: Yes (8) Hypernatremia Is this a current diagnosis for this admission?: Yes Plan: Improved (9) Rhabdomyolysis Qualifiers: Rhabdomyolysis type: traumatic Encounter type: initial encounter Qualified Code(s): T79.6XXA - Traumatic ischemia of muscle, initial encounter Is this a current diagnosis for this admission?: Yes (10) Sacral decubitus ulcer Qualifiers: Pressure ulcer stage: stage 4 Qualified Code(s): L89.154 - Pressure ulcer of sacral region, stage 4 Is this a current diagnosis for this admission?: Yes Plan: Present on admission. Continue wound care and offloading. - Time Time Spent with patient: 15-24 minutes - Plan Summary Plan Summary: Awaiting disposition.
[2017-04-09] MEDS: ASPIRIN 81 MG TABLET, CHEWABLE PO SCH (11:46)
[2017-04-09] MEDS: MEGESTROL ACETATE SUSP 400 MG/10 ML UDCUP PO SCH (11:46)
[2017-04-09] MEDS: FAMOTIDINE 20 MG TABLET PO SCH ×2 (11:46→23:33)
[2017-04-09] MEDS: MAGNESIUM OXIDE 400 MG TABLET PO SCH ×2 (11:46→18:02)
[2017-04-09] MEDS: CYANOCOBALAMIN (VITAMIN B-12) 1,000 MCG TABLET PO SCH (11:46)
[2017-04-09] MEDS: CHOLECALCIFEROL (D3) 400 UNIT TABLET PO SCH (11:46)
[2017-04-09] MEDS: NORMAL SALINE 10 ML SDV (SCHEDULED) IV SCH ×2 (11:49→23:33)
[2017-04-09] MEDS: METOPROLOL TARTRATE 50 MG TABLET PO SCH ×2 (11:51→23:33)
--- NOTE | 2017-04-09 17:05 | PSYCHOLOGICAL NOTE ---
Psych Note - Psych Note Psych Note: After chart review this clinician does not feel an accurate capacity can be obtained at this time given his alert, oriented and cognizant presentation 03/21 and the first couple days. Labs appeared to indicate a UTI initially which can cause and/or exacerbate aggression, psychosis and confusion in the elderly population. When he became confused he was ordered and administered Haldol. Though the initial low dose may have been effective continued scheduled doses at TID can also cause and/or exacerbate aggression, psychosis and confusion in the elderly population. Spoke to both the attending supply planner and hospitalist regarding plan of care for patient.
[2017-04-09] MEDS: TAMSULOSIN HCL 0.4 MG CAP.SR.24H PO SCH (18:02)
[2017-04-09] MEDS ORDERED: BUSPIRONE HCL 10 MG TABLET PO ONE (18:30)
[2017-04-09] MEDS ORDERED: DIVALPROEX SODIUM 250 MG TABLET.DR PO ONE (19:00)
[2017-04-10] MEDS: DEXTROSE 5%-1/4 NORMAL SALINE 1,000 ML IV PRN (02:30)
[2017-04-10] MEDS: LEVOTHYROXINE SODIUM 0.075 MG TABLET PO SCH (06:24)
[2017-04-10] MEDS: LEVOTHYROXINE SODIUM 0.1 MG TABLET PO SCH (06:24)
[2017-04-10] MEDS ORDERED: LIDOCAINE 5% (700 MG) TRANSDERMAL ADH..PATCH TP SCH (10:00)
[2017-04-10] MEDS: BUSPIRONE HCL 10 MG TABLET PO SCH ×2 (10:31→17:39)
[2017-04-10] MEDS: MEGESTROL ACETATE SUSP 400 MG/10 ML UDCUP PO SCH (10:31)
[2017-04-10] MEDS: METOPROLOL TARTRATE 50 MG TABLET PO SCH ×2 (10:31→23:23)
[2017-04-10] MEDS: CHOLECALCIFEROL (D3) 400 UNIT TABLET PO SCH (10:31)
[2017-04-10] MEDS: FAMOTIDINE 20 MG TABLET PO SCH ×2 (10:31→23:22)
[2017-04-10] MEDS: CYANOCOBALAMIN (VITAMIN B-12) 1,000 MCG TABLET PO SCH (10:31)
[2017-04-10] MEDS: MAGNESIUM OXIDE 400 MG TABLET PO SCH ×2 (10:31→17:45)
[2017-04-10] MEDS: NORMAL SALINE 10 ML SDV (SCHEDULED) IV SCH ×2 (10:32→23:15)
[2017-04-10] MEDS ORDERED: DIVALPROEX SODIUM 250 MG TABLET.DR PO SCH (11:00)
--- NOTE | 2017-04-10 12:28 | PDOC PROGRESS REPORT ---
Subjective Progress Note for:: 04/10/17 Subjective:: The patient is seen on morning rounds. He is sitting upright in bed with mittens on secondary to pulling at his PICC and Olivarez. He is difficult to understand, but conversational. He is oriented to himself, location, and the year 1967. He does tell me that he has been told that he has lung cancer that has spread and "meds and cancer doctors cannot accomplish anything." He states that he has not thought about end-of-life care and decisions, however, "I trust my brother" to assist him through this process. His only complaint at present is back pain related to positioning in the bed. Reason For Visit: ACUTE RENAL FAILURE Physical Exam Vital Signs: Temp Pulse Resp BP Pulse Ox 97.4 F 88 24 H 112/80 98 04/10/17 07:30 04/10/17 07:30 04/10/17 07:30 04/10/17 07:30 04/10/17 07:30 Intake & Output 04/09/17 04/10/17 04/11/17 06:59 06:59 06:59 Intake Total 2497 989 Output Total 3350 1850 Balance -853 -861 Weight 88.6 kg 86.7 kg General appearance: PRESENT: no acute distress, well-developed, well-nourished, other - Overweight Head exam: PRESENT: atraumatic, normocephalic Eye exam: PRESENT: conjunctiva pink, EOMI, PERRLA. ABSENT: scleral icterus Ear exam: PRESENT: normal external ear exam Mouth exam: PRESENT: moist, tongue midline Neck exam: ABSENT: carotid bruit, JVD, lymphadenopathy, thyromegaly Respiratory exam: PRESENT: clear to auscultation cierra, other - Coarse breath sounds bilaterally. ABSENT: crackles, rales, wheezes Cardiovascular exam: PRESENT: RRR, systolic murmur. ABSENT: diastolic murmur, rubs Pulses: PRESENT: normal dorsalis pedis pul Vascular exam: PRESENT: normal capillary refill GI/Abdominal exam: PRESENT: normal bowel sounds, soft. ABSENT: distended, guarding, mass, organolmegaly, rebound, tenderness Rectal exam: PRESENT: deferred Extremities exam: PRESENT: full ROM. ABSENT: calf tenderness, clubbing, pedal edema Neurological exam: PRESENT: alert, awake, oriented to person, oriented to place , oriented to situation, CN II-XII grossly intact, other - Speech is difficult to understand. ABSENT: oriented to time - 1969; reorientate easily, motor sensory deficit Psychiatric exam: PRESENT: appropriate affect, normal mood. ABSENT: homicidal ideation, suicidal ideation Skin exam: PRESENT: dry, intact, warm. ABSENT: cyanosis, rash Results Laboratory Results: 04/07/17 06:05 04/07/17 06:05 03/21/17 03/21/17 03/22/17 19:51 19:51 02:05 Creatine Kinase 6234 H 6106 H CK-MB (CK-2) 47.80 H Troponin I 6.340 03/22/17 03/22/17 03/22/17 02:05 10:51 10:51 Creatine Kinase 6173 H CK-MB (CK-2) 43.30 H 37.10 H Troponin I 6.750 6.130 03/24/17 03/25/17 06:00 06:55 Creatine Kinase 2065 H 922 H CK-MB (CK-2) Troponin I Impressions: Lumbar Spine X-Ray 03/21/17 13:02 IMPRESSION: CHRONIC DEGENERATIVE CHANGES. THERE IS NEW MILD WEDGE DEFORMITY OF L1 CONSISTENT WITH RECENT COMPRESSION FRACTURE. Thoracic Spine X-Ray 03/21/17 13:02 IMPRESSION: Extensive spondylosis. Chest X-Ray 03/21/17 15:10 IMPRESSION: RIGHT UPPER LOBE DENSITY. THIS COULD BE DUE TO CHRONIC SCARRING VERSUS ACUTE INFILTRATE. Renal Ultrasound 03/22/17 00:00 IMPRESSION: Indeterminate 15 cm complex cystic components of the right lower abdomen; cannot exclude neoplasm. Further evaluation with IV and oral contrast CT of the abdomen and pelvis (renal protocol) series recommended. 2010 [employer]- All Rights Reserved PICC Line Exchange 03/26/17 00:00 IMPRESSION: SUCCESSFUL OVER THE WIRE REPLACEMENT OF YESTERDAY'S PICC FOR A NEW ONE THAT IS 5 FR DUAL LUMEN 45 CM PICC IN THE LEFT ARM. Lumbar Spine MRI 03/26/17 14:37 IMPRESSION: Pathologic compression deformities of the L1 and L2 vertebral bodies Guidance Fluoroscopy 03/28/17 00:00 IMPRESSION: SUCCESSFUL PLACEMENT OF A 5 FR DUAL LUMEN 40 CM PICC IN THE RIGHT BASILIC VEIN. Interventional Vascular Procedure 03/28/17 00:00 IMPRESSION: SUCCESSFUL PLACEMENT OF A 5 FR DUAL LUMEN 40 CM PICC IN THE RIGHT BASILIC VEIN. PICC Line Insertion 03/28/17 09:00 IMPRESSION: SUCCESSFUL PLACEMENT OF A 5 FR DUAL LUMEN 40 CM PICC IN THE RIGHT BASILIC VEIN. Abdomen/Pelvis CT 03/29/17 00:00 IMPRESSION: 1. Mediastinal and right hilar adenopathy with suspicious 5 cm right upper lobe lesion. Low density centrally within the mass likely represents cavitation. Abscess felt to be less likely. 2. Bilateral effusions and other changes as noted. IMPRESSION: 1. Large cystic lesion originates off the right renal lower pole with faint calcified thin septi. Likely Bosniak 2 lesion. Smaller indeterminate lesions in the left kidney. Given the lung findings noted above, doubt renal malignancy primary. 2. Pathologic lumbar spine fractures. 3. Right adrenal adenoma. Chest CT 03/29/17 00:00 IMPRESSION: 1. Mediastinal and right hilar adenopathy with suspicious 5 cm right upper lobe lesion. Low density centrally within the mass likely represents cavitation. Abscess felt to be less likely. 2. Bilateral effusions and other changes as noted. IMPRESSION: 1. Large cystic lesion originates off the right renal lower pole with faint calcified thin septi. Likely Bosniak 2 lesion. Smaller indeterminate lesions in the left kidney. Given the lung findings noted above, doubt renal malignancy primary. 2. Pathologic lumbar spine fractures. 3. Right adrenal adenoma. Head CT 03/29/17 00:00 IMPRESSION: 1. No acute or suspicious intracranial changes. No bone lesions detected in the skull. EVIDENCE OF ACUTE STROKE: NO. Assessment & Plan - Diagnosis (1) Encephalopathy Is this a current diagnosis for this admission?: Yes Plan: Multifactorial; patient with new diagnosis of lung cancer with metastases, who on admission presented with acute renal failure secondary to rhabdomyolysis and UTI. Additionally, the patient required medications for agitation that may have further worsened his clarity. He head CT on 03/29/17 did not demonstrate acute or suspicious intracranial changes or bone lesions detected in the skull. Haldol has been discontinued. The patient has been started on BuSpar and Depakote per psychology's recommendations. We will repeat a UA today to rule out recurrent UTI as a possible exacerbating factor. The patient remains in soft mitten restrains secondary to multiple PICC line removals. We will continue to provide for patient safety. (2) Lung tumor Is this a current diagnosis for this admission?: Yes Plan: During the course of the patient's stay, he was found to have lung cancer with bony metastasis and a pathological lumbar spine fracture. Oncology has been consulted and have determined that he is not a candidate for diagnostic interventions and certainly not for treatment given his overall deconditioning and medical core morbidities. The patient's brother, Alo Manjarrez, has been contacted by physician and psychotherapist social worker given that the patient's encephalopathy complicates his ability to make self-care determination. Psychology has been asked to evaluate for capacity. At this time, family has elected to pursue inpatient hospice services. Appreciate discharge planning's assistance with determining eligibility and placement. (3) Anemia Is this a current diagnosis for this admission?: Yes Plan: Anemia of chronic disease in the setting of lung cancer with bone metastasis. Hemoglobin appears to be stable. No evidence of active blood loss. We will continue to monitor. (4) Acute renal failure (ARF) Qualifiers: Acute renal failure type: unspecified Qualified Code(s): N17.9 - Acute kidney failure, unspecified Is this a current diagnosis for this admission?: Yes Plan: Present on admission secondary to rhabdomyolysis after a fall and prolonged immobility. Patient's creatinine is currently 0.76. We will ensure adequate hydration and avoid nephrotoxic medications. (5) BPH (benign prostatic hyperplasia) Is this a current diagnosis for this admission?: Yes Plan: Continue Flomax. (6) COPD (chronic obstructive pulmonary disease) Is this a current diagnosis for this admission?: Yes Plan: The patient is a 1 pack per day smoker. Smoking cessation is encouraged. He is agreeable to nicotine replacement therapy today. Will provide nebulizers as needed. (7) Chronic back pain Qualifiers: Back pain location: low back pain Is this a current diagnosis for this admission?: Yes Plan: Pain is managed with Tylenol and Tramadol as needed. Will add in lidocaine patch as I am concerned that the patient will not be capable of asking for as needed doses and would benefit from a slow release, non-sedating, medication. (8) Hypernatremia Is this a current diagnosis for this admission?: Yes Plan: Resolved. We will continue to monitor with daily BMP. (9) Hypothyroidism Is this a current diagnosis for this admission?: Yes Plan: TSH is appropriate at 2.10. We will continue home dose Synthroid. (10) Rhabdomyolysis Qualifiers: Rhabdomyolysis type: traumatic Encounter type: initial encounter Qualified Code(s): T79.6XXA - Traumatic ischemia of muscle, initial encounter Is this a current diagnosis for this admission?: Yes Plan: Resolved. This was secondary to a fall at home and prolonged immobility immediately prior to his evaluation in the ER and leading to his admission. (11) Sacral decubitus ulcer Qualifiers: Pressure ulcer stage: stage 4 Qualified Code(s): L89.154 - Pressure ulcer of sacral region, stage 4 Is this a current diagnosis for this admission?: Yes Plan: Present on admission. Continue wound care and offloading. Patient is been placed on an [employer] specialty mattress.
[2017-04-10] MEDS: ASPIRIN 81 MG TABLET, CHEWABLE PO SCH (12:44)
[2017-04-10 15:04] LABS: HEMATOCRIT 34.2 % (37.9-51.0); HEMOGLOBIN 11.4 g/dL (13.5-17.0); MEAN CORPUSCULAR HEMOGLOBIN 29.2 pg (27.0-33.4); MEAN CORPUSCULAR HGB CONC 33.4 g/dL (32.0-36.0); MEAN CORPUSCULAR VOLUME 88 fl (80-97); PLATELET COUNT 256 10^3/uL (150-450); RED BLOOD COUNT 3.91 10^6/uL (4.35-5.55); RED CELL DISTRIBUTION WIDTH 15.7 % (11.5-14.0); WHITE BLOOD COUNT 8.8 10^3/uL (4.0-10.5)
[2017-04-10 15:16] LABS: ANION GAP 6 (5-19); BLOOD UREA NITROGEN 9 mg/dL (7-20); CALCIUM 9.5 mg/dL (8.4-10.2); CARBON DIOXIDE 27 mmol/L (22-30); CHLORIDE 107 mmol/L (98-107); GLUCOSE 82 mg/dL (75-110); POTASSIUM 4.2 mmol/L (3.6-5.0); SODIUM 140.4 mmol/L (137-145)
--- NOTE | 2017-04-10 16:05 | PDOC TRANSFER SUMMARY ---
General - Admit/Disc Date/PCP Admission Date/Primary Care Provider: 03/21/17 18:27 Discharge Date: 04/10/17 - Discharge Diagnosis (1) Encephalopathy Is this a current diagnosis for this admission?: Yes Summary: Multifactorial; patient with new diagnosis of lung cancer with metastasis to on admission presented with acute renal failure secondary to rhabdomyolysis and UTI. Patient required medications for agitation further worsened his mental clarity. He had a head CT on 03/29/17 that did not demonstrate to acute or suspicious intracranial changes or bone lesions. Also has been discontinued and the patient was started on BuSpar and Depakote last night per psychologist recommendations with slight improvement in mental clarity early this morning. However, at present the patient oriented to self only. The patient remains in bilateral mitten restraints secondary to multiple PICC line removals. Repeat laboratory evaluation was done this afternoon to rule out recurrent infectious processes; WBCs are normal, chemistry is normal. At time of dictation urinalysis is pending. (2) Lung tumor Is this a current diagnosis for this admission?: Yes Summary: During the course of the patient's today, he was found to have lung cancer with bony metastasis in the pathological lumbar spine fracture. Oncology was consulted and determined that he was not a candidate for diagnostic interventions or treatment given his overall deconditioning and medical comorbidities. The patient's family members have elected to pursue inpatient hospice services. (3) Anemia Is this a current diagnosis for this admission?: Yes Summary: Anemia of chronic disease in the setting of lung cancer with bone metastasis. Hemoglobin has been stable at 10-11 with no evidence of active blood loss. (4) Acute renal failure (ARF) Is this a current diagnosis for this admission?: Yes Summary: Resolved; present on admission secondary rhabdomyolysis after a fall and prolonged immobility. The patient's creatinine has returned to its baseline of 0.8. (5) BPH (benign prostatic hyperplasia) Is this a current diagnosis for this admission?: Yes Summary: The patient's Flomax was continued. He currently has a Olivarez in place. He will be discharged with the Olivarez as he is now a hospice patient. (6) COPD (chronic obstructive pulmonary disease) Is this a current diagnosis for this admission?: Yes Summary: The patient is a 1-2 pack per day smoker. Smoking cessation was encouraged. This morning the patient was agreeable to nicotine replacement therapy. No evidence of active COPD exacerbation. He was provided nebulizers as needed for shortness of breath, wheezing, cough. (7) Chronic back pain Is this a current diagnosis for this admission?: Yes Summary: The patient's chronic back pain has been managed with as needed Tylenol and Motrin. He has also been provided lidocaine patches. (8) Hypothyroidism Is this a current diagnosis for this admission?: Yes Summary: TSH is appropriate at 2.10. He is continued on his home dose of Synthroid. (9) Rhabdomyolysis Is this a current diagnosis for this admission?: Yes Summary: Resolved: Secondary to follow home with prolonged immobility. (10) Sacral decubitus ulcer Is this a current diagnosis for this admission?: Yes Summary: Present on admission. The patient did undergo surgical excisional debridement of the skin and subcutaneous tissue and fascia from the stage IV sacral decubitus on 03/25/17. The wound has been managed with Santyl ointment and a pressure offloading. (11) Hypernatremia Is this a current diagnosis for this admission?: Yes Summary: Resolved. - Additional Information Resuscitation Status: Do Not Resuscitate Discharge Diet: As Tolerated, Cardiac Discharge Activity: Activity As Tolerated Home Medications: Cholecalciferol (Vitamin D3) [Vitamin D3 400 Unit Tablet] 400 unit PO DAILY 10/29 Cyanocobalamin (Vitamin B-12) [Vitamin B-12] 500 mcg PO DAILY 03/21/17 Levothyroxine Sodium [Synthroid] 175 mcg PO DAILY 03/21/17 Metoprolol Tartrate [Lopressor 50 mg Tablet] 50 mg PO Q12 03/21/17 Simvastatin [Zocor 40 mg Tablet] 40 mg PO QHS 03/21/17 Tamsulosin HCl [Flomax 0.4 mg Cap.sr] 0.4 mg PO QHS 03/21/17 Acetaminophen [Tylenol 325 mg Tablet] 650 mg PO Q4HP PRN tablet 04/10/17 Aspirin [Aspirin 81 mg Chewable Tablet] 81 mg PO DAILY@1200 tab.chew 04/10/17 Buspirone HCl [Buspar 10 mg Tablet] 5 mg PO BID tablet 04/10/17 Collagenase Clostridium Hist. [Santyl Ointment 30 gm] 1 applic TP ASDIR tube Docusate Sodium [Colace 100 mg Capsule] 100 mg PO BIDP PRN capsule 04/10/17 Famotidine [Pepcid 20 mg Tablet] 20 mg PO Q12 tablet 04/10/17 Ipratropium/Albuterol Sulfate [Duoneb 3 ml Ampul] 3 ml NEB RTQ6HP PRN vial.neb 04/10/17 Lidocaine [Lidoderm 5% (700 mg) Transdermal Patch] 1 patch TP DAILY adh..patch 04/10/17 Magnesium Oxide [Mag-Ox 400 mg Tablet] 400 mg PO BID tablet 04/10/17 Nicotine [Nicoderm 14 mg/24 Hr Transdermal Patch] 1 each TD DAILY patch.[id number] History of Present Illness Admission Date/PCP: 03/21/17 18:27 History of Present Illness: Mr. De León states that he cannot remember why he came to the hospital. He is confused and his family is not currently at bedside. All of his history has been obtained through nurses and hospital records. According to his records: MARIELA DE LEÓN is a 71 year old male with a history of hypertension and COPD who has had problems with back pain for the last 2 months. He fell out of his recliner chair the morning of admission and when he presented to emergency room was found to be relatively hypotensive with blood pressures in the 80s. His blood pressure for the last 24 hours noted here was 60/46. He continued to have low blood pressure and was also found to have acute renal failure with a creatinine of 5. His creatinine 2 months ago was normal. Apparently, he had not been eating or drinking well at home. MRI of his spine showed a pathologic compression fracture L1-L2. CT shows a cystic mass at the kidney - suspicious for malignancy. CXR showed possible lung mass. His Cr has improved and his CK has also improved with hydration. He remains confused today. Physical Exam Vital Signs: Temp Pulse Resp BP Pulse Ox 97.6 F 80 20 124/77 98 04/10/17 11:06 04/10/17 11:06 04/10/17 11:06 04/10/17 11:06 04/10/17 11:06 Intake & Output 04/09/17 04/10/17 04/11/17 06:59 06:59 06:59 Intake Total 2497 989 50 Output Total 3350 1850 400 Balance -853 -861 -350 Weight 88.6 kg 86.7 kg General appearance: PRESENT: no acute distress, disheveled, hard of hearing, well-developed, well-nourished, other - Overweight Head exam: PRESENT: atraumatic, normocephalic Eye exam: PRESENT: conjunctiva pink, EOMI, PERRLA. ABSENT: scleral icterus Ear exam: PRESENT: normal external ear exam Mouth exam: PRESENT: moist, tongue midline Neck exam: ABSENT: carotid bruit, JVD, lymphadenopathy, thyromegaly Respiratory exam: PRESENT: clear to auscultation cierra, decreased breath sounds - Bibasilar, rhonchi, symmetrical, unlabored. ABSENT: rales, wheezes Cardiovascular exam: PRESENT: RRR, systolic murmur. ABSENT: diastolic murmur, rubs Pulses: PRESENT: normal dorsalis pedis pul Vascular exam: PRESENT: normal capillary refill GI/Abdominal exam: PRESENT: normal bowel sounds, soft. ABSENT: distended, guarding, mass, organolmegaly, rebound, tenderness Rectal exam: PRESENT: deferred Extremities exam: PRESENT: full ROM. ABSENT: calf tenderness, clubbing, pedal edema Neurological exam: PRESENT: alert, awake, oriented to person, oriented to place , oriented to situation, CN II-XII grossly intact, other - Difficult speech. ABSENT: oriented to time - 1969, motor sensory deficit Psychiatric exam: PRESENT: appropriate affect, normal mood. ABSENT: homicidal ideation, suicidal ideation Skin exam: PRESENT: dry, warm. ABSENT: cyanosis, intact - Stage IV sacral decubitus ulcer, rash Results Laboratory Results: 04/10/17 14:45 04/10/17 14:45 04/10/17 04/10/17 14:45 14:45 WBC 8.8 RBC 3.91 L Hgb 11.4 L Hct 34.2 L MCV 88 MCH 29.2 MCHC 33.4 RDW 15.7 H Plt Count 256 Sodium 140.4 Potassium 4.2 Chloride 107 Carbon Dioxide 27 Anion Gap 6 BUN 9 Creatinine 0.83 Est GFR ( Amer) > 60 Est GFR (Non-Af Amer) > 60 Glucose 82 Calcium 9.5 03/21/17 03/21/17 03/22/17 19:51 19:51 02:05 Creatine Kinase 6234 H 6106 H CK-MB (CK-2) 47.80 H Troponin I 6.340 03/22/17 03/22/17 03/22/17 02:05 10:51 10:51 Creatine Kinase 6173 H CK-MB (CK-2) 43.30 H 37.10 H Troponin I 6.750 6.130 03/24/17 03/25/17 06:00 06:55 Creatine Kinase 2065 H 922 H CK-MB (CK-2) Troponin I Impressions: Lumbar Spine X-Ray 03/21/17 13:02 IMPRESSION: CHRONIC DEGENERATIVE CHANGES. THERE IS NEW MILD WEDGE DEFORMITY OF L1 CONSISTENT WITH RECENT COMPRESSION FRACTURE. Thoracic Spine X-Ray 03/21/17 13:02 IMPRESSION: Extensive spondylosis. Chest X-Ray 03/21/17 15:10 IMPRESSION: RIGHT UPPER LOBE DENSITY. THIS COULD BE DUE TO CHRONIC SCARRING VERSUS ACUTE INFILTRATE. Renal Ultrasound 03/22/17 00:00 IMPRESSION: Indeterminate 15 cm complex cystic components of the right lower abdomen; cannot exclude neoplasm. Further evaluation with IV and oral contrast CT of the abdomen and pelvis (renal protocol) series recommended. 2010 [employer]- All Rights Reserved PICC Line Exchange 03/26/17 00:00 IMPRESSION: SUCCESSFUL OVER THE WIRE REPLACEMENT OF YESTERDAY'S PICC FOR A NEW ONE THAT IS 5 FR DUAL LUMEN 45 CM PICC IN THE LEFT ARM. Lumbar Spine MRI 03/26/17 14:37 IMPRESSION: Pathologic compression deformities of the L1 and L2 vertebral bodies Guidance Fluoroscopy 03/28/17 00:00 IMPRESSION: SUCCESSFUL PLACEMENT OF A 5 FR DUAL LUMEN 40 CM PICC IN THE RIGHT BASILIC VEIN. Interventional Vascular Procedure 03/28/17 00:00 IMPRESSION: SUCCESSFUL PLACEMENT OF A 5 FR DUAL LUMEN 40 CM PICC IN THE RIGHT BASILIC VEIN. PICC Line Insertion 03/28/17 09:00 IMPRESSION: SUCCESSFUL PLACEMENT OF A 5 FR DUAL LUMEN 40 CM PICC IN THE RIGHT BASILIC VEIN. Abdomen/Pelvis CT 03/29/17 00:00 IMPRESSION: 1. Mediastinal and right hilar adenopathy with suspicious 5 cm right upper lobe lesion. Low density centrally within the mass likely represents cavitation. Abscess felt to be less likely. 2. Bilateral effusions and other changes as noted. IMPRESSION: 1. Large cystic lesion originates off the right renal lower pole with faint calcified thin septi. Likely Bosniak 2 lesion. Smaller indeterminate lesions in the left kidney. Given the lung findings noted above, doubt renal malignancy primary. 2. Pathologic lumbar spine fractures. 3. Right adrenal adenoma. Chest CT 03/29/17 00:00 IMPRESSION: 1. Mediastinal and right hilar adenopathy with suspicious 5 cm right upper lobe lesion. Low density centrally within the mass likely represents cavitation. Abscess felt to be less likely. 2. Bilateral effusions and other changes as noted. IMPRESSION: 1. Large cystic lesion originates off the right renal lower pole with faint calcified thin septi. Likely Bosniak 2 lesion. Smaller indeterminate lesions in the left kidney. Given the lung findings noted above, doubt renal malignancy primary. 2. Pathologic lumbar spine fractures. 3. Right adrenal adenoma. Head CT 03/29/17 00:00 IMPRESSION: 1. No acute or suspicious intracranial changes. No bone lesions detected in the skull. EVIDENCE OF ACUTE STROKE: NO. Transfer Plan - Disposition Transfer Plan: Transfer to inpatient hospice - Time Spent with Patient Time spent with patient: Greater than 30 Minutes Qualifiers PATEINT BEING DISCHARGED WITH ANY OF THE FOLLOWING DIAGNOSIS?: No
--- NOTE | 2017-04-10 16:34 | PSYCHOLOGICAL NOTE ---
Psych Note - Psych Note Psych Note: Reason for Consult: Altered Mental State Patient presented to the hospital in acute renal failure. Discharge planning included transfer of patient from [facility] to Hospice. Due to patient's altered mental state, this provider did a brief assessment. Patient is lethargic and not oriented to person, place, time or circumstance. Patient is very difficult to understand and questions had to be repeated multiple times to elicit a verbal response from the patient. The patient appeared calm but confused as he kept looking from the provider to the other side of the bed where no one was standing. Patient was asked orientation questions. Patient was asked to name the current president, year and month. Patient responded the president is "Duncan," the year is "1926" and the month is "almost ." Patient was asked where he lived when he was not in the hospital. Patient was unable to name the city but did say he lived in "an apartment." Patient was asked safety questions. Patient was asked what he would do if his home caught fire. Patient's response was "it depends on the holiday." Patient was asked what he would do if a toilet in his home overflowed. He responded, "I don't know." The question was reframed to ask what he would do if the sink in his room overflowed, as this provider pointed at the sink. Initially the patient responded, "I don't know." Patient then responded he would call a fish dressing machine feeder. Patient was asked if he understood what Hospice is and how he felt about possibly going to Hospice. Patient responded with "Sure, I want to live alone." Consultation with Dr. Angulo revealed concerns about the discrepancy of patient 's presentation this morning and this afternoon. Physician notes from this morning indicated the patient was able to answer questions about where he is and what medical issues he is experiencing whereas the patient was not able to engage in a meaningful way with this provider as explained above. Dr. Angulo also had concerns about not enough time elapsing since the patient's last dose of Haldol. For these reasons, Dr. Angulo indicated a full capacity evaluation could not be completed at this time. In consultation with Dr. Angulo she had concerns for potential onset of dementia as it relates to the patient's chronic medical conditions (renal failure and lung cancer) as evidenced by altered mental status and psychosis following the administration of anti-psychotic medication and decreased attention/concentration and increased confusion in the late afternoon hour consistent with ing. Patient will likely be more oriented and present during the morning hours with cognitive decline evidenced as the day goes forward. Thus, it is recommended that decisions regarding his medical care be presented to him early in the morning hours, as possible. It is also recommended that the use of anti-psychotics, benzodiazapines, and sleep aids such as Ambien or Lunesta be avoided, if possible as they are likely to increase his confusion and cause auditory/visual hallucinations. Provider met with patient's brother, medical staff and land planner to discuss results of assessment. Provider advised that, given the discrepancy between patient's presentation this morning and this afternoon and other identified concerns, a full capacity evaluation could not be completed. this provider recoomended follow through with the hospice discharge as it would be in the patient's best interest. Thank you for this kind referral. Please contact the behavioral health office at [phone] if you have any questions.
[2017-04-10] MEDS: TAMSULOSIN HCL 0.4 MG CAP.SR.24H PO SCH (17:45)
[2017-04-10 18:13] LABS: APPEARANCE,URINE SLIGHTLY-CLOUDY; BILIRUBIN,URINE NEGATIVE (NEGATIVE); COLOR,URINE STRAW; GLUCOSE, URINE NEGATIVE (NEGATIVE); KETONES,URINE NEGATIVE (NEGATIVE); LEUKOCYTE ESTERASE,URINE NEGATIVE (NEGATIVE); NITRITE,URINE NEGATIVE (NEGATIVE); PROTEIN,URINE NEGATIVE (NEGATIVE); URINE SPECIFIC GRAVITY 1.004; UROBILINOGEN,URINE NEGATIVE mg/dL (<2.0)
[2017-04-10 20:44] VITALS: BP 97/67
[2017-04-10] MEDS ORDERED: PHARMACY COMMUNICATION ORDER MC SCH (22:00)
[2017-04-10] MEDS: SIMVASTATIN 40 MG TABLET PO SCH (23:23)
[2017-04-11] MEDS ORDERED: NICOTINE 14 MG/24 HR PATCH.TD24 TD SCH (10:00)
== END 2017-04-11 02:51 | disposition hospice, inpatient (51) | DRG 673 ==
LOC: ER 12:52 → EH 18:27 → 3W 21:35
PROVIDERS: ADMIT Internal Medicine; ATTEND Internal Medicine
PROC: 02HV33Z Insertion of Infusion Device into Superior Vena Cava, Percutaneous Approach (ICD-10-PCS; 2017-03-22)
PROC: B518ZZA Fluoroscopy of Superior Vena Cava, Guidance (ICD-10-PCS; 2017-03-22)
PROC: B548ZZA Ultrasonography of Superior Vena Cava, Guidance (ICD-10-PCS; 2017-03-22)
PROC: 0JB70ZZ Excision of Back Subcutaneous Tissue and Fascia, Open Approach (ICD-10-PCS; principal; 2017-03-23)
PROC: 02HV33Z Insertion of Infusion Device into Superior Vena Cava, Percutaneous Approach (ICD-10-PCS; 2017-03-25)
PROC: 0HB6XZZ Excision of Back Skin, External Approach (ICD-10-PCS; 2017-03-25)
PROC: 0HB9XZZ Excision of Perineum Skin, External Approach (ICD-10-PCS; 2017-03-25)
PROC: B518ZZA Fluoroscopy of Superior Vena Cava, Guidance (ICD-10-PCS; 2017-03-25)
PROC: B548ZZA Ultrasonography of Superior Vena Cava, Guidance (ICD-10-PCS; 2017-03-25)
PROC: 0J2VXYZ Change Other Device in Upper Extremity Subcutaneous Tissue and Fascia, External Approach (ICD-10-PCS; 2017-03-26)
PROC: B518ZZA Fluoroscopy of Superior Vena Cava, Guidance (ICD-10-PCS; 2017-03-26)
PROC: 02HV33Z Insertion of Infusion Device into Superior Vena Cava, Percutaneous Approach (ICD-10-PCS; 2017-03-28)
PROC: B518ZZA Fluoroscopy of Superior Vena Cava, Guidance (ICD-10-PCS; 2017-03-28)
PROC: B548ZZA Ultrasonography of Superior Vena Cava, Guidance (ICD-10-PCS; 2017-03-28)
DX: N17.9 Acute kidney failure, unspecified (principal); L89.154 Pressure ulcer of sacral region, stage 4; G92 Toxic encephalopathy; Q21.3 Tetralogy of Fallot; S32.019A Unspecified fracture of first lumbar vertebra, initial encounter for closed fracture; M62.82 Rhabdomyolysis; E87.2 Acidosis; T85.618A Breakdown (mechanical) of other specified internal prosthetic devices, implants and grafts, initial encounter; C90.00 Multiple myeloma not having achieved remission; Z66 Do not resuscitate; D49.1 Neoplasm of unspecified behavior of respiratory system; N28.1 Cyst of kidney, acquired; L89.892 Pressure ulcer of other site, stage 2; N17.0 Acute kidney failure with tubular necrosis; I10 Essential (primary) hypertension; J44.9 Chronic obstructive pulmonary disease, unspecified; E78.5 Hyperlipidemia, unspecified; E03.9 Hypothyroidism, unspecified; I95.9 Hypotension, unspecified; E87.6 Hypokalemia; T40.695A Adverse effect of other narcotics, initial encounter; Y92.230 Patient room in hospital as the place of occurrence of the external cause; D64.9 Anemia, unspecified; R47.02 Dysphasia; R79.1 Abnormal coagulation profile; Z53.09 Procedure and treatment not carried out because of other contraindication; R44.1 Visual hallucinations; Z75.1 Person awaiting admission to adequate facility elsewhere; E86.0 Dehydration; M47.814 Spondylosis without myelopathy or radiculopathy, thoracic region; R63.4 Abnormal weight loss; M54.5 Low back pain; N40.0 Benign prostatic hyperplasia without lower urinary tract symptoms; B96.20 Unspecified Escherichia coli [E. coli] as the cause of diseases classified elsewhere; B95.4 Other streptococcus as the cause of diseases classified elsewhere; F17.210 Nicotine dependence, cigarettes, uncomplicated; W08.XXXA Fall from other furniture, initial encounter; Y93.89 Activity, other specified; Y92.008 Other place in unspecified non-institutional (private) residence as the place of occurrence of the external cause; Z60.2 Problems related to living alone; Z68.28 Body mass index [BMI] 28.0-28.9, adult; Z79.82 Long term (current) use of aspirin; Z79.899 Other long term (current) drug therapy
CPT/HCPCS: 36415; 36569; 36584; 70470; 71010; 71260; 72070; 72110; 72148; 74176; 74177; 76770; 76937; 77001; 80048; 80053; 80307; 81001; 82140; 82232; 82550; 82553; 82570; 82607; 82784; 82785; 82962; 83605; 83735; 83874; 83880; 84165; 84166; 84443; 84484; 85025; 85027; 85610; 85730; 87040; 87070; 87077; 87086; 87186; 87205; 93005; 93010; 93306; 96361; 96365; 99291; 99292; C1769; G8978-GP; G8979-GP; G8996-GN; G8997-GN; J0696; J1630; J1642; J1644; J1885; J2270; J2997; J3475; J3480; J3490; J7030; J7120; S0119